=== PATIENT | female | born 2005 | race Caucasian/White ===

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

== ENCOUNTER 2025-04-21 23:54 | Emergency (ER) | payer BC, MEDICAID, SELFPAY ==
--- OUTSIDE RECORDS SUMMARY | 2025-04-22 00:01 | XMS_ITS | CCD ---
Author Organization [facility] Care Team Providers Care Other Sales Support Worker Name Role Phone DO Ronaldo Holland Primary Care Provider [phone] MD Tammy White Attending Provider Lilian Monreal Unavailable DO Ronaldo Holland Primary Care Provider MD Tammy White Attending Provider MISC, DR BANDA Admitting Unavailable MISC, DR BANDA Attending Unavailable RONALDO HOLLAND Primary Care Unavailable RONALDO HOLLAND Consulting Unavailable Shaista Dye Consulting Unavailable RONALDO HOLLAND Admitting Unavailable RONALDO HOLLAND Attending Unavailable RONALDO HOLLAND Primary Care Unavailable RONALDO HOLLAND Consulting Unavailable DO Ronaldo Holland Primary Care Provider [phone] MD Tammy White Attending Provider DO Ronaldo Holland Primary Care Provider [phone] MD Tammy White Attending Provider Unavailable Primary Care Provider Unavailabl e PROVIDER, UNKNOWN Admitting Unavailable PROVIDER, UNKNOWN Attending Unavailable DO Ronaldo Holland Primary Care Provider MD Tammy White Attending Provider DO Ronaldo Holland Primary Care Provider [phone] MD Tammy White Attending Provider Unavailable Primary Care Provider Unavailabl e DIANDRA MITCHELL Attending Unavailable DIANDRA MITCHELL Referring Unavailable SONIA BANGURA Attending Unavailable Ronaldo Holland MD Primary Care Provider Vanda Duran MD Primary Care Provider Vanda Duran MD Primary Care Provider [phone] Ronaldo Holland Primary Care Unavailable Tammy White Admitting Unavailable Tammy White Attending Unavailable Ronaldo Holland Primary Care Unavailable Tammy White Admitting Unavailable Tammy White Attending Unavailable Feng, RUDI Douglas L Attending Unavailable Feng, RUDI Stella L Attending Unavailable Feng, RUDI Stella L Attending Unavailable Allergies Allergy Classification Reported Allergen(s) Allergy Type Date of Onset Reaction(s) Facility (1 source) Prochlorperazine Drug Allergy Unknown [facility] Other (8 sources) Prochlorperazine Drug Allergy 1 [facility] (1 source) Prochlorperazine Drug Allergy 2 [facility] Repository Medications Current Medications Medication Drug [...] sulfate 6.25 mg extended release oral capsule (8 sources) Central Nervous System Stimulant End: 08-29-2024 take 1 capsule by mouth once daily in the morning, then take 1 capsule by mouth every twenty-four hours amphetamine-dextr oamphetamine XR (ADDERALL XR) 25 mg 24 hr capsule Take 25 mg by mouth every morning. Active atorvastatin 10 mg oral tablet (12 sources) HMG-CoA Reductase Inhibitor Start: 11-18-2023 End: 12-19-2024 take 1 tablet by mouth once daily in the morning atorvastatin (LIPITOR) 10 mg tablet TAKE 1 TABLET BY MOUTH EVERY MORNING 90 tablet 1 12/19/2024 Active Start: 05-17-2023 End: 11-18-2023 atorvastatin (LIPITOR) 10 mg tablet TAKE 1/2 TABLET BY MOUTH EACH MORNING 45 tablet 3 05/17/2023 11/18/2023 Discontinued (Reorder) Atorvastatin Tristan cium Active desmopressin acetate 0.1 mg oral tablet (8 sources) Vasopressin Analog, Factor VIII Activator Start: 11-10-2023 take 1 tablet by mouth once daily desmopressin (DDAVP) 0.1 mg tablet TAKE 1 TABLET BY MOUTH EVERY DAY 90 tablet 1 06/18/2023 Active ethinyl estradiol 0.035 mg / norgestimate 0.25 mg oral tablet (4 sources) Progestin, Estrogen take 1 tablet by [...] a day for 6 days Mar, Active [place] 3 (1 source) [place] 3 Active ondansetron 4 mg oral tablet (5 sources) Serotonin-3 Receptor Antagonist Start: 03-10-2022 take [...] Classification Problem Date Documented Da te Episodic/Chronic Cardiac dysrhythmias (2 sources) Postural orthostatic tachycardia syndrome ; Translations: [POTS (postural orthostatic tachycardia syndrome)] 09-13-2024 Chronic Disorders of lipid metabolism (4 sources) Hyperlipidemia, unspecified; Translations: [HYPERLIPIDEMIA UNSPECIFIED] Onset: 10-10-2022 Chronic Disorders usually diagnosed in infancy, childhood, or adolescence (2 sources) Autism spectrum disorder; Translations: [Autistic disorder] 09-13-2024 Chronic E Codes: Natural/environment (2 sources) Cat scratch injury; Translations: [Scratched by cat, initial encounter] 07-03-2024 Episodic Epilepsy; convulsions (5 sources) Neurological finding; Translations: [Unspecified convulsions] 06-11-2023 Episodic [...] RESULTS KIDNEY FUNCTION STDY] Onset: 10-12-2022 Episodic Residual codes; unclassified (2 sources) Lack of awareness; Translations: [Unspecified symptoms and signs involving cognitive functions and awareness] 09-13-2024 Episodic Sprains and strains (6 sources) Shoulder [...] Test Name Value Interpretation Reference Range Facility Ambulatory Visit Summaryon 0 01-24-2025 Ambulatory Visit Summary Ambulatory Visit Summary KENDY ANDUJAR :2005 Visit Date:01/24/2025 Ambulatory Visit Instructions Your Diagnosis Moderate major depression Anxiety disorder Autism spectrum disorder BMI 30.0-30.9,adult Non-smoker Class 1 obesity due to excess calories in adult Other obesity due to excess calories Your Care Team Attending Physician - Stella Christiansen Primary Care Physician - Stella Christiansen This Is Your Medications List amphetamine-dextroamp hetamine (Dextroamphetamine-Am phetamine ER (Eqv-Adderall XR) 25 mg oral capsule, extended release) atorvastatin (atorvastatin 10 mg Tab) escitalopram (escitalopram 5 mg oral tablet) Procedures Performed Tonsillectomy and adenoidectomy (02/03/2022), Appendectomy (09/17/2017). What to do next Scheduled Follow-Up Appointments 2024 2:40 PM EDT With: Stella Christiansen Where: [place] [address]- Medications What How Much When Instructions Unchanged amphetamine-dextroamp hetamine (Dextroamphetamine-Am phetamine ER (Eqv-Adderall XR) 25 mg oral capsule, [...] you for choosing us for your care. Normal [facility] Comprehensive Metabolic Pane rolando 01-24-2025 Albumin [Mass/Vol] 4.4 g/dL Normal 3.5-5.7 [facility] Comment on above: Performed By: #### C MP, LIPID #### [address] Albumin/Globulin [Mass ratio] 1.9 {ratio} Normal [facility] Comment on above: Performed By: #### C MP, LIPID #### [address] ALP [Catalytic activity/Vol] 62 U/L Normal 34-104 [facility] Comment on above: Performed By: #### C MP, LIPID #### [address] ALT [Catalytic activity/Vol] 10 U/L Normal 7-52 [facility] Comment on above: Performed By: #### C MP, LIPID #### [address] Anion gap [Moles/Vol] 10.7 mmol/L Normal 6.0-15.0 [facility] Comment on above: Performed By: #### C MP, LIPID #### [address] AST [Catalytic activity/Vol] 12 U/L Low 13-39 [facility] Comment on above: Performed By: #### C MP, LIPID #### [address] Bilirubin [Mass/Vol] 0.5 mg/dL Normal 0.3-1.0 [facility] Comment on above: Performed By: #### C MP, LIPID #### [address] Calcium [Mass/Vol] 9.5 mg/dL Normal 8.6-10.3 [facility] Comment on above: Performed By: #### C MP, LIPID #### [place] [address] [place] Chloride [Moles/Vol] 103 mmol/L Normal 98-107 [facility] Comment on above: Performed By: #### C MP, LIPID #### [place] [address] [place] CO2 [Moles/Vol] 29.4 mmol/L Normal 21.0-31.0 [facility] Comment on above: Performed By: #### C MP, LIPID #### [address] Creatinine [Mass/Vol] 1.30 mg/dL High 0.60-1.20 [facility] Comment on above: Performed By: #### C MP, LIPID #### [address] GFR/1.73 sq M.predicted MDRD (S/P/Bld) [Vol rate/Area] mL/min/{1.73_m2} Normal [facility] Comment on above: Performed By: #### C MP, LIPID #### [address] Globulin (S) [Mass/Vol] 2.3 g/dL Normal [facility] Comment on above: Performed By: #### C MP, LIPID #### [address] Glucose [Mass/Vol] 87 mg/dL Normal 70-100 [facility] Comment on above: Result Comment: [place] Glucose Reference Range is dependent on time and content of last meal. Glucose of more than 200 mg/dL in a nonstressed, ambulatory subject supports the diagnosis of Diabetes Mellitus. ADA recommended reference range Performed By: #### C MP, LIPID #### [address] Potassium [Moles/Vol] 4.1 mmol/L Normal 3.5-5.1 [facility] Comment on above: Performed By: #### C MP, LIPID #### [address] Protein [Mass/Vol] 6.7 g/dL Normal 6.4-8.9 [facility] Comment on above: Performed By: #### C MP, LIPID #### [address] Sodium [Moles/Vol] 139 mmol/L Normal 136-145 [facility] Comment on above: Performed By: #### C MP, LIPID #### [facility] [address] Urea nitrogen [Mass/Vol] 29 mg/dL High 03-02 [facility] Comment on above: Performed By: #### C MP, LIPID #### [facility] [address] [place] [id number] [facility] ECG Pediatricon 01-24-2025 ECG Pediatric [facility] Main [place] [address] [place] [address] Electrocardiograph Report Signed Patient: Kendy Andujar MR#: [id number] 60 : 2005 Acct:[id number] Age/Sex: 19 / F ADM Date: 01/24/25 Loc: Room: Type: [facility] Attending Dr: Tammy White MD Ordering [...] By Sammie Beck MD 0 01/24/25 1233 Normal [facility] Family Medicine Office/Clini c Noteon 01-24-2025 Family Medicine Office/Clinic Note Family Medicine Office/Clinic Note HPI Staff Kendy is a 19 year old female presenting with depression GORDON- PHQ- Was taking Lexepro stopped a week and a half ago.... moods were too high and too low peds took her off Lexepro [place] [facility] History of Present Illness pt presents today [...] E&M of New Patient Low 30-44 Min 92277 2. Anxiety disorder (F41.9: Anxiety disorder, unspecified) see above Ordered: buPROPion, 150 mg = 1 tab(s), Oral, q24hr, # 30 tab(s), Refills(s) 1, Pharmacy: [id number] E&M of New Patient Low 30-44 Min 16953 3. Autism spectrum disorder (F84.9: Pervasive developmental disorder, unspecified) stable. high functioning. Ordered: buPROPion, 150 mg = 1 tab(s), Oral, q24hr, # 30 tab(s), Refills(s) 1, Pharmacy: [id number] E&M of New Patient Low 30-44 Min 54293 4. BMI 30.0-30.9,adult (Z68.30: Body mass index [BMI] 30.0-30.9, adult) discussed making healthy food choices Ordered: buPROPion, 150 mg = 1 tab(s), Oral, q24hr, # 30 tab(s), Refills(s) 1, Pharmacy: [id number] E&M of New Patient Low 30-44 Min 25646 5. Class 1 obesity due to excess calories in adult (E66.811: Obesity, class 1) see above Ordered: buPROPion, 150 mg = 1 tab(s), Oral, q24hr, # 30 tab(s), Refills(s) 1, Pharmacy: [id number] E&M of New Patient Low 30-44 Min 70322 6. Non-smoker (Z78.9: Other specified health status) continue not smoking Ordered: buPROPion, 150 mg = 1 tab(s), Oral, q24hr, # 30 tab(s), Refills(s) 1, Pharmacy: [id number] E&M of New Patient Low 30-44 Min 33931 7. POTS (postural orthostatic tachycardia syndrome) (G90.A: Postural orthostatic tachycardia syndrome [POTS]) pt has been seeing a lease purchase driver. was just seen by them yesterday. they aurora some labs. they are suggesting she switch over to an adult crm technical lead. 8. Hypercholesteremia (E78.00: Pure hypercholesterolemia, unspecified) lipid panel drawn yesterday by cardiology. not taking atorvastatin Follow-up No qualifying data available Problem List/Past Medical History Ongoing Anxiety disorder Attention deficit hyperactivity disorder (ADHD) Autism spectrum disorder Hypercholesteremia Moderate major depression POTS (postural orthostatic tachycardia syndrome) Historical No qualifying data Procedure/Surgical History Tonsillectomy and adenoidectomy (02/03/2022), Appendectomy (09/17/2017). Medications atorvastatin 10 mg Tab, Not taking Dextroamphetamine-Amp hetamine ER (Eqv-Adderall XR) 25 mg oral capsule, extended release, Not taking escitalopram 5 mg oral tablet, 5 mg= 1 tab(s), Oral, Daily, Not taking Wellbutrin XL 150 mg/24 hours Tab-ER, 150 mg= 1 tab(s), Oral, q24hr, 1 refills Allergies No active allergies Social History Alcohol Never., 01/24/2025 Substance Abuse Never., 01/24/2025 Tobacco Never (less than 100 in lifetime) Tobacco Use:., 01/24/2025 [facility] Comment on above: Result Comment: Elec tronically Signed By: Stella Christiansen\.br\Date and Time Signed: 01/24/25 17:20 EDT Lipid Panelon 01-24-2025 Cholesterol [Mass/Vol] 209 mg/dL High 140-200 [facility] Comment on above: Result Comment: Chol less than 200 mg/dl low risk Chol 201-239 mg/dl borderline risk Chol 240 mg/dl and greater high risk Performed By: #### C MP, LIPID #### [address] Cholesterol in HDL [Mass/Vol] 37 mg/dL Normal 23-92 [facility] Comment on above: Result Comment: HDL CHOL ATP-III CLASSIFICATION Cardiovascular Risk HDL > or equal to 60 mg/dL LOW HDL < 40 mg/dL HIGH Performed By: #### C MP, LIPID #### [address] Cholesterol.total/Chol esterol in HDL [Mass ratio] 5.6 {ratio} Normal <5.0 [facility] Comment on above: Result Comment: PERF ORMED BY: [place] [address] PATHOLOGIST INFORMIX DEVELOPER GENESIS CARPENTER M.D. Performed By: #### C MP, LIPID #### [address] LDL Cholesterol,Calculated 149 mg/dL High 0-100 [facility] Comment on above: Result Comment: LDL ATP III CLASSIFICATION LDL less than 100 mg/dL Optimal LDL 100-129 mg/dL Near or above optimal LDL 130-159 mg/dL Borderline high LDL 160-189 mg/dL High LDL greater than 189 mg/dL Very high Performed By: #### C MP, LIPID #### [place] [address] [place] Triglyceride w/Reflex 113 mg/dL Normal 0-149 [facility] Comment on above: Result Comment: TRIG ATP III CLASSIFICATION TRIG less than 150 mg/dL Normal TRIG 150-199 mg/dL Borderline high TRIG 200-500 mg/dL High TRIG greater than 500 mg/dL Very high Standard traceable to the Center for Disease Conrtrol and Prevention (CDC) test method. Performed By: #### C MP, LIPID #### [facility] [address] VLDL CHOLESTEROL 22 mg/dL Normal [facility] Comment on above: Performed By: #### C MP, LIPID #### [facility] [address] [place] [id number] [facility] ECG Pediatricon 05-24-2024 ECG Pediatric [facility] Main [place] [address] [place] [address] Electrocardiograph Report Signed Patient: Kendy Andujar MR#: [id number] 60 : 2005 Acct:[id number] Age/Sex: 18 / F ADM Date: 05/24/24 Loc: Room: Type: [facility] Attending Dr: Tammy White MD Ordering [...] now present Confirmed by TAMMY WHITE MD ([id number]) on 05/24/2024 2:38:41 PM Referred By: Electronically Signed By: TAMMY WHITE MD Transcribed By: MUS Signed By Tammy White MD 05/24/24 1438 Normal [facility] Progress Noteson 06-11-2023 Manager Of Corporate Communications Authentication Interface Message Text EMERGENCY TRIAGE, TREAT AND TRANSPORT (ET3) DOCUMENTATION OF TELEHEALTH VISIT Date / Time: 05/08/20232229 Name: Kendy Andujar : 2005 SSN: [id number] EMS Agency: [facility] [x] Verbal consent obtained, from patient [...] Completed by: Pedro Bernal MD Normal [facility] KIDNEYSon 10-10-2022 US KIDNEYS EXAM: US [...] by: SHAISTA DYE Date: 2022-10-10 11:42 Normal [facility] Cholesterol [Mass/volume] in Serum or PlasmaOrdered By: Tammy White on 05-20-2022 Cholesterol [Mass/Vol] 194 mg/dL 140-200 [facility] Comment on above: Chol less than 200 m g/dl low riskChol 201-239 mg/dl borderline riskChol 240 mg/dl and greater high risk Cholesterol in LDL Calc [Mas s/Vol]Ordered By: Tammy White on 05-20-2022 Cholesterol in LDL [Mass/Vol] 138 mg/dL 0-100 [facility] Comment on above: LDL ATP III CLASSIFI CATIONLDL less than 100 mg/dL OptimalLDL 100-129 mg/dL Near or above optimalLDL 130-159 mg/dL Borderline highLDL 160-189 mg/dL HighLDL greater than 189 mg/dL Very high Cholesterol in VLDL Calc [Ma ss/Vol]Ordered By: Tammy White on 05-20-2022 Cholesterol in VLDL [Mass/Vol] 17 mg/dL [facility] Serum or plasma high density lipoprotein (HDL) cholesterol measurementOrdered By: Tammy White on 05-20-2022 Cholesterol in HDL [Mass/Vol] 38 mg/dL 35-85 [facility] Comment on above: HDL CHOL ATP-III CLA SSIFICATION Cardiovascular RiskHDL > or equal to 60 mg/dL LOWHDL < 40 mg/dL HIGH Serum or plasma total choles terol/high density lipoprotein (HDL) cholesterol mass ratOrdered By: Tammy White on 05-20-2022 Cholesterol.total/Chol esterol in HDL [Mass ratio] 5.1 {ratio} <5.0 [facility] Triglyceride [Mass/volume] i n Serum or PlasmaOrdered By: Tammy White on 05-20-2022 Triglyceride [Mass/Vol] 89 mg/dL 35-149 [facility] Comment on above: TRIG ATP III CLASSIF ICATIONTRIG less than 150 mg/dL NormalTRIG 150-199 mg/dL Borderline highTRIG 200-500 mg/dL High TRIG greater than 500 mg/dL Very highStandard traceable to the Center for Disease Conrtrol and Prevention (CDC) test method. Covid-19 PCR ([facility]on 04-09 SARS-CoV-2 (COVID-19) RNA DEBRA+probe Ql (Unsp spec) Not detected Normal NOT DETECTED [facility] Comment on above: Result Comment: This test is not yet approved or cleared by the [place] FDA. When there are no FDA-approved or cleared tests available, and other criteria are met, FDA can make tests available under an emergency access mechanism called an Emergency Use Authorization (EUA). The EUA for this test is supported by the Executive Chairman of Health and Human Service's (HHS's) declaration [...] consistent with SARS-CoV-2. Performed By: #### [facility] #### [facility] [address] [place] [address] Dr. Ivette Meyer COVID Quick Testingon 2021 COVID Quick Testing [facility] 3 Other COVID Quick Testing Negative [facility] [employer] Other Cholesterol [Mass/volume] in Serum or PlasmaOrdered By: Tammy White on 12-17-2021 Cholesterol [Mass/Vol] 226 mg/dL 140-200 [facility] Comment on above: Chol less than 200 m g/dl low risk Chol 201-239 mg/dl borderline risk Chol 240 mg/dl and greater high risk Cholesterol in LDL Calc [Mas s/Vol]Ordered By: Tammy White on 12-17-2021 Cholesterol in LDL [Mass/Vol] 168 mg/dL 0-100 [facility] Comment on above: LDL ATP III CLASSIFI CATION LDL less than 100 mg/dL Optimal LDL 100-129 mg/dL Near or above optimal LDL 130-159 mg/dL Borderline high LDL 160-189 mg/dL High LDL greater than 189 mg/dL Very high Cholesterol in VLDL Calc [Ma ss/Vol]Ordered By: Tammy White on 12-17-2021 Cholesterol in VLDL [Mass/Vol] 20 mg/dL [facility] Serum or plasma high density lipoprotein (HDL) cholesterol measurementOrdered By: Tammy White on 12-17-2021 Cholesterol in HDL [Mass/Vol] 37 mg/dL 35-85 [facility] Comment on above: HDL CHOL ATP-III CLA SSIFICATION Cardiovascular Risk HDL > or equal to 60 mg/dL LOW HDL < 40 mg/dL HIGH Serum or plasma total choles terol/high density lipoprotein (HDL) cholesterol mass ratOrdered By: Tammy White on 12-17-2021 Cholesterol.total/Chol esterol in HDL [Mass ratio] 6.1 {ratio} [facility] Triglyceride [Mass/volume] i n Serum or PlasmaOrdered By: Tammy White on 12-17-2021 Triglyceride [Mass/Vol] 103 mg/dL 35-149 [facility] Comment on above: TRIG ATP III CLASSIF ICATION TRIG less than 150 mg/dL Normal TRIG 150-199 mg/dL Borderline high TRIG 200-500 mg/dL High TRIG greater than 500 mg/dL Very high Standard traceable to the Center for Disease Conrtrol and Prevention (CDC) test method. Vital Signs Date Time Vital Sign Value Performing Clinician Facility 08-29-2024 17:31-0500 Body height 154.9 cm Diandra Mitchell DO Work Phone: [facility] 08-29-2024 17:31-0500 Body mass index (BMI) [Percentile] Per age and sex 83.57 % Diandra Paula DO Work Phone: [facility] 08-29-2024 17:31-0500 Body mass index (BMI) [Ratio] 25.7 kg/m2 Diandra Paula DO Work Phone: [facility] 08-29-2024 17:31-0500 Body weight 61.69 kg Diandra Paula DO Work Phone: [facility] 08-29-2024 17:31-0500 Diastolic blood pressure 74 mm[Hg] Diandra Paula DO Work Phone: [facility] 08-29-2024 17:31-0500 Heart rate 87 /min Diandra Paula DO Work Phone: [facility] 08-29-2024 17:31-0500 SaO2% (BldA) [Mass fraction] 98 % Diandra Paula DO Work Phone: [facility] 08-29-2024 17:31-0500 Systolic blood pressure 112 mm[Hg] Diandra Paula DO Work Phone: [facility] 05-08-2023 22:30-0400 Diastolic blood pressure 78 mm[Hg] Et[facility] 05-08-2023 22:30-0400 Heart rate 102 /min [facility] 22:30-0400 Respiratory rate 18 /min [facility] 05-08-2023 22:30-0400 SaO2% (BldA) [Mass fraction] 99 % [facility] 05-08-2023 22:30-0400 Systolic blood pressure 108 mm[Hg] [facility] 03-10-2022 19:30-0400 Body height 157.48 cm Lilian Jocelin Other [facility] Other 03-10-2022 19:30-0400 Body mass index (BMI) [Ratio] 30.36 kg/m2 Lilian Jocelin Other [facility] Other 03-10-2022 19:30-0400 Body temperature 96.9 [degF] Lilian Jocelin Other [facility] Other 03-10-2022 19:30-0400 Body weight 75.3 kg Lilian Jocelin Other [facility] Other 03-10-2022 19:30-0400 Respiratory rate 18 /min Lilian oMnreal Other [facility] Other 03-10-2022 19:30-0400 SaO2% (BldA) [Mass fraction] 98 % Lilian Monreal Other [facility] Other Encounters Encounter Date Encounter Type Care Provider Facility Start: 04-04-2025 End: 04-04-2025 ambulatory REALTY LO[employer] SPECIALIST Stella L Feng Facility:[facility] Start: 03-07-2025 End: 03-07-2025 ambulatory REALTY LOAN SPECIALIST Stella L Feng Facility:[facility] Start: 01-24-2025 End: 01-27-2025 ambulatory Tammy White MD Work Phone: [facility] Start: 12-15-2024 End: 12-19-2024 Refill [facility] White MD [facility] Comment on above: Med Refill Start: 09-11-2024 End: 09-11-2024 ambulatory DIANDRA PAULA Not Available Start: 09-07-2024 End: 09-07-2024 ambulatory DIANDRA PAULA Not Available Start: 08-29-2024 End: 08-29-2024 Office consultation new/estab patient 60 min Diandra Paula DO Work Phone: [facility] Comment on above: Seizure (CMS/HCC) (P rimary Dx); POTS (postural orthostatic tachycardia syndrome); Autism (CMS/HCC); Alteration of awareness Start: 08-29-2024 End: 08-29-2024 ambulatory DIANDRA PAULA Not Available Start: 07-03-2024 End: 07-04-2024 ambulatory SUMMER M WORKMAN Not Available Start: 07-03-2024 End: 07-04-2024 Office outpatient visit 25 minutes Summer M Workman PA Work Phone: [facility] Comment on above: Cat scratch of multi ple sites (Primary Dx); Open wound of right middle finger due to cat bite Start: 05-25-2024 End: 05-26-2024 Refill Tammy White MD Work Phone: [facility] Comment on above: Med Refill Start: 05-24-2024 End: 05-24-2024 Patient encounter procedure DO Ronaldo Holland Work Phone: [facility] Work Phone: Start: 05-24-2024 End: 05-24-2024 ambulatory DO Ronaldo Paul Skyler Work Phone: [facility] Ctr Work Phone: Start: 11-24-2023 End: 11-24-2023 ambulatory DO Ronaldo Paul Holland Work Phone: [facility] Work Phone: Start: 11-24-2023 End: 11-24-2023 Patient encounter procedure DO Ronaldo Holland Work Phone: [facility] Work Phone: Start: 11-12-2023 End: 11-18-2023 Telephone encounter [facility] Start: 06-11-2023 End: 07-06-2023 ambulatory UN[facility]ER [facility] Start: 05-08-2023 End: 05-08-2023 ambulatory [facility] Emergenc y Triage, Treat and Transport Start: 05-08-2023 End: 05-08-2023 Emergency department patient visit [facility] Emergency Triage, Treat and Transport Comment on above: Arrived Start: 03-24-2023 End: 03-24-2023 ambulatory DO Ronaldo A Skyler Work Phone: [facility] Work Phone: Start: 03-24-2023 End: 03-24-2023 Patient encounter procedure DO Ronaldo Holland Work Phone: [facility] Work Phone: Start: 11-25-2022 End: 11-25-2022 ambulatory DO Ronaldo Paul Skyler Work Phone: [facility] Work Phone: Start: 11-25-2022 End: 11-25-2022 Patient encounter procedure DO Ronaldo Holland Work Phone: [facility] Work Phone: Start: 10-10-2022 End: 10-11-[address] DOCTOR PARIKH Facility:[facility]1 Start: 05-20-2022 End: 05-20-2022 ambulatory DO Ronaldo Holland Work Phone: [facility] Work Phone: Start: 05-20-2022 End: 05-20-2022 Patient encounter procedure DO Ronaldo Holland Work Phone: [facility] Start: 04-23-2022 End: 04-24-2022 ambulatory RONALDO HOLLAND Facility:[facility]1 Start: 03-10-2022 End: 03-10-2022 ambulatory Lilian Monreal Other [employer] Other Start: 03-10-2022 Office outpatient vi sit 15 minutes Lilian Monreal [facility] Start: 12-17-2021 End: 12-17-2021 Patient encounter procedure DO Ronaldo Holland Work Phone: [facility] Plan of Treatment Date Care Activity Detail Author Start: 09-23-2026 DTaP,Tdap and Td Vaccines (7 - Td or Tdap) DTaP,Tdap and Td Vaccines (7 - Td or Tdap) [facility] Start: 09-23-2026 Tetanus,Diptheria,Pe rtu ssis Vaccine (7 - Td or Tdap) Tetanus,Diptheria,Pertu ssis Vaccine (7 - Td or Tdap) [facility] Start: 04-09-2025 Influenza vaccination Influenza Vacc ine [facility] Start: 10-17-2024 End: 10-17-2024 Patient encounter procedure 10/17/2024 10:00 AM EDT Office Visit LARISA FUNK [address] [id number] Chen Crowell, CORN GRINDER [address] [place] LARISA FUNK Start: 08-29-2024 End: 08-29-2025 Home EEG 36-84 Hours Home EEG 36-84 Hours Neurology Routine Seizure (CMS/HCC) Expected: 08/29/2024 (Approximate), Expires: 08/29/2025 [facility] Work Phone: Comment on above: Expected: 08/29/2024 (Approximate), Expires: 08/29/2025 Start: 04-09-2024 Influenza vaccination [facility] Start: 2023 Adult BMI Screening Adult BMI Screen ing [facility] Start: 04-09-2023 COVID-19 Vaccine (2022- season) [facility] ( [facility] Start: 04-09-2023 Influenza vaccination Influenza Vacc ine (#1) [facility] Start: 2021 MCV (1 - 2-dose series) MCV (1 - 2-d ose series) [facility] Start: 2021 MCV (2 - 2-dose series) MCV (2 - 2-d ose series) [facility] Start: 2021 Meningococcal B (Bexsero,OMV) Vaccine (Optional,16-23 years) Meningococcal B (Bexsero,OMV) Vaccine (Optional,16-23 years) [facility] Start: 2021 Meningococcal Conjug ate (MCV4,ACWY) Vaccine (2 - 2-dose series) Meningococcal Conjugate (MCV4,ACWY) Vaccine (2 - 2-dose series) [facility] Start: 2020 HIV screening HIV Test [facility] Start: 2020 HPV Vaccines (1 - 3-dose series) HPV Vaccines (1 - 3-dose series) [facility] Start: 2020 Screening for Chlamy salud trachomatis STI Screening (Age 15-17) [facility] Start: 2020 Vision Test (15-17 yrs,once) Vision Test (15-17 yrs,once) [facility] Start: 2018 Varicella Vaccines ( 1 of 2 - 13+ 2-dose series) Varicella Vaccines (1 of 2 - 13+ 2-dose series) [facility] Start: 2017 Depression Screening Depression Scre ening [facility] Start: 2017 Tobacco Screening Tobacco Screening [facility] Start: 2016 Adolescent Depressio n Screening Adolescent Depression Screening [facility] Start: 2015 Hearing Test (10-18 yrs,once) Hearing Test (10-18 yrs,once) [facility] Start: 2012 DTaP,Tdap and Td Vaccines (1 - Tdap) DTaP,Tdap and Td Vaccines (1 - Tdap) [facility] Start: 06-30-2012 MMR Vaccines (2 of 2 - Standard series) MMR Vaccines (2 of 2 - Standard series) [facility] Start: 2008 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, 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,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) [facility] Start: 2006 Hepatitis A Vaccines (1 of 2 - 2-dose series) Hepatitis A Vaccines (1 of 2 - 2-dose series) [facility] Start: 2006 MMR Vaccines (1 of 2 - Standard series) MMR Vaccines (1 of 2 - Standard series) [facility] Start: 06-10-2006 Hepatitis B Vaccines (3 of 3 - 3-dose series) Hepatitis B Vaccines (3 of 3 - 3-dose series) [facility] Start: 2005 Hepatitis B Vaccines (1 of 3 - 3-dose series) Hepatitis B Vaccines (1 of 3 - 3-dose series) [facility] Home EEG 36-84 Hours Home EEG 36 -84 Hours Neurology Routine Seizure (CMS/HCC) 09/11/2024 8:35 AM EST [facility] Immunizations Immunization Date Immunization Notes Care Provider Fa cility 07-03-2024 tetanus toxoid, redu blas diphtheria toxoid, and acellular pertussis vaccine, adsorbed [facility] Work Phone: [facility] 01-20-2023 meningococcal B vaccine, recombinant, OMV, adjuvanted [facility] Work Phone: [facility] 01-20-2023 meningococcal polysaccharide (groups A, C, Y and W-135) diphtheria toxoid conjugate vaccine (MCV4P) [facility] Work Phone: [facility] 05-18-2022 influenza, injectabl e, quadrivalent, preservative free [facility] Work Phone: [facility] 05-18-2022 influenza virus vaccine, unspecified formulation Tammy White MD Work Phone: [facility] 05-02-2021 influenza, injectabl e, quadrivalent, preservative free [facility] 05-02-2021 influenza virus vaccine, unspecified formulation [facility] 04-19-2020 influenza, injectabl e, quadrivalent, preservative free [facility] 05-03-2019 influenza, injectabl e, quadrivalent, preservative free [facility] 09-12-2018 influenza, injectabl e, quadrivalent, preservative free [facility] 06-22-2017 human papilloma viru s vaccine, quadrivalent [facility] 06-22-2017 influenza, injectabl e, quadrivalent, preservative free [facility] 09-23-2016 Meningococcal, MCV4, unspecified conjugate formulation(groups A, C, Y and W-135) [facility] 09-23-2016 tetanus toxoid, redu blas diphtheria toxoid, and acellular pertussis vaccine, adsorbed [facility] 06-03-2016 Human Papillomavirus 9-valent vaccine [facility] 05-22-2016 influenza virus vaccine, unspecified formulation [facility] 05-31-2015 influenza virus vaccine, unspecified formulation [facility] 06-26-2014 influenza virus vaccine, unspecified formulation [facility] 05-24-2013 influenza virus vaccine, unspecified formulation [facility] 06-02-2012 influenza virus vaccine, unspecified formulation [facility] 06-02-2012 measles, mumps and rubella virus vaccine [facility] 06-02-2012 varicella virus vaccine [facility] 06-13-2010 influenza virus vaccine, unspecified formulation [facility] 09-30-2009 diphtheria, tetanus toxoids and acellular pertussis vaccine [facility] 09-30-2009 measles, mumps and rubella virus vaccine [facility] 09-30-2009 poliovirus vaccine, inactivated [facility] 09-30-2009 varicella virus vaccine Et[facility] 09-12-2009 influenza virus vaccine, unspecified formulation [facility] 06-15-2008 influenza virus vaccine, unspecified formulation [facility] 03-01-2008 influenza virus vaccine, unspecified formulation [facility] 10-09-2007 measles, mumps and rubella virus vaccine Et[facility] 05-20-2007 hepatitis A vaccine, pediatric/adolescent dosage, 2 dose schedule [facility] 05-20-2007 pneumococcal Conjuga te, unspecified formulation [facility] 11-04-2006 diphtheria, tetanus toxoids and acellular pertussis vaccine Et[facility] 11-04-2006 haemophilus influenz ae type b vaccine, PRP-T conjugate [facility] 11-04-2006 hepatitis A vaccine, pediatric/adolescent dosage, 2 dose schedule Et[facility] 11-04-2006 measles, mumps, rubella, and varicella virus vaccine Et[facility] 11-04-2006 pneumococcal conjuga te vaccine, 7 valent Et[facility] 11-04-2006 measles, mumps and rubella virus vaccine Tammy White MD Work Phone: [facility] 07-08-2006 influenza, seasonal, injectable Et[facility] 04-15-2006 diphtheria, tetanus toxoids and acellular pertussis vaccine Et3 [facility] 04-15-2006 haemophilus influenz ae type b conjugate and Hepatitis B vaccine Et[facility] 04-15-2006 pneumococcal conjuga te vaccine, 7 valent [facility] 04-15-2006 poliovirus vaccine, inactivated [facility] 01-29-2006 diphtheria, tetanus toxoids and acellular pertussis vaccine Et3 [facility] 01-29-2006 haemophilus influenz ae type b conjugate and Hepatitis B vaccine Et3 [facility] 01-29-2006 pneumococcal conjuga te vaccine, 7 valent [facility] 01-29-2006 poliovirus vaccine, inactivated [facility] 2005 diphtheria, tetanus toxoids and acellular pertussis vaccine [facility] 2005 haemophilus influenz ae type b vaccine, PRP-T conjugate [facility] 2005 hepatitis B vaccine, pediatric or pediatric/adolescent dosage [facility] 2005 poliovirus vaccine, inactivated [facility] Payers Date Payer Category Payer Self-pay [id number] 2022 Medicaid [id number] 2022 Medicaid [id number] 2020 Blue Cross Blue Shield [id number] 2020 Blue Cross Blue Shie ld Managed Care - Other ANTHEM [id number] 2020 Unknown AN[employer]M BCBS OUT OF STATE PPO/TRUST [id number] 2020-Present [phone] [address] [place] [address] [id number] 2005 Unknown [id number] [id number]. 593 2005 Unknown [id number] [id number]. 1259 2005 Unknown [id number] 2.16.840.1.039695.3.579.2. 1259 2005 Unknown [id number] 2.16.840.1.060368.3.579.2. 1259 2005 Unknown [id number] 2.16.840.1.378270.3.579.2. 1259 2005 Unknown [id number] 2.16.840.1.050667.3.579.2. 727 2005 Unknown [id number] 2.16.840.1.399405.3.579.2. 727 2005 Unknown [id number] 2.16.840.1.662357.3.579.2. 727 1984 Unknown [id number] 2.16.840.1.966846.3.579.2. 593 1959 Unknown [id number] 1959 Unknown [id number] [id number] Unknown [id number] 2.16.840.1.734122.3.579.2. 732 [employer] ( and others) [id number] Medicaid [id number] Medicaid [place] Advantage [id number] Unknown [id number] [id number]. 531 Unknown [id number] [id number]. 531 Social History Date Type Detail Facility Tobacco smoking status NHIS Unknown if ever smoked [facility] Work Phone: Start: 2005 Sex Assigned At Female F [facility] Start: 09-18-2020 End: 08-29-[address] [facility] [employer] Other Tobacco smoking status NHIS Tobacco smoking consumption unknown [facility] Start: 2005 Sex Assigned At [facility] on file [facility] Start: 12-03-2020 End: 08-29-2024 Tobacco smoking status NHIS Never smoked tobacco [facility] Start: 12-03-2020 End: 08-29-2024 Tobacco use and exposure Smokeless tobacco non-user [facility] Start: 09-18-2020 End: 08-29-2024 History of Social function [facility] Start: 12-31-2020 Alcoholic beverage intake Current non-drinker of alcohol (finding) [facility] Childcare Unknown [facility] Start: 03-12-2015 Sex Female (finding) [facility] Clinical Notes 03-10-2022 to 08-29-2024 Diandra Mitchell DO - 08/29/2024 5:30 PM GAVINO Hutchinson - 07/03/2024 7:30 PM ESTTelephone Encounter - Lyndsey Walker RN - 11/12/2023 3:31 PM Pedro Suarez MD - 06/11/2023 11:51 AM EDT Note Date & Type Note Facility 08-29-2024 History of Presen t illness Narrative Images from the original note were not included. Chief Complaint Patient presents with POTS Seizures Subjective Kendy Andujar, 18 y.o., female being seen in Neurology consultation at the request of Dr. Ronaldo Holland. He is on peds on wheels. HPI SELF / PHONED IN : POTS , tremors, seen @ [facility] ER , PCP [facility] Wheels Patient is here today with her mom. She was diagnosed with POTS November of 2020 after having COVID. The COVID symptoms were basically just a bad cold. She was not hospitalized. Since that time she started to have the syncope. She has been passing out once a week. She does not get other lightheaded spells. She only gets them when she does not eat appropriately. She was diagnosed with seizures-like events the same time that she was diagnosed with POTS. The adjunct psychology faculty member that saw them thought they were not a true seizure. Mom states that she had an event 2 days ago. She was at a friends house and she fell down and was convulsing. It lasted 30 seconds to a minute. Mom states there have been a few that lasted 4-5 minutes. She does not recall the events. Mom states that she is confused and tired after an event. She denies any trauma to her tongue or mouth. She denies loss of bladder. She did have an EEG at the [facility]. She does not know results. Mother witnessed them. At first they were staring off spells. She has other ones that she has her head is to the side and her eyes are rolled back. They are not closed. Mother states her head will jerk side to side. She is fairly stiff. She will tell mother that she does not feel well and will sit down. Other times she just drops. She had a MCD[place]LL at a football game and she dropped down and had an event. The patient went to the [place] ER for her arms jerking. This was also making her arms hurt. She was given a muscle relaxer and this helped her symptoms. She sees a Clinical Auditor for POTS at [facility]- she was told to keep her sodium levels up. She does not think that she had a tilt table. She thinks she had a CT or MRI. She saw the lease purchase driver at [facility]. She also has a history of Hyperlipidemia. She has a hx of some hypoglycemia. She saw a previous pediatric Neurologist. Past Medical History: Diagnosis Date Anxiety Autism (CMS/HCC) Hyperlipidemia (CMS/HCC) Hypotension POTS (postural orthostatic tachycardia syndrome) Past Surgical History: Procedure Laterality Date APPENDECTOMY TONSILLECTOMY Family History Problem Relation Name Age of Onset Migraines Mother Kidney disease Mother Alcohol abuse Father Developmental delay Father Hypertension Father Hyperlipidemia Father Autism Father Social History Tobacco Use Smoking status: Never Smokeless tobacco: Never Substance Use Topics Alcohol use: Not on file Allergies: Prochlorperazine General: No fever or chills HEENT: No nasal congestion or runny nose Pulmonary: No shortness of breath or cough Cardiovascular: No chest pain or palpitations GI: No nausea or vomiting : No dysuria or hematuria Musculoskeletal: No new aches or pains or muscle weakness Infectious: no recurrent fevers or infections Dermatologic: No rashes or skin lesions Neurologic: No new headaches or dizziness Vitals: 08/29/24 1731 BP: 112/74 Pulse: 87 SpO2: 98% Body mass index is 25.7 kg/m . weight: 136 lb Neurologic exam: General: Normal body habitus, cooperative, pleasant Mental status: Awake, alert to person, place and time. Recent and remote memory below average with mild autism Attention and concentration are normal. Fund of knowledge is below average with autism HEENT: NC/AT Cranial nerves: CN II: Visual giron full to confrontation. No loss of vision CN III, IV, : pupils equal round and reactive to light. Extraocular movements intact. No ptosis present. CN V: Facial sensation is normal. CN VII: Full and symmetric facial movement. CN VIII: Hearing is normal CN IX and X: Palate elevates symmetrically. CN XI: Shoulder shrug is normal bilaterally. CN XII: Tongue is midline without atrophy or fasciculation. Speech: Clear and fluent no aphasia or dysarthria Pronator drift: Negative bilateral upper extremity Coordination: Intact, no signs of dysmetria Good finger to nose and rapid alternating movements Sensory: Sensation is intact to light, temperature and vibratory touch throughout four extremities. Pinprick intact in all four extremities. Motor: LUE 5/5 RUE 5/5 LLE 5/5 RLE 5/5 Tone: Physiologic, no tremor, bradykinesia or rigidity DTR: Bilateral Biceps 2/4 Bilateral BR 2/4 Bilateral Patellar 2/4 No spasticity Gait: Normal to casual gait Romberg's Negative Review and summary of old records: Assessment/Plan Diagnoses and all orders for this visit: Seizure ([facility]) - Home EEG 36-84 Hours; Future POTS (postural orthostatic tachycardia syndrome) Autism ([facility]) Alteration of awareness 18-year-old Autistic female with seizure-like episodes. Patient was diagnosed with POTS and has seen Cardiology for that. She is trying to keep her sodium and fluids up. She however has had some syncopal events with suspected post syncopal convulsions. She may be having some nonepileptic seizure type of events but we would like to rule out seizure. She did have a normal EEG routine. She did have a workup for seizure back in 2020. She had a normal routine EEG and they were going to do a longer EEG we do not have those records. We will try to track down. At this time I am not entirely convinced this is seizure this may be more related to the POTS with post syncopal convulsions versus nonepileptic events. I feel she needs an ambulatory EEG to assess this further. I am hopeful that we will capture 1 of the events so we can determine their etiology. Plan We will try to track down any brain imaging that is been done Routine EEG was normal Ambulatory EEG and try to capture 1 of the events Drink half of her body weight and oz of water per day 3-5 g of salt per day Monitor the blood pressure Monitor for any triggers such as stress We will decide the next step in treatment or for possible addition of antiseizure medicine once we have her ambulatory EEG The diagnosis was all discussed with the patient. All questions were answered and they agreed with the treatment plan. Patient will call if there are any new issues or questions. Pt has been fully educated on their diagnosis, treatment options, follow up plan, and return instructions Return to clinic: 6-8 weeks documented in this encounter [facility] 07-03-2024 History of Presen t illness Narrative [address] [facility], [address] P: [phone] F: [phone] HPI Historian of HPI: patient Kendy Andujar is a 18 y.o. female who [...] tablet; Refill: 0 documented in this encounter [facility] 11-12-2023 Miscellaneous Notes Called patient's mother with message below. Mother states that patient has been compliant with her atorvastatin. ----- Message from Tammy White MD sent at 11/12/2023 10:18 AM EDT ----- Please let parents know that her LDL has increased after her not being compliant with her medication. She needs to go back on her statin drug. Her LDL is 148 and we would like it to be a proximally 100-110. Her triglycerides are elevated and this is a direct relation to her eating fatty foods. Please find out if she was taking her medication around the time that she did her lab work. If she was then we will have to increase the dose. Patient was taking medication at the time of her labwork, will call patient's mother back with the increased dosage as soon as you let me know. I have sent a prescription for 10 mg once per day. She was taking half a tablet now she is to take 1 entire tablet. She needs to repeat her labs in 3 months documented in this encounter [facility] 11-12-2023 Telephone encounter Note Called patient's mother with message below. Mother states that patient has been compliant with her atorvastatin. ----- Message from Tammy White MD sent at 11/12/2023 10:18 AM EDT ----- Please let parents know that her LDL has increased after her not being compliant with her medication. She needs to go back on her statin drug. Her LDL is 148 and we would like it to be a proximally 100-110. Her triglycerides are elevated and this is a direct relation to her eating fatty foods. [facility] 11-12-2023 Telephone encounter Note Please find out if she was taking her medication around the time that she did her lab work. If she was then we will have to increase the dose. [facility] 11-12-2023 Telephone encounter Note Patient was taking medication at the time of her labwork, will call patient's mother back with the increased dosage as soon as you let me know. [facility] 11-12-2023 Telephone encounter Note I have sent a prescription for 10 mg once per day. She was taking half a tablet now she is to take 1 entire tablet. She needs to repeat her labs in 3 months T [facility] 06-11-2023 History of Presen t illness Narrative Images from the original note were not included. EMERGENCY TRIAGE, TREAT AND TRANSPORT (ET3) DOCUMENTATION OF TELEHEALTH VISIT Date / Time: 05/08/2023 / 2229 Name: Kendy Andujar : 2005 SSN: [id number] EMS Agency: [facility] [x] Verbal consent obtained, from patient [...] Pedro Bernal MD documented in this encounter [facility] 03-10-2022 Evaluation note Encounter Date Diagnosis Assessment [...] care provider if no improvement of symptoms. Finding Something 3 Other Evaluation noteNo assessment information available [facility] Work Phone: Evaluation note* Diagnosis Seizure-like activity (HCC)- Primary Other convulsions [facility] Cat scratch of multiple sites- Primary Open wound of right middle finger due to cat bite [facility] Diagnosis Seizure (CMS/HCC)- Primary Other convulsions POTS (postural orthostatic tachycardia syndrome) Unspecified tachycardia Autism (CMS/HCC) Autistic disorder, current or active state Alteration of awareness documented in this encounter [facility]History general Narrative - Reported* Type Description Date Medical History hypercholesterolemia Surgical History tonsillectomy and adenoidectomy Surgical History appendectomy Hospitalization History staff infection Finding Something 3 Other InstructionsNot on filedocumented in this encounter [employer] SystemInstructionsNot on filedocumented in this encounter [employer] SystemInstructionsNot on filedocumented in this encounter [employer] [facility] Chief Complaint and Reason for Visit [...] May 24, 2024 End: May 24, 2024 Other Sales Support Worker Relationship Specialty Start Date End Date Ronaldo Holland MD [address] [place] [address] PCP - General Pediatrics 08/04/24 Other Sales Support Worker Relationship Specialty Start Date End Date Vanda Duran MD [address] [address] PCP - General Pediatrics 12/21/16 Other Sales Support Worker Relationship Specialty Start Date End Date Vanda Duran MD [address] [address] PCP - General Pediatrics 12/21/16 Other Sales Support Worker Relationship Specialty Start Date End Date Vanda Duran MD [address] [address] PCP - General Pediatrics 12/21/16 Other Sales Support Worker Relationship Specialty Start Date End Date Vanda Duran MD [address] [address] PCP - General Pediatrics 12/21/16 Goals (unrecognized section and content) Goals may be documented in a n alternate sectionNo InformationGoals may be documented in an alternate sectionGoals may be documented in an alternate sectionGoals may be documented in an alternate sectionGoals may be documented in an alternate sectionGoals may be documented in an alternate sectionNot on filedocumented as of this encounterNot on filedocumented as of this encounterNot on filedocumented as of this encounterNot on filedocumented as of this encounter REASON FOR VISIT (unrecogniz ed section and content) Reason Comments Seizures Reason Comments POTS Seizures Reason Comments Med Refill INFORMATION SOURCE (unrecogn ized section and content) DATE CREATED AUTHOR 10/13/2022 [facility] DATE CREATED AUTHOR AUTHOR'S ORGANIZ ATION 07/08/2023 [facility] DATE CREATED AUTHOR AUTHOR'S ORGANIZ ATION 09/12/2024 [facility] DATE CREATED AUTHOR AUTHOR'S ORGANIZ ATION 02/16/2025 [facility] DATE CREATED AUTHOR AUTHOR'S ORGANIZ ATION 04/05/2025 [facility] FOR RECORDS PERTAINING TO PATIENTS WHO ARE [...] BE BASED ON THE PRIMARY CLINICAL RECORDS. [facility] [employer] [facility]. provides no warranty or guarantee of the accuracy or completeness of information in this document.
[2025-04-22 00:31] VITALS: BP 124/81; PULSE 88; TEMP 36.8; O2SAT 96; BMI 31.2
--- NOTE | 2025-04-22 00:36 | XR_ITS ---
[place] [id number] Patient Name: KENDY MENDENHALL MRN: [id number] date: 2005 Sex: F Assigned Patient Location: ER Current Patient Location: Accession/Order Number: [id number] Exam Date: 04/22/2025 00:48 Report Date: 04/22/2025 08:37 At the request of: ASHISH REN MD Procedure: XR chest 2V Plain film chest Single view HISTORY: Shortness of breath COMPARISON: None FINDINGS: SUPPORT DEVICES: None POSTSURGICAL CHANGES: None HEART: Within normal limits PULMONARY REGGIE: Within normal limits MEDIASTINUM: Unremarkable LUNGS AND PLEURA: No acute lung process, pleural effusion or pneumothorax identified. BONY STRUCTURES: Intact ADDITIONAL FINDINGS None XR/XR chest 2V IMPRESSION: No acute process. Impression dictated by: Amador Payne M.D. 04/22/2025 8:37 AM Dictation Location: [place] [address] Electronically authenticated by: [id number] Y Date: 04/22/2025 08:37
[2025-04-22 01:40] LABS: SARS-CoV-2 Ag POSITIVE (NEGATIVE)
[2025-04-22 02:40] VITALS: BP 125/74; PULSE 58; O2SAT 100
--- NOTE | 2025-04-22 02:52 | ED_ITS ---
HPI - URI/Sore Throat General Chief Complaint: Upper Respiratory Infection Stated Complaint: SOB Time Seen by Provider: 04/22/25 00:36 Source: patient History of Present Illness HPI Narrative: ill 3 days. history of asthma. cough past 3 days. productive of yellow clear phlegm. Feels short of breath. no fever. Has nasal congestion, bodyaches and sore throat Related Data Home Medications ?Medication ?Instructions ?Recorded ?Confirmed atorvastatin 10 mg tablet 10 mg PO DAILY 03/07/2305/09 dextroamphetamine-amphetamine ER 25 mg PO DAILY 05/18/24 25 mg 24hr capsule,extend release norgestimate 0.25 mg-ethinyl 1 tab PO DAILY 03/07/23 estradiol 0.035 mg tablet (Dariana) Previous Rx's ?Medication ?Instructions ?Recorded hydroxyzine HCl 25 mg tablet 25 mg PO Q6H PRN itching #20 tabs 09/27/23 prednisone 20 mg tablet 60 mg (3 x 20 mg) PO DAILY 3 days 09/27/23 #9 tabs Allergies Allergy/AdvReac Type Severity Reaction Status Date / Time raspberry Allergy Intermediate Rash Verified 04/22/25 00:31 Review of Systems ROS Status of ROS 10 or more systems reviewed and unremark able except as noted in history and below [facility] Social History Smoking status: Never smoker Little interest or pleasure in doing things: not at all Feeling down, depressed, or hopeless: not at all Exam Constitutional Vital Signs, click to edit/add: Last Vital Signs Temp 98.2 F 04/22/25 00:31 Pulse 58 L 04/22/25 02:40 Resp 20 04/22/25 02:40 BP 125/74 04/22/25 02:40 Pulse Ox 100 04/22/25 02:40 O2 Del Method Room Air 04/22/25 02:40 Common normals: no apparent distress, average body habitus, oriented x3, no limitations, healthy appearing, alert and well nourished [facility] Common normals: normocephalic and head/scalp atraumatic Other: mild posterior pharynx erythema Respiratory Common normals: normal respiratory effort, no retractions, no use of accessory muscles and clear to auscultation bilaterally Cardio Common normals: regular rate, regular rhythm and S1 normal heart sound GI Common normals: Normal to inspection, nondistended, normoactive bowel sounds present, soft to palpation and non-tender Extremity Common normals: normal to inspection and full ROM Neuro Common normals: oriented x3, CN's II-XII intact bilaterally, moves all extremities and no focal motor deficits Psych Appearance: grossly normal Course Vital Signs Vital signs: Vital Signs Temperature 98.2 F 04/22/25 00:31 Pulse Rate 88 04/22/25 00:31 Respiratory Rate 20 04/22/25 00:31 Blood Pressure 124/81 04/22/25 00:31 Pulse Oximetry 96 04/22/25 00:31 Oxygen Delivery Method Room Air 04/22/25 00:31 Temperature 98.2 F 04/22/25 00:31 Pulse Rate 58 L 04/22/25 02:40 Respiratory Rate 20 04/22/25 02:40 Blood Pressure 125/74 04/22/25 02:40 Pulse Oximetry 100 04/22/25 02:40 Oxygen Delivery Method Room Air 04/22/25 02:40 MDM - URI/Sore Throat MDM Narrative Medical decision making narrative: presents ll past 3 days with cough . body aches, sore throat and nasal congestion. Feels short of breath. History of asthma. chest clear. cxray per my review is neg. covid 19+. Patient advised of the diagnosis and discharged home with prednisone. she has an inhaler waiting for her at the pharmacy Lab Data Labs: Lab Results 04/22/25 Range/Units 00:37 Influenza Type A Ag Negative Influenza Type B Ag Negative SARS-CoV-2 Ag (CV2AG) Positive A (NEGATIVE) Discharge Plan Discharge Chief Complaint: Upper Respiratory Infection Clinical Impression: COVID-19 Patient Disposition: Home, Self-Care Prescriptions / Home Meds: No Action norgestimate-ethinyl estradiol [Dariana] 0.25-35 mg-mcg tablet 1 tab PO DAILY atorvastatin 10 mg tablet 10 mg PO DAILY dextroamphetamine-amphetamine 25 mg capsule,extended release 24hr 25 mg PO DAILY prednisone 20 mg tablet 60 mg PO DAILY 3 Days Qty: 9 0RF hydroxyzine HCl 25 mg tablet 25 mg PO Q6H PRN (Reason: itching) Qty: 20 0RF Print Language: Macedonian Instructions: COVID-19 (Coronavirus Disease 2019) (ED) Referrals: Paige Holland NP [Primary Care Provider] - 1 week
[2025-04-22] MEDS: PREDNISONE 20 MG TABLET 40 MG PO (02:58)
== END 2025-04-22 03:08 | disposition home or self-care (01) ==
PROVIDERS: Emergency Provider Internal Medicine; PCP Nurse Practitioner Family
DX: U07.1 COVID-19 (principal); J45.909 Unspecified asthma, uncomplicated
CPT/HCPCS: 71046; 87804; 87811; 99284; J7512

== ENCOUNTER 2025-05-06 17:29 | Emergency (ER) | payer BC, MEDICAID, SELFPAY ==
--- OUTSIDE RECORDS SUMMARY | 2025-04-04 15:20 | XMS_ITS ---
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 Operator Name Role Phone Feng, RUDI Duff Attending Unavailable Feng, RUDI Duff Attending Unavailable Feng, RUDI Duff Attending Unavailable DIANDRA MITCHELL Attending Unavailable DIANDRA MITCHELL Referring Unavailable SONIA BANGURA Attending Unavailable Tammy White Admitting Unavailable Tammy White Attending Unavailable Levon Holland Primary Care Unavailable Tammy White Admitting Unavailable Tammy White Attending Unavailable Levon Holland Primary Care Unavailable PROBLEMS DATE TYPE CONDITION / CODE ATTENDING STATUS EMIR E 01/24/2025 Unknown 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 moods were too high and too low peds took her off Lexepro Sees at [facility] History of Present Illness pt presents today for worsening depression and anxiety. Physical Exam General: alert, no acute distress ENMT: oral mucosa moist, no pharyngeal erythema or exudate Cardiovascular: regular rate and rhythm, normal peripheral perfusion Respiratory: Lungs CTA, respirations non labored Extremities: no deformity, no trauma Neurological: oriented x 4, LOC appropriate for age, CN II-XII intact, motor strength equal & normal bilaterally, speech normal Assessment/Plan 1. Moderate major depression (F32.1: Major depressive disorder, single episode, moderate) pt was previously seen by peds on wheels and was taking lexapro. but it made her emotions too high and too low. so they d/c's that almost 2 weeks ago. pt is very down on herself especially since gaining weight. pt is schedueld to see psych January 30. she will keep that appointment for further evaluation. will send in wellbutrin. RTC 4 weeks Ordered: buPROPion, 150 mg = 1 tab(s), Oral, q24hr, # 30 tab(s), Refills(s) 1, Pharmacy: [id number] E&M of New Patient Low 30-44 Min 98305 2. Anxiety disorder (F41.9: Anxiety disorder, unspecified) see above Ordered: buPROPion, 150 mg = 1 tab(s), Oral, q24hr, # 30 tab(s), Refills(s) 1, Pharmacy: [id number] E&M of New Patient Low 30-44 Min 67013 3. Autism spectrum disorder (F84.9: Pervasive developmental disorder, unspecified) stable. high functioning. Ordered: buPROPion, 150 mg = 1 tab(s), Oral, q24hr, # 30 tab(s), Refills(s) 1, Pharmacy: [id number] E&M of New Patient Low 30-44 Min 20915 4. BMI 30.0-30.9,adult (Z68.30: Body mass index [BMI] 30.0-30.9, adult) discussed making healthy food choices Ordered: buPROPion, 150 mg = 1 tab(s), Oral, q24hr, # 30 tab(s), Refills(s) 1, Pharmacy: [id number] E&M of New Patient Low 30-44 Min 06944 5. Class 1 obesity due to excess calories in adult (E66.811: Obesity, class 1) see above Ordered: buPROPion, 150 mg = 1 tab(s), Oral, q24hr, # 30 tab(s), Refills(s) 1, Pharmacy: [id number] E&M of New Patient Low 30-44 Min 25031 6. Non-smoker (Z78.9: Other specified health status) continue not smoking Ordered: buPROPion, 150 mg = 1 tab(s), Oral, q24hr, # 30 tab(s), Refills(s) 1, Pharmacy: [id number] E&M of New Patient Low 30-44 Min 80704 7. POTS (postural orthostatic tachycardia syndrome) (G90.A: Postural orthostatic tachycardia syndrome [POTS]) pt has been seeing a pediatric care coordinator. was just seen by them yesterday. they aurora some labs. 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 8. Hypercholesteremia (E78.00: Pure hypercholesterolemia, unspecified) lipid panel drawn yesterday by cardiology. not taking atorvastatin Follow-up No qualifying data available Problem List/Past Medical History Ongoing Anxiety disorder Attention deficit hyperactivity disorder (ADHD) Autism spectrum disorder Hypercholesteremia Moderate major depression POTS (postural orthostatic tachycardia syndrome) Historical No qualifying data Procedure/Surgical History Tonsillectomy and adenoidectomy (02/03/2022), Appendectomy (09/17/2017). Medications atorvastatin 10 mg Tab, Not taking Dextroamphetamine-Amphetamine ER (Eqv-Adderall XR) 25 mg oral capsule, extended release, Not taking escitalopram 5 mg oral tablet, 5 mg= 1 tab(s), Oral, Daily, Not taking Wellbutrin XL 150 mg/24 hours Tab-ER, 150 mg= 1 tab(s), Oral, q24hr, 1 refills Allergies No active allergies Social History Alcohol Never., 01/24/2025 Substance Abuse Never., 01/24/2025 Tobacco Never (less than 100 in lifetime) Tobacco Use:., 01/24/2025 Result Comment: Electronical ly Signed By: Stella Christiansen\.br\Date and Time Signed: 01/24/25 17:20 EDT AMBULATORY VISIT SUMMARY Observed: 01/24 4:20 PM Status: F Source: [facility] Ambulatory Visit Summary KENDY ANDUJAR :2005 Visit Date:01/24/2025 Ambulatory Visit Instructions Your Diagnosis Moderate major depression Anxiety disorder Autism spectrum disorder BMI 30.0-30.9,adult Non-smoker Class 1 obesity due to excess calories in adult Other obesity due to excess calories Your Care Team Attending Physician - Stella Christiansen Primary Care Physician - Stella Christiansen This Is Your Medications List amphetamine-dextroamphetamine (Dextroamphetamine-Amphetamine ER (Eqv-Adderall XR) 25 mg oral capsule, extended release) atorvastatin (atorvastatin 10 mg Tab) escitalopram (escitalopram 5 mg oral tablet) Procedures Performed Tonsillectomy and adenoidectomy (02/03/2022), Appendectomy (09/17/2017). What to do next Scheduled Follow-Up Appointments 2024 2:40 PM EDT With: Stella Christiansen Where: [facility] [address] [address]- Medications What How Much When Instructions Unchanged amphetamine-dextroamphetamine (Dextroamphetamine-Amphetamine ER (Eqv-Adderall XR) 25 mg oral capsule, extended release) Unchanged atorvastatin (atorvastatin 10 mg Tab) TAKE 1 TABLET BY MOUTH EVERY MORNING Unchanged escitalopram (escitalopram 5 mg oral tablet) 1 Tablets By Mouth Every day Allergies No active allergies Problems Ongoing - Any problem that you are currently receiving treatment for. Anxiety disorder Attention deficit hyperactivity disorder (ADHD) Autism spectrum disorder Moderate major depression Patient Survey You may receive a survey via text or e-mail asking about your office visit. Please share your experience with us by completing your survey. We appreciate your feedback and thank you for choosing us for your care. COMPREHENSIVE METABOLIC PANEL Collected: 01/24/2025 1 0:21 AM Status: F Source: [facility] TYPE CODE TESTS RESULT OUT OF RANGE REFERENCE UNITS LAB GLU Glucose 87 Normal 70-100 mg/dL Result Comment: Random Gluco se Reference Range is dependent on time and content of last meal. Glucose of more than 200 mg/dL in a nonstressed, ambulatory subject supports the diagnosis of Diabetes Mellitus. ADA recommended reference range LAB BUN Blood Urea Nitrogen 29 High 7-25 mg/d L LAB CREATT Creatinine 1.30 High 0.60-1.20 mg/dL LAB GFReNR Estimated GFR >60.0 LAB NA Sodium 139 Normal 136-145 mmol/L LAB K Potassium 4.1 Normal 3.5-5.1 mmol/L LAB CL Chloride 103 Normal 98-107 mmol/L LAB CO2 Carbon Dioxide 29.4 Normal 21.0-31.0 mmol/L LAB GAP Anion Gap 10.7 Normal 6.0-15.0 LAB CA Calcium 9.5 Normal 8.6-10.3 mg/dL LAB TP Total Protein 6.7 Normal 6.4-8.9 g/dL LAB ALB Albumin Level 4.4 Normal 3.5-5.7 g/dL LAB GLOB Globulin 2.3 g/dL LAB AGRATIO Albumin/Globulin Ratio 1.9 LAB BILIT Bilirubin,Total 0.5 Normal 0.3-1.0 mg/dL LAB AST Aspartate Amino Transferase 12 Low 13-39 U/L LAB ALT Alanine Aminotransferase 10 Normal 7-52 U/L LAB ALP Alkaline Phosphatase 62 Normal 34-104 U/L Performed By: #### LIPID, P #### [facility] [address] [place] [address] LIPID PANEL Collected: 01/24/2025 10:21 AM Status: F Source: [facility] TYPE CODE TESTS RESULT OUT OF RANGE REFERENCE UNITS LAB CHOL Cholesterol 209 High 140-200 mg/dL Result Comment: Chol less th an 200 mg/dl low risk Chol 201-239 mg/dl borderline risk Chol 240 mg/dl and greater high risk LAB HDL HDL Cholesterol 37 Normal 23-92 mg/dL Result Comment: HDL CHOL ATP -III CLASSIFICATION Cardiovascular Risk HDL > or equal to 60 mg/dL LOW HDL < 40 mg/dL HIGH LAB TRIG W REF Triglyceride w/Reflex 113 Normal 0-149 mg/dL Result Comment: TRIG ATP III CLASSIFICATION TRIG less than 150 mg/dL Normal TRIG 150-199 mg/dL Borderline high TRIG 200-500 mg/dL High TRIG greater than 500 mg/dL Very high Standard traceable to the Center for Disease Conrtrol and Prevention (CDC) test method. LAB LDLC LDL Cholesterol,Calc ulated 149 High 0-100 mg/dL Result Comment: LDL ATP III CLASSIFICATION LDL less than 100 mg/dL Optimal LDL 100-129 mg/dL Near or above optimal LDL 130-159 mg/dL Borderline high LDL 160-189 mg/dL High LDL greater than 189 mg/dL Very high LAB VLDL VLDL CHOLESTEROL 22 mg/dL LAB CHLHDL Chol/HDL Ratio 5.6 <5.0 Result Comment: PERFORMED BY : [place] [address] PATHOLOGIST AERONAUTICAL ENGINEERING OFFICER GENESIS CARPENTER M.D. Performed By: #### LIPID, CM P #### [address] ECG PEDIATRIC Observed: 01/24/2025 10:10 AM Status: COMPLETED Source: [facility] [facility] [place] [place] [address] Electrocardiograph Report Signed Patient: Kendy Andujar MR#: [id number] 60 : 2005 Acct:[id number] Age/Sex: 19 / F ADM Date: 01/24/25 Loc: Room: Type: [facility] Attending Dr: Tammy White MD Ordering Provider: Tammy White MD Date of Service: 01/24/25/ Accession #: Copies to: Test Reason : Blood Pressure : */* mmHG Vent. Rate : 58 BPM Atrial Rate : 58 BPM P-R Int : 134 ms QRS Dur : 84 ms QT Int : 362 ms P-R-T Axes : 6 67 34 degrees QTcB Int : 355 ms Sinus bradycardia with sinus arrhythmia Otherwise normal ECG When compared with ECG of 24-May-2024 09:15, QRS axis shifted right Criteria for Inferior infarct are no longer present Confirmed by SAMMIE BECK MD ([id number]) on 01/24/2025 12:33:07 PM Referred By: Electronically Signed By: SAMMIE BECK MD Transcribed By: MUS Signed By Sammie Beck MD 0 01/24/25 1233 ECG PEDIATRIC Observed: 05/24/2024 9:15 AM Status: COMPLETED Source: [facility] [facility] [place] [address] Electrocardiograph Report Signed Patient: Kendy Andujar MR#: [id number] 60 : 2005 Acct:[id number] Age/Sex: 18 / F ADM Date: 05/24/24 Loc: Room: Type: [facility] Attending Dr: Tammy White MD Ordering Provider: [...] now present Confirmed by TAMMY WHITE MD ([id number]) on 05/24/2024 2:38:41 PM Referred By: Electronically Signed By: TAMMY WHITE MD Transcribed By: MUS Signed By Tammy White MD 05/24/24 1438 ALLERGIES DATE TYPE / CODE NAME / CODE REACTION SEVERITY SOURCE 03/10/2022 Drug Allergy/490893377 (SNOMED CT) prochlorperazine/F 794745608(RXNORM) Unknown [facility] 02/02/2020 Drug Allergy/474898765 (SNOMED CT) No Known Allergies/[id number] 88(RXNORM) Unknown [facility] ENCOUNTERS ADMIT/DISCHARGE ACCOUNT NUMBER ADMITTING ENCOUNTER CLASS LOCATION SOURCE 04/04/2025/04/04/20 [id number] [place] [facility] [place] 03/07/2025/03/07/20 [id number] [place] [facility] [place] [facility] 01/24/2025/01/25/20 [id number] [place] [facility] [place] [facility] 01/24/2025/01/25/20 [id number] [facility]my [facility] 09/11/2024/09/11/19 [id number] Ambulatory Building:BSR NEURO [facility] 09/07/2024/09/07/19 [id number] Ambulatory Building:[facility]R NE[facility]O [facility] 08/29/2024/08/29/19 [id number] Ambulatory Building:WNZ NEURO [facility] 07/03/2024/07/04/20 24 [id number] Ambulatory Building:NOM S SWS [facility] 05/24/2024/05/24/20 24 [id number] [facility] PAYERS ENCOUNTER GUARANTOR PAYER SUBSCRIBER SOURCE 04/04/2025 KENDY HIGGINSONDOB: NE DRTel: ~~(4 1 (HP) Primary Insurance:AnthemPolicy Number: [id number] ve Date:9240-76-85HA [address] [place] [phone]: [facility] 04/04/2025 Secondary Insurance:MedicaidPoli cy Number: [id number] Date:1799-08-08.[address] [place] [phone]: KENDY [facility] 03/07/2025 KENDY HIGGINSONDOB: [birth year] [facility] DRIVETel: ~~(4 1 (HP) Primary Insurance:AnthemPolicy Number: [id number] Date:8478-24-97LZ [address] [place] [phone]: [facility] 03/07/2025 Secondary Insurance:MedicaidPoli cy Number: [id number] Date:[address], [place] [address]FP: [facility]/2025 KENDY EATONDOB: NE DRIVETel: ~~(4 1 (HP) Primary Insurance:AnthemPolicy Number: [id number] ve Date:4817-26-79[address], [place] [address]MP: [facility] 01/24/2025 Secondary Insurance:MedicaidPoli cy Number: [id number] Date:[address], [place] [address]UG: [facility] 01/24/2025 Kendy Lyons [id number] [id number]: (HP) Primary Insurance:[employer] /BSPolicy Number: [id number] ve Date:2024-05-24 Colleen LópezDanetteDOB: [birth year] [place] [address]Bjy: (HP) [facility] 01/24/2025 Secondary Insurance:[facility] MedicaidPolicy Number: [id number] Date:1213-50-19[address] [address]GYBGRTTOP[place], [place] [address]LO: Kendy Lyons AliciaonDOB: [birth year] [place] [address]Rig: (HP) [facility] 01/24/2025 Tertiary Insurance:Self PayPolicy Number: Effective Date:2024-11-22 [facility] 09/11/2024 KENDY Lyons EATONDOB: [place] [address], [place] [address]Wti: (HP) (WP) Primary Insurance:BCBSPolicy Number: [id number] ve Date:2020-08-09 COLLEEN THAONDOB: [id number] [place] [address] [facility] 09/07/2024 KENDY Lyons EATONDOB: [place] [address], [place] [address]Ktx: (HP) (WP) Primary Insurance:BCBSPolicy Number: [id number] ve Date:2020-08-09 COLLEEN THAONDOB: [id number] [place] [address] [facility] 08/29/2024 KENDY Lyons EATONDOB: [place] [address], [place] [address]Cpb: (HP) (WP) Primary Insurance:BCBSPolicy Number: [id number] ve Date:2020-08-09 COLLEEN THAONDOB: [id number] [place] [address] [facility] 07/03/2024 KENDY Lyons EATONDOB: [place] [address], [place] [address]Pjv: (HP) Primary Insurance:BCBSPolicy Number: [id number] ve Date:2020-08-09 COLLEEN M ZABRINA FUENTESDOB: [id number] [place] [address] [facility] 05/24/2024 Kendy Lyons [address]ylk[address] [place] [address]Jcy: (HP) Primary Insurance:[place]/Rajesh Number: [id number] ve Date:2023-11-24 Colleen LópezMafnasDOB: [id number] [place] [address]Xmp: () [facility] 05/24/2024 Secondary Insurance:Anthem [place] MedicaidPolicy Number: [id number] Date:7883-17-55HW [address] [address]XMJLEOQBP[place], [place] [address]BR: Kendy Lyons EatonDOB: [id number] [place] [address]Fed: () [facility] 05/24/2024 Tertiary Insurance:Self PayPolicy Number: Effective Date:2024-05-17 NOT GIVEN[facility]
[2025-05-06 17:33] VITALS: BP 127/84; PULSE 62; TEMP 36.5; O2SAT 95; BMI 31.2
--- NOTE | 2025-05-06 18:01 | XR_ITS ---
[facility] [place] [id number] Patient Name: KENDY MENDENHALL MRN: [id number] date: 2005 Sex: F Assigned Patient Location: ER Current Patient Location: ER Accession/Order Number: [id number] Exam Date: 05/06/2025 18:20 Report Date: 05/06/2025 18:28 At the request of: CEE ZARCO MD Procedure: XR chest 1V XR chest 1V 05/06/2025 6:22 PM SIGNS AND SYMPTOMS: ^CP ^Y PROTOCOL: Frontal radiograph of the chest COMPARISON: 04/22/2025 FINDINGS: The trachea is midline. The heart and mediastinal structures are within normal limits. The lung parenchyma is clear. The bony thorax is intact. XR/XR chest 1V IMPRESSION: No acute cardiopulmonary pathology. Impression dictated by: Daljit Boothe M.D. 05/06/2025 6:28 PM Dictation Location: [place] [address] Electronically authenticated by: [id number] Y Date: 05/06/2025 18:28
--- NOTE | 2025-05-06 18:01 | ECG_ITS ---
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
--- NOTE | 2025-05-06 18:04 | ED.GENADUL1 ---
HPI HPI - General Adult General Chief complaint: Chest Pain Stated complaint: Shortness of Breath Time Seen by Provider: 05/06/25 17:55 Source: patient Mode of arrival: walk-in Limitations: no limitations History of Present Illness HPI narrative: 19-year-old female presenting for burning in her abdomen and her chest. It started 45 minutes ago when she was just laying in bed. She had not eaten recently. She did not take any medicine for it. No vomiting or diarrhea or constipation. Does not use control and does not know when her last period was, she thinks but middle of last month. No trauma Related Data Home Medications ?Medication ?Instructions ?Recorded ?Confirmed atorvastatin 10 mg tablet 10 mg PO DAILY 03/07/23 05/18/24 dextroamphetamine-amphetamine ER 25 mg PO DAILY 03/07/23 05/18/24 25 mg 24hr capsule,extend release norgestimate 0.25 mg-ethinyl 1 tab PO DAILY 03/07/23 05/18/24 estradiol 0.035 mg tablet (Dariana) Previous Rx's ?Medication ?Instructions ?Recorded hydroxyzine HCl 25 mg tablet 25 mg PO Q6H PRN itching #20 tabs 09/27/23 prednisone 20 mg tablet 60 mg (3 x 20 mg) PO DAILY 3 days 09/27/23 #9 tabs Allergies Allergy/AdvReac Type Severity Reaction Status Date / Time raspberry Allergy Intermediate Rash Verified 05/06/25 17:33 Opioid HPI Opioid Management Most Recent Opioid Data: Last Pain Scale 5 Today, 17:33 Review of Systems ROS Narrative A ten point review of systems is negative except as noted above. PFSH PFSH Social History Smoking status: Never smoker Little interest or pleasure in doing things: not at all Feeling down, depressed, or hopeless: not at all Exam Narrative Exam Narrative: Nurses note and vital signs reviewed and patient is not hypoxic. General:The patient appears well and in no apparent distress.Patient is resting comfortably on cart. Skin:Warm, dry, no pallor noted.There is no rash noted. Head:Normocephalic, atraumatic Eye: Normal conjunctiva, no drainage Ears, Nose, Mouth, and Throat: oral mucosa is moist. Nares patent. Cardiovascular:Regular Rate and Rhythm Respiratory:Patient is in no distress, no accessory muscle use, lungs are clear to auscultation, no wheezing, rales or rhonchi Back:non-tender GI: Soft and nontender. Nondistended Musculoskeletal: The patient has no evidence of calf tenderness, no pitting edema, symmetrical pulses noted bilaterally Neurological:A&O, normal speech Psychiatric:Cooperative she is soft-spoken Constitutional Vital Signs, click to edit/add: Last Vital Signs Temp 97.7 F 05/06/25 17:33 Pulse 62 05/06/25 18:45 Resp 16 05/06/25 18:45 BP 121/81 05/06/25 18:45 Pulse Ox 100 05/06/25 18:45 O2 Del Method Room Air 05/06/25 17:33 Course Vital Signs Vital signs: Vital Signs Temperature 97.7 F 05/06/25 17:33 Pulse Rate 62 05/06/25 17:33 Respiratory Rate 16 05/06/25 17:33 Blood Pressure 127/84 05/06/25 17:33 Pulse Oximetry 95 05/06/25 17:33 Oxygen Delivery Method Room Air 05/06/25 17:33 Temperature 97.7 F 05/06/25 17:33 Pulse Rate 62 05/06/25 18:45 Respiratory Rate 16 05/06/25 18:45 Blood Pressure 121/81 05/06/25 18:45 Pulse Oximetry 100 05/06/25 18:45 Oxygen Delivery Method Room Air 05/06/25 17:33 Medical Decision Making MDM Narrative Medical decision making narrative: Is negative with urine culture pending. She was given a GI cocktail with resolution of her symptoms and she is able to be discharged home. Findings were discussed with the patient. Differential Diagnosis Differential Diagnosis: Reflux, UTI Lab Data Lab results reviewed: Yes I reviewed the patient's lab results Labs: Lab Results 05/06/25 05/06/25 Range/Units 18:04 18:15 WBC 7.5 (4.0-11.0) 10^3/uL RBC 5.16 (4.20-5.40) 10^6/uL Hgb 15.6 (12.0-16.0) g/dL Hct 45.9 (36.0-48.0) % MCV 89.0 (81.0-99.0) fL MCH 30.2 (26.7-34.0) pg MCHC 34.0 (29.9-35.2) g/dL RDW 12.6 (11.0-15.0) % Plt Count 266 (150-450) 10^3/uL MPV 10.4 (9.5-13.5) fL Neut % (Auto) 58.8 (43.0-75.0) % Lymph % (Auto) 27.2 (20.5-60.0) % [place] % (Auto) 12.3 H (1.7-12.0) % Eos % (Auto) 0.9 (0.9-7.0) % Baso % (Auto) 0.4 (0.2-2.0) % Neut # (Auto) 4.4 (1.4-6.5) 10^3/uL Lymph # (Auto) 2.0 (1.2-3.8) 10^3/uL [place] # (Auto) 0.9 H (0.3-0.8) 10^3/uL Eos # (Auto) 0.1 (0.0-0.7) 10^3/uL Baso # (Auto) 0.0 (0.0-0.1) 10^3/uL Abs Immat Gran (auto) 0.03 (0.00-0.03) 10^3/uL Imm/Tot Granulo (auto) 0.4 (0.0-0.5) % Sodium 140 (136-145) mmol/L Potassium 3.9 (3.5-5.1) mmol/L Chloride 104 (98-107) mmol/L Carbon Dioxide 30.2 (21.0-32.0) mmol/L Anion Gap 9.7 BUN 18.0 (6.4-19.3) mg/dL Creatinine 1.35 H (0.55-1.02) mg/dL Est GFR ( Amer) >60 (>=60 mL/min/1.73m^2) Est GFR (Non-Af Amer) 51 L (>=60 mL/min/1.73m^2) BUN/Creatinine Ratio 13.3 Glucose 81 (74-106) mg/dL Calcium 8.9 (8.5-10.1) mg/dL Serum HCG, Qual Negative (NEGATIVE) Urine Color Lt. yellow (YELLOW) Urine Clarity Clear (CLEAR) Urine pH 6.5 (5.0-9.0) Ur Specific [place] 1.020 (1.005-1.025) Urine Protein Negative (NEG/TRACE) mg/dL Urine Glucose (UA) Negative (NEGATIVE) mg/dL Urine Ketones Negative (NEGATIVE) mg/dL Urine Occult Blood Negative (NEGATIVE) Urine Nitrite Negative (NEGATIVE) Urine Bilirubin Negative (NEGATIVE) Urine Urobilinogen 0.2 (0.2-1.0) EU/dL Ur Leukocyte Esterase Moderate A (NEGATIVE) Urine RBC 0-2 (0-2) #/HPF Urine WBC 5-10 A (NONE SEEN) #/HPF Ur Squamous Epith Cells Few A (NONE/RARE) #/LPF Urine Crystals None seen (None Seen) #/HPF Urine Bacteria Large A (NONE SEEN) #/HPF Urine Casts None seen (NONE SEEN) #/LPF Urine Mucus Trace A (NONE SEEN) Ur Culture Indicated? Yes[facility] Imaging Data Chest x-ray: Radiologist's impression: ITS Impressions Chest X-Ray 05/06/25 18:01 IMPRESSION: No acute cardiopulmonary pathology. Impression dictated by: Daljit Boothe M.D. 05/06/2025 6:28 PM Dictation Location: [place] [address] Electronically authenticated by: [id number] Y Date: 05/06/2025 18:28 ECG Data Attestation: I personally reviewed and interpreted this ECG as follows: (GMI interpretation shows sinus rhythm with a rate of 57 and no acute change.) Discharge Plan Discharge Chief Complaint: Chest Pain Clinical Impression: Abdominal pain Patient Disposition: Home, Self-Care Time of Disposition Decision: 18:54 Condition: Good Mode of Transportation: Private Vehicle Prescriptions / Home Meds: No Action norgestimate-ethinyl estradiol [Dariana] 0.25-35 mg-mcg tablet 1 tab PO DAILY atorvastatin 10 mg tablet 10 mg PO DAILY dextroamphetamine-amphetamine 25 mg capsule,extended release 24hr 25 mg PO DAILY prednisone 20 mg tablet 60 mg PO DAILY 3 Days Qty: 9 0RF hydroxyzine HCl 25 mg tablet 25 mg PO Q6H PRN (Reason: itching) Qty: 20 0RF Print Language: Divehi Instructions: Abdominal Pain (ED) Referrals: Paige Holland NP [Primary Care Provider] - 1 week
--- NOTE | 2025-05-06 18:20 | PC.NURSE ---
pr reports a burning feeling in chest that radiates to throat
[2025-05-06] MEDS: lidocaine HCL 15 ML, MAG HYDROX/ALUMINUM HYD/SIMETH 30 ML, HYOSCYAMINE SULFATE 0.25 MG PO (18:26)
[2025-05-06 18:37] LABS: Hematocrit 45.9 % (36.0-48.0); Hemoglobin 15.6 g/dL (12.0-16.0); Immature Granulocytes Abs Auto 0.03 10^3/uL (0.00-0.03); Immature Granulocytes Pct Auto 0.4 % (0.0-0.5); Lymphocytes Absolute Auto 2.0 10^3/uL (1.2-3.8); Mean Corpuscular HGB Conc 34.0 g/dL (29.9-35.2); Mean Corpuscular Hemoglobin 30.2 pg (26.7-34.0); Mean Corpuscular Volume 89.0 fL (81.0-99.0); Platelet Count 266 10^3/uL (150-450); Red Blood Count 5.16 10^6/uL (4.20-5.40); White Blood Count 7.5 10^3/uL (4.0-11.0)
[2025-05-06 18:40] LABS: Glucose Urine UA NEGATIVE (NEGATIVE)
[2025-05-06 18:45] VITALS: BP 121/81; PULSE 62; O2SAT 100
[2025-05-06 18:48] LABS: Anion Gap 9.7; Blood Urea Nitrogen 18.0 mg/dL (6.4-19.3); Calcium 8.9 mg/dL (8.5-10.1); Carbon Dioxide 30.2 mmol/L (21.0-32.0); Chloride 104 mmol/L (98-107); Estimated GFR (African America >60 (>=60 mL/min/1.73m^2); Estimated GFR (Non-African Ame 51 (>=60 mL/min/1.73m^2); Glucose 81 mg/dL (74-106); Potassium 3.9 mmol/L (3.5-5.1); Sodium 140 mmol/L (136-145)
[2025-05-06 18:48] LABS: Cast Seen? NONE SEEN #/LPF (NONE SEEN); Crystals Seen? None Seen #/HPF (None Seen); Urine Culture Indicated YES-FRMC
== END 2025-05-06 19:02 | disposition home or self-care (01) ==
PROVIDERS: Emergency Provider Emergency Medicine; PCP Nurse Practitioner Family
DX: R10.9 Unspecified abdominal pain (principal)
CPT/HCPCS: 36415; 71045; 80048; 81001; 84703; 85025; 87086; 93005; 99284; 99285

== ENCOUNTER 2025-05-15 04:15 | Emergency (ER) | payer BC, MEDICAID, SELFPAY ==
[2025-05-15] VITALS (9 sets, daily range): BP systolic 108; BP diastolic 69; PULSE 47–59; TEMP 36.6; O2SAT 98–100; BMI 31.2
--- NOTE | 2025-05-15 04:20 | ECG_ITS ---
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 Measurements Intervals [place] Rate: 48 P: 26 [place]: 140 QRS: 101 QRSD: 86 T: 35 QT: 394 QTc: 360 Interpretive Statements 1102 Sinus arrhythmia 1130 Sinus bradycardia 2420 RSR (QR) in lead V1/V2, consistent with right ventricular conduction delay 7100 Abnormal right axis deviation 9140 abnormal rhythm ECG Compared to ECG 05/06/2025 18:12:02 No significant changes Electronically Signed On 05-15-2025 9:38:05 EDT by FIDENCIO CONNOLLY M.D.
--- NOTE | 2025-05-15 04:21 | ED.SYNCOPE1 ---
HPI - Syncope General Chief Complaint: Syncope Stated Complaint: SYNCOPE Time Seen by Provider: 05/15/25 04:19 History of Present Illness HPI narrative: patient has past history of POTS. states she normally can pass out at least once per week. Tonight at a friend's home and they spooked her and she passed out. Squad was called . She arrives awake and alert. States she is not sure what happened. No nausea but has a headache. No chest pain or fever Related Data Home Medications ?Medication ?Instructions ?Recorded ?Confirmed atorvastatin 10 mg tablet 10 mg PO DAILY 03/07/23 05/18/24 dextroamphetamine-amphetamine ER 25 mg PO DAILY 03/07/23 05/18/24 25 mg 24hr capsule,extend release norgestimate 0.25 mg-ethinyl 1 tab PO DAILY 03/07/23 05/18/24 estradiol 0.035 mg tablet (Dariana) Previous Rx's ?Medication ?Instructions ?Recorded hydroxyzine HCl 25 mg tablet 25 mg PO Q6H PRN itching #20 tabs 09/27/23 prednisone 20 mg tablet 60 mg (3 x 20 mg) PO DAILY 3 days 09/27/23 #9 tabs Allergies Allergy/AdvReac Type Severity Reaction Status Date / Time raspberry Allergy Intermediate Rash Verified 05/06/25 17:33 Review of Systems ROS Status of ROS 10 or more systems reviewed and unremarkable except as noted in history and below [facility] Social History Smoking status: Never smoker Little interest or pleasure in doing things: not at all Feeling down, depressed, or hopeless: not at all Exam Constitutional Vital Signs, click to edit/add: Last Vital Signs Temp 97.8 F 05/15/25 04:18 Pulse 59 L 05/15/25 05:10 Resp 18 05/15/25 05:10 BP 108/69 05/15/25 04:24 Pulse Ox 100 05/15/25 05:10 O2 Del Method Room Air 05/15/25 05:07 Common normals: no apparent distress, average body habitus, oriented x3, no limitations, healthy appearing, alert and well nourished [facility] Common normals: normocephalic and head/scalp atraumatic Eye Common normals: PERRL and EOMs intact bilaterally Respiratory Common normals: normal respiratory effort, no retractions, no use of accessory muscles and clear to auscultation bilaterally Cardio Common normals: regular rate, regular rhythm, S1 normal heart sound and S2 normal heart sound GI Common normals: Normal to inspection, nondistended, normoactive bowel sounds present, soft to palpation and non-tender Extremity Common normals: normal to inspection and full ROM Neuro Common normals: oriented x3, CN's II-XII intact bilaterally, moves all extremities and no focal motor deficits Psych Appearance: grossly normal Course Vital Signs Vital signs: Vital Signs Temperature 97.8 F 05/15/25 04:18 Pulse Rate 57 L 05/15/25 04:18 Respiratory Rate 16 05/15/25 04:18 Blood Pressure 108/69 05/15/25 04:18 Pulse Oximetry 99 05/15/25 04:18 Oxygen Delivery Method Room Air 05/15/25 04:18 Temperature 97.8 F 05/15/25 04:18 Pulse Rate 59 L 05/15/25 05:10 Respiratory Rate 18 05/15/25 05:10 Blood Pressure 108/69 05/15/25 04:24 Pulse Oximetry 100 05/15/25 05:10 Oxygen Delivery Method Room Air 05/15/25 05:07 MDM - Syncope MDM Narrative Medical decision making narrative: past history of POTS. states she does pass out at least once per week. Friends spooked her last PM when she was staying at a Friend's home and she fainted. Arrives awake in no distress via Sqad. EKG with sinus aaron. basic labs WNL with creat at 1.13. Patient hydrated and is now feeling better. Ambulatory to the bathroom while here in the department. Discharged in improved condition Lab Data Labs: Lab Results 05/15/25 05/15/25 Range/Units 04:35 04:57 WBC 7.6 (4.0-11.0) 10^3/uL RBC 4.69 (4.20-5.40) 10^6/uL Hgb 14.0 (12.0-16.0) g/dL Hct 42.0 (36.0-48.0) % MCV 89.6 (81.0-99.0) fL MCH 29.9 (26.7-34.0) pg MCHC 33.3 (29.9-35.2) g/dL RDW 12.6 (11.0-15.0) % Plt Count 239 (150-450) 10^3/uL MPV 10.5 (9.5-13.5) fL Neut % (Auto) 55.2 (43.0-75.0) % Lymph % (Auto) 31.1 (20.5-60.0) % Bullock % (Auto) 11.6 (1.7-12.0) % Eos % (Auto) 1.6 (0.9-7.0) % Baso % (Auto) 0.4 (0.2-2.0) % Neut # (Auto) 4.2 (1.4-6.5) 10^3/uL Lymph # (Auto) 2.4 (1.2-3.8) 10^3/uL Bullock # (Auto) 0.9 H (0.3-0.8) 10^3/uL Eos # (Auto) 0.1 (0.0-0.7) 10^3/uL Baso # (Auto) 0.0 (0.0-0.1) 10^3/uL Abs Immat Gran (auto) 0.01 (0.00-0.03) 10^3/uL Imm/Tot Granulo (auto) 0.1 (0.0-0.5) % Sodium 145 (136-145) mmol/L Potassium 3.7 (3.5-5.1) mmol/L Chloride 107 (98-107) mmol/L Carbon Dioxide 28.9 (21.0-32.0) mmol/L Anion Gap 12.8 BUN 17.0 (6.4-19.3) mg/dL Creatinine 1.13 H (0.55-1.02) mg/dL Est GFR ( Amer) >60 (>=60 mL/min/1.73m^2) Est GFR (Non-Af Amer) >60 (>=60 mL/min/1.73m^2) BUN/Creatinine Ratio 15.0 Glucose 88 (74-106) mg/dL Calcium 8.6 (8.5-10.1) mg/dL Urine Color Lt. yellow (YELLOW) Urine Clarity Clear (CLEAR) Urine pH 6.5 (5.0-9.0) Ur Specific [place] 1.010 (1.005-1.025) Urine Protein Negative (NEG/TRACE) mg/dL Urine Glucose (UA) Negative (NEGATIVE) mg/dL Urine Ketones Negative (NEGATIVE) mg/dL Urine Occult Blood Large A (NEGATIVE) Urine Nitrite Negative (NEGATIVE) Urine Bilirubin Negative (NEGATIVE) Urine Urobilinogen 0.2 (0.2-1.0) EU/dL Ur Leukocyte Esterase Negative (NEGATIVE) Urine RBC 0-2 (0-2) #/HPF Urine WBC None seen (NONE SEEN) #/HPF Ur Squamous Epith Cells None seen (NONE/RARE) #/LPF Urine Crystals None seen (None Seen) #/HPF Urine Bacteria None seen (NONE SEEN) #/HPF Urine Casts None seen (NONE SEEN) #/LPF Urine Mucus None seen (NONE SEEN) Ur Culture Indicated? No Discharge Plan Discharge Chief Complaint: Syncope Clinical Impression: Fainting spell Patient Disposition: Home, Self-Care Prescriptions / Home Meds: No Action norgestimate-ethinyl estradiol [Dariana] 0.25-35 mg-mcg tablet 1 tab PO DAILY atorvastatin 10 mg tablet 10 mg PO DAILY dextroamphetamine-amphetamine 25 mg capsule,extended release 24hr 25 mg PO DAILY prednisone 20 mg tablet 60 mg PO DAILY 3 Days Qty: 9 0RF hydroxyzine HCl 25 mg tablet 25 mg PO Q6H PRN (Reason: itching) Qty: 20 0RF Print Language: Azerbaijani Instructions: Syncope (ED) Additional Instructions: drink plenty of fluids and follow up with your doctor this week for recheck Referrals: Paige Holland NP [Primary Care Provider] - 1 week
--- OUTSIDE RECORDS SUMMARY | 2025-05-15 04:21 | XMS_ITS | CCD ---
Author Organization [facility] Care Team Providers Care Qm Nurse Name Role Phone DO Ronaldo Holland Primary Care Provider [phone] MD Tammy White Attending Provider Lilian Monreal Unavailable DO Ronaldo Holland Primary Care Provider MD Tammy White Attending Provider MISC, DR BANDA Admitting Unavailable MISC, DR BANDA Attending Unavailable RONALDO HOLLAND Primary Care Unavailable RONALDO HOLLAND Consulting Unavailable Shaisat Dye Consulting Unavailable RONALDO HOLLAND Admitting Unavailable RONALDO HOLLAND Attending Unavailable RONALDO HOLLAND Primary Care Unavailable RONALDO HOLLAND Consulting Unavailable DO Ronaldo Holland Primary Care Provider MD Tammy White Attending Provider DO Ronaldo Holland Primary Care Provider MD Tammy White Attending Provider Unavailable Primary Care Provider Unavailabl e PROVIDER, UNKNOWN Admitting Unavailable PROVIDER, UNKNOWN Attending Unavailable DO Ronaldo Holland Primary Care Provider MD Tammy White Attending Provider DO Ronaldo Holland Primary Care Provider MD Tammy White Attending Provider Unavailable Primary Care Provider Unavailabl e DIANDRA MITCHELL Attending Unavailable DIANDRA MITCHELL Referring Unavailable SONIA BANGURA Attending Unavailable Ronaldo Holland MD Primary Care Provider Vanda Duran MD Primary Care Provider [phone] Vanda Duran MD Primary Care Provider [phone] RUDI Toney Attending Unavailable RUDI Toney Attending Unavailable RUDI Toney Attending Unavailable Amador Hemphill DO Attending Provider Amador Hemphill Attending Unavailable Amador Hemphill Admitting Unavailable Tammy White Admitting Unavailable Ronaldo Holland Primary Care Unavailable Tammy White Attending Unavailable Ronaldo Holland Primary Care Unavailable Tammy White Attending Unavailable Tammy White Admitting Unavailable Allergies Allergy Classification Reported Allergen(s) Allergy Type Date of Onset Reaction(s) Facility (1 source) Prochlorperazine Drug Allergy Unknown [employer] Other (9 sources) Prochlorperazine Drug Allergy 1 [facility] (1 source) Prochlorperazine Drug Allergy 2 [facility] Repository Medications Current Medications Medication Drug [...] directed Active ibuprofen 400 mg oral tablet (7 sources) Nonsteroidal Anti-inflammatory Drug Start: 02-02-2020 take 1 tablet by mouth every six hours as needed for pain methylPREDNISolone 4 mg oral tablet (1 source) Corticosteroid Start: 03-10-2022 methylPREDNISolone 4 MG as directed Orally Once a day for 6 days Mar, Active [place] 3 (1 source) [place] 3 Active ondansetron 4 mg oral tablet [...] dysautonomia [Bhavesh-Day]; 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]] Onset: 01-24-2025 Chronic Open wounds of extremities (2 sources) [...] and awareness] 09-13-2024 Episodic Sprains and strains (7 sources) Shoulder strain; Translations: [Strain of unspecified [...] Test Name Value Interpretation Reference Range Facility Urine Cultureon 05-06-2025 Bacteria identified Cx Nom (U) 20,000 colonies/ml mixed bacterial skin contaminants 2 Days PERFORMED BY: [place] [id number] PATHOLOGIST ACCORDION MAKER GENESIS Clark [facility] Comment on above: Performed By: #### C UU #### [address] Ambulatory Visit Summaryon 0 01-24-2025 Ambulatory Visit [...] 2:40 PM EDT With: Stella Christiansen Where: [place] [address]- Medications What How Much When Instructions Unchanged [...] for choosing us for your care. Normal [facility] Comprehensive Metabolic Pane rolando 01-24-2025 Albumin [Mass/Vol] 4.4 g/dL Normal 3.5-5.7 [facility] Comment on above: Performed By: #### C MP, LIPID #### [address] Albumin/Globulin [Mass ratio] 1.9 {ratio} Normal [facility] Comment on above: Performed By: #### C MP, LIPID #### [address] ALP [Catalytic activity/Vol] 62 U/L Normal 34-104 [facility] Comment on above: Performed By: #### C MP, LIPID #### [address] ALT [Catalytic activity/Vol] 10 U/L Normal 7-52 [facility] Comment on above: Performed By: #### C MP, LIPID #### [address] Anion gap [Moles/Vol] 10.7 mmol/L Normal 6.0-15.0 [facility] Comment on above: Performed By: #### C MP, LIPID #### [address] AST [Catalytic activity/Vol] 12 U/L Low 13-39 [facility] Comment on above: Performed By: #### C MP, LIPID #### [place] [address] [place] Bilirubin [Mass/Vol] 0.5 mg/dL Normal 0.3-1.0 [facility] Comment on above: Performed By: #### C MP, LIPID #### [address] Calcium [Mass/Vol] 9.5 mg/dL Normal 8.6-10.3 [facility] Comment on above: Performed By: #### C MP, LIPID #### [facility] [address] [place] [address] [place] Chloride [Moles/Vol] 103 mmol/L Normal 98-107 [facility] Comment on above: Performed By: #### C MP, LIPID #### [address] CO2 [Moles/Vol] 29.4 mmol/L Normal 21.0-31.0 [facility] Comment on above: Performed By: #### C MP, LIPID #### [address] Creatinine [Mass/Vol] 1.30 mg/dL High 0.60-1.20 [facility] Comment on above: Performed By: #### C MP, LIPID #### [place] [address] [place] GFR/1.73 sq M.predicted MDRD (S/P/Bld) [Vol rate/Area] mL/min/{1.73_m2} Normal [facility] Comment on above: Performed By: #### C MP, LIPID #### [place] [address] [place] Globulin (S) [Mass/Vol] 2.3 g/dL Normal [facility] Comment on above: Performed By: #### C MP, LIPID #### [address] Glucose [Mass/Vol] 87 mg/dL Normal 70-100 [facility] Comment on above: Result Comment: [facility] Glucose Reference Range is dependent on time and content of last meal. Glucose of more than 200 mg/dL in a nonstressed, ambulatory subject supports the diagnosis of Diabetes Mellitus. ADA recommended reference range Performed By: #### C MP, LIPID #### [address] Potassium [Moles/Vol] 4.1 mmol/L Normal 3.5-5.1 [facility] Comment on above: Performed By: #### C MP, LIPID #### [address] Protein [Mass/Vol] 6.7 g/dL Normal 6.4-8.9 [facility] Comment on above: Performed By: #### C MP, LIPID #### [address] Sodium [Moles/Vol] 139 mmol/L Normal 136-145 [facility] Comment on above: Performed By: #### C MP, LIPID #### [address] Urea nitrogen [Mass/Vol] 29 mg/dL High 7-25 [facility] Comment on above: Performed By: #### C MP, LIPID #### [address] ECG Pediatricon 01-24-2025 ECG Pediatric [facility] [place] [address] [place] [address] Electrocardiograph Report Signed Patient: Kendy Andujar MR#: [id number] 60 : 2005 Acct:[id number] Age/Sex: 19 / F ADM Date: 01/24/25 Loc: Room: Type: [facility] Attending Dr: Tammy White MD Ordering Provider: [...] infarct are no longer present Confirmed by LANRE TAM, SAMMIE ([id number]) on 01/24/2025 12:33:07 PM Referred By: Electronically Signed By: SAMMIE BECK MD Transcribed By: MUS Signed By Sammie Beck MD 0 01/24/25 1233 Normal [facility] Family Medicine Office/Clini c Noteon 06-18-2025 Family Medicine Office/Clinic Note Family Medicine Office/Clinic Note HPI Staff Kendy is a 19 year old female presenting with depression GORDON- PHQ- Was taking Lexepro stopped a week and a half ago.... moods were too high and too low peds took her off Lexepro Sees at [facility] History of Present Illness pt presents today [...] E&M of New Patient Low 30-44 Min 32776 2. Anxiety disorder (F41.9: Anxiety disorder, unspecified) see above Ordered: buPROPion, 150 mg = 1 tab(s), Oral, q24hr, # 30 tab(s), Refills(s) 1, Pharmacy: [id number] E&M of New Patient Low 30-44 Min 54108 3. Autism spectrum disorder (F84.9: Pervasive developmental disorder, unspecified) stable. high functioning. Ordered: buPROPion, 150 mg = 1 tab(s), Oral, q24hr, # 30 tab(s), Refills(s) 1, Pharmacy: [id number] E&M of New Patient Low 30-44 Min 63988 4. BMI 30.0-30.9,adult (Z68.30: Body mass index [BMI] 30.0-30.9, adult) discussed making healthy food choices Ordered: buPROPion, 150 mg = 1 tab(s), Oral, q24hr, # 30 tab(s), Refills(s) 1, Pharmacy: [id number] E&M of New Patient Low 30-44 Min 65542 5. Class 1 obesity due to excess calories in adult (E66.811: Obesity, class 1) see above Ordered: buPROPion, 150 mg = 1 tab(s), Oral, q24hr, # 30 tab(s), Refills(s) 1, Pharmacy: [id number] E&M of New Patient Low 30-44 Min 93107 6. Non-smoker (Z78.9: Other specified health status) continue not smoking Ordered: buPROPion, 150 mg = 1 tab(s), Oral, q24hr, # 30 tab(s), Refills(s) 1, Pharmacy: [id number] E&M of New Patient Low 30-44 Min 78014 7. POTS (postural orthostatic tachycardia syndrome) (G90.A: Postural orthostatic tachycardia syndrome [POTS]) pt has been seeing a behavioral pediatrician. was just seen by them yesterday. they aurora some labs. 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 8. Hypercholesteremia (E78.00: Pure hypercholesterolemia, unspecified) lipid [...] than 100 in lifetime) Tobacco Use:., 01/24/2025 Normal [facility] Comment on above: Result Comment: Elec tronically Signed By: Stella Christiansen\.gabriel\Date and Time Signed: 01/24/25 17:20 EDT Lipid Panelon 01-24-2025 Cholesterol [Mass/Vol] 209 mg/dL High 140-200 [facility] Comment on above: Result Comment: Chol less than 200 mg/dl low risk Chol 201-239 mg/dl borderline risk Chol 240 mg/dl and greater high risk Performed By: #### C MP, LIPID #### [facility] [address] Cholesterol in HDL [Mass/Vol] 37 mg/dL Normal 23-92 [facility] Comment on above: Result Comment: HDL CHOL ATP-III CLASSIFICATION Cardiovascular Risk HDL > or equal to 60 mg/dL LOW HDL < 40 mg/dL HIGH Performed By: #### C MP, LIPID #### [facility] [address] Cholesterol.total/Chol esterol in HDL [Mass ratio] 5.6 {ratio} Normal <5.0 [facility] Comment on above: Result Comment: PERF ORMED BY: [place] [address] PATHOLOGIST ACCORDION MAKER GENESIS CARPENTER M.D. Performed By: #### C MP, LIPID #### [address] LDL Cholesterol,Calculated 149 mg/dL High 0-100 [facility] Comment on above: Result Comment: LDL ATP III CLASSIFICATION LDL less than 100 mg/dL Optimal LDL 100-129 mg/dL Near or above optimal LDL 130-159 mg/dL Borderline high LDL 160-189 mg/dL High LDL greater than 189 mg/dL Very high Performed By: #### C MP, LIPID #### [facility] [address] [place] [id number] [place] Triglyceride w/Reflex 113 mg/dL Normal 0-149 [facility] Comment on above: Result Comment: TRIG ATP III CLASSIFICATION TRIG less than 150 mg/dL Normal TRIG 150-199 mg/dL Borderline high TRIG 200-500 mg/dL High TRIG greater than 500 mg/dL Very high Standard traceable to the Center for Disease Conrtrol and Prevention (CDC) test method. Performed By: #### C MP, LIPID #### [facility] [address] VLDL CHOLESTEROL 22 mg/dL Normal [facility] Comment on above: Performed By: #### C MP, LIPID #### [facility] [address] [place] [address] [facility] ECG Pediatricon 05-24-2024 ECG Pediatric [facility] [address] [place] [address] [place] [address] Electrocardiograph Report Signed Patient: Kendy Andujar MR#: [id number] 60 : 2005 Acct:[id number] Age/Sex: 18 / F ADM Date: 05/24/24 Loc: Room: Type: [facility] Attending Dr: Tammy White MD Ordering Provider: [...] now present Confirmed by TAMMY WHITE MD ([id number]) on 05/24/2024 2:38:41 PM Referred By: Electronically Signed By: TAMMY WHITE MD Transcribed By: MUS Signed By Tammy White MD 05/24/24 1438 Normal [facility] Progress Noteson 06-11-2023 [employer] Developer Authentication Interface Message Text EMERGENCY TRIAGE, TREAT AND TRANSPORT (ET3) DOCUMENTATION OF TELEHEALTH VISIT Date / Time: 05/08/2023 / 2229 Name: Kendy Andujar : 2005 SSN: [id number] EMS Agency: [facility] [x] Verbal consent obtained, from [...] Completed by: Pedro Bernal MD Normal [facility] [email or web address] [facility] KIDNEYSon 10-10-2022 KIDNEYS EXAM: US KIDNEYS HISTORY: Hyperlipidemia COMPARISON: [...] by: SHAISTA DYE Date: 2022-10-10 11:42 Normal [facility] Cholesterol [Mass/volume] in Serum or PlasmaOrdered By: Tammy White on 05-20-2022 Cholesterol [Mass/Vol] 194 mg/dL 140-200 [facility] Comment on above: Chol less than 200 m g/dl low riskChol 201-239 mg/dl borderline riskChol 240 mg/dl and greater high risk Cholesterol in LDL Calc [Mas s/Vol]Ordered By: Tammy White on 05-20-2022 Cholesterol in LDL [Mass/Vol] 138 mg/dL 0-100 [facility] Comment on above: LDL ATP III CLASSIFI CATIONLDL less than 100 mg/dL OptimalLDL 100-129 mg/dL Near or above optimalLDL 130-159 mg/dL Borderline highLDL 160-189 mg/dL HighLDL greater than 189 mg/dL Very high Cholesterol in VLDL Calc [Ma ss/Vol]Ordered By: Tammy White on 05-20-2022 Cholesterol in VLDL [Mass/Vol] 17 mg/dL [facility] Serum or plasma high density lipoprotein (HDL) cholesterol measurementOrdered By: Tammy White on 05-20-2022 Cholesterol in HDL [Mass/Vol] 38 mg/dL 35-85 [facility] Comment on above: HDL CHOL ATP-III CLA SSIFICATION Cardiovascular RiskHDL > or equal to 60 mg/dL LOWHDL < 40 mg/dL HIGH Serum or plasma total choles terol/high density lipoprotein (HDL) cholesterol mass ratOrdered By: Tammy White on 05-20-2022 Cholesterol.total/Chol esterol in HDL [Mass ratio] 5.1 {ratio} <5.0 [facility] Triglyceride [Mass/volume] i n Serum or PlasmaOrdered By: Tammy White on 05-20-2022 Triglyceride [Mass/Vol] 89 mg/dL 35-149 [facility] Comment on above: TRIG ATP III CLASSIF ICATIONTRIG less than 150 mg/dL NormalTRIG 150-199 mg/dL Borderline highTRIG 200-500 mg/dL High TRIG greater than 500 mg/dL Very highStandard traceable to the Center for Disease Conrtrol and Prevention (CDC) test method. Covid-19 PCR [facility]on 04-09 SARS-CoV-2 (COVID-19) RNA DEBRA+probe Ql (Unsp spec) Not detected Normal NOT DETECTED [facility] Comment on above: Result Comment: This test is not yet approved or cleared by the [place] FDA. When there are no FDA-approved or cleared tests available, and other criteria are met, FDA can make tests available under an emergency access mechanism called an Emergency Use Authorization (EUA). The EUA for this test is supported by the [place] of Health and Human Service's (HHS's) declaration [...] consistent with SARS-CoV-2. Performed By: #### C [facility] #### [facility] [address] [place] [address] Dr. Ivette Meyer COVID Quick Testingon 2021 COVID Quick Testing [facility] [employer] Other COVID Quick Testing Negative [facility] [employer] Other Cholesterol [Mass/volume] in Serum or PlasmaOrdered By: Tammy White on 05-11-2022 Cholesterol [Mass/Vol] 226 mg/dL 140-200 [facility] Comment on above: Chol less than 200 m g/dl low risk Chol 201-239 mg/dl borderline risk Chol 240 mg/dl and greater high risk Cholesterol in LDL Calc [Mas s/Vol]Ordered By: Tammy White on 12-17-2021 Cholesterol in LDL [Mass/Vol] 168 mg/dL 0-100 [facility] Comment on above: LDL ATP III CLASSIFI CATION LDL less than 100 mg/dL Optimal LDL 100-129 mg/dL Near or above optimal LDL 130-159 mg/dL Borderline high LDL 160-189 mg/dL High LDL greater than 189 mg/dL Very high Cholesterol in VLDL Calc [Ma ss/Vol]Ordered By: Tammy White on 12-17-2021 Cholesterol in VLDL [Mass/Vol] 20 mg/dL [facility] Serum or plasma high density lipoprotein (HDL) cholesterol measurementOrdered By: Tammy White on 12-17-2021 Cholesterol in HDL [Mass/Vol] 37 mg/dL 35-85 [facility] Comment on above: HDL CHOL ATP-III CLA SSIFICATION Cardiovascular Risk HDL > or equal to 60 mg/dL LOW HDL < 40 mg/dL HIGH Serum or plasma total choles terol/high density lipoprotein (HDL) cholesterol mass ratOrdered By: Tammy White on 12-17-2021 Cholesterol.total/Chol esterol in HDL [Mass ratio] 6.1 {ratio} [facility] Triglyceride [Mass/volume] i n Serum or PlasmaOrdered By: Tammy White on 12-17-2021 Triglyceride [Mass/Vol] 103 mg/dL 35-149 [facility] Comment on above: TRIG ATP III CLASSIF ICATION TRIG less than 150 mg/dL Normal TRIG 150-199 mg/dL Borderline high TRIG 200-500 mg/dL High TRIG greater than 500 mg/dL Very high Standard traceable to the Center for Disease Conrtrol and Prevention (CDC) test method. Vital Signs Date Time Vital Sign Value Performing Clinician Facility 08-29-2024 17:31-0500 Body height 154.9 cm Diandra Paula DO Work Phone: [facility] 08-29-2024 17:31-0500 Body mass index (BMI) [Percentile] Per age and sex 83.57 % Diandra Paula DO Work Phone: [facility] 08-29-2024 17:31-0500 Body mass index (BMI) [Ratio] 25.7 kg/m2 Diandra Paula DO Work Phone: [facility] 08-29-2024 17:31-0500 Body weight 61.69 kg Diandra Paula DO Work Phone: [facility] 08-29-2024 17:31-0500 Diastolic blood pressure 74 mm[Hg] Diandra Paula DO Work Phone: [facility] 08-29-2024 17:31-0500 Heart rate 87 /min Diandra Paula DO Work Phone: [facility] 08-29-2024 17:31-0500 SaO2% (BldA) [Mass fraction] 98 % Diandra Paula DO Work Phone: [facility] 08-29-2024 17:31-0500 Systolic blood pressure 112 mm[Hg] Diandra Paula DO Work Phone: [facility] 05-08-2023 22:30-0400 Diastolic blood pressure 78 mm[Hg] [email or web address] 05-08-2023 22:30-0400 Heart rate 102 /min [email or web address] 05-08-2023 22:30-0400 Respiratory rate 18 /min [facility]23 22:30-0400 SaO2% (BldA) [Mass fraction] 99 % [email or web address] 05-08-2023 22:30-0400 Systolic blood pressure 108 mm[Hg] [facility] 03-10-2022 19:30-0400 Body height 157.48 cm Lilian Monreal Other [employer] Other 03-10-2022 19:30-0400 Body mass index (BMI) [Ratio] 30.36 kg/m2 Lilian Monreal Other [employer] Other 03-10-2022 19:30-0400 Body temperature 96.9 [degF] Lilian Monreal Other [employer] Other 03-10-2022 19:30-0400 Body weight 75.3 kg Lilian Monreal Other [employer] Other 03-10-2022 19:30-0400 Respiratory rate 18 /min Lilian Monreal Other [employer] Other 03-10-2022 19:30-0400 SaO2% (BldA) [Mass fraction] 98 % Lilian Monreal Other [employer] Other Encounters Encounter Date Encounter Type Care Provider Facility Start: 05-06-2025 End: 05-06-[address] [facility] Work Phone: Start: 05-06-2025 End: 05-06-2025 Departed Referred Amador Russo DO -LAB [facility] Start: 04-04-2025 End: 04-04-2025 ambulatory GUZZLER BUILDER Stella L Feng Facility:[facility] Start: 03-07-2025 End: 03-07-2025 ambulatory GUZZLER BUILDER Stella L Feng Facility:[facility] Start: 01-24-2025 End: 01-27-2025 ambulatory Tammy White MD Work Phone: [facility] Start: 12-15-2024 End: 12-19-2024 Refill Tammy White MD Work Phone: [facility] Comment on above: Med Refill Start: 09-11-2024 End: 09-11-2024 ambulatory DIANDRA PAULA Not Available Start: 09-07-2024 End: 09-07-2024 ambulatory DIANDRA PAULA Not Available Start: 08-29-2024 End: 08-29-2024 Office consultation new/estab patient 60 min Diandra Mitchell DO Work Phone: [facility] Comment on above: Seizure (CMS/HCC) (P rimary Dx); POTS (postural orthostatic tachycardia syndrome); Autism (CMS/HCC); Alteration of awareness Start: 08-29-2024 End: 08-29-2024 ambulatory DIANDRA MITCHELL Not Available Start: 07-03-2024 End: 07-04-2024 ambulatory SUMMER M WORKMAN Not Available Start: 07-03-2024 End: 07-04-2024 Office outpatient visit 25 minutes summer Workman PA Work Phone: [facility] Comment on above: Cat scratch of multi ple sites (Primary Dx); Open wound of right middle finger due to cat bite Start: 05-25-2024 End: 05-26-2024 Refill Tammy White MD Work Phone: [facility] Comment on above: Med Refill Start: 05-24-2024 End: 05-24-2024 Patient encounter procedure DO Ronaldo Holland Work Phone: [facility] Work Phone: Start: 05-24-2024 End: 05-24-2024 ambulatory DO Ronaldo Holland Work Phone: [facility] Work Phone: Start: 11-24-2023 End: 11-24-2023 ambulatory DO Ronaldo Paul Holland Work Phone: [facility] Work Phone: Start: 11-24-2023 End: 11-24-2023 Patient encounter procedure DO Ronaldo Holland Work Phone: [facility] Work Phone: Start: 11-12-2023 End: 11-18-2023 Telephone encounter Lyndsey Walker RN [facility] Start: 06-11-2023 End: 07-06-2023 ambulatory UNKNOWN PROVIDER Facility:[facility] Start: 05-08-2023 End: 05-08-2023 ambulatory [facility] Triage, Treat and Transport Start: 05-08-2023 End: 05-08-2023 Emergency department patient visit [facility] Emergency Triage, Treat and Transport Comment on above: Arrived Start: 03-24-2023 End: 03-24-2023 ambulatory DO Ronaldo Holland Work Phone: [facility] Work Phone: Start: 03-24-2023 End: 03-24-2023 Patient encounter procedure DO Ronaldo Holland Work Phone: [facility] Work Phone: Start: 11-25-2022 End: 11-25-2022 ambulatory DO Ronaldo Holland Work Phone: [facility] Work Phone: Start: 11-25-2022 End: 11-25-2022 Patient encounter procedure DO Ronaldo Holland Work Phone: [facility] Work Phone: Start: 10-10-2022 End: 10-11-[address] DOCTOR PARIKH Facility:[facility] Start: 05-20-2022 End: 05-20-2022 ambulatory DO Ronaldo Holland Work Phone: [facility] Work Phone: Start: 05-20-2022 End: 05-20-2022 Patient encounter procedure DO Ronaldo Holland Work Phone: [facility] Start: 04-23-2022 End: 04-24-2022 ambulatory RONALDO HOLLAND Facility:[facility] Start: 03-10-2022 End: 03-10-2022 ambulatory Lilian Monreal Other [employer] Other Start: 03-10-2022 Office outpatient vi sit 15 minutes Lilian Monreal [facility] Start: 12-17-2021 End: 12-17-2021 Patient encounter procedure DO Ronaldo Holland Work Phone: [facility] Plan of Treatment Date Care Activity Detail Author Start: 09-23-2026 DTaP,Tdap and Td Vaccines (7 - Td or Tdap) DTaP,Tdap and Td Vaccines (7 - Td or Tdap) [facility] Start: 09-23-2026 Tetanus,Diptheria,Pe rtu ssis Vaccine (7 - Td or Tdap) Tetanus,Diptheria,Pertu ssis Vaccine (7 - Td or Tdap) [facility] Start: 05-06-2025 Urine culture [facility] Start: 05-06-2025 Bacteria identified in Urine by Culture Urine Culture [facility] Start: 04-09-2025 Influenza vaccination Influenza Vacc ine [facility] Start: 10-17-2024 End: 10-17-2024 Patient encounter procedure 10/17/2024 10:00 AM EDT Office Visit LARISA DUNBAR [address] [place] [phone] Chen Crowell NP [address] [place] [address] LARISA DUNBAR Start: 08-29-2024 End: 08-29-2025 Home EEG 36-84 Hours Home EEG 36-84 Hours Neurology Routine Seizure (CMS/HCC) Expected: 08/29/2024 (Approximate), Expires: 08/29/2025 [facility] Work Phone: Comment on above: Expected: 08/29/2024 (Approximate), Expires: 08/29/2025 Start: 04-09-2024 [facility] Start: 2023 Adult BMI Screening Adult BMI Screen ing [facility] Start: 04-09-2023 COVID-19 Vaccine ( season) COVID-19 Vaccine ( season) [facility] Start: 04-09-2023 Influenza vaccination Influenza Vacc ine (#1) [facility] Start: 2021 MCV (1 - 2-dose series) MCV (1 - 2-d ose series) [facility] Start: 02-17-2022 MCV (2 - 2-dose series) MCV (2 - 2-d ose series) [facility] Start: 2021 Meningococcal B (Bexsero,OMV) Vaccine (Optional,16-23 years) Meningococcal B (Bexsero,OMV) Vaccine (Optional,16-23 years) [facility] Start: 2021 Meningococcal Conjug ate (MCV4,ACWY) Vaccine (2 - 2-dose series) Meningococcal Conjugate (MCV4,ACWY) Vaccine (2 - 2-dose series) [facility] Start: 2020 HIV screening HIV Test [facility] Start: 2020 HPV Vaccines (1 - 3-dose series) HPV Vaccines (1 - 3-dose series) [facility] Start: 2020 Screening for Chlamy salud trachomatis STI Screening (Age 15-17) [facility] Start: 2020 Vision Test (15-17 yrs,once) Vision Test (15-17 yrs,once) [facility] Start: 2018 Varicella Vaccines ( 1 of 2 - 13+ 2-dose series) Varicella Vaccines (1 of 2 - 13+ 2-dose series) [facility] Start: 2017 Depression Screening Depression Scre ening [facility] Start: 2017 Tobacco Screening Tobacco Screening [facility] Start: 2016 Adolescent Depressio n Screening Adolescent Depression Screening [facility] Start: 2015 Hearing Test (10-18 yrs,once) Hearing Test (10-18 yrs,once) [facility] Start: 2012 DTaP,Tdap and Td Vaccines (1 - Tdap) DTaP,Tdap and Td Vaccines (1 - Tdap) [facility] Start: 06-30-2012 MMR Vaccines (2 of 2 - Standard series) MMR Vaccines (2 of 2 - Standard series) [facility] Start: 2008 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, 14 years WELL GEOLOGICAL E LOGGER (3-17 YRS,YEARLY) [facility] Start: 2006 Hepatitis A Vaccines (1 of 2 - 2-dose series) Hepatitis A Vaccines (1 of 2 - 2-dose series) [facility] Start: 2006 MMR Vaccines (1 of 2 - Standard series) MMR Vaccines (1 of 2 - Standard series) [facility] Start: 06-10-2006 Hepatitis B Vaccines (3 of 3 - 3-dose series) Hepatitis B Vaccines (3 of 3 - 3-dose series) [facility] Start: 2005 Hepatitis B Vaccines (1 of 3 - 3-dose series) Hepatitis B Vaccines (1 of 3 - 3-dose series) [facility] Home EEG 36-84 Hours Home EEG 36 -84 Hours Neurology Routine Seizure (CMS/HCC) 09/11/2024 8:[address] [facility] Immunizations Immunization Date Immunization Notes Care Provider Fa cili 07-03-2024 tetanus toxoid, redu blas diphtheria toxoid, and acellular pertussis vaccine, adsorbed [facility] Work Phone: [facility] 01-20-2023 meningococcal B vaccine, recombinant, OMV, adjuvanted [facility] Work Phone: [facility] 01-20-2023 meningococcal polysaccharide (groups A, C, Y and W-135) diphtheria toxoid conjugate vaccine (MCV4P) [facility] Work Phone: [facility] 05-18-2022 influenza, injectabl e, quadrivalent, preservative free [facility] Work Phone: [facility] 05-18-2022 influenza virus vaccine, unspecified formulation Tammy White MD Work Phone: [facility] 05-02-2021 influenza, injectabl e, quadrivalent, preservative free [facility] 05-02-2021 influenza virus vaccine, unspecified formulation [facility] 04-19-2020 influenza, injectabl e, quadrivalent, preservative free [facility] 05-03-2019 influenza, injectabl e, quadrivalent, preservative free [facility] 09-12-2018 influenza, injectabl e, quadrivalent, preservative free [facility] 06-22-2017 human papilloma viru s vaccine, quadrivalent [facility] 06-22-2017 influenza, injectabl e, quadrivalent, preservative free [facility] 09-23-2016 Meningococcal, MCV4, unspecified conjugate formulation(groups A, C, Y and W-135) Et3 [facility] 09-23-2016 tetanus toxoid, redu blas diphtheria toxoid, and acellular pertussis vaccine, adsorbed Et3 [facility] 06-03-2016 Human Papillomavirus 9-valent vaccine Et3 [facility] 05-22-2016 influenza virus vaccine, unspecified formulation Et3 [facility] 05-31-2015 influenza virus vaccine, unspecified formulation Et3 [facility] 06-26-2014 influenza virus vaccine, unspecified formulation Et3 [facility] 05-24-2013 influenza virus vaccine, unspecified formulation Et3 [facility] 06-02-2012 influenza virus vaccine, unspecified formulation Et3 [facility] 06-02-2012 measles, mumps and rubella virus vaccine Et3 [facility] 06-02-2012 varicella virus vaccine Et3 [facility] 06-13-2010 influenza virus vaccine, unspecified formulation Et3 [facility] 09-30-2009 diphtheria, tetanus toxoids and acellular pertussis vaccine Et3 [facility] 09-30-2009 measles, mumps and rubella virus vaccine Et3 [facility] 09-30-2009 poliovirus vaccine, inactivated Et3 [facility] 09-30-2009 varicella virus vaccine Et3 [facility] 09-12-2009 influenza virus vaccine, unspecified formulation Et3 [facility] 06-15-2008 influenza virus vaccine, unspecified formulation Et3 [facility] 03-01-2008 influenza virus vaccine, unspecified formulation Et3 [facility] 10-09-2007 measles, mumps and rubella virus vaccine Et3 [facility] 05-20-2007 hepatitis A vaccine, pediatric/adolescent dosage, 2 dose schedule Et3 [facility] 05-20-2007 pneumococcal Conjuga te, unspecified formulation Et3 [facility] 11-04-2006 diphtheria, tetanus toxoids and acellular pertussis vaccine Et3 [facility] 11-04-2006 haemophilus influenz ae type b vaccine, PRP-T conjugate Et3 [facility] 11-04-2006 hepatitis A vaccine, pediatric/adolescent dosage, 2 dose schedule Et3 [facility] 11-04-2006 measles, mumps, rubella, and varicella virus vaccine [facility]-04-2006 pneumococcal conjuga te vaccine, 7 valent Et3 [facility] 11-04-2006 measles, mumps and rubella virus vaccine Tammy White MD Work Phone: [facility] 07-08-2006 influenza, seasonal, injectable [facility] 04-15-2006 diphtheria, tetanus toxoids and acellular pertussis vaccine Et3 [facility] 04-15-2006 haemophilus influenz ae type b conjugate and Hepatitis B vaccine Et3 [facility] 04-15-2006 pneumococcal conjuga te vaccine, 7 valent Et3 [facility] 04-15-2006 poliovirus vaccine, inactivated Et3 [facility] 01-29-2006 diphtheria, tetanus toxoids and acellular pertussis vaccine Et3 [facility] 01-29-2006 haemophilus influenz ae type b conjugate and Hepatitis B vaccine Et3 [facility] 01-29-2006 pneumococcal conjuga te vaccine, 7 valent Et3 [facility] 01-29-2006 poliovirus vaccine, inactivated Et3 [facility] 2005 diphtheria, tetanus toxoids and acellular pertussis vaccine Et3 [facility] 2005 haemophilus influenz ae type b vaccine, PRP-T conjugate Et3 [facility] 2005 hepatitis B vaccine, pediatric or pediatric/adolescent dosage Et3 [facility] 2005 poliovirus vaccine, inactivated Et3 [facility] Payers Date Payer Category Payer Self-pay [id number] 2022 Medicaid [id number] 2022 Medicaid [id number] 2020 Blue Cross Blue Shield 1.2.8 [id number] 2020 Blue Cross [place] Managed Care - Other ANTH [id number] 2020 Unknown [employer] BCBS OUT OF STATE PPO/TRUST [id number] 2020-Present [phone] [address] [place] [address] [id number] 2005 Unknown [id number] [id number]. 593 2005 Unknown [id number] [id number]. 1259 2005 Unknown [id number] [id number]. 1259 2005 Unknown [id number] [id number]. 1259 2005 Unknown [id number] [id number]. 1259 2005 Unknown [id number] [id number]. 727 2005 Unknown [id number] 2.16.840.1.003075.3.579.2. 727 2005 Unknown [id number] 2.16.840.1.499753.3.579.2. 727 1984 Unknown [id number] 2.16840.1.587648.3.579.2. 593 1959 Unknown [id number] 1959 Unknown [id number] [id number] Unknown [id number] [id number]. 732 Department of [facility] e ( and others) [id number] Medicaid [id number] Medicaid [place] [employer] [id number] Unknown [id number] [id number]. 531 Unknown [id number] [id number]. 531 Unknown [id number] [id number]. 531 Social History Date Type Detail Facility Tobacco smoking status [facility] Unknown if ever smoked [facility] Work Phone: Start: 2005 Sex Assigned At Female F [facility] Start: 09-18-2020 End: 08-29-2024 Sex Assigned At [facility] [employer] Other Tobacco smoking status [facility] Tobacco smoking consumption unknown [facility] Start: 2005 Sex Assigned At [facility] file [facility] Start: 12-03-2020 End: 08-29-2024 Tobacco smoking status [facility] Never smoked tobacco [facility] Start: 12-03-2020 End: 08-29-2024 Tobacco use and exposure Smokeless tobacco non-user [facility] Start: 09-18-2020 End: 08-29-2024 History of Social function [facility] Start: 12-31-2020 Alcoholic beverage intake Current non-drinker of alcohol (finding) [facility] Start: 03-12-2015 Sex Female (finding) [facility] Clinical Notes 03-10-2022 to 08-29-2024 Diandra [...] IN : POTS , tremors, seen @ [facility] ER , PCP [facility] Patient [...] that she was diagnosed with POTS. The office rn that saw them thought they were not [...] She did have an EEG at the [facility]. She does not know results. Mother witnessed [...] an event. The patient went to the [place] ER for her arms jerking. This was also making her arms hurt. She was given a muscle relaxer and this helped her symptoms. She sees a Fire Extinguisher Installer for POTS at [facility]- she was told to keep her sodium levels up. She does not think that she had a tilt table. She thinks she had a CT or MRI. She saw the behavioral pediatrician at [facility]. She also has a history of [...] and all orders for this visit: Seizure (CMS/[facility]) - Home EEG 36-84 Hours; Future POTS (postural orthostatic tachycardia syndrome) Autism (CMS/[facility]) Alteration of awareness 18-year-old Autistic female with [...] clinic: 6-8 weeks documented in this encounter [facility] 07-03-2024 History of Presen t illness Narrative [address] [facility], [address] P: [phone] F: [phone] HPI Historian of HPI: patient Kendy Andujar [...] tablet; Refill: 0 documented in this encounter [facility] 11-12-2023 Miscellaneous Notes Called patient's mother with [...] in 3 months documented in this encounter [facility] 11-12-2023 Telephone encounter Note Called patient's [...] direct relation to her eating fatty foods. [facility] 11-12-2023 Telephone encounter Note Please find out if she was taking her medication around the time that she did her lab work. If she was then we will have to increase the dose. [facility] 11-12-2023 Telephone encounter Note Patient was taking medication at the time of her labwork, will call patient's mother back with the increased dosage as soon as you let me know. [facility] 11-12-2023 Telephone encounter Note I have sent a prescription for 10 mg once per day. She was taking half a tablet now she is to take 1 entire tablet. She needs to repeat her labs in 3 months [employer] 06-11-2023 History of Presen t illness Narrative Images from the original note were not included. EMERGENCY TRIAGE, TREAT AND TRANSPORT (ET3) DOCUMENTATION OF TELEHEALTH VISIT Date / Time: 05/08/2023 / 0 Name: Kendy Andujar : 2005 SSN: [id number] EMS Agency: [facility] [x] Verbal consent obtained, from [...] Pedro Bernal MD documented in this encounter [facility] 03-10-2022 Evaluation note Encounter Date Diagnosis Assessment [...] care provider if no improvement of symptoms. [employer] Other Evaluation noteNo assessment information available [facility] Work Phone: Evaluation note* Diagnosis Seizure-like activity [...] Surgical History appendectomy Hospitalization History staff infection [employer] Other InstructionsNot on filedocumented in this encounter [facility] SystemInstructionsNot on filedocumented in this encounter [facility] SystemInstructionsNot on filedocumented in this encounter [facility] (narrative)No reason for referral information availableSt[facility] Work Phone: Chief Complaint and Reason for Visit Chief Complaint Hyperlipidemia Chief Complaint Hyperlipidemia Chief Complaint Admit Date Unknown May 06, 2025 6:04pm Advance Directives No Advanced Directives Records Found [...] May 24, 2024 End: May 24, 2024 Qm Nurse Relationship Specialty Start Date End Date Ronaldo Holland MD [address] [place] [address] PCP - General Pediatrics 08/04/24 Qm Nurse Relationship Specialty Start Date End Date Vanda Duran MD [address] [address] PCP - General Pediatrics 12/21/16 Qm Nurse Relationship Specialty Start Date End Date Vanda Duran MD [address] [address] PCP - General Pediatrics 12/21/16 Qm Nurse Relationship Specialty Start Date End Date Vanda Duran MD [address] [address] PCP - General Pediatrics 12/21/16 Qm Nurse Relationship Specialty Start Date End Date Vanda Duran MD [address] [address] PCP - General Pediatrics 12/21/16 Team Status: Inactive Member Role Status Dates Amador Hemphill DO Attending Provider Active S tart: May 06, 2025 End: May 06, 2025 Goals (unrecognized section and content) Goals may [...] this encounterNot on filedocumented as of this encounterGoals may be documented in an alternate section REASON FOR VISIT (unrecogniz ed section and content) Reason Comments Seizures Reason Comments POTS Seizures Reason Comments Med Refill INFORMATION SOURCE (unrecogn ized section and content) DATE CREATED AUTHOR [facility]/13/2022 [facility] DATE CREATED AUTHOR AUTHOR'S ORGANIZ ATION 07/08/2023 [facility] DATE CREATED AUTHOR AUTHOR'S ORGANIZ ATION 09/12/2024 [facility] DATE CREATED AUTHOR AUTHOR'S ORGANIZ ATION 04/05/2025 [facility] DATE CREATED AUTHOR AUTHOR'S ORGANIZ ATION 05/12/2025 [facility] y[facility] FOR RECORDS PERTAINING TO [...] BE BASED ON THE PRIMARY CLINICAL RECORDS. [facility]. provides no warranty or guarantee of the accuracy or completeness of information in this document.
[2025-05-15 04:44] LABS: Hematocrit 42.0 % (36.0-48.0); Hemoglobin 14.0 g/dL (12.0-16.0); Immature Granulocytes Abs Auto 0.01 10^3/uL (0.00-0.03); Immature Granulocytes Pct Auto 0.1 % (0.0-0.5); Lymphocytes Absolute Auto 2.4 10^3/uL (1.2-3.8); Mean Corpuscular HGB Conc 33.3 g/dL (29.9-35.2); Mean Corpuscular Hemoglobin 29.9 pg (26.7-34.0); Mean Corpuscular Volume 89.6 fL (81.0-99.0); Platelet Count 239 10^3/uL (150-450); Red Blood Count 4.69 10^6/uL (4.20-5.40); White Blood Count 7.6 10^3/uL (4.0-11.0)
[2025-05-15 04:57] LABS: Anion Gap 12.8; Blood Urea Nitrogen 17.0 mg/dL (6.4-19.3); Calcium 8.6 mg/dL (8.5-10.1); Carbon Dioxide 28.9 mmol/L (21.0-32.0); Chloride 107 mmol/L (98-107); Estimated GFR (African America >60 (>=60 mL/min/1.73m^2); Estimated GFR (Non-African Ame >60 (>=60 mL/min/1.73m^2); Glucose 88 mg/dL (74-106); Potassium 3.7 mmol/L (3.5-5.1); Sodium 145 mmol/L (136-145)
[2025-05-15 05:06] LABS: Glucose Urine UA NEGATIVE (NEGATIVE)
[2025-05-15 05:14] LABS: Cast Seen? NONE SEEN #/LPF (NONE SEEN); Crystals Seen? None Seen #/HPF (None Seen); Urine Culture Indicated NO
[2025-05-15] MEDS: 0.9 % SODIUM CHLORIDE 1,000 ML 999 ML IV (05:17)
== END 2025-05-15 07:19 | disposition home or self-care (01) ==
PROVIDERS: Emergency Provider Internal Medicine; PCP Nurse Practitioner Family
DX: R55 Syncope and collapse (principal); G90.A Postural orthostatic tachycardia syndrome [POTS]
CPT/HCPCS: 36415; 80048; 81001; 85025; 93005; 99284

== ENCOUNTER 2025-05-31 06:59 | Emergency (ER) | payer BC, MEDICAID, SELFPAY ==
--- OUTSIDE RECORDS SUMMARY | 2025-05-29 20:34 | XMS_ITS | Continuity of Care Document ---
Author Organization [facility] Address [address] [place] [address] Phone Care Team Providers Care Continuous Dryout Operator Helper Name Role Phone Amador Hemphill DO Attending Provider Amelie Cristobal APRN Attending Provider NON STAFF Primary Care Provider Unavailabl e Care Teams Visit Care Team Team Status: Inactive Member Role/Relationship Status Dates Amador Hemphill DO Attending Provider Active S tart: May 06, 2025 End: May 06, 2025 Visit Care Team Team Status: Inactive Member Role/Relationship Status Dates DEMI Whiting RN SHOE STICKS REPAIRER-C Attending Provider Active Start: May 29, 2025 End: May 29, 2025NON STAFFPrimary Care ProviderActiveStart: May 29, 2025 End: May 29, 2025 Patient Care Team Team Status: Inactive Member Role/Relationship Status Dates DEMI Whiting RN, NP-C Attending Provider Active Start: May 29, 2025 End: May 29, 2025 Chief Complaint and Reason for Visit Chief Complaint Admit Date Unknown May 06, 2025 6:04pm frequency to urinate May 29, 2025 4:39pm Reason for Visit Admit Date UTI (urinary tract infection) May 292024 4:39pm Allergies, Adverse Reactions, Alerts Allergen Type Severity Reaction Last Updated Verified Status prochlorperazine Allergy Unknown Unknown Reaction Oc tober 2024 4:42pm Yes Active Social History Smoking Status Unknown if ever smoked Observation Status Observation Response Date of Response Legal Sex Female (finding) Sex Assigned At BirthFemaleFebruary 2005 Problems Active Problems Problem Diagnosis/Recorded Date Onset Date Stat us UTI (urinary tract infection) May 29, 2025 5:22p m Unknown Active Left shoulder strain February 02, 2020 8:40am Unknown Active Medications Medication Status Dose Units Route Directions Qty Days Refills S tart Date Stop Date End Date Reason(s) Instructions Adherence Ibuprofen 400 mg Tablet Discontinued 400 MG PO Sona ry 6 hours as needed for Pain 20 0June 2019 12:00amOctober 2024 4:42pmAtorvastatin 10 mg tabletActive MGPOOct2024 12:00amUnknownDextroamphetamine-Amphetamine 25 mg capsule,extended release 21vcWkadouCT3Sgijmzc 21st, 2025 12:00amUnknown Nitrofurantoin Monohyd/M-Cryst (Macrobid) 100 mg xtxfbwgOivnwv583ZQRECytnx 12 ehxoy5758UaecmkfMay 29, 2025 12:00ammust administer with a meal/foodUnknown Procedures Procedure Date Performed Status Urine Culture May 06, 2025 completed Urine Culture May 29, 2025 active Relevant Diagnostic Tests and/or Laboratory Data Laboratory Results Test Collection Date/Time Result Date/Time Result Interpretation Reference Range Result Comment Performing Site Urine Color May 29, 2025 5:05pm May 29, 2025 5 :13pm darkyellow Urine AppearanceMay 29, 2025 5:05pmOctober 2024 5:13pmcloudyUrine Glucose (UA)May 29, 2025 5:05pmOctober 2024 5:13pmnegativeUrine BilirubinMay 29, 2025 5:05pmOctober 2024 5:13pmnegativeUrine Ketones May 29, 2025 5:05pmOctober 2024 5:13pmnegativeUrine Specific [place] May 29, 2025 5:05pmOctober 2024 5:13pm1.025Urine Occult BloodOct2024 5:05pmOctober 2024 5:13pmtrace-intactUrine pHOct2024 5:05pmOctober 2024 5:13pm7.5Urine ProteinMay 29, 2025 5:05pmOctober 2024 5:37st054Igxxm UrobilinogenOctober 21st, 2025 5:05pmOct2024 5:13pm0.2Urine NitriteOct2024 5:05pmOct2024 5:13pm NegativeUrine Leukocyte EsteraseOct2024 5:05pmOct2024 5:13pmlarge Microbiology Results Procedure Source Result Collection Date/Time Result Date/Time Result Comment Performing Site Urine Culture Urine 2 Days May 06, 2025 6 :04pm May 08, 2025 8:04am [facility] [id number] [address] [place] [id number] Vital Signs Vital Reading Result Reference Range Collection Date/Time Height 61 [in_i] May 29, 2025 4:68gmKwemqo93.50 kgMay 29, 2025 4:51pmBody Temperature 98.9 [degF]97.6-99.0May 29, 2025 4:51pmHeart Rate81 /cbk45-596UmnzwycMay 29, 2025 4:51pmRespiratory rate18 /ots02-44WtcsyeqMay 29, 2025 4:51pmOxygen saturation by Pulse mqmejdab04 %95-100May 29, 2025 4:51pmBP Pppaipjy292 mm[Hg]100-140May 29, 2025 4:51pmBP Nfobetigs23 mm[Hg]60-100May 29, 2025 4:51pmBMI (Body Mass Index)31.0 kg/f6CisfaruMay 29, 2025 4:51pmBody mass index (BMI) [Percentile] Per age and sex94.5 %Overweight; 85th to 95th percentileMay 29, 2025 4:51pm Advance Directives Advance Directive Response Recorded Date/ Time Advance Directives No February 01 7:54am Insurance Providers Guarantor Serena Nino Address [address] [place] [address]Uzpufom Info.Home Phone: Coverage Status Update:2024 Payer Group Member ID Coverage Type Subscriber Relationship to Subscriber Effective Date Expiration Date Moreno MORA Id: [id number] Yun-mafnas , M Id: [id number] [address] [place] [address] Home Phone: Email: [email or web address] [place] Medicaid [id number] E[place] Serena Id: [id number] [address] [place] [address] Home Phone: Email: Dieter(MORENO) Student Id: [id number] Encounters Encounter Location(s) Arrival/Admit Date Discharge/Departure Date Discharge/Departure Disposition Provider(s) Departed Referred -[facility] May 06, 2025 6:04pm May 06, 2025 6:05pm Discharged to home care or self care (routine discharge) Karan Swain DO Departed Physician/ Provider Office Visit -[facility] [place] May 29, 2025 4:39pm May 29, 2025 5:18pm Discharged to home care or self care (routine discharge) Amelie Cristobal APRN Departed Referred -Lab [facility] May 29, 2025 4:46pm May 29, 2025 4:47pm Discharged to home care or self care (routine discharge) Amelie Cristobal APRN Recent Diagnosis Onset Date Admit Date UTI (urinary tract infection) Unknown Oc tober 2024 4:39pm Assessments Diagnosis Onset Date Resolution Status Admit Date UTI (urinary tract infection) acuteOctober 2024 4:39pm Plan of Treatment Author Amelie Cristobal [facility] CenterAuthoredOctober 2024 5:22pmInitiate antibotics. Will send for culture. Encouraged to increase oral intake of fluids. Discussed good personal hygiene, wipe front to back, void after intercourse. Future Tests Future scheduled test information is unavailable Pending Tests Test Name Ordered Date Scheduled Date Urine Culture May 29, 2025 4:46pm Future Visits Future appointment information is unavailable Future Procedures Procedure Name Ordered Date Scheduled Date Urine Culture May 29, 2025 5:11pm Octobe r 2024 4:46pm Future Medications Future medication information is unavailable Patient Instructions Patient instructions are unavailable
--- OUTSIDE RECORDS SUMMARY | 2025-05-31 07:06 | XMS_ITS | Clinical Summary ---
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 Name Role Phone Levon Holland MD Primary Care Provider [phone] Cindy Green DO Unavailable [phone] Allergies Active AllergyReactionsCriticalityNoted RsmvDmehkjisJnbxpzwsewegrzyw86/25/2021 Medications MedicationSigDispense QuantityRefillsLast FilledStart DateEnd DateStatus atorvastatin (Lipitor) 10 MG tablet Take 1 tablet by mouth in the morning.05/26/2024ctive Dariana 0.25-35 MG-MCG tablet Take 1 tablet by mouth Daily as directedActive desmopressin (DDAVP) 0.1 MG tablet Take by mouth at bedtimeActive Active Problems No known active problems Immunizations ImmunizationAdministration DatesNext NcmNZvF3109/30/2009,11/04/2006,04/15/2006, 01/29/2006,2005HPV 9-Vygnoh2306/03/2016HPV, Ctjuoovfvhem65/14/2017Hep A, ped/adol, 2 dose05/20/2007,11/04/2006Hep B, Adolescent or Spjxclomv72/20/2006Hib (PRP-T)11/04/2006,2005Hib / Hep B004/15/2006,01/29/2006IPV09/30/2009, 04/15/2006,01/29/2006,2005Influenza, Sybgeedwqvc15/14/2016,05/31/2015, 06/26/2014,05/24/2013,06/02/2012,06/13/2010,09/12/2009,06/15/2008,03/01/2008 Influenza, injectable, quadrivalent, preservative free05/18/2022,05/02/2021, 04/19/2020,05/03/2019,09/12/2018,06/22/2017Influenza, seasonal, injectable 07/08/2006MMR1,09/30/2009,10/09/2007MMRV11/04/2006Meningococcal B, Omv 01/20/2023Meningococcal MCV4, Vimveekwdwx63/15/2017Meningococcal IJM0L9801/20/2023 Pneumococcal Conjugate PCV 7011/04/2006,04/15/2006,01/29/2006Pneumococcal Conjugate, Rflxjozrmqf25/12/7450Zrxr17/25/2024,09/23/20162259Mctcirtnl35/25/2012, 09/30/2009 Family History Medical HistoryRelationNameCommentsAlcohol abuseFatherAutismFatherDevelopmental delayFatherHyperlipidemiaFatherHypertensionFatherKidney diseaseMotherMigraines MotherRelationNameStatusCommentsFatherMother Social History Tobacco UseTypesPacks/DayYears UsedDateSmoking Tobacco: NeverSmokeless Tobacco: NeverCommentsUnknownSex and Gender InformationValueDate RecordedSex Assigned at BirthNot on fileLegal EydGaagls02/15/2023 6:53 PM EDTGender Identity Not on fileSexual OrientationNot on file Last Filed Vital Signs Vital SignReadingTime TakenCommentsBlood Nhfpbrhz101/7408/29/2024 5:31 PM EST Vjopn368108/29/2024 5:31 PM ESTTemperature--Respiratory Rate--Oxygen Cvgzesehag10% 08/29/2024 5:31 PM ESTInhaled Oxygen Concentration--Ujjemo89.7 kg (136 lb) 08/29/2024 5:31 PM OVSUfutwg850.9 cm (5' 1 )08/29/2024 5:31 PM ESTBody Mass Index25.7008/29/2024 5:31 PM ESTBody Mass Index Rcuegrcroy94.57%08/29/2024 5:31 PM ESTGrowth Chart: CDC (Girls, 2-20 Years) Plan of Treatment Health MaintenanceDue DateLast DoneCommentsInfluenza Vaccine (#1)04/09/2025 05/18/2022, 05/02/2021, 04/19/2020, Additional history exists Insurance Care Teams Team MemberRelationshipSpecialtyStart DateEnd Levon Holland MD [address] [place], [place] [address], [place] [address] PCP - UgdbingTwvtgcucqo40/27/24 Cindy Green DO [address] [place] [address] Referring PhysicianNeurology1/
--- OUTSIDE RECORDS SUMMARY | 2025-05-31 07:06 | XMS_ITS | CCD ---
Author Organization [facility] Care Team Providers Care [employer] Control Officer Name Role Phone DO Ronaldo Holland Primary [...] Provider DO Ronaldo Holland Primary Care Provider [phone] MD Tammy White Attending Provider Unavailable Primary [...] Unavailable Ronaldo Holland MD Primary Care Provider [phone] Vanda Duran MD Primary Care Provider Vanda Duran MD Primary Care Provider RUDI Toney Attending Unavailable RUDI Toney Attending Unavailable RUDI Toney Attending Unavailable Amador Hemphill DO Attending Provider Amador Hemphill Attending Unavailable Amador Hemphill Admitting Unavailable Tammy White Admitting Unavailable Ronaldo Holland Primary Care Unavailable Tammy White Attending Unavailable Ronaldo Holland Primary Care Unavailable Tammy White Attending Unavailable Tammy White Admitting Unavailable Amelie Cristobal APRN Attending Provider NON STAFF Primary Care Provider Unavailabl e Allergies Allergy ClassificationReported Allergen(s)Allergy TypeDate of OnsetReaction(s) Facility (1 source)ProchlorperazineDrug AllergyGan & Lee Pharmaceutical Other (9 sources)ProchlorperazineDrug Rngnorf98-63-2720[facility] (1 source)ProchlorperazineDrug Ucoyklx03-89-7281ErevmjvbqMercy Health St[facility] Repository Medications Current Medications MedicationDrug Class(es)DatesSig (Normalized)Sig (Original)amoxicillin 875 mg oral tablet (1 source)Penicillin-class AntibacterialStart: 83-90-9302fatu 1 tablet by mouth every twelve hoursAmoxicillin 875 MG 1 tablet Orally every 12 hrs for 7 days Mar, Bzuskf80 hr amphetamine aspartate 6.25 mg / amphetamine sulfate 6.25 mg / dextroamphetamine saccharate 6.25 mg / dextroamphetamine sulfate 6.25 mg extended release oral capsule (10 sources)Central Nervous System StimulantStart: 05-29-2025 End: 62-41-1069dhzk 1 capsule by mouth once daily in the morning, then take 1 capsule by mouth every twenty-four hoursamphetamine-dextroamphetamine XR (ADDERALL XR) 25 mg 24 hr capsule Take 25 mg by mouth every morning. Active atorvastatin 10 mg oral tablet (14 sources)HMG-CoA Reductase InhibitorStart: 71-01-1586Bayfl: 11-18-2023 End: 67-96-5631xrnz 1 tablet by mouth once daily in the morningatorvastatin (LIPITOR) 10 mg tablet TAKE 1 TABLET BY MOUTH EVERY MORNING 90 tablet 1 12/19/2024 ActiveStart: 05-17-2023 End: 66-48-6904rlzkqlvxnxbh (LIPITOR) 10 mg tablet TAKE 1/2 TABLET BY MOUTH EACH MORNING 45 tablet 3 05/17/2023 11/18/2023 Discontinued (Reorder)Atorvastatin Calcium Activedesmopressin acetate 0.1 mg oral tablet (8 sources)Vasopressin Analog, Factor VIII ActivatorStart: 04-53-3625smnr 1 tablet by mouth once dailydesmopressin (DDAVP) 0.1 mg tablet TAKE 1 TABLET BY MOUTH EVERY DAY 90 tablet 1 06/18/2023 Activeethinyl estradiol 0.035 mg / norgestimate 0.25 mg oral tablet (4 sources)Progestin, Estrogentake 1 tablet by mouth once dailyMili 0.25-35 MG- MCG tablet Take 1 tablet by mouth Daily as directed ActivemethylPREDNISolone 4 mg oral tablet (1 source)CorticosteroidStart: 89-63-1806bzvrxkYCEEBTNttwoi 4 MG as directed Orally Once a day for 6 days Mar, Activenitrofurantoin, macrocrystals 25 mg / nitrofurantoin, monohydrate 75 mg oral capsule (1 source)Nitrofuran AntibacterialStart: 33-04-0393vefc 1 capsule by mouth every twelve hours at mealtimeOmega 3 (1 source)Shorter 3 Activeondansetron 4 mg oral tablet (5 sources)Serotonin-3 Receptor AntagonistStart: 42-76-8635novh 1 tablet by mouth every eight hours as neededZofran ODT 4 MG 1 tablet on the tongue and allow to dissolve Orally every 8 hrs as needed for 4 days Mar, Active Start: 95-20-3280xhgcimuieyj ODT (ZOFRAN-ODT) 4 mg disintegrating tablet Dissolve 4 mg on tongue as needed. 10/07/2020 Active Completed/Discontinued Medications MedicationDrug Class(es)DatesSig (Normalized)Sig (Original)amoxicillin 875 mg / clavulanate 125 mg oral tablet (2 sources)Penicillin-class AntibacterialStart: 07-03-2024 End: 14-76-8253txro 1 tablet by mouth in the morningamoxicillin-clavulanate (Augmentin) 875-125 MG tablet Indications: Cat scratch of multiple sites , Open wound of right middle finger due to cat bite Take 1 tablet (875 mg) by mouth in the morning and1 tablet (875 mg) before bedtime. Do all this for 7 days. 14 tablet 07/03/2024 07/10/2024 Expiredibuprofen 400 mg oral tablet (9 sources)Nonsteroidal Anti-inflammatory DrugStart: 02-02-2020 End: 29-16-5418qlom 1 tablet by mouth every six hours as needed for pain Ibuprofen 400 mg Tablet Discontinued 400 MG PO Every 6 hours as needed for Pain 20 0 February 02, 2020 12:00am May 29, 2025 4:42pm Problems Active Problems Problem ClassificationProblemDateDocumented DateEpisodic/ChronicCardiac dysrhythmias (2 sources)Postural orthostatic tachycardia syndrome ; Translations: [POTS (postural orthostatic tachycardia syndrome)]26-72-7029UczhwtlJttpshdgv of lipid metabolism (4 sources)Hyperlipidemia, unspecified; Translations: [HYPERLIPIDEMIA UNSPECIFIED]Onset: 96-05-4271NzdjyzyBsjvcygfb usually diagnosed in infancy, childhood, or adolescence (2 sources)Autism spectrum disorder; Translations: [Autistic disorder]09-13-2024 ChronicE Codes: Natural/environment (2 sources)Cat scratch injury; Translations: [Scratched by cat, initial encounter]05-98-4226VmnrtptcNojudvxn; convulsions (5 sources)Neurological finding; Translations: [Unspecified convulsions] 23-52-2016VqbhhbgtNhyisgj system congenital anomalies (1 source)Familial dysautonomia [Bhavesh-Day]; 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]]Onset: 94-93-4953MsexgbqMrkk wounds of extremities (2 sources)Open wound of right middle finger due to cat bite; Translations: [Open bite of right middle finger without damage to nail, initial encounter] 67-73-9274RluxaktzZfwfg lower respiratory disease (1 source)Cough; Translations: [Cough, unspecified type]EpisodicOther screening for suspected conditions (not mental disorders or infectious disease) (1 source)Abnormal results of kidney function studies; Translations: [ABNORM RESULTS KIDNEY FUNCTION STDY]Onset: 60-99-8978MnomhknkTbatwdow codes; unclassified (2 sources)Lack of awareness; Translations: [Unspecified symptoms and signs involving cognitive functions and awareness]91-76-4124WmoljyvyHjrayut and strains (9 sources)Shoulder strain; Translations: [Strain of unspecified muscle, fascia and tendon at shoulder and upper arm level, left arm, initial encounter] 55-20-4291XgsteinqBqnlnlnjhkwa (3 sources)CONTACT W/AND (SUSP) EXPOS COVID-19; Translations: [CONTACT W/AND (SUSP) EXPOS COVID-19]Onset: 76-59-7582Udodsrz tract infections (2 sources)Urinary tract infectious disease; Translations: [Urinary tract infection, site not specified]81-64-2183Hsfrqcua Past or Other Problems Problem ClassificationProblemDateDocumented DateEpisodic/ChronicOtitis media and related conditions (1 source)Otitis media, unspecified, bilateralOnset: 03-10-2022 Resolved: 84-44-3216VlbrbecqPeyeptspddxn (1 source)Cough, unspecified type R05.9Onset: 03-10-2022 Resolved: 20-25-1794Utgzsupimqfa (1 source)CONTACT W/AND (SUSP) EXPOS COVID-19; Translations: [CONTACT W/AND (SUSP) EXPOS COVID-19]Onset: 04-23-2022 Results Test NameValueInterpretationReference RangeFacilityLaboratory - Chemistry and Chemistry - challengeOrdered By: Amelie Cristobal on 51-61-2114Uchziplsq Ql (U)[facility] HospitalGlucose (U) [Mass/Vol]Negative [facility] HospitalKetones Ql (U)[facility] County HospitalpH (U)7.5 [pH]Cherrington Hospitalpecific gravity (U) [Rel density]1.025Mer[facility] Health St. Charles HospitalUrobilinogen (U) [Mass/Vol]0.2 mg/dLMercy Health St. Charles HospitalLaboratory - Specimen informationOrdered By: Amelie Cristobal on 26-21-6232Dvmodypdid (U)cloudy [facility] HospitalColor (U)darkyellowMercy Health St. Charles HospitalLaboratory - UrinalysisOrdered By: Amelie Cristobal on 05-29-2025 Leukocyte esterase Test strip Ql (U)largeMercy Health St. Charles Hospital Nitrite Ql (U)NegativeMercy Health St. Charles HospitalProtein Ql (U)[address] [facility] HospitalNo Panel InformationOrdered By: Amelie Cristobal on 80-62-7365Bgpkj Occult Bloodtrace-intactMercy Health St. Charles HospitalUrine Cultureon 26-44-1873Znlcwftd identified Cx Nom (U)20,000 colonies/ml mixed bacterial skin contaminants 2 Days PERFORMED BY: [facility] [address] [place] [address] PATHOLOGIST AUTOMATIC BANDSAW TENDER GENESIS CARPENTER M.D.NormalThe Psychiatric Hospital Physician GroupComment on above: Performed By: #### CUU #### [facility] [address] [place] [address] USAUrine cultureOrdered By: Amador Hemphill on 05-06-2025 Bacteria identified Cx Nom (U)[address] Charles HospitalAmbulatory Visit Summaryon 94-98-1122Tsowtgsmyz Visit SummaryAmbulatory Visit Summary KENDY ANDUJAR :2005 Visit Date:01/24/2025 [...] 2:40 PM EDT With: Stella Christiansen Where: [facility] [place] [address]- Medications What How Much When Instructions Unchanged amphetamine-dextroamphetamine (Dextroamphetamine-Amphetamine ER (Eqv- Adderall XR) 25 mg oral capsule, extended release) [...] you for choosing us for your care. [facility] HospitalComprehensive Metabolic Panelon 39-80-5469Hrokgfw [Mass/Vol]4.4 g/dLNormal3.5-5.7The [facility] Comment on above:Performed By: #### CMP, LIPID #### [place] [address] USAAlbumin/Globulin [Mass ratio]1.9 {ratio}NormalThe Psychiatric Hospital Physician GroupComment on above:Performed By: #### CMP, LIPID #### [place] [address] USAALP [Catalytic activity/Vol]62 U/MXonequ44-477Ock [facility] Physician GroupComment on above:Performed By: #### CMP, LIPID #### [place] [address] USAALT [Catalytic activity/Vol]10 U/LNormal7-52The Psychiatric Hospital Physician GroupComment on above:Performed By: #### CMP, LIPID #### [place] [address] USAAnion gap [Moles/Vol]10.7 mmol/LNormal6.0-15.0The Psychiatric Hospital Physician GroupComment on above:Performed By: #### CMP, LIPID #### [place] [address] USAAST [Catalytic activity/Vol]12 U/LZhe75-27Qjw [facility] Hospital Physician GroupComment on above:Performed By: #### CMP, LIPID #### [place] [address] USABilirubin [Mass/Vol]0.5 mg/dLNormal0.3-1.0The Psychiatric Hospital Physician GroupComment on above:Performed By: #### CMP, LIPID #### [facility] [address] [place] [address] USACalcium [Mass/Vol]9.5 mg/dLNormal8.6-10.3The Psychiatric Hospital Physician GroupComment on above:Performed By: #### CMP, LIPID #### [facility] [address] [place] [address] USAChloride [Moles/Vol]103 mmol/BReedwn00-124Xul [facility] Physician GroupComment on above:Performed By: #### CMP, LIPID #### [facility] [address] [place] [address] USACO2 [Moles/Vol]29.4 mmol/RAdynhr25.0-31.0The Psychiatric Hospital Physician GroupComment on above:Performed By: #### CMP, LIPID #### [facility] [address] [place] [address] USACreatinine [Mass/Vol]1.30 mg/dLHigh0.60-1.20The Psychiatric Hospital Physician GroupComment on above:Performed By: #### CMP, LIPID #### [facility] [address] [place] [address] USAGFR/1.73 sq M.predicted MDRD (S/P/Bld) [Vol rate/Area] mL/min/{1.73_m2}NormalThe Psychiatric Hospital Physician GroupComment on above:Performed By: #### CMP, LIPID #### [facility] [address] [place] [id number] USAGlobulin (S) [Mass/Vol]2.3 g/dLNormalThe Psychiatric Hospital Physician GroupComment on above:Performed By: #### CMP, LIPID #### [facility] [address] [place] [address] USAGlucose [Mass/Vol]87 mg/kDMqhsfm01-416Hvq Psychiatric Hospital Physician GroupComment on above:Result Comment: Random Glucose Reference Range is dependent on time and content of last meal. Glucose of more than 200 mg/dL in a nonstressed, ambulatory subject supports the diagnosis of Diabetes Mellitus. ADA recommended reference rangePerformed By: #### CMP, LIPID #### [facility] [address] [place] [address] USAPotassium [Moles/Vol]4.1 mmol/LNormal3.5-5.1The Psychiatric Hospital Physician GroupComment on above:Performed By: #### CMP, LIPID #### [facility] [address] [place] [address] USAProtein [Mass/Vol]6.7 g/dLNormal6.4-8.9The Psychiatric Hospital Physician GroupComment on above:Performed By: #### CMP, LIPID #### [facility] [address] [place] [address] USASodium [Moles/Vol]139 mmol/MDqmeka493-502Chu [facility] Hospital Physician GroupComment on above:Performed By: #### CMP, LIPID #### [facility] [address] [place] [address] USAUrea nitrogen [Mass/Vol]29 mg/dLHigh7-25The Psychiatric Hospital Physician GroupComment on above:Performed By: #### CMP, LIPID #### [facility] [address] [place] [id number] USAECG Pediatricon 73-53-7656OOBGood [facility]aritan [facility] [place] [address] [place] [address] Electrocardiograph Report Signed Patient: Kendy Andujar MR#: [id number] 60 : 2005 Acct:[id number] Age/Sex: 19 / F ADM Date: 01/24/25 Loc: Room: Type: [facility] Attending Dr: Tammy White MD Ordering [...] Signed By Sammie Beck MD 0 01/24/[address] [place] [address] Physician GroupLahey [facility] & [facility] Medicine Office/Clinic Noteon 45-17-8474Zydcez Medicine Office/Clinic NoteFaeverett hospital Medicine Office/Clinic Note HPI Staff Kendy is a 19 year old female presenting with depression GORDON- PHQ- Was taking Lexepro stopped a week and a half ago.... moods were too high and too low peds took her off Lexepro Sees at [facility] History of Present Illness pt presents today [...] appointment for further evaluation. [facility] Ordered: buPROPion, 150 mg = 1 tab(s), Oral, q24hr, # 30 tab(s), Refills(s) 1, Pharmacy: [id number] E&M of New Patient Low 30-44 Min 44902 2. Anxiety disorder (F41.9: Anxiety disorder, unspecified) see above Ordered: buPROPion, 150 mg = 1 tab(s), Oral, q24hr, # 30 tab(s), Refills(s) 1, Pharmacy: [id number] E&M of New Patient Low 30-44 Min 77668 3. Autism spectrum disorder (F84.9: Pervasive developmental disorder, unspecified) stable. high functioning. Ordered: buPROPion, 150 mg = 1 tab(s), Oral, q24hr, # 30 tab(s), Refills(s) 1, Pharmacy: [id number] E&M of New Patient Low 30-44 Min 00865 4. BMI 30.0-30.9,adult (Z68.30: Body mass index [BMI] 30.0-30.9, adult) discussed making healthy food choices Ordered: buPROPion, 150 mg = 1 tab(s), Oral, q24hr, # 30 tab(s), Refills(s) 1, Pharmacy: [id number] E&M of New Patient Low 30-44 Min 89124 5. Class 1 obesity due to excess calories in adult (E66.811: Obesity, class 1) see above Ordered: buPROPion, 150 mg = 1 tab(s), Oral, q24hr, # 30 tab(s), Refills(s) 1, Pharmacy: [id number] E&M of New Patient Low 30-44 Min 06253 6. Non-smoker (Z78.9: Other specified health status) continue not smoking Ordered: buPROPion, 150 mg = 1 tab(s), Oral, q24hr, # 30 tab(s), Refills(s) 1, Pharmacy: [id number] E&M of New Patient Low 30-44 Min 74499 7. POTS (postural orthostatic tachycardia syndrome) (G90.A: Postural orthostatic tachycardia syndrome [POTS]) pt has been seeing a lgsw. was just seen by them yesterday. they aurora some labs. 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 8. Hypercholesteremia (E78.00: Pure hypercholesterolemia, unspecified) lipid [...] (less than 100 in lifetime) Tobacco Use:., 01/24/2025[facility] Community HospitalComment on above:Result Comment: Electronically Signed By: Feng GRIJALVA, Stella Duff\.br\Date and Time Signed: 01/24/25 17:20 EDTLipid Panelon 01-24-2025 Cholesterol [Mass/Vol]209 mg/zADzey995-882Tuj [facility] Physician GroupComment on above:Result Comment: Chol less than 200 mg/dl low risk Chol 201-239 mg/dl borderline risk Chol 240 mg/dl and greater high riskPerformed By: #### CMP, LIPID #### [facility] [address] [place] [address] USACholesterol in HDL [Mass/Vol]37 mg/xTXgnuuc37-33Wsr [facility] Physician [facility] Promise Of VicksburgComment on above:Result Comment: HDL CHOL ATP-III CLASSIFICATION Cardiovascular Risk HDL > or equal to 60 mg/dL LOW HDL < 40 mg/dL HIGHPerformed By: #### CMP, LIPID #### [facility] [address] [place] [address] USACholesterol.total/Cholesterol in HDL [Mass ratio]5.6 {ratio}Normal<5.0The [facility]emaugh Miners Medical CenterComment on above:Result Comment: PERFORMED BY: [place] [address] PATHOLOGIST AUTOMATIC BANDSAW TENDER GENESIS CARPENTER M.D.Performed By: #### CMP, LIPID #### [facility] [address] [place] [address] USALDL Cholesterol,Dzgpjyexol219 mg/dLHigh0-100The Psychiatric Hospital Physician GroupComment on above:Result Comment: LDL ATP III CLASSIFICATION LDL less than 100 mg/dL Optimal LDL 100-129 mg/dL Near or above optimal LDL 130-159 mg/dL Borderline high LDL 160-189 mg/dL High LDL greater than 189 mg/dL Very highPerformed By: #### CMP, LIPID #### [facility] [address] [place] [id number] USATriglyceride w/Emwqvg122 mg/dLNormal0-149[facility] Physician GroupComment on above:Result Comment: TRIG ATP III CLASSIFICATION TRIG less than 150 mg/dL Normal TRIG 150-199 mg/dL Borderline high TRIG 200-500 mg/dL High TRIG greater than 500 mg/dL Very high Standard traceable to the Center for Disease Conrtrol and Prevention (CDC) test method.Performed By: #### CMP, LIPID #### [facility] [address] [place] [id number] USAVLDL SNODTCWSLDR86 mg/dLNormOrlando Health South Seminole Hospital Physician GroupComment on above:Performed By: #### CMP, LIPID #### [facility] [address] [place] [id number] USAECG Pediatricon 91-01-1368LEA [facility] [place] [address] [place] [address] Electrocardiograph Report Signed Patient: Kendy Andujar MR#: [id number] 60 : 2005 Acct:[id number] Age/Sex: 18 / F ADM Date: 05/24/24 Loc: Room: Type: [facility] Attending Dr: Tammy White MD Ordering [...] now present Confirmed by TAMMY WHITE MD ([id number]) on 05/24/2024 2:38:41 PM Referred By: Electronically Signed By: TAMMY WHITE MD Transcribed By: MUS Signed By Tammy White MD 05/24/[address] [place] [address] Physician GroupProgress Dominic 06-11-2023 Cager Operator Authentication Interface Message TextEMERGENCY TRIAGE, TREAT AND TRANSPORT (ET3) DOCUMENTATION OF TELEHEALTH VISIT Date / Time: 05/08/20232229 Name: Kendy Andujar : 2005 SSN: [id number] EMS Agency: [facility] [x] Verbal consent obtained, from [...] Same ET3 Encounter Completed by: Pedro Bernal [facility] SystemUS KIDNEYSon 19-31-6176EU KIDNEYSEXAM: [place] KIDNEYS HISTORY: Hyperlipidemia COMPARISON: None. TECHNIQUE: [...] Electronically authenticated by: SHAISTA DYE Date: 2022-10-10 11:42[facility] TroyCholesterol [Mass/volume] in Serum or PlasmaOrdered By: Tammy White on 70-23-1849Hlyxqiknxji [Mass/Vol]194 mg/fV674-623FgtveaiysMercy Health St. Charles HospitalComment on above:Chol less than 200 mg/dl low riskChol 201-239 mg/dl borderline riskChol 240 mg/dl and greater high riskCholesterol in LDL Calc [Mass/Vol]Ordered By: Tammy White on 02-56-5658Ltrxqxcvbvo in LDL [Mass/Vol]138 mg/dL0-100[facility] Charles HospitalComment on above: LDL ATP III CLASSIFICATIONLDL less than 100 mg/dL OptimalLDL 100-129 mg/dL Near or above nfhygwsVUN685-628 mg/dL Borderline highLDL 160-189 mg/dL HighLDL greater than 189 mg/dL Very highCholesterol in VLDL Calc [Mass/Vol]Ordered By: Tammy White on 39-14-0457Vzpioaijgmm in VLDL [Mass/Vol]17 mg/dLCherrington Hospitalerum or plasma high density lipoprotein (HDL) cholesterol measurementOrdered By: Tammy White on 64-64-8280Hrvnptiacog in HDL [Mass/Vol]38 mg/qE49-36FmqravlysMercy Health St. Charles HospitalComment on above: HDL CHOL ATP-III CLASSIFICATION Cardiovascular RiskHDL > or equal to 60 mg/dL LOWHDL < 40 mg/dL HIGHSerum or plasma total cholesterol/high density lipoprotein (HDL) cholesterol mass ratOrdered By: Tammy White on 05-20-2022 Cholesterol.total/Cholesterol in HDL [Mass ratio]5.1 {ratio}<5.0[facility] St. Charles HospitalTriglyceride [Mass/volume] in Serum or PlasmaOrdered By: Tammy White on 00-14-5514Tyihctkkwrfm [Mass/Vol]89 mg/hB36-103IhwrrgrrnMercy Health St. Charles HospitalComment on above:TRIG ATP III CLASSIFICATIONTRIG less than 150 mg/dL NormalTRIG 150-199 mg/dL Borderline highTRIG 200-500 mg/dL High TRIG greater than 500 mg/dL Very highStandard traceable to the Center for Disease Conrtrol and Prevention (CDC) test method.Covid-19 PCR ([facility])on 87-56-3139UBNC-CoV-2 (COVID-19) RNA DEBRA+probe Ql (Unsp spec)Not detectedNormal NOT DETECTEDThe [facility]oria Community HospitalComment on above:Result Comment: This test is not yet approved or cleared by the [place] FDA. When there are no FDA- approved or cleared tests available, and other criteria are met, FDA can make tests available under an emergency access mechanism called an Emergency Use Authorization (EUA). The EUA for this test is supported by the Superintendent Institution of Health and Human Service's (HHS's) declaration [...] of clinical signs and symptoms consistent with SARS-CoV-2.Performed By: #### CVDTBH #### [facility] [address] [place] [address] [address] Ivette Prather Quick Testingon 28-35-3752BOLLP Quick [email or web address].com [employer] Other COVID Quick TestingNegativeNoVideodeclasse.com [employer] Other Cholesterol [Mass/volume] in Serum or PlasmaOrdered By: Tammy White on 07-05-5185Honbrwgsiur [Mass/Vol]226 mg/kM402-[address] [facility] HospitalComment on above:Chol less than 200 mg/dl low risk Chol 201-239 mg/dl borderline risk Chol 240 mg/dl and greater high riskCholesterol in LDL Calc [Mass/Vol]Ordered By: Tammy White on 68-44-5030Bgdpfemvjpo in LDL [Mass/Vol]168 mg/dL0-[address] Charles HospitalComment on above:LDL ATP III CLASSIFICATION LDL less than 100 mg/dL Optimal LDL 100-129 mg/dL Near or above optimal LDL 130-159 mg/dL Borderline high LDL 160-189 mg/dL High LDL greater than 189 mg/dL Very highCholesterol in VLDL Calc [Mass/Vol]Ordered By: Tammy White on 08-83-7723Xyjegfaafal in VLDL [Mass/Vol]20 mg/dL Cherrington Hospitalerum or plasma high density lipoprotein (HDL) cholesterol measurementOrdered By: Tammy White on 97-01-9825Anzcffplpmn in HDL [Mass/Vol]37 mg/iH86-88VzdfcdjueMercy Health St. Charles HospitalComment on above: HDL CHOL ATP-III CLASSIFICATION Cardiovascular Risk HDL > or equal to 60 mg/dL LOW HDL < 40 mg/dL HIGHSerum or plasma total cholesterol/high density lipoprotein (HDL) cholesterol mass ratOrdered By: Tammy White on 12-17-2021 Cholesterol.total/Cholesterol in HDL [Mass ratio]6.1 {ratio}[facility] Charles HospitalTriglyceride [Mass/volume] in Serum or PlasmaOrdered By: Tammy White on 63-01-2974Gkrlymvrnxui [Mass/Vol]103 mg/mG38-315XnypcblmjMercy Health St. Charles HospitalComment on above:TRIG ATP III CLASSIFICATION TRIG less than 150 mg/dL Normal TRIG 150-199 mg/dL Borderline high TRIG 200-500 mg/dL High TRIG greater than 500 mg/dL Very high Standard traceable to the Center for Disease Conrtrol and Prevention (CDC) test method. Vital Signs Date TimeVital SignValuePerforming BetvgjkovFujmokbr28-08-3971 16:51-0400Body fkipgi021.94 cmAmador Hemphill DO Work Phone: [phone]10-21-2025 16:51-0400 Body mass index (BMI) [Percentile] Per age and sex94.5 %Amador Hawkinsko DO Work Phone: [phone] [place], [place] [address]10-21-2025 16:51-0400 Body mass index (BMI) [Ratio]31 kg/q1MtmayuaAmador Hawkinsko DO Work Phone: [phone] [place], [place] [address]10-21-2025 16:51-0400 Body nnyupumrnmn03.9 [degF]Amador Hemphill DO Work Phone: [phone] [place], [place] [address]10-21-2025 16:51-0400 Body kfhzyc21.5 kgAmador Hemphill DO Work Phone: [phone] [place], [place] [address]10-21-2025 16:51-0400 Diastolic blood lshifzml71 mm[Hg]Amador Hemphill DO Work Phone: [phone] [place], [place] [address]10-21-2025 16:51-0400 Heart rate81 /minAmador Hawkinsko DO Work Phone: [phone] [place], [place] [address]10-21-2025 16:51-0400 Respiratory rate18 /minAmador Hawkinsko DO Work Phone: [phone] [place], [place] 0236410-21-2025 16:51-0400 SaO2% (BldA) [Mass fraction]98 %Amador Hawkinsko DO Work Phone: [phone] [place], [place] 5656810-21-2025 16:51-0400 Systolic blood zjccghko681 mm[Hg]Amador Hemphill DO Work Phone: [facility]01-21-2025 17:31-0500 Body bryjbz119.9 cmNicmarycarmen Peter DO Work Phone: [facility] CenterGzgpcxgcso53-02-4182 17:31-0500Body mass index (BMI) [Percentile] Per age and sex83.57 %Diandra Peter DO Work Phone: [facility] CenterYoizxrqrnj78-04-6452 17:31-0500Body mass index (BMI) [Ratio]25.7 kg/x3Rpoegu Peter DO Work Phone: [facility] CenterOqcnkdvhqx48-96-2261 17:31-0500Body oxdecx55.69 kgNicole Peter DO Work Phone: [facility] CenterMcidkiynms82-99-8678 17:31-0500Diastolic blood eiflxyei80 mm[Hg]Diandra Peter DO Work Phone: [facility] CenterIxccttjjkz48-67-0216 17:31-0500Heart rate87 /min Diandra Peter DO Work Phone: [facility] CenterTivqmmfcdy81-78-9119 17:31-6561PbK3% (BldA) [Mass fraction]98 %Diandra Peter DO Work Phone: [facility] CenterAmsayovuby93-81-9482 17:31-0500Systolic blood zpwmuphh473 mm[Hg]Diandra Peter DO Work Phone: [facility] CenterMvfafjzeud39-34-2811 22:30-0400Diastolic blood wbseqqie78 mm[Hg]Et3 NcysvoexPesinWfendo47-36-4515 22:30-0400Heart numn052 /min Et3 OapnqlsoLgdbrQtztkj79-32-7389 22:30-0400Respiratory rate18 /minEt3 Resource IojqzPwybje39-98-8612 22:30-7825ZzC6% (BldA) [Mass fraction]99 %Et3 Resource XohtyVyymyc76-70-0889 22:30-0400Systolic blood mm[Hg]Et3 Resource RrfsqMhlyvp27-30-8859 19:30-0400Body vwisne290.48 cmSlittle Monreal Other [employer] Other 08-02-2022 19:30-0400Body mass index (BMI) [Ratio] 30.36 kg/x9XacnawizyLilian Monreal Other [employer] Other 08-02-2022 19:30-0400Body mxczzvjecrr44.9 [degF] Lilian Monreal Other [employer] Other 08-02-2022 19:30-0400Body kqysct02.3 kgStotto Monreal Other [employer] Other 08-02-2022 19:30-0400Respiratory rate18 /minSlittle Monreal Other [employer] Other 08-02-2022 19:30-2622FdA4% (BldA) [Mass fraction]98 % Lilian Monreal Other [employer] Other Encounters Encounter DateEncounter TypeCare ProviderFacilityStart: 05-29-2025 End: 66-45-0048Ntrvyxco ReferredPatricia Karen De La Ros[facility] INTERNAL CONTROLS MANAGER-Lab [facility] Work Phone: Start: 05-29-2025 End: 52-61-3839ihjbtyihgaWTT STAFF-[facility] ClydeStart: 05-29-2025 End: 56-06-1902Ssyudyd encounter procedurePatricnat [facility] INTERNAL CONTROLS MANAGER-[facility] Lisandro Work Phone: Start: 05-06-2025 End: 35-15-4907wnegpxqipgOzfsapl D [facility] Work Phone: Start: 05-06-2025 End: 34-18-2298Ygxoumoo Drake Russo DO-LAB [facility] Start: 04-04-2025 End: 86-81-1679hombhmqjkpROP Stella Duff SchwabFacility:FT FM BellevueStart: 03-07-2025 End: 77-48-4643kbtfoqgpquSZG Stella Duff SchwabFacility:FT FM BellevueStart: 01-24-2025 End: 97-94-4159uetvraiieiNeozhhgjChad White MD Work Phone: [facility] CardiologyStart: 12-15-2024 End: 15-87-5915SjlzliObiaaqdzJuan M White MD Work Phone: [facility] CardiologyComment on above:Med RefillStart: 09-11-2024 End: 30-04-1673xajdlashjhPKZLDT DANNERNot AvailableStart: 09-07-2024 End: 72-73-1864dedfxmrydqJFTYPI DANNERNot AvailableStart: 08-29-2024 End: 08-19-5793Uogecl consultation new/estab patient 60 minNicole Peter DO Work Phone: ana WILLARDComment on above:Seizure (CMS/HCC) (Primary Dx); POTS (postural orthostatic tachycardia syndrome); Autism (CMS/HCC); Alteration of awarenessStart: 08-29-2024 End: 25-67-1724qoguzvltyaWEFTSG DANNERNot AvailableStart: 07-03-2024 End: 19-08-1519sozehaggxcONYVHY M WORKMANNot AvailableStart: 07-03-2024 End: 43-06-1700Jramvj outpatient visit 25 minutesSurichar MANCIA Work Phone: NOFP SWS UCComment on above:Cat scratch of multiple sites (Primary Dx); Open wound of right middle finger due to cat biteStart: 05-25-2024 End: 97-11-4284YtgwngYdpztphhJuan M White MD Work Phone: [facility] Centerca Physicians Pediatric CardiologyComment on above:Med RefillStart: 05-24-2024 End: 67-79-3736Lioroav encounter procedureDO Ronaldo Holland Work Phone: [facility]-Pediatric Cardiac Work Phone: start: 05-24-2024 End: 80-91-7782kqupwampgqBC Ronaldo Holland Work Phone: [facility] Work Phone: Start: 11-24-2023 End: 18-19-3128lbwieywihiUT Ronaldo Holland Work Phone: [facility] Work Phone: Start: 11-24-2023 End: 06-35-9486Xkniuyw encounter procedureDO Ronaldo Holland Work Phone: [facility]-Pediatric Cardiac Work Phone: start: 11-12-2023 End: 34-38-2633Lwvlgrerv encounterAdmireya Valdez [facility] Pediatric CardiologyStart: 06-11-2023 End: 38-03-5025rhkaynrrnaQMRNZGP PROVIDERFacility:METROHealthStart: 05-08-2023 End: 51-08-6998ajjpxueusgBw1 ResourceMetroParma Community [facility] Emergency Triage, Treat and TransportStart: 05-08-2023 End: 49-50-5005Gezlqctmd department patient visitEt3 ResourceMetroHealth Emergency Triage, Treat and TransportComment on above:ArrivedStart: 03-24-2023 End: 89-47-3328wspxzzmleiEE Ronaldo Holland Work Phone: [facility] Work Phone: Start: 03-24-2023 End: 13-07-4287Jgxpqja encounter procedureDO Ronaldo Holland Work Phone: [facility]-Pediatric Cardiac Work Phone: start: 11-25-2022 End: 50-69-4168wpeaiaztlyTS Ronaldo Holland Work Phone: [place] [address] Ctr Work Phone: Start: 11-25-2022 End: 04-93-9153Sltylof encounter procedureDO Ronaldo Holland Work Phone: [facility]ediatric Card[facility] Work Phone: start: 10-10-2022 End: 59-70-8897auzdlcwcmeXK DOCTOR MISCFacility:H6Rhuth: 05-20-2022 End: 49-43-7861iezojdzpsyZI Ronaldo Holland Work Phone: [facility] Work Phone: Start: 05-20-2022 End: 91-87-9772Cdoccve encounter procedureDO Ronaldo Holland Work Phone: [facility]-Pediatric CardiacStart: 04-23-2022 End: 92-70-6079cexxrcyyqfKRAQRR A JOHNSONFacility:A0Yxpnw: 03-10-2022 End: 70-46-6266rlpoqcceghNvyqfngza Breault Other [facility] [employer] Other Start: 25-41-5065Xisqsx outpatient visit 15 minutes Lilian Yoo [facility] ClydeStart: 12-17-2021 End: 61-22-6848Bwfchtx encounter procedureDO Ronaldo Holland Work Phone: [facility]-Pediatric Cardiac Procedures DateProcedureProcedure DetailPerforming ClinicianStart: 36-23-7258Aheyh miki Hemphill DO Work Phone: Plan of Treatment DateCare ActivityDetailAuthorStart: 20-83-4992PNbV,Tdap and Td Vaccines (7 - Td or Tdap)DTaP,Tdap and Td Vaccines (7 - Td or Tdap)[facility] SystemStart: 57-80-3008Cfqmeox,Diptheria,Pertussis Vaccine (7 - Td or Tdap) Tetanus,Diptheria,Pertussis Vaccine (7 - Td or Tdap)MetroHealthStart: 10-21-2025 Urine [facility] Centertart: 66-35-6342Xtewpwtp identified in Urine by CultureUrine CultureMercy Health St. [facility] Start: 37-26-2107Qwlkp cultureCherrington Hospitaltart: 05-06-2025 Bacteria identified in Urine by CultureUrine CultureCherrington Hospitaltart: 34-96-6323Htgwchsjb vaccinationInfluenza VaccineProWayne Hospital SystemStart: 10-17-2024 End: 75-89-7512Yhbeeqv encounter ocxtqpxxf48/11/2025 10:00 AM EDT Office Visit LARISA BETTINA [address] [place] [address] Chen Crowell NP [address] [place], [place] LARISA HDZtart: 08-29-2024 End: 47-61-4975Tzdc EEG 36-84 HoursHome EEG 36-84 Hours Neurology Routine Seizure (CMS/HCC) Expected: 08/29/2024 (Approximate), Expires: 08/29/2025[facility] Work Phone: comment on above:Expected: 08/29/2024 (Approximate), Expires: 08/29/2025Start: 55-72-3587Vzhydwlha vaccinationBothwell Regional Health CenterStart: 98-36-5012Uazkp BMI ScreeningAdult BMI ScreeningMarietta Memorial Hospital SystemStart: 43-58-9654DEYFZ-19 Vaccine ( season)COVID-19 Vaccine ( season)MetroHealthStart: 41-04-4033Iblfyuxfc vaccinationInfluenza Vaccine (#1) MetroHealthStart: 13-84-6618OYG (1 - 2-dose series)MCV (1 - 2-dose series) [facility] SystemStart: 61-74-1517ICS (2 - 2-dose series)MCV (2 - 2-dose series)[facility] SystemStart: 50-55-0365Vvlfmghtrulta B (Bexsero,OMV) Vaccine (Optional,16-23 years)Meningococcal B (Bexsero,OMV) Vaccine (Optional,16-23 years)MetroHealthStart: 01-20-4924Xnjgxohlcbugm Conjugate (MCV4,ACWY) Vaccine (2 - 2-dose series)Meningococcal Conjugate (MCV4,ACWY) Vaccine (2 - 2-dose series)MetroHealthStart: 22-52-0993REB screeningHIV Test MetroHealthStart: 52-96-6217ZRP Vaccines (1 - 3-dose series)HPV Vaccines (1 - 3- dose series)ProMRidgeview Le Sueur [facility] SystemStart: 67-92-3475Hqayegkwo for Chlamydia trachomatisSTI Screening (Age 15-17)MetroHealthStart: 62-42-5965Awlyal Test (15- 17 yrs,once)Vision Test (15-17 yrs,once)MetroHealthStart: 17-14-1957Rviqqvnva Vaccines (1 of 2 - 13+ 2-dose series)Varicella Vaccines (1 of 2 - 13+ 2-dose series)ProMRidgeview Le Sue[facility] SystemStart: 64-33-0842Mklnlnibpe ScreeningDepression ScreeningProWayne Hospital SystemStart: 33-96-5487Vshdgcb ScreeningTobacco ScreeningProWayne Hospital SystemStart: 44-39-3643Uuokahulaj Depression Screening Adolescent Depression ScreeningMetroHealthStart: 39-30-7023Rpayygs Test (10-18 yrs,once)Hearing Test (10-18 yrs,once)MetroHealthStart: 73-30-2217QKnY,Tdap and Td Vaccines (1 - Tdap)DTaP,Tdap and Td Vaccines (1 - Tdap)ProMRidgeview Le Sueur [facility] SystemStart: 40-82-0668HHB Vaccines (2 of 2 - Standard series)MMR Vaccines (2 of 2 - Standard series)ProMRidgeview Le Sueur [facility] SystemStart: 28-31-3078Nznu child visit, 14 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 (3-17 YRS,YEARLY)MetroHealthStart: 96-87-6176Rvrbavmzi A Vaccines (1 of 2 - 2-dose series)Hepatitis A Vaccines (1 of 2 - 2-dose series) ProMRidgeview Le [facility] SystemStart: 69-90-5165EOV Vaccines (1 of 2 - Standard series) MMR Vaccines (1 of 2 - Standard series)[facility] SystemStart: 06-10-2006 Hepatitis B Vaccines (3 of 3 - 3-dose series)Hepatitis B Vaccines (3 of 3 - 3- dose series)[facility] SystemStart: 16-82-1922Oddsnpwah B Vaccines (1 of 3 - 3-dose series)Hepatitis B Vaccines (1 of 3 - 3-dose series)[facility] SystemHome EEG 36-84 HoursHome EEG 36-84 Hours Neurology Routine Seizure (CMS/HCC) 09/11/2024 8:[address] [facility] Immunizations Immunization DateImmunizationNotesCare ToyrtwduFnagbtwm62-84-1521sokkgnr toxoid, reduced diphtheria toxoid, and acellular pertussis vaccine, adsorbedSummer Emily MANCIA Work Phone: [facility] CenterRifnefwtxr46-02-3102zccestmqbxbwq B vaccine, recombinant, OMV, adjuvantedSumholden hospital Emily MANCIA Work Phone: [facility] CenterIwygqkmedp65-73-1023mzcwiwvkcgilj polysaccharide (groups A, C, Y and W-135) diphtheria toxoid conjugate vaccine (MCV4P)[facility] Emily MANCIA Work Phone: [facility] CenterLpwooyggkf51-05-8677fgticigav, injectable, quadrivalent, preservative freeSuprime healthcare services – [facility] Emily MANCIA Work Phone: [facility] CenterWauzhnwlhx94-32-2606ddnjiccej virus vaccine, unspecified formulationClmariana White MD Work Phone: [facility] HospitalQjazjq48-95-1452faftylzng, injectable, quadrivalent, preservative freeEt3 WjuaakfvBjkinXgyggh93-83-4114 influenza virus vaccine, unspecified formulationEt3 [facility] 03-12-5836havootqvj, injectable, quadrivalent, preservative freeEt3 Resource VsmzvUymhpm84-52-6283ejhfbizln, injectable, quadrivalent, preservative freeEt3 XnfnsszjVmsjeXubzmz73-86-7734wgmrevdaz, injectable, quadrivalent, preservative freeEt3 JxtwtsxdEwwwtFawcdm57-24-9763fhiur papilloma virus vaccine, quadrivalent Et3 CudkamytGxptzTgnkkx05-70-7544rtadfrmsr, injectable, quadrivalent, preservative freeEt3 WsnzquabMxvygGegwua56-57-4741Yzjwemmngtedx, MCV4, unspecified conjugate formulation(groups A, C, Y and W-135)Et3 Resource DfrykQmcroo86-77-9378wqwhdvy toxoid, reduced diphtheria toxoid, and acellular pertussis vaccine, adsorbedEt3 SfucnbzsPjqdfWnxtvw07-65-3150Cnzef Papillomavirus 9-valent vaccineEt3 YssrkcnbPnuknVzvtmc37-20-6872jmfaqojgb virus vaccine, unspecified formulationEt3 JqdedcemMvlacXyenpc62-23-9193xxavudxbz virus vaccine, unspecified formulationEt3 DrvaziphUjlkaBcrdbu98-86-7089tebzrbqra virus vaccine, unspecified formulationEt3 LteqxzquNgalaSksywo32-83-1820sfnwebcap virus vaccine, unspecified formulationEt3 TrqcjvraRmtyxEkttfu63-24-4550psrgvveas virus vaccine, unspecified formulationEt3 WzurknccRypebXtimds76-93-9019zuvmmpv, mumps and rubella virus vaccineEt3 LmrnrleoHywyiTrkfep36-54-9043jlxkpvnjr virus vaccineEt3 AcqfaoypEzdpzOfljov89-52-6326xaakdvypa virus vaccine, unspecified formulationEt3 IbdrdfdqByzpdRnlczw34-20-5286ojqvbbmlsf, tetanus toxoids and acellular pertussis vaccineEt3 OrhkpljzUntsmGvykud22-16-6456rclumem, mumps and rubella virus vaccine Et3 QwfygrqqGdnmzAvaunh26-97-2213kifrvczwbe vaccine, inactivatedEt3 [facility]-MarshalltownYfohuNjspgo79-40-5757zpsqrjidz virus vaccineEt3 MvndtaecMpggpOrocdf21-85-9106 influenza virus vaccine, unspecified formulationEt3 [facility] 81-54-9228hblyhrzpn virus vaccine, unspecified formulationEt3 [facility]-MarshalltownRegxmRnhmrd69-95-2189wegdpfxcd virus vaccine, unspecified formulationEt3 NjkifolhRhxdfKhgbcu95-96-3662dlobxhj, mumps and rubella virus vaccineEt3 JackvdpbAvcotWduksa04-40-0292alsweaqeo A vaccine, pediatric/adolescent dosage, 2 dose scheduleEt3 WsxrifdhOgjojJiaffr94-13-7923lslopuupghnl Conjugate, unspecified formulationEt3 CuxrujteIpqroZbavxa96-95-9588oighibxveh, tetanus toxoids and acellular pertussis vaccineEt3 OyuzgsuzYrujyOlwjzj12-44-4072 haemophilus influenzae type b vaccine, PRP-T conjugateEt3 [facility] 38-76-5174qertrgysj A vaccine, pediatric/adolescent dosage, 2 dose scheduleEt3 RikbkrljAcyydLtuutj22-57-2125huqckoc, mumps, rubella, and varicella virus vaccineEt3 VeudlwbnHgrvvCqlxdb81-26-5100njjrysloifyp conjugate vaccine, 7 valent Et3 ZrxqoujeKzpgxFvvjtx12-90-3549qhvboup, mumps and rubella virus vaccine Tammy White MD Work Phone: [facility] HospitalDujukl03-19-1956gnhcignwx, seasonal, injectableEt3 MxmkyzvnHpvgaDfuwca31-90-6153hdkddtrbmk, tetanus toxoids and acellular pertussis vaccineEt3 CitonusdFtsukJckmls10-60-9787iaqjieuookc influenzae type b conjugate and Hepatitis B vaccineEt3 [facility] 74-36-0509ckhuxrlbskyk conjugate vaccine, 7 valentEt3 [facility] 85-76-7137tmwskzdqmq vaccine, inactivatedEt3 PgetolqwDkgfnFytavn07-28-9612 diphtheria, tetanus toxoids and acellular pertussis vaccineEt3 [facility]-MarshalltownYmlyeCkkcko79-43-3072lhergrnagig influenzae type b conjugate and Hepatitis B vaccineEt3 MdkqiaccPvvesFaevlf52-51-1413oxdjrqealteu conjugate vaccine, 7 valent Et3 OpaxhjuuKiimsZtnsip20-86-8668tnatlwyfqb vaccine, inactivatedEt3 [facility]-MarshalltownUjfjpUqqczj29-74-6352lsfcbqilbn, tetanus toxoids and acellular pertussis vaccine Et3 RhnbpmuwMjeyeGtljro46-08-2044qnvxrlzafto influenzae type b vaccine, PRP-T conjugateEt3 AbukismgEtkgfCirvvn42-32-5356wtlkdtodz B vaccine, pediatric or pediatric/adolescent dosageEt3 VubbrhrvDpjsqEcxwyx62-95-9210hvvwxyljdu vaccine, inactivatedEt3 [facility] Payers DatePayer CategoryPayerPolicy [id number]-[id number] [id number] 2023 [id number] [facility] [id number]gTexas Scottish Rite Hospital for [facility] Care - OtherANTH Member Subscriber Plan / Payer (Effective 2020- Present) Name: Kendy Andujar Relation to Subscriber: Child Name: CHANTAL GERBER Date of : 1984 (Home) Address: [address] [place] [address] [place] [address] Payer ID: [id number] (NAIC) Type: Not on file Address: [address] [place] [address] [id number] BCBS OUT OF STATE PPO/TRUST [id number] 08/09/2020-Present [phone] [address] [place] [id number]2-9140Dtwqsia [id number] 2..1.425411.3.579.[id number] 2..1.065969.3.579.2.679220-43-6784Fwtzkaq2935732 2..1.639396.3.579.2.557596-23-2347Wyetcpi4104717 2..1.482171.3.579.2.733186-54-0669Sulmcjg8061668 2.0.1.319143.3.579.2.667747-03-5899Srgsfru38378825 2.0.1.375969.3.579.2.42165-76-5867Ncbhogm55973813 2..1.458305.3.579.2.16425-06-5571Fshjbrl10717446 2..1.456544.3.579.2.81607-85-2163Ruqemex2310341 2..1.035006.3.579.2.35[id number] 8nh12459-62td-637i-3138-994m5d1932kh09-40-7541Lyuwozo44938385094 2..2.188308.09095997-54-2244Wagvmvc233985660 2..1.055164.3.579.2.732 Department of Defense ( and others)[id number] [id number] 2..1.160960.3.579.2.156Zzgnttw84007539 ..1.211659.3.579.2.531 [id number] 2..1.408120.3.579.2.531 Social History DateTypeDetailFacilityTobacco smoking status NHISUnknown if ever smokedGlenbeigh Hospital Work Phone: Start: 85-12-4162Gpg [facility] At [facility] Hospitaltart: 09-18-2020 End: 97-10-4530Xtr Assigned At [facility] [employer] Other Tobacco smoking status NHISTobacco smoking consumption unknownMetroHealthStart: 84-83-7198Zdf Assigned At BirthNot on fileMetroHealth Start: 12-03-2020 End: 00-87-7555Mhdyywe smoking status NHISNever smoked tobaccoBothwell Regional Health Center Start: 12-03-2020 End: 13-01-3580Ovkbjtq use and exposureSmokeless tobacco non-userMarietta Memorial Hospital SystemStart: 09-18-2020 End: 88-36-2947Rywefod of Social functionMarietta Memorial Hospital SystemStart: 90-95-5270Aqrloirdm beverage intakeCurrent non-drinker of alcohol (finding) [facility] HospitalChildcareUnknownPPremier Health SystemStart: 03-12-2015 SexFemale (finding)[facility] Clinical Notes 03-10-2022 to 05-29-2025 Note Date & GifnXeemRbejwrrh50-13-2346 Evaluation note* Diagnosis Onset Date Resolution Status Admit Date UTI (urinary tract infection) acuteOctober 2024 4:39pm [facility] Work Phone: 1(434) 156-650701-21-2025 History of Present illness Narrative* Diandra Mitchell, DO - 08/29/2024 5:30 PM EST Images from the original note were not included. Chief Complaint Patient presents with POTS Seizures Subjective Kendy Andujar, 18 y.o., female being seen in Neurology consultation at the request of Dr. Ronaldo Holland. He is on peds on wheels. HPI SELF / PHONED IN : POTS , tremors, seen @ [facility] ER , PCP Peds on Wheels Patient [...] that she was diagnosed with POTS. The dianetic counselor that saw them thought they were not [...] She did have an EEG at the [facility]. She does not know results. Mother [...] times she just drops. She had a DIAS at a football game and she dropped down and had an norma nt. The patient went to the [place] ER for her arms jerking. This was also making her arms hurt. She was given a muscle relaxer and this helped her symptoms. She sees a Sales Representative Sales Manager for POTS at [facility]- she was told to keep her sodium levels up. She does not think that she had a tilt table. She thinks she had a CT or MRI. She saw the lgsw at [facility]. She also has a history of [...] and all orders for this visit: Seizure ([facility]) - Home EEG 36-84 Hours; Future POTS (postural orthostatic tachycardia syndrome) Autism ([facility]) Alteration of awareness 18-year-old Autistic female with [...] At this time I am not entirely convincedthis is seizure this may be more related [...] to clinic: 6-8 weeks documented in this encounterBothwell Regional Health CenterYokwtsmivi35-73-6022 History of Present illness Narrative* GAVINO Reyez - 07/03/2024 7:30 PM EST [address] [facility], [address] P: [phone] F: [phone] HPI Historian of HPI: patient Kendy Andujar [...] Cat bite to right middle finger with fullAROM and strength 5/5. Mild ttp along this bite which appears to be puncture wound. Light touch RMFintact. Cap refill < 2 seconds RMF. Extremities: [...] 14 tablet; Refill: 0 documented in this encounterBothwell Regional Health CenterYiagtzhrsw93-38-0779 Miscellaneous Notes* Telephone Encounter - Lyndsey Walker RN - 11/12/2023 3:31 PM EDT Called patient's mother with message below. Mother [...] direct relation to her eating fatty foods. * Telephone Encounter - Tammy White MD - 11/12/2023 3:31 PM EDT Please find out if she was taking her medication around the time that she did her lab work. If she was then we will have to increase the dose. * Telephone Encounter - Lyndsey Walker RN - 11/12/2023 3:31 PM EDT Patient was taking medication at the time of her labwork, will call patient's mother back with the increased dosage as soon as you let me know. * Telephone Encounter - Tammy White MD - 11/12/2023 3:31 PM EDT I have sent a prescription for 10 mg once per day. She was taking half a tablet now she is to take 1 entire tablet. She needs to repeat her labs in 3 months documented in this encounterZanesville City Hospital04-05-2024 Telephone encounter Note* Telephone Encounter - Lyndsey Walker RN - 11/12/2023 3:31 PM EDT Called patient's mother with message below. Mother [...] direct relation to her eating fatty foods. [facility]04-05-2024 Telephone encounter Note* Telephone Encounter - Tammy White MD - 11/12/2023 3:31 PM EDT Please find out if she was taking her medication around the time that she did her lab work. If she was then we will have to increase the dose. [facility]04-05-2024 Telephone encounter Note* Telephone Encounter - Lyndsey Walker RN - 11/12/2023 3:31 PM EDT Patient was taking medication at the time of her labwork, will call patient's mother back with the increased dosage as soon as you let me know. [facility]04-05-2024 Telephone encounter Note* Telephone Encounter - Tammy White MD - 11/12/2023 3:31 PM EDT I have sent a prescription for 10 mg once per day. She was taking half a tablet now she is to take 1 entire tablet. She needs to repeat her labs in 3 months [facility]11-03-2023 History of Present illness Narrative* Pedro Bernal MD - 06/11/2023 11:51 AM EDT Images from the original note were not included. EMERGENCY TRIAGE, TREAT AND TRANSPORT (ET3) DOCUMENTATION OF TELEHEALTH VISIT Date / Time: 05/08/2023 / 2229 Name: Kendy Andujar : 2005 SSN: [id number] EMS Agency: [facility] [x] Verbal consent obtained, from [...] told that this activity does not represent seizure.Child appears stable, neurologically at her baseline, and seems appropriate for mom to transport her. There were no further questions from the patient, mother or the EMS crew Disposition Supported by Telehealth Assessment: ET3 transport decisions: Refused transport EMS Disposition Reported: Same ET3 Encounter Completed by: Pedro Bernal MD documented in this [id number] Evaluation note* Encounter Date Diagnosis Assessment Notes Treatment Notes Treatment Clinical Notes Mar, Cough, unspecified type (ICD-10 - R05.9) Mar,ilateral acute otitis media (ICD-10 - H66.93)Ear infections are often a secondary infection caused from an URI, the flu or allergies. Take medication as directed. Complete all doses, even if you feel better. Tylenol or ibuprofen can help with pain. Warm pack to area for comfort helps as well. Follow up with primary care provider if no improvement of symptoms. [employer] Other Evaluation noteNo assessment information available [facility] Work Phone: Evaluation note* Diagnosis Seizure-like [...] Alteration of awareness documented in this encounter [facility] HealthcareHistory general Narrative - Reported* Type Description Date Medical History hypercholesterolemia Surgical Historytonsillectomy and adenoidectomySurgical Historyappendectomy Hospitalization Historystaff infection [employer] Other InstructionsNot on filedocumented in this encounter [facility]Not on filedocumented in this encounter [facility] SystemInstructionsNot on filedocumented in this encounter [facility] SystemReason for referral (narrative)No reason for referral [facility] Work Phone: Chief Complaint and Reason for Visit Chief Complaint Hyperlipidemia Chief Complaint Hyperlipidemia Chief Complaint Admit Date Unknown May 06, 2025 6:04pm Chief Complaint Admit Date Unknown May 06, 2025 6:04pm frequency to urinate May 29, 2025 4:39pm Reason for Visit Admit Date UTI (urinary tract infection) May 292024 4:39pm Advance Directives Advance Directive Response Recorded Date/ [...] Ronaldo Holland DO Primary Care Provider Active Theo NiActive Team Status: Inactive Member Role Status Dates Ronaldo Holland DO Primary Care Provider Active Start: November 24, 2023 End: November 23Theo Giron ProviderActiveStart: November 24, 2023 End: November 24, 2023 Team Status: Inactive Member Role Status Dates Ronaldo Holland DO Primary Care Provider Active Start: May 24, 2024 End: May 24Theo Giron ProviderActiveStart: May 24, 2024 End: May 24, 2024Team MemberRelationshipSpecialtyStart DateEnd Date Ronaldo Holland MD [address] [place] [address] PCP - HjirdgcQrbigfrxam55/27/24Team MemberRelationshipSpecialtyStart DateEnd Date Vanda Duran MD [address], [address] [place] [id number] PCP - GeneralPediatrics12/21/16Team MemberRelationshipSpecialtyStart DateEnd Date Vanda Duran MD [address], [address] [address] PCP - GeneralPediatrics12/21/16Team MemberRelationshipSpecialtyStart DateEnd Date Vanda Duran MD [address], [address] [address] PCP - GeneralPediatrics12/21/16Team MemberRelationshipSpecialtyStart DateEnd Vanda Garner MD [address], [address] [address] PCP - GeneralPediatrics12/21/16 Team Status: Inactive Member Role Status Dates Amador Hemphill DO Attending Provider Active S tart: May 06, 2025 End: May 06, 2025 Team Status: Active Member Role/Relationship Status Dates NON STAFF Primary Care Provider Active Team Status: Inactive Member Role/Relationship Status Dates Amador Hemphill DO Attending Provider Active S tart: May 06, 2025 End: May 06, 2025 Team Status: Inactive Member Role/Relationship Status Dates DEMI Whiting RN, NP-C Attending Provider Active Start: May 29, 2025 End: May 29, 2025NON STAFFPrimary Care ProviderActiveStart: May 29, 2025 End: May 29, 2025 Team Status: Inactive Member Role/Relationship Status Dates Amador Hemphill DO Attending Provider Active S tart: May 06, 2025 End: May 06, 2025 Team Status: Inactive Member Role/Relationship Status Dates DEMI Whiting RN Attending Provider Active Start: May 29, 2025 End: May 29, 2025NON STAFFPrimary Care ProviderActiveStart: May 29, 2025 End: May 29, 2025 Team Status: Inactive Member Role/Relationship Status Dates DEMI Whiting RNC Attending Provider Active Start: May 29, 2025 End: May 29, 2025 Goals (unrecognized section and content) Goals [...] encounterGoals may be documented in an alternate sectionGoals may be documented in an alternate sectionGoals may be documented in an alternate section REASON FOR VISIT (unrecogniz ed section and content) ReasonCommentsSeizuresReasonCommentsPOTSSeizuresReasonCommentsMed Refill INFORMATION SOURCE (unrecogn ized section and content) DATE CREATED AUTHOR 10/13/2022 [facility] DATE CREATED AUTHOR AUTHOR'S ORGANIZ ATION 07/08/2023 [facility] DATE CREATED AUTHOR AUTHOR'S ORGANIZ ATION 09/12/2024 [facility] DATE CREATED AUTHOR AUTHOR'S ORGANIZ ATION 04/05/2025 [facility] DATE CREATED AUTHOR AUTHOR'S ORGANIZ ATION 05/12/2025 [facility] FOR RECORDS PERTAINING TO PATIENTS WHO [...] THE PRIMARY CLINICAL RECORDS. [facility] [employer] [facility]. provides no warranty or guarantee of the accuracy or completeness of information in this document.
[2025-05-31 07:07] VITALS: BP 111/79; PULSE 64; TEMP 36.6; O2SAT 98; BMI 30.8
--- OUTSIDE RECORDS SUMMARY | 2025-05-31 07:07 | XMS_ITS | Clinical Summary ---
[id number] [address] [place] [address] Care Team Providers Care Card Lacer Jacquard Name Role Phone Vanda Duran MD Primary Care Provider [phone] Allergies Active AllergyReactionsCriticalityNoted LvgvPjhfvuknVuqpwggdqeduhdrx17/25/2021 Medications MedicationSigDispense QuantityRefillsLast FilledStart DateEnd DateStatus amphetamine-dextroamphetamine XR (ADDERALL XR) 25 mg 24 hr capsule Take 25 mg by mouth every morning.Active ondansetron ODT (ZOFRAN-ODT) 4 mg disintegrating tablet Dissolve 4 mg on tongue as needed.10/07/2020ctive desmopressin (DDAVP) 0.1 mg tablet TAKE 1 TABLET BY MOUTH EVERY DAY 90 tablet ctive atorvastatin (LIPITOR) 10 mg tablet TAKE 1 TABLET BY MOUTH EVERY MORNING 90 tablet 5Active Active Problems No known active problems Encounters DateTypeDepartmentCare NjdoPzdebvkbzab82/08/2025Orders Only [facility] [address] [id number] External, Scanning Provider from Last 3 Months Family History Medical HistoryRelationNameCommentsADD / ADHDFatherAutismFatherBipolar disorder Maternal GrandmotherKidney failureMaternal GrandmotherSchizophreniaMaternal GrandmotherAnxiety disorderMotherMigrainesMotherRelationNameStatusComments BrotherOtherFatherMaternal GrandmotherMotherOtherOther Social History Tobacco UseTypesPacks/DayYears UsedDateSmoking Tobacco: NeverSmokeless Tobacco: NeverAlcohol UseStandard Drinks/WeekCommentsNo0 (1 standard drink = 0.6 oz pure alcohol)ChildcareAnswerDate ZwvlnllsXhzwifqmwWhhpmzu16/10/2019EmploymentAnswer Date IcrlqcqgXdfizvgbnfNngvxys64/10/2019Purpose - LifeAnswerDate RecordedPurpose and direction in fmhaOppxjtc29/10/2021CommentsNoSex and Gender InformationValueDate RecordedSex Assigned at BirthNot on fileLegal SexFemale 03/12/2015 2:32 PM EDTGender IdentityNot on fileSexual OrientationNot on file Last Filed Vital Signs Vital SignReadingTime TakenCommentsBlood Zyidpmmp991/75012/31/2020 9:06 AM EDT Vrtlt8714/25/2021 9:06 AM AHNOckeuhspufs82.6 ??C (97.8 ??F)12/03/2020 9:54 AM EDTRespiratory Cuff106012/21/2016 1:15 PM EDTOxygen Lgbpnbjjnn761%12/21/2016 3:00 PM EDTInhaled Oxygen Concentration--Mpnyow90 kg (125 lb 9.6 oz)12/31/2020 9:06 AM BTDGrrqek497.5 cm (5' 2.01 )12/31/2020 9:06 AM EDTBody Mass Index22.97 12/31/2020 9:06 AM EDTBody Mass Index Epzhsemjao70.49%12/31/2020 9:06 AM EDT Growth Chart: CDC (Girls, 2-20 Years) Plan of Treatment Health MaintenanceDue DateLast DoneCommentsDepression Rqmyneknx49/17/2018Tobacco Gwgaudquy01/17/2018Adult BMI Jatduxfls16/17/2024Influenza Ldjmbuh1204/09/2025 05/18/2022, 05/02/2021, 04/19/2020, Additional history existsDTaP,Tdap and Td Vaccines (7 - Td or Tdap)7009/23/2016, 09/30/2009, 11/04/2006, Additional history exists Medical Devices Not on file Insurance Care Teams Team MemberRelationshipSpecialtyStart DateEnd Date , Vanda Miller MD [address], [address] [address] PCP - GeneralPediatrics12/21/16
--- OUTSIDE RECORDS SUMMARY | 2025-05-31 07:07 | XMS_ITS | Clinical Summary ---
Author Organization [facility] Address [address] [facility] [place] [address] Care Team Providers Care Med Asst Name Role Phone Unavailable Primary Care Provider Unavailabl e Source Comments The following information is NOT included in Care Everywhere downloads:Psychiatric notes, ECG results, Cardiac Rehab notes, Pulmonary Function notes, data from SmartForms (includes but not limited toPregnancy data,audiograms, eye exams, pre-surgical evaluation notes, well-child exam data).[facility] Immunizations ImmunizationAdministration DatesNext DueDTaP (CVX=20)09/30/2009,11/04/2006, 04/15/2006,01/29/2006,2005HPV, 9-valent (Gardasil 9) (WEG=942)06/03/2016 HPV, quadrivalent (Gardasil 4) (CVX=62)06/22/2017Hep A (peds/adol, 2 dose) (CVX=83)05/20/2007,11/04/2006Hep B (peds/adol, 3-dose) (CVX=08)2005Hep B/HIB (Comvax) (CVX=51)04/15/2006,01/29/2006Hib (PRP-T) (CVX=48)11/04/2006, 2005Influenza, injectable, quadrivalent, preservative free (SBP=388) 05/18/2022,05/02/2021,04/19/2020,05/03/2019,09/12/2018,06/22/2017Influenza, injectable, trivalent, preservative (WXG=453)07/08/2006Influenza, unspecified formulation (CVX=88)05/22/2016,05/31/2015,06/26/2014,05/24/2013,06/02/2012, 06/13/2010,09/12/2009,06/15/2008,03/01/2008MMR, Dgczncn-Lnorq-Whhgtva (CVX=03) 06/02/2012,09/30/2009,10/09/2007MMRV, Wwkdvqy-Xaqit-Ckcsnif-Varicella (CVX=94) 11/04/2006Meningococcal conjugate (MCV4,Men-ACWY), unspecified formulation (NMR=123)09/23/2016Pneumococcal conjugate (PCV), unspecified formulation (CHK=841)05/20/2007Pneumococcal conjugate 7 valent (PCV7) (VKR=308)11/04/2006, 04/15/2006,01/29/2006Polio, inactivated (IPV) (CVX=10)09/30/2009,04/15/2006, 01/29/2006,2005Tdap (YHL=196)09/23/2016Varicella (Chickenpox) (CVX=21) 06/02/2012,09/30/2009 Social History Tobacco UseTypesPacks/DayYears UsedDateSmoking Tobacco: Never Assessed CommentsUnknownSex and Gender InformationValueDate RecordedSex Assigned at Not on fileLegal UbdJtkbdq89/12/2021 5:32 AM EDTGender IdentityNot on fileSexual OrientationNot on file Last Filed Vital Signs Vital SignReadingTime TakenCommentsBlood Elutkvrp587/7809 10:30 PM EDT Kpgqy45634/30/2023 10:30 PM EDTTemperature--Respiratory Xeke728805/08/2023 10:30 PM EDTOxygen Uolosrpsih18%05/08/2023 10:30 PM EDTInhaled Oxygen Concentration-- Weight--Height--Body Mass Index-- Plan of Treatment Health MaintenanceDue DateLast DoneCommentsHIV Test2020Meningococcal B (Bexsero,OMV) Vaccine (Optional,16-23 years)2021Hepatitis C Antibody 2023STI Screening (Age 18-24)4COVID-19 Vaccine (2024- season)503/, 04/07/2021, 03/18/2021Influenza Vaccine (#1) 510/05/2022, 05/02/2021, 04/19/2020, Additional history existsTetanus (Td or Tdap) Yuadtij34/15/62362509/23/2016Shingles (RZV) Vaccine (1 of 2) 2055Hepatitis B (HBV) UykknxzBtceomqzq28/07/2006, 01/29/2006, 2005 Hepatitis A (HAV) PgoordeIznegrdcl72/12/2007, 11/04/2006Pneumococcal Vaccine(s) Aged Out05/20/2007, 11/04/2006, 04/15/2006, Additional history existsNo longer eligible based on patient's age to complete this topicMeningococcal Conjugate (MCV4,ACWY) AoaybcyHfwpvuiuskbt02/15/2017Tdap CghydfxPyoczrpnc22/15/2017HPV MpvgmqpMonsycuuk99/14/2017, 06/03/2016 Insurance * Guarantor: Ebenezer Andujar TypeRelation to PatientDate of BirthPhone Billing AddressPersonal/CuxlyyJijj57[birth year][address] [place] [address] * Guarantor: Ricarda GERBER TypeRelation to PatientDate of BirthPhoneBilling AddressPersonal/FamilyMother [address] [place] [address] * Guarantor: Ricarda GERBER TypeRelation to PatientDate of BirthPhoneBilling AddressPersonal/FamilyMother [address] [place] [address]
--- NOTE | 2025-05-31 07:30 | ED.GENADUL1 ---
HPI HPI - General Adult General Chief complaint: Abdominal Pain Stated complaint: ABDOMINAL PAIN Time Seen by Provider: 05/31/25 07:11 Source: patient Mode of arrival: walk-in History of Present Illness HPI narrative: 19-year-old female presents for abdominal pain. Its on the right side of her abdomen laterally and she has had it for 2 days. No constipation or vomiting or diarrhea. No injury or back pain. No dysuria or hematuria or chest pain. LMP was 2 to 3 weeks ago. Later I determined that she had been at an urgent care center 2 days previous and was diagnosed with a UTI and was placed on Macrobid. Related Data Home Medications ?Medication ?Instructions ?Recorded ?Confirmed atorvastatin 10 mg tablet 10 mg PO DAILY 03/07/23 05/31/25 dextroamphetamine-amphetamine ER 25 mg PO DAILY 03/07/23 05/31/25 25 mg 24hr capsule,extend release norgestimate 0.25 mg-ethinyl 1 tab PO DAILY 03/07/23 05/31/25 estradiol 0.035 mg tablet (Dariana) albuterol sulfate 90 mcg/actuation inhalation 05/31/25 aerosol inhaler bupropion HCl 150 mg 24 hr tablet, mg PO 05/31/25 extended release nitrofurantoin 05/31/25 monohydrate/macrocrystals 100 mg capsule Allergies Allergy/AdvReac Type Severity Reaction Status Date / Time raspberry Allergy Intermediate Rash Verified 05/31/25 07:04 Opioid HPI Opioid Management Most Recent Opioid Data: Last Pain Scale 8 Today, 09:39 Last MAR Pain Assessment Today, 09:39 Review of Systems ROS Narrative A ten point review of systems is negative except as noted above. PFSH PFSH Social History Smoking status: Never smoker Little interest or pleasure in doing things: not at all Feeling down, depressed, or hopeless: not at all Exam Narrative Exam Narrative: Nurses note and vital signs reviewed General:The patient appears well and in no apparent distress.Patient is resting comfortably on cart. Skin:Warm, dry, no pallor noted.There is no rash noted. Head:Normocephalic, atraumatic Eye: Normal conjunctiva, no drainage Ears, Nose, Mouth, and Throat: oral mucosa is moist. Nares patent. Cardiovascular:Regular Rate and Rhythm Respiratory:Patient is in no distress, no accessory muscle use, lungs are clear to auscultation, no wheezing, rales or rhonchi Back:non-tender GI: Soft and nondistended. Mild tenderness present at the border between the right upper and right lower quadrants. There is no mass or distention. She does not seem to have any tenderness below the right ribs. No bruise or rash. Musculoskeletal: The patient has no evidence of calf tenderness, no pitting edema, symmetrical pulses noted bilaterally Neurological:A&O, normal speech Psychiatric:Cooperative Constitutional Vital Signs, click to edit/add: Last Vital Signs Temp 97.8 F 05/31/25 07:07 Pulse 64 05/31/25 07:07 Resp 16 05/31/25 07:07 BP 111/79 05/31/25 07:07 Pulse Ox 98 05/31/25 07:07 O2 Del Method Room Air 05/31/25 07:07 Course Vital Signs Vital signs: Vital Signs Temperature 97.8 F 05/31/25 07:07 Pulse Rate 64 05/31/25 07:07 Respiratory Rate 16 05/31/25 07:07 Blood Pressure 111/79 05/31/25 07:07 Pulse Oximetry 98 05/31/25 07:07 Oxygen Delivery Method Room Air 05/31/25 07:07 Temperature 97.8 F 05/31/25 07:07 Pulse Rate 64 05/31/25 07:07 Respiratory Rate 16 05/31/25 07:07 Blood Pressure 111/79 05/31/25 07:07 Pulse Oximetry 98 05/31/25 07:07 Oxygen Delivery Method Room Air 05/31/25 07:07 Medical Decision Making [facility] Narrative Medical decision making narrative: Urinalysis shows UTI and she is already on Macrobid. She has been on it for 2 days. Blood work is essentially normal and CT scan does not show any acute findings. Incidental findings were discussed with the patient. Treatment diagnosis and follow-up were discussed with the patient and she will finish her Macrobid. Differential Diagnosis Differential Diagnosis: UTI, pyelonephritis, constipation, colitis Lab Data Lab results reviewed: Yes I reviewed the patient's lab results Labs: Lab Results 05/31/25 05/31/25 Range/Units 07:15 07:37 WBC 9.4 (4.0-11.0) 10^3/uL RBC 4.87 (4.20-5.40) 10^6/uL Hgb 14.6 (12.0-16.0) g/dL Hct 43.6 (36.0-48.0) % MCV 89.5 (81.0-99.0) fL MCH 30.0 (26.7-34.0) pg MCHC 33.5 (29.9-35.2) g/dL RDW 12.4 (11.0-15.0) % Plt Count 303 (150-450) 10^3/uL MPV 9.8 (9.5-13.5) fL Neut % (Auto) 61.4 (43.0-75.0) % Lymph % (Auto) 26.2 (20.5-60.0) % [place] % (Auto) 10.6 (1.7-12.0) % Eos % (Auto) 1.0 (0.9-7.0) % Baso % (Auto) 0.4 (0.2-2.0) % Neut # (Auto) 5.8 (1.4-6.5) 10^3/uL Lymph # (Auto) 2.5 (1.2-3.8) 10^3/uL [place] # (Auto) 1.0 H (0.3-0.8) 10^3/uL Eos # (Auto) 0.1 (0.0-0.7) 10^3/uL Baso # (Auto) 0.0 (0.0-0.1) 10^3/uL Abs Immat Gran (auto) 0.04 H (0.00-0.03) 10^3/uL Imm/Tot Granulo (auto) 0.4 (0.0-0.5) % Sodium 142 (136-145) mmol/L Potassium 3.8 (3.5-5.1) mmol/L Chloride 104 (98-107) mmol/L Carbon Dioxide 29.9 (21.0-32.0) mmol/L Anion Gap 11.9 BUN 16.0 (6.4-19.3) mg/dL Creatinine 1.31 H (0.55-1.02) mg/dL Est GFR ( Amer) >60 (>=60 mL/min/1.73m^2) Est GFR (Non-Af Amer) 52 L (>=60 mL/min/1.73m^2) BUN/Creatinine Ratio 12.2 Glucose 95 (74-106) mg/dL Calcium 8.8 (8.5-10.1) mg/dL Total Bilirubin 0.4 (0.2-1.0) mg/dL Direct Bilirubin 0.1 (0.0-0.2) mg/dL AST 13 L (15-37) U/L ALT 19 (14-59) U/L Alkaline Phosphatase 57 (46-116) U/L Total Protein 6.6 (6.4-8.2) g/dL Albumin 3.7 (3.4-5.0) g/dL Globulin 2.9 g/dL Albumin/Globulin Ratio 1.3 Amylase 29 (25-115) U/L Lipase 32.0 (16.0-77.0) U/L Serum HCG, Qual Negative (NEGATIVE) Urine Color Lt. yellow (YELLOW) Urine Clarity Clear (CLEAR) Urine pH 7.5 (5.0-9.0) Ur Specific [place] 1.020 (1.005-1.025) Urine Protein Trace (NEG/TRACE) mg/dL Urine Glucose (UA) Negative (NEGATIVE) mg/dL Urine Ketones Trace A (NEGATIVE) mg/dL Urine Occult Blood Small A (NEGATIVE) Urine Nitrite Negative (NEGATIVE) Urine Bilirubin Negative (NEGATIVE) Urine Urobilinogen 0.2 (0.2-1.0) EU/dL Ur Leukocyte Esterase Moderate A (NEGATIVE) Urine RBC 2-5 A (0-2) #/HPF Urine WBC 5-10 A (NONE SEEN) #/HPF Ur Squamous Epith Cells Moderate A (NONE/RARE) #/LPF Urine Crystals None seen (None Seen) #/HPF Urine Bacteria Small A (NONE SEEN) #/HPF Urine Casts None seen (NONE SEEN) #/LPF Urine Mucus Trace A (NONE SEEN) Ur Culture Indicated? Yes-[facility] Imaging Data Abdominal x-ray: Radiologist's impression: ITS Impressions Abdomen X-Ray 05/31/25 08:36 IMPRESSION: NO ACUTE PLAIN FILM FINDINGS. Impression dictated by: Brandee Redmond M.D. 05/31/2025 9:35 AM Dictation Location: [place] [address] Electronically authenticated by: [id number] Y Date: 05/31/2025 09:35 Abdomen/Pelvis CT 05/31/25 09:42 IMPRESSION: LEFT NEPHROLITHIASIS. NO OBSTRUCTIVE UROPATHY. SLIGHT URINARY BLADDER WALL THICKENING. THIS MIGHT BE CYSTITIS GIVEN THE HISTORY. SMALL LEFT OVARIAN CYST AND PROBABLE INVOLUTING CORPUS LUTEUM OF MENSTRUATION. NO ADDITIONAL ACUTE FINDINGS. Impression dictated by: Brandee Redmond M.D. 05/31/2025 11:29 AM Dictation Location: [place] [address] Electronically authenticated by: [id number] Y Date: 05/31/2025 11:29 Discharge Plan Discharge Chief Complaint: Abdominal Pain Clinical Impression: Urinary tract infection Patient Disposition: Home, Self-Care Time of Disposition Decision: 11:36 Condition: Good Mode of Transportation: Private Vehicle Prescriptions / Home Meds: No Action norgestimate-ethinyl estradiol [Dariana] 0.25-35 mg-mcg tablet 1 tab PO DAILY atorvastatin 10 mg tablet 10 mg PO DAILY dextroamphetamine-amphetamine 25 mg capsule,extended release 24hr 25 mg PO DAILY albuterol sulfate 90 mcg/actuation HFA aerosol inhaler INHALATION bupropion HCl 150 mg tablet extended release 24 hr PO nitrofurantoin monohyd/m-cryst 100 mg capsule Print Language: Barbadian Instructions: Urinary Tract Infection in Women (ED) Referrals: Paige Holland NP [Primary Care Provider] - 1 week
[2025-05-31 07:41] LABS: Glucose Urine UA NEGATIVE (NEGATIVE)
[2025-05-31 07:44] LABS: Hematocrit 43.6 % (36.0-48.0); Hemoglobin 14.6 g/dL (12.0-16.0); Immature Granulocytes Abs Auto 0.04 10^3/uL (0.00-0.03); Immature Granulocytes Pct Auto 0.4 % (0.0-0.5); Lymphocytes Absolute Auto 2.5 10^3/uL (1.2-3.8); Mean Corpuscular HGB Conc 33.5 g/dL (29.9-35.2); Mean Corpuscular Hemoglobin 30.0 pg (26.7-34.0); Mean Corpuscular Volume 89.5 fL (81.0-99.0); Platelet Count 303 10^3/uL (150-450); Red Blood Count 4.87 10^6/uL (4.20-5.40); White Blood Count 9.4 10^3/uL (4.0-11.0)
[2025-05-31 07:58] LABS: Cast Seen? NONE SEEN #/LPF (NONE SEEN); Crystals Seen? None Seen #/HPF (None Seen); Urine Culture Indicated YES-FRMC
[2025-05-31 08:01] LABS: Alanine Aminotransferase 19 U/L (14-59); Albumin Globulin Ratio 1.3; Albumin Level 3.7 g/dL (3.4-5.0); Alkaline Phosphatase 57 U/L (46-116); Amylase 29 U/L (25-115); Anion Gap 11.9; Aspartate Amino Transferase 13 U/L (15-37); Blood Urea Nitrogen 16.0 mg/dL (6.4-19.3); Calcium 8.8 mg/dL (8.5-10.1); Carbon Dioxide 29.9 mmol/L (21.0-32.0); Chloride 104 mmol/L (98-107); Estimated GFR (African America >60 (>=60 mL/min/1.73m^2); Estimated GFR (Non-African Ame 52 (>=60 mL/min/1.73m^2); Globulin 2.9 g/dL; Glucose 95 mg/dL (74-106); Lipase 32.0 U/L (16.0-77.0); Potassium 3.8 mmol/L (3.5-5.1); Sodium 142 mmol/L (136-145); Total Protein 6.6 g/dL (6.4-8.2)
--- NOTE | 2025-05-31 08:36 | XR_ITS ---
The [place] [id number] Patient Name: KENDY MENDENHALL MRN: [id number] date: 2005 Sex: F Assigned Patient Location: ER Current Patient Location: ER Accession/Order Number: [id number] Exam Date: 05/31/2025 09:03 Report Date: 05/31/2025 09:35 At the request of: CEE ZARCO MD Procedure: XR abdomen 1V SINGLE VIEW ABDOMEN COMPARISON: Right upper quadrant pain. Urinary tract infection. COMPARISON: None Supine views of the abdomen and pelvis were obtained. There is a small amount of air within the stomach. There is mild air and stool within the colon. No dilated small bowel loops are visualized. No soft tissue masses are seen. There are subtle hyperdense foci projecting near the margin of the cecum. Exact location and significance is uncertain. There is subtle levoscoliotic curvature. XR/XR abdomen 1V IMPRESSION: NO ACUTE PLAIN FILM FINDINGS. Impression dictated by: Brandee Redmond M.D. 05/31/2025 9:35 AM Dictation Location: [place] [address] Electronically authenticated by: [id number] Y Date: 05/31/2025 09:35
[2025-05-31] MEDS: KETOROLAC TROMETHAMINE 30 MG/ML VIAL IVP (09:39)
--- NOTE | 2025-05-31 09:42 | CT_ITS ---
The [address] [address] Patient Name: KENDY MENDENHALL MRN: [id number] date: 2005 Sex: F Assigned Patient Location: ER Current Patient Location: ER Accession/Order Number: [id number] Exam Date: 05/31/2025 10:45 Report Date: 05/31/2025 11:29 At the request of: CEE ZARCO MD Procedure: CT abdomen pelvis w con CT ABDOMEN AND PELVIS WITH CONTRAST COMPARISON: None CLINICAL DATA: Right lower quadrant pain. Urinary tract infection. Spiral images were obtained through the abdomen and pelvis following 100 mL of Omnipaque 300. This CT exam was performed using one or more following dose reduction techniques: Automated exposure control, adjustment of the mA and/or kV according to patient size, or use of iterative reconstruction technique. Limited cuts through the lung bases show no contributory findings. No calcified gallstones are identified. No intrahepatic masses are seen. The spleen, pancreas and adrenal glands show no acute findings. The renal nephrograms are symmetric. No hydronephrosis is identified. There is a punctate stone at the mid to upper pole of the left kidney, better seen on the reconstructed images. No ureteral dilatation or stones are noted. The abdominal aorta is normal caliber. No enlarged lymph nodes are present. No ascites is seen. The small bowel loops are normal caliber. There is stool along the colon. There is suspected suture material along the margin of the cecum and prior appendectomy is suspected however correlation is recommended since no surgical history was provided. The bony structures are intact. Images through the pelvis show no dilated small bowel. There is stool at the distal colon. No diverticular disease is seen. The uterus is levoverted and there is heterogeneous enhancement of the myometrium. There is a small left ovarian cyst with irregular enhancing wall that may be an involuting corpus luteum of menstruation. There is also a potential cyst on that side measuring 2.2 cm. The urinary bladder is partially distended and the wall is slightly thickened. There is no paravesical inflammation. No ascites is seen. CT/CT abdomen pelvis w con IMPRESSION: LEFT NEPHROLITHIASIS. NO OBSTRUCTIVE UROPATHY. SLIGHT URINARY BLADDER WALL THICKENING. THIS MIGHT BE CYSTITIS GIVEN THE HISTORY. SMALL LEFT OVARIAN CYST AND PROBABLE INVOLUTING CORPUS LUTEUM OF MENSTRUATION. NO ADDITIONAL ACUTE FINDINGS. Impression dictated by: Brandee Redmond M.D. 05/31/2025 11:29 AM Dictation Location: [place] [address] Electronically authenticated by: [id number] Y Date: 05/31/2025 11:29
== END 2025-05-31 11:56 | disposition home or self-care (01) ==
PROVIDERS: Emergency Provider Emergency Medicine; PCP Nurse Practitioner Family
DX: N39.0 Urinary tract infection, site not specified (principal); R10.31 Right lower quadrant pain; N20.0 Calculus of kidney; N83.202 Unspecified ovarian cyst, left side
CPT/HCPCS: 36415; 74018; 74177; 80048; 80076; 81001; 82150; 83690; 84703; 85025; 87086; 96374; 96375; 99285; J1885; J2405; Q9967

== ENCOUNTER 2025-06-16 15:34 | Emergency (ER) | payer BC, MEDICAID, SELFPAY ==
[2025-06-16 15:41] VITALS: BP 130/102; PULSE 91; TEMP 36.6; O2SAT 96; BMI 31.2
--- NOTE | 2025-06-16 16:09 | ED_ITS ---
<Statement entered by Ramone Styles, DO - 06/16/25 18:35> This documentation has been reviewed and approved. ATTENDING ADDENDUM: Dr. Styles Patient seen and evaluated at bedside with midlevel provider. Agree with plan. Patient presented with acute onsent of LLQ abdominal pain 30 minutes prior to arrival. History of UTI and kidney stones. Workup revealed UTI and 3mm stone at the left UVJ with mild hydronephrosis. Laboratory studies revealed a mild DARRIAN but no leukocytosis or lactic acidosis. She is afebrile with normal vital signs - not exhibiting signs of sepsis and does not meet SIRS criteria. She was empirically treated with 1g IV ceftriaxone. After initial treatment, she states she feels significantly improved and is requesting to be discharged home. Her pain is controlled and she is tolerating PO. She was given a prescription for Keflex 500 mg 4 times daily x 10 days. She was given strict return precautions, told to immediately return to the ED should she develops fevers, vomiting, worsening abdominal/flank pain, or any other concerning symptoms. She was given information for the urology clinic and instructed to follow up as soon as possible. FINAL IMPRESSION: #Acute left ureterolithiasis #acute UTI DISPOSITION: Discharged home CONDITION: Good HPI HPI - General Adult General Chief complaint: Nausea/Vomiting/Diarrhea Stated complaint: ABDOMINAL PAIN Time Seen by Provider: 06/16/25 15:41 Source: patient (Patient presents emergency department, ambulatory independently, with chief complaint of left lower quadrant abdominal pain that started prior to coming to the emergency department.) Mode of arrival: walk-in Limitations: no limitations History of Present Illness Onset (ago): hour(s) Location: Reports abdomen and left Radiation: Reports non-radiation and abdomen Severity: severe Quality: Reports sharp Pain Consistency: Reports constant Relieving factors: Reports none Exacerbating factors: Reports none Associated symptoms: Reports nausea/vomiting Treatments prior to arrival: Reports none Related Data Home Medications ?Medication ?Instructions ?Recorded ?Confirmed atorvastatin 10 mg tablet 10 mg PO DAILY 03/07/2304/02 dextroamphetamine-amphetamine ER 25 mg PO DAILY 06/16/25 25 mg 24hr capsule,extend release norgestimate 0.25 mg-ethinyl 1 tab PO DAILY 03/07/23 1 08/16/24 estradiol 0.035 mg tablet (Dariana) albuterol sulfate 90 mcg/actuation inhalation 05/31/25 aerosol inhaler bupropion HCl 150 mg 24 hr tablet, mg PO 05/31/25 extended release Previous Rx's ?Medication ?Instructions ?Recorded cephalexin 500 mg capsule 500 mg PO Q6H 10 days #40 ca ps 06/16/25 ibuprofen 600 mg tablet 600 mg PO Q8H PRN pain #30 t abs 06/16/25 tamsulosin 0.4 mg capsule (Flomax) 0.4 mg PO DAILY #14 caps 06/16/25 Allergies Allergy/AdvReac Type Severity Reaction Status Date / Time raspberry Allergy Intermediate Rash Verified 06/16/25 15:39 Opioid HPI Opioid Management Most Recent Opioid Data: Last Pain Scale 10 Today, 15:41 Ur Phencyclidine Scrn, (NEGATIVE) Negative Today, 16:00 Review of Systems ROS Status of ROS 10 or more systems reviewed and unremark able except as noted in history and below Gastrointestinal Reports: abdominal pain, nausea and vomiting PFSH PFSH Social History Smoking status: Never smoker Little interest or pleasure in doing things: not at all Feeling down, depressed, or hopeless: not at all Exam Constitutional Vital Signs, click to edit/add: Last Vital Signs Temp 97.8 F 06/16/25 15:41 Pulse 90 06/16/25 17:04 Resp 16 06/16/25 17:04 BP 135/97 H 06/16/25 17:04 Pulse Ox 100 06/16/25 17:04 O2 Del Method Room Air 06/16/25 15:41 Documenting provider has reviewed patient's vital signs: yes Common normals: no apparent distress, average body habitus, oriented x3, healthy appearing, alert and well nourished General appearance: cooperative and well developed Orientation/consciousness: Yes awake, Yes oriented to person, Yes oriented to place and Yes oriented to time HENKS Common normals: normocephalic, head/scalp atraumatic, hearing grossly normal bilaterally, external ears normal, external nose normal, moist oral mucous membranes and oropharynx normal Head and scalp: normal to inspection Face and sinus: normal facial exam Nose: external nose normal External ear: external ears normal Eye Common normals: PERRL Eyelid: eyelids normal Sclera: sclerae normal Pupil: PERRL Neck & C-Spine Common normals: full ROM, no lymphadenopathy, supple, no meningeal signs, no JVD and no carotid bruits General: normal visual inspection and trachea midline; no anterior neck swelling Chest Common normals: inspection of chest normal Chest: symmetrical chest wall rise Respiratory Common normals: normal respiratory effort, no use of accessory muscles and clear to auscultation bilaterally Effort & inspection: able to speak in complete sentences Auscultation: clear to auscultation bilaterally Cardio Common normals: no JVD, regular rate, regular rhythm, S1 normal heart sound, S2 normal heart sound, no gallops, no clicks, no murmurs, no rub and peripheral pulses 2+ throughout Palpation: normal PMI Rate: regular rate Rhythm: regular rhythm Heart sounds: S1 normal and S2 normal GI Common normals: Normal to inspection, nondistended, normoactive bowel sounds present, soft to palpation, non-tender, no hepatosplenomegaly and no masses Inspection: normal to inspection Auscultation: normoactive bowel sounds Palpation: soft and no hepatosplenomegaly Rectal Exam - Female: deferred (Last normal bowel movement this morning, per patient soft brown stool) Back & Pelvis Common normals: no CVA tenderness and thoracic and lumbar spine normal to inspection Thoracic spine/upper back: normal to inspection Lumbar spine/lower back: normal to inspection Extremity Common normals: normal to inspection, full ROM and no pedal edema Neuro Common normals: oriented x3, CN's II-XII intact bilaterally, moves all extremities, no focal motor deficits and no sensory deficits noted (Patient ambulatory independently, no focal neurodeficits noted) Sensorium/orientation: awake, alert, oriented to person, oriented to place and oriented to time Meningeal signs: no meningeal signs Speech: speech normal Gait (neuro): normal gait Course Course Hospital Course: Patient received droperidol for intractable nausea and vomiting. Patient received 1 L normal saline wide open. UA was remarkable for nitrates, leukocytes, bacteria. On CBC patient's WBC was normal, differential is normal. Creatinine was mildly elevated at 1.4, the patient did receive a liter normal saline wide open. Patient's nausea and vomiting was well-controlled and she did not have any further nausea or vomiting while here in the department. Patient had been on Macrobid. Patient was given a dose of ceftriaxone 1 g IV piggyback here in the department. Patient underwent CT scanning of the abdomen pelvis without contrast. CT revealed a 3 mm stone at the left UV junction with mild hydronephrosis. Patient was given Flomax 0.8 mg oral. Results of the workup were discussed with the patient. Patient was instructed to discontinue her Macrobid. Patient was instructed to initiate cephalexin 500 mg 4 times daily. Patient was instructed she needs close follow-up with urology in case she does not pass the stone on her own. Patient will be discharged with cephalexin 500 mg 4 times a day. She is to take this until the prescription is completely gone. She is also to take Flomax 0.4 mg daily. The patient is to return to the emergency department for any further problems or concerns. Patient will be discharged to home in stable condition. She is in agreement with the plan of care. She should follow-up with urology as soon as possible. Vital Signs Vital signs: Vital Signs Temperature 97.8 F 06/16/25 15:41 Pulse Rate 91 H 06/16/25 15:41 Respiratory Rate 18 06/16/25 15:41 Blood Pressure 130/102 H 06/16/25 15:41 Pulse Oximetry 96 06/16/25 15:41 Oxygen Delivery Method Room Air 06/16/25 15:41 Temperature 97.8 F 06/16/25 15:41 Pulse Rate 90 06/16/25 17:04 Respiratory Rate 16 06/16/25 17:04 Blood Pressure 135/97 H 06/16/25 17:04 Pulse Oximetry 100 06/16/25 17:04 Oxygen Delivery Method Room Air 06/16/25 15:41 Medical Decision Making MDM Narrative Medical decision making narrative: MDM resistant UTI, nephrolithiasis, hydronephrosis, intrauterine , cyclical vomiting syndrome, electrolyte imbalance. Patient was interviewed and examined. Appropriate ER workup was initiated. Saline lock was established. Labs were drawn. Patient is medicated with droperidol. Normal saline 1 L will be administered IV for IV hydration. Given that patient had evidence of a kidney stone on the left on her prior CT, we will repeat CT scan since she continues to complain of pain on the left side. Is possible that patient continues to have left nephrolithiasis. She may have obstructive nephrolithiasis. She may have hydronephrosis. Patient has remained comfortable since administration of the droperidol. Differential Diagnosis Differential Diagnosis: Cyclic vomiting syndrome, acute lower urinary tract infection, electrolyte Medical Records Medical records reviewed: Yes I reviewed the patient's medical records (Patient's prior ED record has been reviewed in its entirety.) Lab Data Lab results reviewed: Yes I reviewed the patient's lab results (I reviewed all the patient's lab results from prior visit this visit.) Labs: Lab Results 06/16/25 06/16/25 Range/Units 16:00 16:10 WBC 7.1 (4.0-11.0) 10^3/uL RBC 5.05 (4.20-5.40) 10^6/uL Hgb 15.2 (12.0-16.0) g/dL Hct 44.5 (36.0-48.0) % MCV 88.1 (81.0-99.0) fL MCH 30.1 (26.7-34.0) pg MCHC 34.2 (29.9-35.2) g/dL RDW 12.2 (11.0-15.0) % Plt Count 283 (150-450) 10^3/uL MPV 10.2 (9.5-13.5) fL Neut % (Auto) 65.2 (43.0-75.0) % Lymph % (Auto) 23.2 (20.5-60.0) % [place] % (Auto) 9.1 (1.7-12.0) % Eos % (Auto) 1.8 (0.9-7.0) % Baso % (Auto) 0.4 (0.2-2.0) % Neut # (Auto) 4.7 (1.4-6.5) 10^3/uL Lymph # (Auto) 1.7 (1.2-3.8) 10^3/uL [place] # (Auto) 0.7 (0.3-0.8) 10^3/uL Eos # (Auto) 0.1 (0.0-0.7) 10^3/uL Baso # (Auto) 0.0 (0.0-0.1) 10^3/uL Abs Immat Gran (auto) 0.02 (0.00-0.03) 10^3/uL Imm/Tot Granulo (auto) 0.3 (0.0-0.5) % Sodium 141 (136-145) mmol/L Potassium 3.9 (3.5-5.1) mmol/L Chloride 104 (98-107) mmol/L Carbon Dioxide 28.0 (21.0-32.0) mmol/L Anion Gap 12.9 BUN 20.0 H (6.4-19.3) mg/dL Creatinine 1.41 H (0.55-1.02) mg/dL Est GFR ( Amer) 58 L (>=60 mL/min/1.73m^2) Est GFR (Non-Af Amer) 48 L (>=60 mL/min/1.73m^2) BUN/Creatinine Ratio 14.2 Glucose 104 (74-106) mg/dL Lactate 0.8 (0.4-2.0) mmol/L Calcium 9.5 (8.5-10.1) mg/dL Total Bilirubin 0.6 (0.2-1.0) mg/dL AST 15 (15-37) U/L ALT 19 (14-59) U/L Alkaline Phosphatase 73 (46-116) U/L Total Protein 7.4 (6.4-8.2) g/dL Albumin 4.3 (3.4-5.0) g/dL Globulin 3.1 g/dL Albumin/Globulin Ratio 1.4 Lipase 24.0 (16.0-77.0) U/L Urine Color Dk yellow (YELLOW) Urine Clarity Clear (CLEAR) Urine pH 6.5 (5.0-9.0) Ur Specific [place] 1.015 (1.005-1.025) Urine Protein Trace (NEG/TRACE) mg/dL Urine Glucose (UA) Negative (NEGATIVE) mg/dL Urine Ketones Negative (NEGATIVE) mg/dL Urine Occult Blood Trace-i (NEGATIVE) Urine Nitrite Positive A (NEGATIVE) Urine Bilirubin Negative (NEGATIVE) Urine Urobilinogen 0.2 (0.2-1.0) EU/dL Ur Leukocyte Esterase Small A (NEGATIVE) Urine RBC 5-10 A (0-2) #/HPF Urine WBC 20-50 A (NONE SEEN) #/HPF Ur Squamous Epith Cells Moderate A (NONE/RARE) #/LPF Urine Crystals None seen (None Seen) #/HPF Urine Bacteria Small A (NONE SEEN) #/HPF Urine Casts None seen (NONE SEEN) #/LPF Urine Mucus None seen (NONE SEEN) Ur Culture Indicated? Yes-[facility] [place] Urine HCG, Qual Negative (NEGATIVE) Urine Opiates Screen Negative (NEGATIVE) Ur Buprenorphine Scrn Negative (NEGATIVE) Ur Oxycodone Screen Negative (NEGATIVE) Urine Methadone Screen Negative (NEGATIVE) Ur Barbiturates Screen Negative (NEGATIVE) U Tricyclic Antidepress Negative (NEGATIVE) Ur Phencyclidine Scrn Negative (NEGATIVE) Ur Amphetamines Screen Negative (NEGATIVE) U Methamphetamines Scrn Negative (NEGATIVE) U Benzodiazepines Scrn Negative (NEGATIVE) Urine Cocaine Screen Negative (NEGATIVE) U Cannabinoids Screen Negative (NEGATIVE) Discharge Plan Discharge Chief Complaint: Nausea/Vomiting/Diarrhea Clinical Impression: Left nephrolithiasis, Urinary tract infection Patient Disposition: Home, Self-Care Time of Disposition Decision: 18:03 Condition: Good Mode of Transportation: Private Vehicle Prescriptions / Home Meds: New cephalexin 500 mg capsule 500 mg PO Q6H 10 Days Qty: 40 0RF tamsulosin [Flomax] 0.4 mg capsule 0.4 mg PO DAILY Qty: 14 0RF ibuprofen 600 mg tablet 600 mg PO Q8H PRN (Reason: pain) Qty: 30 0RF No Action norgestimate-ethinyl estradiol [Dariana] 0.25-35 mg-mcg tablet 1 tab PO DAILY atorvastatin 10 mg tablet 10 mg PO DAILY dextroamphetamine-amphetamine 25 mg capsule,extended release 24hr 25 mg PO DAILY albuterol sulfate 90 mcg/actuation HFA aerosol inhaler INHALATION bupropion HCl 150 mg tablet extended release 24 hr PO Print Language: Cypriot Instructions: Kidney Stones (ED), Urinary Tract Infection in Older Adults (ED) Additional Instructions: Follow up with the Urologist and your family DR, return to ER for any problems or concerns. Referrals: Vinh Bean MD [Physician, Urology] - As soon as possible Paige Holland NP [Primary Care Provider] - 1 week
--- OUTSIDE RECORDS SUMMARY | 2025-06-16 16:19 | XMS_ITS | CCD ---
Author Organization [facility] Care Team Providers Care Caretaker Grounds Name Role Phone DO Ronaldo Holland Primary Care Provider [phone] MD Mandy Llanes Attending Provider Lilian Monreal Unavailable DO Ronaldo Holland Primary Care Provider [phone] MD Mandy Llanes Attending Provider MISC, DR BANDA Admitting Unavailable MISC, DR BANDA Attending Unavailable RONALDO HOLLAND Primary Care Unavailable RONALDO HOLLAND Consulting Unavailable Shaista Dye Consulting Unavailable RONALDO HOLLAND Admitting Unavailable RONALDO HOLLAND Attending Unavailable RONALDO HOLLAND Primary Care Unavailable RONALDO HOLLAND Consulting Unavailable DO Ronaldo Holland Primary Care Provider MD Mandy Llanes Attending Provider DO Ronaldo Holland Primary Care Provider [phone] MD Mandy Llanes Attending Provider Unavailable Primary Care Provider Unavailabl e PROVIDER, UNKNOWN Admitting Unavailable PROVIDER, UNKNOWN Attending Unavailable DO Ronaldo Holland Primary Care Provider [phone] MD Mandy Llanes Attending Provider DO Ronaldo Holland Primary Care Provider MD Mandy Llanes Attending Provider Unavailable Primary Care Provider Unavailabl e DIANDRA MITCHELL Attending Unavailable DIANDRA MITCHELL Referring Unavailable SONIA BANGURA Attending Unavailable Ronaldo Holland MD Primary Care Provider Vanda Duran MD Primary Care Provider Vanda Duran MD Primary Care Provider RUDI Toney Attending Unavailable RUDI Toney Attending Unavailable RUDI Toney Attending Unavailable Amador Hemphill DO Attending Provider Amelie Cristobal APRN Attending Provider NON STAFF Primary Care Provider UnavailAmador Arnett Attending Unavailable Amador Hemphill Admitting Unavailable Amelie Cristobal Attending Unavail able Amelie Cristobal Admitting Unavail able Ronaldo Holland Primary Care Unavailable Mandy Llanes Attending Unavailable Mandy Llanes Admitting Unavailable Amador Hemphill Attending Unavailable Amador Hemphill Admitting Unavailable Allergies Allergy ClassificationReported Allergen(s)Allergy TypeDate of OnsetReaction(s) Facility (1 source)ProchlorperazineDrug [facility]ergyW[facility]ly [facility] Other (9 sources)ProchlorperazineDrug Cvbhraz91-84-0768XV[facility] (1 source)ProchlorperazineDrug Rrlcgza90-95-2585SxnsiopkmWayne Healthcare Main Campus Repository Medications Current Medications MedicationDrug Class(es)DatesSig (Normalized)Sig (Original)amoxicillin 875 mg oral tablet (1 source)Penicillin-class AntibacterialStart: 92-00-8058sexi 1 tablet by mouth every twelve hoursAmoxicillin 875 MG 1 tablet Orally every 12 hrs for 7 days Mar, Tsuggu82 hr amphetamine aspartate 6.25 mg / amphetamine sulfate 6.25 mg / dextroamphetamine saccharate 6.25 mg / dextroamphetamine sulfate 6.25 mg extended release oral capsule (11 sources)Central Nervous System StimulantStart: 05-29-2025 End: 10-82-3339npez 1 capsule by mouth once daily in the morning, then take 1 capsule by mouth every twenty-four hoursamphetamine-dextroamphetamine XR (ADDERALL XR) 25 mg 24 hr capsule Take 25 mg by mouth every morning. Active atorvastatin 10 mg oral tablet (15 sources)HMG-CoA Reductase InhibitorStart: 67-15-3472Rrofa: 11-18-2023 End: 45-68-1390dqao 1 tablet by mouth once daily in the morningatorvastatin (LIPITOR) 10 mg tablet TAKE 1 TABLET BY MOUTH EVERY MORNING 90 tablet 1 12/19/2024 ActiveStart: 05-17-2023 End: 60-50-9140xuguvxyjbsre (LIPITOR) 10 mg tablet TAKE 1/2 TABLET BY MOUTH EACH MORNING 45 tablet 3 05/17/2023 11/18/2023 Discontinued (Reorder)Atorvastatin Calcium Activedesmopressin acetate 0.1 mg oral tablet (8 sources)Vasopressin Analog, Factor VIII ActivatorStart: 47-98-8403mmtu 1 tablet by mouth once dailydesmopressin (DDAVP) 0.1 mg tablet TAKE 1 TABLET BY MOUTH EVERY DAY 90 tablet 1 06/18/2023 Activeethinyl estradiol 0.035 mg / norgestimate 0.25 mg oral tablet (4 sources)Progestin, Estrogentake 1 tablet by mouth once dailyMili 0.25-35 MG- MCG tablet Take 1 tablet by mouth Daily as directed ActivemethylPREDNISolone 4 mg oral tablet (1 source)CorticosteroidStart: 49-81-3243elrygrKSWQLJBtvwfl 4 MG as directed Orally Once a day for 6 days Mar, Activenitrofurantoin, macrocrystals 25 mg / nitrofurantoin, monohydrate 75 mg oral capsule (2 sources)Nitrofuran AntibacterialStart: 62-57-5856gryy 1 capsule by mouth every twelve hours at mealtimeOmega 3 (1 source)Olmitz 3 Activeondansetron 4 mg oral tablet (5 sources)Serotonin-3 Receptor AntagonistStart: 11-34-3161mztn 1 tablet by mouth every eight hours as neededZofran ODT 4 MG 1 tablet on the tongue and allow to dissolve Orally every 8 hrs as needed for 4 days Mar, Active Start: 23-15-8306zabcjffbpum ODT (ZOFRAN-ODT) 4 mg disintegrating tablet Dissolve 4 mg on tongue as needed. 10/07/2020 Active Completed/Discontinued Medications MedicationDrug Class(es)DatesSig (Normalized)Sig (Original)amoxicillin 875 mg / clavulanate 125 mg oral tablet (2 sources)Penicillin-class AntibacterialStart: 07-03-2024 End: 47-57-3545laxd 1 tablet by mouth in the morningamoxicillin-clavulanate (Augmentin) 875-125 MG tablet Indications: Cat scratch of multiple sites , Open wound of right middle finger due to cat bite Take 1 tablet (875 mg) by mouth in the morning and1 tablet (875 mg) before bedtime. Do all this for 7 days. 14 tablet 07/03/2024 07/10/2024 Expiredibuprofen 400 mg oral tablet (10 sources)Nonsteroidal Anti-inflammatory DrugStart: 02-02-2020 End: 09-17-6870edut 1 tablet by mouth every six hours as needed for pain Ibuprofen 400 mg Tablet Discontinued 400 MG PO Every 6 hours as needed for Pain 20 0 February 02, 2020 12:00am May 29, 2025 4:42pm Problems Active Problems Problem ClassificationProblemDateDocumented DateEpisodic/ChronicCardiac dysrhythmias (2 sources)Postural orthostatic tachycardia syndrome ; Translations: [POTS (postural orthostatic tachycardia syndrome)]47-78-2999UbzbmbdJusghxqdz of lipid metabolism (4 sources)Hyperlipidemia, unspecified; Translations: [HYPERLIPIDEMIA UNSPECIFIED]Onset: 64-08-2637DuldfbhHsbxxmrym usually diagnosed in infancy, childhood, or adolescence (2 sources)Autism spectrum disorder; Translations: [Autistic disorder]09-13-2024 ChronicE Codes: Natural/environment (2 sources)Cat scratch injury; Translations: [Scratched by cat, initial encounter]68-12-0035EifqbikjUfjoppai; convulsions (5 sources)Neurological finding; Translations: [Unspecified convulsions] 67-53-2256HrfuibqwUinohrjuovhkc symptoms and ill-defined conditions (1 source)Dysuria; Translations: [Dysuria]Onset: 99-67-0654RyrrzaihMzonxvo system congenital anomalies (1 source)Familial dysautonomia [Bhavesh-Day]; 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]]Onset: 92-05-4132YrqdxgtZkxi wounds of extremities (2 sources)Open wound of right middle finger due to cat bite; Translations: [Open bite of right middle finger without damage to nail, initial encounter] 15-64-3805RajwabyaRpgaf lower respiratory disease (1 source)Cough; Translations: [Cough, unspecified type]EpisodicOther screening for suspected conditions (not mental disorders or infectious disease) (1 source)Abnormal results of kidney function studies; Translations: [ABNORM RESULTS KIDNEY FUNCTION STDY]Onset: 44-13-9743NuxhnzfiMcauxxpz codes; unclassified (2 sources)Lack of awareness; Translations: [Unspecified symptoms and signs involving cognitive functions and awareness]40-62-5807RjsvruykZhwlzcu and strains (10 sources)Shoulder strain; Translations: [Strain of unspecified muscle, fascia and tendon at shoulder and upper arm level, left arm, initial encounter] 47-03-1378SiyrzfesMjnewgaofvwg (3 sources)CONTACT W/AND (SUSP) EXPOS COVID-19; Translations: [CONTACT W/AND (SUSP) EXPOS COVID-19]Onset: 18-83-3797Jpvmdov tract infections (4 sources)Urinary tract infectious disease; Translations: [Urinary tract infection, site not specified]78-96-8980Wkratuoq Past or Other Problems Problem ClassificationProblemDateDocumented DateEpisodic/ChronicOtitis media and related conditions (1 source)Otitis media, unspecified, bilateralOnset: 03-10-2022 Resolved: 73-08-3022QqzdtysuFrwtmhjzcuqo (1 source)Cough, unspecified type R05.9Onset: 03-10-2022 Resolved: 32-24-5925Tuokvzcjmfjf (1 source)CONTACT W/AND (SUSP) EXPOS COVID-19; Translations: [CONTACT W/AND (SUSP) EXPOS COVID-19]Onset: 04-23-2022 Results Test NameValueInterpretationReference RangeFacilityUrine Cultureon 05-31-2025 Bacteria identified Cx Nom (U)15,000 colonies/ml mixed bacterial skin contaminants 2 Days PERFORMED BY: [place] [address] PATHOLOGIST CONDUIT MECHANIC GENESIS CARPENTER M.D.NormalAdventhealth Wauchula Physician GroupComment on above: Performed By: #### CUU #### [place] [address] USALaboratory - Chemistry and Chemistry - challengeOrdered By: Amelie Cristobal on 60-64-2424Sphwjidfh Ql (U)[facility] HospitalGlucose (U) [Mass/Vol][facility] Ketones Ql (U)[facility] CenterpH (U)7.5 [pH]Adena Health Systempecific gravity (U) [Rel density]1.025[facility] Main CampusUrobilinogen (U) [Mass/Vol]0.2 mg/dLWayne Healthcare Main CampusLaboratory - Specimen informationOrdered By: Amelie Cristobal on 46-94-8336Myorufplxg (U)cloudyWayne Healthcare Main CampusColor (U) darkyellowWayne Healthcare Main CampusLaboratory - UrinalysisOrdered By: Amelie Cristobal on 71-59-1411Uqqwkptcz esterase Test strip Ql (U)large [facility] CampusNitrite Ql (U)NegativeWayne Healthcare Main CampusProtein Ql (U)100[facility] CampusNo Panel InformationOrdered By: Amelie Cristobal on 22-22-1378Dvprm Occult Blood trace-intactWayne Healthcare Main CampusUrine Cultureon 95-34-4898Dinxwbfo identified Cx Nom (U)ORGANISM: Staphylococcus saprophyticus (O:STASAP) [place] Count >100,000 Aerobic JOSE D Charge (PCMIC38) SUSCEPTIBILITY ORGANISM: O:STASAP ANTIBIOTIC INTERPRETATION JOSE D Ciprofloxacin S <1 Daptomycin S <0.5 Levofloxacin S <1 Linezolid S 2 Nitrofurantoin S <32 Oxacillin R 0.5 Penicillin R 0.12 Tetracycline S <4 Trimethoprim/Sulfamethoxazole S <0.5 Vancomycin S 1 S = SUSCEPTIBLE I = INTERMEDIATE R = RESISTANT BLANK = DATA NOT AVAILABLE, OR DRUG NOT ADVISABLE OR TESTED R* = RESISTANCE DUE TO EXTENDED SPECTRUM BETA-LACTAMASES ESBL = EXTENDED SPECTRUM BETA-LACTAMASE TFG = THYMIDINE-DEPENDENT STRAIN PK = BETA-LACTAMASE POSITIVE IB = INDUCIBLE BETA-LACTAMASE. APPEARS IN PLACE OF 'S' WITH SPECIES KNOWN TO POSSESS INDUCIBLE BETA-LACTAMASES. POTENTIALLY THEY MAY BECOME RESISTANT TO ALL B-LACTAM DRUGS. PERFORMED BY: [place] [address] [place] [address] PATHOLOGIST CONDUIT MECHANIC GENESIS CARPENTER M.D.[facility] Physician GroupComment on above: Performed By: #### CUU #### [facility] [address] [place] [id number] USAUrine Cultureon 24-51-9369Mvwlttsu identified Cx Nom (U) 20,000 colonies/ml mixed bacterial skin contaminants 2 Days PERFORMED BY: [place] [id number] PATHOLOGIST CONDUIT MECHANIC GENESIS CARPENTER M.D.[facility] Physician GroupComment on above: Performed By: #### CUU #### [facility] [address] [place] [address] USAUrine cultureOrdered By: Amador Hemphill on 05-06-2025 Bacteria identified Cx Nom (U)2 DaysWayne Healthcare Main CampusAmbulatory Visit Summaryon 55-35-4694Yqwxawkotj Visit SummaryAmbulatory Visit Summary KENDY ANDUJAR :2005 [...] 2:40 PM EDT With: Stella Christiansen Where: [facility] [place] [address]- Medications What How Much When Instructions Unchanged [...] you for choosing us for your care. [facility] CenterComprehensive Metabolic Panelon 94-58-4020Soccytf [Mass/Vol]4.4 g/dLNormal3.5-5.7The [facility] Comment on above:Performed By: #### LIPID, CMP #### [place] [address] USAAlbumin/Globulin [Mass ratio]1.9 {ratio}NormalThe Atrium Health Physician GroupComment on above:Performed By: #### LIPID, CMP #### [place] [address] USAALP [Catalytic activity/Vol]62 U/LSrihej33-005Lda [facility] Physician GroupComment on above:Performed By: #### LIPID, CMP #### [place] [address] USAALT [Catalytic activity/Vol]10 U/LNormal7-52The [facility] Health Physician GroupComment on above:Performed By: #### LIPID, CMP #### [place] [address] USAAnion gap [Moles/Vol]10.7 mmol/LNormal6.0-15.0The [facility] Health Physician GroupComment on above:Performed By: #### LIPID, CMP #### [place] [address] USAAST [Catalytic activity/Vol]12 U/NDms38-00Aog [facility] Physician GroupComment on above:Performed By: #### LIPID, CMP #### [place] [address] USABilirubin [Mass/Vol]0.5 mg/dLNormal0.3-1.0The [facility] Health Physician GroupComment on above:Performed By: #### LIPID, CMP #### [facility] [address] [place] [address] USACalcium [Mass/Vol]9.5 mg/dLNormal8.6-10.3The [facility] Health Physician GroupComment on above:Performed By: #### LIPID, CMP #### [facility] [address] [place] [address] USAChloride [Moles/Vol]103 mmol/MLlgkpi52-831Zal [facility] Physician GroupComment on above:Performed By: #### LIPID, CMP #### [facility] [address] [place] [address] USACO2 [Moles/Vol]29.4 mmol/DWiipdc47.0-31.0The [facility] Physician GroupComment on above:Performed By: #### LIPID, CMP #### [facility] [address] [place] [address] USACreatinine [Mass/Vol]1.30 mg/dLHigh0.60-1.20The [facility] Physician GroupComment on above:Performed By: #### LIPID, CMP #### [facility] [address] [place] [address] USAGFR/1.73 sq M.predicted MDRD (S/P/Bld) [Vol rate/Area] mL/min/{1.73_m2}NormalThe Atrium Health Physician GroupComment on above:Performed By: #### LIPID, CMP #### [facility] [address] [place] [address] USAGlobulin (S) [Mass/Vol]2.3 g/dLNormalThe [facility] Health Physician GroupComment on above:Performed By: #### LIPID, CMP #### [facility] [address] [place] [address] USAGlucose [Mass/Vol]87 mg/oYMotxhe32-889Qbx [facility] Physician GroupComment on above:Result Comment: Random Glucose Reference Range is dependent on time and content of last meal. Glucose of more than 200 mg/dL in a nonstressed, ambulatory subject supports the diagnosis of Diabetes Mellitus. ADA recommended reference rangePerformed By: #### LIPID, CMP #### [facility] [address] [place] [address] USAPotassium [Moles/Vol]4.1 mmol/LNormal3.5-5.1The [facility] Physician GroupComment on above:Performed By: #### LIPID, CMP #### [facility] [address] [place] [address] USAProtein [Mass/Vol]6.7 g/dLNormal6.4-8.9The [facility] Physician GroupComment on above:Performed By: #### LIPID, CMP #### [facility] [address] [place] [address] USASodium [Moles/Vol]139 mmol/ZTazvrk513-725Ouy [facility] Physician GroupComment on above:Performed By: #### LIPID, CMP #### [facility] [address] [place] [address] USAUrea nitrogen [Mass/Vol]29 mg/dLHigh7-25The [facility] Physician GroupComment on above:Performed By: #### LIPID, CMP #### [facility] [address] [place] [address] USAECG Pediatricon 34-79-1834SXSGrand Lake Joint Township District [facility] [place] [address] [place] [address] Electrocardiograph Report Signed Patient: Kendy Andujar MR#: [id number] 60 : 2005 Acct:[id number] Age/Sex: 19 / F ADM Date: 01/24/25 Loc: Room: Type: [facility] Attending Dr: Mandy Llanes MD Ordering Provider: Mandy Llanes MD Date of Service: 01/24/25/ Accession #: [...] infarct are no longer present Confirmed by TRABOULSAMMIE REYEZ MD ([id number]) on 01/24/2025 12:33:07 PM Referred By: Electronically Signed By: SAMMIE BECK MD Transcribed By: MUS Signed By Sammie Beck MD 0 01/24/[address] [place] [address] Physician GroupCollis P. [facility] Medicine Office/Clinic Noteon 53-41-7031Stjpuh Medicine Office/Clinic NoteFavibra hospital of [facility] Office/Clinic Note HPI Staff Kendy is a 19 year old female presenting with depression GORDON- PHQ- Was taking Lexepro stopped a week and a half ago.... moods were too high and too low peds took her off [place] [facility] [place] Illness pt presents today [...] E&M of New Patient Low 30-44 Min 48823 2. Anxiety disorder (F41.9: Anxiety disorder, unspecified) see above Ordered: buPROPion, 150 mg = 1 tab(s), Oral, q24hr, # 30 tab(s), Refills(s) 1, Pharmacy: [id number] E&M of New Patient Low 30-44 Min 54689 3. Autism spectrum disorder (F84.9: Pervasive developmental disorder, unspecified) stable. high functioning. Ordered: buPROPion, 150 mg = 1 tab(s), Oral, q24hr, # 30 tab(s), Refills(s) 1, Pharmacy: [id number] E&M of New Patient Low 30-44 Min 10554 4. BMI 30.0-30.9,adult (Z68.30: Body mass index [BMI] 30.0-30.9, adult) discussed making healthy food choices Ordered: buPROPion, 150 mg = 1 tab(s), Oral, q24hr, # 30 tab(s), Refills(s) 1, Pharmacy: [id number] E&M of New Patient Low 30-44 Min 75243 5. Class 1 obesity due to excess calories in adult (E66.811: Obesity, class 1) see above Ordered: buPROPion, 150 mg = 1 tab(s), Oral, q24hr, # 30 tab(s), Refills(s) 1, Pharmacy: [id number] E&M of New Patient Low 30-44 Min 17180 6. Non-smoker (Z78.9: Other specified health status) continue not smoking Ordered: buPROPion, 150 mg = 1 tab(s), Oral, q24hr, # 30 tab(s), Refills(s) 1, Pharmacy: [id number] E&M of New Patient Low 30-44 Min 00626 7. POTS (postural orthostatic tachycardia syndrome) (G90.A: Postural orthostatic tachycardia syndrome [POTS]) pt has been seeing a pediatric acute care unit nurse. was just seen by them yesterday. they aurora some labs. they are suggesting she switch over to an adult superintendent maintenance airports. 8. Hypercholesteremia (E78.00: Pure hypercholesterolemia, unspecified) lipid [...] (less than 100 in lifetime) Tobacco Use:., 01/24/2025[facility] City Medical CenterComment on above:Result Comment: Electronically Signed By: Feng GRIJALVA, Stella Duff\.br\Date and Time Signed: 01/24/25 17:20 EDTLipid Panelon 01-24-2025 Cholesterol [Mass/Vol]209 mg/gPTmig900-138Anp [facility] Physician GroupComment on above:Result Comment: Chol less than 200 mg/dl low risk Chol 201-239 mg/dl borderline risk Chol 240 mg/dl and greater high riskPerformed By: #### LIPID, CMP #### [facility] [address] [place] [id number] USACholesterol in HDL [Mass/Vol]37 mg/sZBeuser80-28Txg [facility] Physician GroupComment on above:Result Comment: HDL CHOL ATP-III CLASSIFICATION Cardiovascular Risk HDL > or equal to 60 mg/dL LOW HDL < 40 mg/dL HIGHPerformed By: #### LIPID, CMP #### [facility] [address] [place] [address] USACholesterol.total/Cholesterol in HDL [Mass ratio]5.6 {ratio}Normal<5.0The [facility] Medical CenterComment on above:Result Comment: PERFORMED BY: [place] [address] PATHOLOGIST CONDUIT MECHANIC GENESIS CARPENTER M.D.Performed By: #### LIPID, CMP #### [facility] [address] [place] [address] USALDL Cholesterol,Pxeokcmtju409 mg/dLHigh0-100The [facility] Physician GroupComment on above:Result Comment: LDL ATP III CLASSIFICATION LDL less than 100 mg/dL Optimal LDL 100-129 mg/dL Near or above optimal LDL 130-159 mg/dL Borderline high LDL 160-189 mg/dL High LDL greater than 189 mg/dL Very highPerformed By: #### LIPID, CMP #### [facility] [address] [place] [id number] USATriglyceride w/Cqcdue231 mg/dLNormal0-149[facility] Physician GroupComment on above:Result Comment: TRIG ATP III CLASSIFICATION TRIG less than 150 mg/dL Normal TRIG 150-199 mg/dL Borderline high TRIG 200-500 mg/dL High TRIG greater than 500 mg/dL Very high Standard traceable to the Center for Disease Conrtrol and Prevention (CDC) test method.Performed By: #### LIPID, CMP #### [facility] [address] [place] [id number] USAVLDL YZCOAITQUZX46 mg/dLNormShorePoint Health Punta Gorda Physician GroupComment on above:Performed By: #### LIPID, CMP #### [facility] [address] [place] [id number] USAProgress Noteson 53-98-2841Ultyquehwvrse Authentication Interface Message TextEMERGENCY TRIAGE, TREAT AND TRANSPORT (ET3) DOCUMENTATION OF TELEHEALTH VISIT Date / Time: 05/08/20232229 Name: Kendy Andujar : 2005 SSN: [id number] EMS Agency: [facility] [x] Verbal consent obtained, from patient [...] Disposition Reported: Same ET3 Encounter Completed by: Claire EsquivelLutheran Hospital SystemUS KIDNEYSon 93-42-8408RM KIDNEYSEXAM: US KIDNEYS HISTORY: Hyperlipidemia COMPARISON: None. [...] Electronically authenticated by: SHAISTA DYE Date: 2022-10-10 11:42[facility] HospitalCholesterol [Mass/volume] in Serum or PlasmaOrdered By: Mandy Llanes on 91-05-3985Vdccrxxouiu [Mass/Vol]194 mg/oN564-112NfsdwvgzvWayne Healthcare Main CampusComment on above:Chol less than 200 mg/dl low riskChol 201-239 mg/dl borderline riskChol 240 mg/dl and greater high riskCholesterol in LDL Calc [Mass/Vol]Ordered By: Mandy Llanes on 23-90-6064Hpgjsejzrvq in LDL [Mass/Vol]138 mg/dL0-100[facility] CampusComment on above: LDL ATP III CLASSIFICATIONLDL less than 100 mg/dL OptimalLDL 100-129 mg/dL Near or above hwkrvmgGLB740-164 mg/dL Borderline highLDL 160-189 mg/dL HighLDL greater than 189 mg/dL Very highCholesterol in VLDL Calc [Mass/Vol]Ordered By: Mandy Llanes on 73-75-2586Ajcesihlpan in VLDL [Mass/Vol]17 mg/dLAdena Health Systemerum or plasma high density lipoprotein (HDL) cholesterol measurementOrdered By: Mandy Llanes on 75-71-8385Evoywsxsifh in HDL [Mass/Vol]38 mg/hD45-91WsxhvnjkqWayne Healthcare Main CampusComment on above: HDL CHOL ATP-III CLASSIFICATION Cardiovascular RiskHDL > or equal to 60 mg/dL LOWHDL < 40 mg/dL HIGHSerum or plasma total cholesterol/high density lipoprotein (HDL) cholesterol mass ratOrdered By: Mandy Llanes on 05-20-2022 Cholesterol.total/Cholesterol in HDL [Mass ratio]5.1 {ratio}<5.0[facility] CampusTriglyceride [Mass/volume] in Serum or PlasmaOrdered By: Mandy Llanes on 42-97-7070Jcbwnzzljgbe [Mass/Vol]89 mg/jM46-436CvnymujfeWayne Healthcare Main CampusComment on above:TRIG ATP III CLASSIFICATIONTRIG less than 150 mg/dL NormalTRIG 150-199 mg/dL Borderline highTRIG 200-500 mg/dL High TRIG greater than 500 mg/dL Very highStandard traceable to the Center for Disease Conrtrol and Prevention (CDC) test method.Covid-19 PCR (CVDTBH)on 15-98-1091NYGR-CoV-2 (COVID-19) RNA DEBRA+probe Ql (Unsp spec)Not detectedNormal NOT DETECTEDThe The [facility]vue HospitalComment on above:Result Comment: This test is not yet approved or cleared by the [place] FDA. When there are no FDA- approved or cleared tests available, and other criteria are met, FDA can make tests available under an emergency access mechanism called an Emergency Use Authorization (EUA). The EUA for this test is supported by the Fixture Builder of Health and Human Service's (HHS's) declaration [...] and symptoms consistent with SARS-CoV-2.Performed By: #### CVDTB #### [facility] [address] [place] [address] Dr. Ivette Prather Quick Testingon 98-30-6570JTYSC Quick TestingNoAtlas Powered Gezlong Other COVID Quick TestingNegativeNoAtlas Powered Gezlong Other Cholesterol [Mass/volume] in Serum or PlasmaOrdered By: Mandy Llanes on 60-30-8485Rojfztsvbkv [Mass/Vol]226 mg/rO840-977 [facility] CampusComment on above:Chol less than 200 mg/dl low risk Chol 201-239 mg/dl borderline risk Chol 240 mg/dl and greater high riskCholesterol in LDL Calc [Mass/Vol]Ordered By: Mandy Llanes on 87-81-6117Fazqjqoyzio in LDL [Mass/Vol]168 mg/dL0-100 [facility] CampusComment on above:LDL ATP III CLASSIFICATION LDL less than 100 mg/dL Optimal LDL 100-129 mg/dL Near or above optimal LDL 130-159 mg/dL Borderline high LDL 160-189 mg/dL High LDL greater than 189 mg/dL Very highCholesterol in VLDL Calc [Mass/Vol]Ordered By: Mandy Llanes on 78-36-6986Iaydmjrzxjd in VLDL [Mass/Vol]20 mg/dL [facility]ena Health Systemerum or plasma high density lipoprotein (HDL) cholesterol measurementOrdered By: Mandy Llanes on 26-77-4761Qlvoieyduxb in HDL [Mass/Vol]37 mg/oL55-96SouolkfuwWayne Healthcare Main CampusComment on above: HDL CHOL ATP-III CLASSIFICATION Cardiovascular Risk HDL > or equal to 60 mg/dL LOW HDL < 40 mg/dL HIGHSerum or plasma total cholesterol/high density lipoprotein (HDL) cholesterol mass ratOrdered By: Mandy Llanes on 12-17-2021 Cholesterol.total/Cholesterol in HDL [Mass ratio]6.1 {ratio}[facility] CampusTriglyceride [Mass/volume] in Serum or PlasmaOrdered By: Mandy Llanes on 82-92-8433Yyzdrakphnup [Mass/Vol]103 mg/lN92-852OfwpguxlkWayne Healthcare Main CampusComment on above:TRIG ATP III CLASSIFICATION TRIG less than 150 mg/dL Normal TRIG 150-199 mg/dL Borderline high TRIG 200-500 mg/dL High TRIG greater than 500 mg/dL Very high Standard traceable to the Center for Disease Conrtrol and Prevention (CDC) test method. Vital Signs Date TimeVital SignValuePerforming BlzfgvavtXpqkciny61-96-1696 16:51-0400Body mzulnt903.94 cmAmador Shruthijah DO Work Phone: [facility]10-21-2025 16:51-0400 Body mass index (BMI) [Percentile] Per age and sex94.5 %Amador Shruthijah DO Work Phone: [facility]10-21-2025 16:51-0400 Body mass index (BMI) [Ratio]31 kg/d0YylqlkwAmador Hemphill DO Work Phone: [facility]10-21-2025 16:51-0400 Body juqbsmobzbi15.9 [degF]Amador Hemphill DO Work Phone: [facility]10-21-2025 16:51-0400 Body xsxofz82.5 kgJekaty Hawkinsko DO Work Phone: [phone] [place], [place] [address]10-21-2025 16:51-0400 Diastolic blood yphhuzvu28 mm[Hg]Amador Hawkinsko DO Work Phone: [phone] [place], [place] 9611410-21-2025 16:51-0400 Heart rate81 /minAmador Hawkinsko DO Work Phone: 1(126)[facility] [place], [place] [address]11410-21-2025 16:51-0400 Respiratory rate18 /minAmador Hemphill DO Work Phone: [phone])[address] [place], [place] 8711110-21-2025 16:51-0400 SaO2% (BldA) [Mass fraction]98 %Amador Hawkinsko DO Work Phone: [phone])[address] [place], [place] [address]11[address]-21-2025 16:51-0400 Systolic blood nkriswlp701 mm[Hg]Amador Hemphill DO Work Phone: [phone])[address] [place], [place] [address]101-21-2025 17:31-0500 Body ijnyhb550.9 cmNicole Peter DO Work Phone: [facility] HospitalBaratbqajz62-39-2140 17:31-0500Body mass index (BMI) [Percentile] Per age and sex83.57 %Diandra Peter DO Work Phone: [facility] HospitalGmkjqxcoba53-96-6882 17:31-0500Body mass index (BMI) [Ratio]25.7 kg/w6Bxkojs Peter DO Work Phone: [facility] HospitalDguqhgkqsr18-98-3468 17:31-0500Body .69 kgNicole Peter DO Work Phone: [facility] HospitalQylfrqourr52-40-2523 17:31-0500Diastolic blood mm[Hg]Diandra Peter DO Work Phone: [facility] HospitalPoyhitrnih15-33-2583 17:31-0500Heart rate87 /min Diandra Peter DO Work Phone: [facility] HospitalQtlsimioof95-53-7645 17:31-0410RcV4% (BldA) [Mass fraction]98 %Diandra Mitchell DO Work Phone: noFitzgibbon HospitalQgntdlbkqh24-72-3982 17:31-0500Systolic blood mm[Hg]Diandra Mitchell DO Work Phone: noFitzgibbon HospitalDdmrpxitrs58-19-2626 22:30-0400Diastolic blood mm[Hg]Et3 ZpuglbbtMhmyoLpgppn15-30-9689 22:30-0400Heart xgfs370 /min Et3 UabcvggeOjydhYlwxww38-15-6227 22:30-0400Respiratory rate18 /minEt3 Resource ZxopzIngbug16-96-4865 22:30-0236HnE8% (BldA) [Mass fraction]99 %Et3 Resource LxqdhLkrzfb60-10-8196 22:30-0400Systolic blood qhnmtojc557 mm[Hg]Et3 Resource OcqsbRhcfgc74-15-5791 19:30-0400Body kcobxn445.48 cmSlittle Monreal Other [employer] Other 08-02-2022 19:30-0400Body mass index (BMI) [Ratio] 30.36 kg/f7Kouqylktwotto Monreal Other [employer] Other 08-02-2022 19:30-0400Body qucfyzccmoo49.9 [degF] Lilian Monreal Other [employer] Other 08-02-2022 19:30-0400Body gtpuvv59.3 kgStotto Monreal Other [employer] Other 08-02-2022 19:30-0400Respiratory rate18 /minStepmal Monreal Other [employer] Other 08-02-2022 19:30-1947LuE7% (BldA) [Mass fraction]98 % Lilian Monreal Other [place] [employer] Other Encounters Encounter DateEncounter TypeCare ProviderFacilityStart: 05-31-2025 End: 66-28-7207hajslyyzhtULU STAFF-LAB [facility] [place] [facility]ospStart: 05-31-2025 End: 81-51-4060Xnatnswn ReferredAmador Russo DO-LAB [facility] Start: 05-29-2025 End: 55-11-0005Ycjgivbp ReferredPatricia Karen [facility] GEOPHYSICAL E LOGGER-Lab [place] Work Phone: Start: 05-29-2025 End: 89-85-5590yapcgavljrJTV STAFF-[facility] ClydeStart: 05-29-2025 End: 86-59-8033Euqzire encounter procedurePatricia Karen [facility] GEOPHYSICAL E LOGGER-[facility] Work Phone: Start: 05-06-2025 End: 63-15-7593htgjyiykraQbmuase D [facility] Work Phone: Start: 05-06-2025 End: 84-91-7783Scjvnjyz Drake Russo DO-LAB [facility] Start: 04-04-2025 End: 11-87-7953rawstfjqigCJW Stella Duff SchwabFacility:FT FM BellevueStart: 03-07-2025 End: 75-34-6871psuftuxwyzNPH Stella L SchwabFacility:FT [facility] BellevueStart: 01-24-2025 End: 76-65-9795gtfwkjsrzjFqydmdnz K F Whitfield MD Work Phone: [facility] CardiologyStart: 12-15-2024 End: 31-61-4817QqriueRnwdmlhqJuan M Llanes MD Work Phone: [facility] Pediatric CardiologyComment on above:Med RefillStart: 09-11-2024 End: 09-92-8046dforfvnfhpKQNNZK DANNERNot AvailableStart: 09-07-2024 End: 00-77-3763qctkhtdfjwKUHTYE DANNERNot AvailableStart: 08-29-2024 End: 99-33-1513Ertuuh consultation new/estab patient 60 minNicole Peter DO Work Phone: aNA WILLARDComment on above:Seizure (CMS/HCC) (Primary Dx); POTS (postural orthostatic tachycardia syndrome); Autism (CMS/HCC); Alteration of awarenessStart: 08-29-2024 End: 53-95-3253ayeyoalhkqIFHLCL DANNERNot AvailableStart: 07-03-2024 End: 31-43-7585xqlgzfbbwcWBISRZ M WORKMANNot AvailableStart: 07-03-2024 End: 52-76-0418Pxeweg outpatient visit 25 minutesSurichar MANCIA Work Phone: NOJY SWS UCComment on above:Cat scratch of multiple sites (Primary Dx); Open wound of right middle finger due to cat biteStart: 05-25-2024 End: 30-14-5452MpcnnhDlyggkyc K F Whitfield MD Work Phone: [facility] CardiologyComment on above:Med RefillStart: 05-24-2024 End: 98-43-7951juobdnsotiQP Ronaldo Holland Work Phone: [facility] Work Phone: Start: 05-24-2024 End: 80-35-8065Xkzakzm encounter procedureDO Ronaldo Holland Work Phone: [facility]-Pediatric Cardiac Work Phone: start: 11-24-2023 End: 49-39-9538cibbfekexeRQ Robert A Johnson Work Phone: [facility] Work Phone: Start: 11-24-2023 End: 74-86-5004Vxvnjge encounter procedureDO Ronaldo Holland Work Phone: [facility]-Pediatric Cardiac Work Phone: start: 11-12-2023 End: 83-94-5241Wkrdqgjft encounterAdmireya Bolton Pediatric CardiologyStart: 06-11-2023 End: 05-13-2456twjeqswpgrPCKXSOH PROVIDERFacility:METROHealthStart: 05-08-2023 End: 66-21-3055wjawkocoquTx0 ResourceMetroHealth Emergency Triage, Treat and TransportStart: 05-08-2023 End: 03-88-7300Faxylhxsv department patient visitEt3 ResourceACMC Healthcare System [facility] Emergency Triage, Treat and TransportComment on above:ArrivedStart: 03-24-2023 End: 33-07-7390pqzaypbhnwOU Ronaldo Holland Work Phone: [facility] Work Phone: Start: 03-24-2023 End: 33-64-7750Ihwcayg encounter procedureDO Ronaldo Holland Work Phone: [facility]-Pediatric Cardiac Work Phone: start: 11-25-2022 End: 38-66-0185rxritnsjzqBX Ronaldo Holland Work Phone: [facility] Work Phone: Start: 11-25-2022 End: 64-52-8531Ljsrson encounter procedureDO Ronaldo Holland Work Phone: [facility]-Pediatric Cardiac Work Phone: start: 10-10-2022 End: 81-97-3679oucyrxjohrTP DOCTOR MISCFacility:B9Qjift: 05-20-2022 End: 93-86-2573nqyhfdzjwzJH Ronaldo Holland Work Phone: [facility] Work Phone: Start: 05-20-2022 End: 79-10-3644Vphirhy encounter procedureDO Ronaldo Holland Work Phone: [facility]-Pediatric CardiacStart: 04-23-2022 End: 06-60-9608qkklysfbizIQXDPG A JOHNSONFacility:N8Rfkiy: 03-10-2022 End: 34-44-5268xfbojprdsaQtoxzhkxn Breault Other [facility] Other Start: 77-89-1512Uaypea outpatient visit 15 minutes Lilian MonrealFPMaykel Urgent Care ClydeStart: 12-17-2021 End: 01-64-1680Ykicldv encounter procedureDO Ronaldo Holland Work Phone: [facility]-Pediatric Cardiac Procedures DateProcedureProcedure DetailPerforming ClinicianStart: 43-35-9624Lezbs culture Amador Hemphill DO Work Phone: Plan of Treatment DateCare ActivityDetailAuthorStart: 16-88-9502NJhT,Tdap and Td Vaccines (7 - Td or Tdap)DTaP,Tdap and Td Vaccines (7 - Td or Tdap)[facility] SystemStart: 68-87-3247Bnyghvv,Diptheria,Pertussis Vaccine (7 - Td or Tdap) Tetanus,Diptheria,Pertussis Vaccine (7 - Td or Tdap)[facility]roHealthStart: 05-31-2025 Bacteria identified in Urine by CultureUrine [facility] Hospitaltart: 21-98-7451Xgoaq [facility] Companytart: 05-29-2025 End: 33-28-4438Liedk [facility] Companytart: 05-29-2025 Bacteria identified in Urine by CultureUrine [facility] Hospitaltart: 46-34-5206Offfs [facility] Companytart: 67-61-8485Bpcmnbav identified in Urine by CultureUrine [facility] Hospitaltart: 34-32-2402Gzjzowdgb vaccinationInfluenza VaccineProUc Medical Centerca [facility] SystemStart: 10-17-2024 End: 69-22-2939Fpbjzon encounter qmowqemsa10/11/2025 10:00 AM EDT Office Visit LARISA DUNBAR [address] [place] [phone] Chen Crowell NP [address] [place], [place] LARISA HDZtart: 08-29-2024 End: 95-92-1051Pqwp EEG 36-84 HoursHome EEG 36-84 Hours Neurology Routine Seizure (CMS/HCC) Expected: 08/29/2024 (Approximate), Expires: 08/29/2025[facility] Work Phone: comment on above:Expected: 08/29/2024 (Approximate), Expires: 08/29/2025Start: 93-95-4435Rrqbsuugg vaccinationOzarks Community HospitalStart: 49-63-2701Vuslg BMI ScreeningAdult BMI ScreeningDiley Ridge Medical Center Health SystemStart: 29-07-4409YOAPL-19 Vaccine ( season)COVID-19 Vaccine ( season)MetroHealthStart: 74-21-9448Ijmtedgvm vaccinationInfluenza Vaccine (#1) MetroHealthStart: 55-99-8540KGX (1 - 2-dose series)MCV (1 - 2-dose series) [facility] SystemStart: 72-79-7279CUO (2 - 2-dose series)MCV (2 - 2-dose series)ProMAbbott Northwestern Hospital SystemStart: 72-09-6058Xnuustesjahkf B (Bexsero,OMV) Vaccine (Optional,16-23 years)Meningococcal B (Bexsero,OMV) Vaccine (Optional,16-23 years)MetroHealthStart: 50-86-5387Aojpcvtfygshs Conjugate (MCV4,ACWY) Vaccine (2 - 2-dose series)Meningococcal Conjugate (MCV4,ACWY) Vaccine (2 - 2-dose series)[facility]roHealthStart: 64-82-6506CBV screeningHIV Test MetroHealthStart: 10-37-4335EPJ Vaccines (1 - 3-dose series)HPV Vaccines (1 - 3- dose series)[facility] SystemStart: 28-41-6401Vwdpibnjf for Chlamydia trachomatisSTI Screening (Age 15-17)MetroHealthStart: 29-47-3547Esjodz Test (15- 17 yrs,once)Vision Test (15-17 yrs,once)MetroHealthStart: 31-19-5693Kspkldicv Vaccines (1 of 2 - 13+ 2-dose series)Varicella Vaccines (1 of 2 - 13+ 2-dose series)[facility] SystemStart: 58-36-0006Wrrcdgwurv ScreeningDepression ScreeningProSt. Vincent Hospital SystemStart: 02-61-2150Jkpujco ScreeningTobacco ScreeningProSt. Vincent Hospital SystemStart: 59-74-5278Kagcvjcrps Depression Screening Adolescent Depression ScreeningMetroHealthStart: 33-51-9388Fhmiifl Test (10-18 yrs,once)Hearing Test (10-18 yrs,once)MetroHealthStart: 97-62-5089HYrJ,Tdap and Td Vaccines (1 - Tdap)DTaP,Tdap and Td Vaccines (1 - Tdap)[facility] SystemStart: 02-12-0535HDK Vaccines (2 of 2 - Standard series)MMR Vaccines (2 of 2 - Standard series)[facility]MA[facility] SystemStart: 43-54-4193Ykux child visit, 14 yearsWELL EGG CANDLER (3-17 YRS,YEARLY)MetroHealthStart: 46-81-5332Uftrxwshw A Vaccines (1 of 2 - 2-dose series)Hepatitis A Vaccines (1 of 2 - 2-dose series) [facility] SystemStart: 24-58-7026VRO Vaccines (1 of 2 - Standard series) MMR Vaccines (1 of 2 - Standard series)[facility] SystemStart: 06-10-2006 Hepatitis B Vaccines (3 of 3 - 3-dose series)Hepatitis B Vaccines (3 of 3 - 3- dose series)[facility]MA[facility] SystemStart: 96-93-8138Vumjgtxvj B Vaccines (1 of 3 - 3-dose series)Hepatitis B Vaccines (1 of 3 - 3-dose series)[facility] SystemHome EEG 36-84 HoursHome EEG 36-84 Hours Neurology Routine Seizure (CMS/HCC) 09/11/2024 8:35 AM [facility] Immunizations Immunization DateImmunizationNotesCare KzcwnpkyMaxmnguq14-27-1903xmtojfs toxoid, reduced diphtheria toxoid, and acellular pertussis vaccine, adsorbedSummer Emily MANCIA Work Phone: [facility] HospitalChqkqplnlc20-90-5377rbmhaqievjttk B vaccine, recombinant, OMV, adjuvantedSummer Emily MANCIA Work Phone: [facility] HospitalAzpxrctxgo91-18-7194bwlevjdaqrjoa polysaccharide (groups A, C, Y and W-135) diphtheria toxoid conjugate vaccine (MCV4P)[facility] Emily MANCIA Work Phone: [facility] HospitalVbcpujmjoq99-42-6192drxkxusek, injectable, quadrivalent, preservative freeSummer Emily MANCIA Work Phone: [facility] HospitalCjgcafjkvy34-37-8885xibzldcnl virus vaccine, unspecified formulationClmariana Llanes MD Work Phone: [facility] HospitalFmoaxl50-48-1763wtmbvjzzc, injectable, quadrivalent, preservative freeEt3 HfzaurcxUimbtOyrahg88-13-9243 influenza virus vaccine, unspecified formulationEt3 [facility] 25-74-0396uakibtkqp, injectable, quadrivalent, preservative freeEt3 [facility] HospitalBzsnpGtoshn25-01-9065xlagisjuw, injectable, quadrivalent, preservative freeEt3 ZzqvnorfXocdsDatgkn51-83-9149mwybysjaa, injectable, quadrivalent, preservative freeEt3 ScrgggbfPfpdxLokaqt91-33-9722jiryq papilloma virus vaccine, quadrivalent Et3 OrrgitjoXykdeWcfmof70-67-6564uddxxdbad, injectable, quadrivalent, preservative freeEt3 NqmmlahcZgsscVesske31-81-5301Ottkuzpiwtsst, MCV4, unspecified conjugate formulation(groups A, C, Y and W-135)Et3 Resource DqifzOfxunr29-73-0211zxveyef toxoid, reduced diphtheria toxoid, and acellular pertussis vaccine, adsorbedEt3 PduluhgbGaojmWflmdc54-87-1185Wmcdm Papillomavirus 9-valent vaccineEt3 AsmmraslYbaecSbrzbn14-87-0486zmgepewxt virus vaccine, unspecified formulationEt3 TjjbwpdrAqbcwTxnmec78-36-4155aulmxvtso virus vaccine, unspecified formulationEt3 RdcfvdbuVwcgaMnljwn53-22-7913bzxjfbnbt virus vaccine, unspecified formulationEt3 AhjbucylArwuiZoqowv41-41-7916mjbnlnhbq virus vaccine, unspecified formulationEt3 ZjjwocoaNnfahLeijaj72-21-0258ngxkrkmkp virus vaccine, unspecified formulationEt3 PaypbzwmYsuyiMkmqsk03-37-5491vxsemzy, mumps and rubella virus vaccineEt3 GvmjavpbBffegGpdsnd80-10-5712wtzrpcuop virus vaccineEt3 LpirhitcEoogpDgunjf71-29-3623zatdbthbz virus vaccine, unspecified formulationEt3 ZenwakiyZnagsOzcvbs70-59-5573qytpajmpbd, tetanus toxoids and acellular pertussis vaccineEt3 GciufwrxHdxsgNgeouq55-49-6990icxftcs, mumps and rubella virus vaccine Et3 YteibfmyYxqbvErpdhm29-93-4159xshlxzztdt vaccine, inactivatedEt3 [facility] HospitalOovquCymlkb96-01-6588vwuogwjwb virus vaccineEt3 JqoreesdNpttwExvado35-73-2972 influenza virus vaccine, unspecified formulationEt3 [facility] 12-02-7537dcsxekvtp virus vaccine, unspecified formulationEt3 [facility] HospitalVyukgMclefq03-05-1891nmtrjugib virus vaccine, unspecified formulationEt3 UflmculxPpoztVigzef04-03-8631emucqak, mumps and rubella virus vaccineEt3 ZujpnvogGxhxuHfvqvs97-71-6247zgrnvzbks A vaccine, pediatric/adolescent dosage, 2 dose scheduleEt3 GjwhrhtgNjohoItuwvv39-81-3646ebyjmilpfjgw Conjugate, unspecified formulationEt3 WqsmsocbVrycvEgwxhb29-20-9965cblhiegzrb, tetanus toxoids and acellular pertussis vaccineEt3 BybqlrrsHteljFenhnq31-55-6875 haemophilus influenzae type b vaccine, PRP-T conjugateEt3 [facility] 74-67-4727jpnjxdtug A vaccine, pediatric/adolescent dosage, 2 dose scheduleEt3 IvmsfbdoDgvdbZiydmj28-09-9082tjhxsau, mumps, rubella, and varicella virus vaccineEt3 IeapeuokCzydoKgxxyp76-42-2609maessoshywmp conjugate vaccine, 7 valent Et3 YmbmpqpbHgiffSnwdel47-67-9274qomfmps, mumps and rubella virus vaccine Mandy Llanes MD Work Phone: [facility] HospitalMyupnz12-17-5057miuifueyd, seasonal, injectableEt3 OnetehwjOsenlScoqgt89-49-2116tjkbbooswq, tetanus toxoids and acellular pertussis vaccineEt3 YttbtysuXmmcvVufidx78-22-0440ultlrwsekeb influenzae type b conjugate and Hepatitis B vaccineEt3 [facility] 82-88-6653fkupxucobnxv conjugate vaccine, 7 valentEt3 [facility] 00-94-1466bwzttxvbut vaccine, inactivatedEt3 TxxnlrxrUnqxmZqtfai68-47-1047 diphtheria, tetanus toxoids and acellular pertussis vaccineEt3 [facility] HospitalJbdlsTvugiu24-60-0246wdsrwqtcjbn influenzae type b conjugate and Hepatitis B vaccineEt3 UixevbasEkozoQksxqg05-58-4627kulfonoirqdj conjugate vaccine, 7 valent Et3 IdoovpkaJpkuwZurvic95-93-2294denpyvzvln vaccine, inactivatedEt3 [facility] HospitalCptdtQllsui38-82-1093weusxfpcpl, tetanus toxoids and acellular pertussis vaccine Et3 CajxwrveFesgvFwzamh60-29-9485yejecimlivg influenzae type b vaccine, PRP-T conjugateEt3 YvyqtuolNbrbwCyeids70-93-5822fgqobsyvn B vaccine, pediatric or pediatric/adolescent dosageEt3 NoylockiIbwdgAjcxbk66-22-8986cvxgurupvu vaccine, inactivatedEt3 [facility] Payers DatePayer CategoryPayerPolicy [id number]-off [id number] 2023 [id number] [id number].9.909123.790640.33720-32-3881BaloPresbyterian Santa [facility] Center Managed Care - OtherANTHEM 1.2.840.954338.1.13.424.2.7.9.227258.505.91944-07-4070VkduaisYUBHMV BCBS OUT OF STATE PPO/TRUST [id number] 2020-Present [phone] [address] [place] [address].2.840.722859.1.13.424.2.7.3.158542.90978-78-9688Hhjrhia [id number] 2.0.1.563259.3.579.[id number] 2.840.1.359022.3.579.[id number] 2.840.1.100327.3.579.2.996082-81-5474Xnuomzr8950556 2.840.1.197211.3.579.2.925743-62-6292Mmwenhc3208710 2.840.1.060892.3.579.2.816942-97-4053Ruqgmyl65422595 2.840.1.157989.3.579.2.31593-86-7947Algucat25791619 2.16840.1.514087.3.579.2.59681-28-5671Dvgwpud98388969 2.840.1.711394.3.579.2.63061-09-6996Xhrjxei1992810 2.840.1.864922.3.579.2.575[id number] 9yu45825-98ro-795p-0503-430s5a5860tf[id number] 2.16840.6.938855.73692316-82-5865Dfmpvud882524830 2.16.840.1.873757.3.579.2.732 Department of Defense ( and others)[id number] [id number] 2.16.840.1.5[id number] 2.16.840.1.896132.3.579.2.531 [id number] 2.16.840.1.123087.3.579.2.371Wqdsqxg35383729 2.16.840.1.929487.3.579.2.531 Social History DateTypeDetailFacilityTobacco smoking status NHISUnknown if ever smokedBlanchard Valley Health System Work Phone: Start: 36-49-7802Wxr Assigned At [facility] Systemtart: 09-18-2020 End: 37-07-4706Cae Assigned At [facility] [employer] Other Tobacco smoking status NHISTobacco smoking consumption unknownMetroHealthStart: 02-49-6876Fpu Assigned At BirthNot on fileMetroHealth Start: 12-03-2020 End: 32-79-7585Mzxakgi smoking status NHISNever smoked tobaccoNOAL Healthcare Start: 12-03-2020 End: 29-21-2867Lpyvomb use and exposureSmokeless tobacco non-userProMedipr Health SystemStart: 09-18-2020 End: 30-32-1570Gshudqt of Social functionProMedica Health SystemStart: 18-22-0854Gdytzzslk beverage intakeCurrent non-drinker of alcohol (finding) [facility] SystemStart: 03-12-2015 SexFezaira (finding)[facility] Clinical Notes 03-10-2022 to 05-29-2025 Note Date & LfjwSkgnOvgmrlvj82-36-0822 Evaluation note* Diagnosis Onset Date Resolution Status Admit Date UTI (urinary tract infection) acuteOctober 2024 4:39pm [facility] Work Phone: [phone] 203-336301-21-2025 History of Present illness Narrative* Diandra Mitchell, DO - 08/29/2024 5:30 PM EST Images from the original note were not included. Chief Complaint Patient presents with POTS Seizures Subjective Kendy Andujar, 18 y.o., female being seen in Neurology consultation at the request of Dr. Ronaldo Holland. He is on peds on wheels. HPI SELF / PHONED IN : POTS , tremors, seen @ [facility] , PCP Peds on Wheels Patient [...] that she was diagnosed with POTS. The autocutter that saw them thought they were not [...] She did have an EEG at the [facility]. She does not know results. Mother [...] norma nt. The patient went to the [place] [facility] for her arms jerking. This was also making her arms hurt. She was given a muscle relaxer and this helped her symptoms. She sees a Pocket Setter for POTS at [facility]- she was told to keep her sodium levels up. She does not think that she had a tilt table. She thinks she had a CT or MRI. She saw the pediatric acute care unit nurse at [facility]. She also has a history of Hyperlipidemia. [...] and all orders for this visit: Seizure ([facility]) - Home EEG 36-84 Hours; Future POTS (postural orthostatic tachycardia syndrome) Autism ([facility]) Alteration of awareness 18-year-old Autistic female with [...] to clinic: 6-8 weeks documented in this encounterOzarks Community HospitalJqqzjlskit33-68-2221 History of Present illness Narrative* GAVINO Reyez - 07/03/2024 7:30 PM EST [address], [address] [facility] [address] P: [phone] F: [phone] HPI Historian of HPI: patient Kendy Andujar [...] 14 tablet; Refill: 0 documented in this encounterOzarks Community HospitalHmzgxynhuv06-04-3568 Miscellaneous Notes* Telephone Encounter - Lyndsey Walker RN - 11/12/2023 3:31 PM EDT Called patient's mother with message below. Mother states that patient has been compliant with her atorvastatin. ----- Message from Mandy Llanes MD sent at 11/12/2023 10:18 AM EDT [...] eating fatty foods. * Telephone Encounter - Mandy Llanes MD - 11/12/2023 3:31 PM EDT Please [...] let me know. * Telephone Encounter - Mandy Llanes MD - 11/12/2023 3:31 PM EDT I have sent a prescription for 10 mg once per day. She was taking half a tablet now she is to take 1 entire tablet. She needs to repeat her labs in 3 months documented in this encounterDiley [facility] Center [id number] Telephone encounter Note* Telephone Encounter - Lyndsey Walker RN - 11/12/2023 3:31 PM EDT Called patient's mother with message below. Mother states that patient has been compliant with her atorvastatin. ----- Message from Mandy Llanes MD sent at 11/12/2023 10:18 AM EDT ----- Please let parents know that her LDL has increased after her not being compliant with her medication. She needs to go back on her statin drug. Her LDL is 148 and we would like it to be a proximally 100-110. Her triglycerides are elevated and this is a direct relation to her eating fatty foods. [facility] [id number] Telephone encounter Note* Telephone Encounter - Mandy Llanes MD - 11/12/2023 3:31 PM EDT Please find out if she was taking her medication around the time that she did her lab work. If she was then we will have to increase the dose. [email or web address] Telephone encounter Note* Telephone Encounter - Lyndsey Walker RN - 11/12/2023 3:31 PM EDT Patient was taking medication at the time of her labwork, will call patient's mother back with the increased dosage as soon as you let me know. [email or web address] Telephone encounter Note* Telephone Encounter - Mandy Llanes MD - 11/12/2023 3:31 PM EDT I have sent a prescription for 10 mg once per day. She was taking half a tablet now she is to take 1 entire tablet. She needs to repeat her labs in 3 months [facility] Company[facility] History of Present illness Narrative* Pedro Bernal MD - 06/11/2023 11:51 AM EDT Images from the original note were not included. EMERGENCY TRIAGE, TREAT AND TRANSPORT (ET3) DOCUMENTATION OF TELEHEALTH VISIT Date / Time: 05/08/2023 2230 Name: Kendy Andujar : 2005 SSN: [id number] EMS Agency: [facility] [x] Verbal consent obtained, from patient [...] by: Pedro Bernal MD documented in this [id number] Evaluation note* Encounter Date Diagnosis Assessment Notes [...] care provider if no improvement of symptoms. Zakaz.ua Other Evaluation noteNo assessment information available [facility] Work Phone: Evaluation note* Diagnosis [...] Historytonsillectomy and adenoidectomySurgical Historyappendectomy Hospitalization Historystaff infection [facility] Other InstructionsNot on filedocumented in this encounter [facility]InstructionsNot on filedocumented in this encounter [facility] SystemInstructionsNot on filedocumented in this encounter [facility] SystemReason for referral (narrative)No reason for referral information availableL[facility] Work Phone: Chief Complaint and Reason for Visit Chief Complaint Hyperlipidemia Chief Complaint Hyperlipidemia Chief Complaint Admit Date Unknown May 06, 2025 6:04pm Chief Complaint Admit Date Unknown May 06, 2025 6:04pm frequency to urinate May 29, 2025 4:39pm Reason for Visit Admit Date UTI (urinary tract infection) May 292024 4:39pm Chief Complaint Admit Date Unknown May 06, 2025 6:04pm frequency to urinate May 29, 2025 4:39pm Unknown May 31, 2025 7 :15am Advance Directives No Advanced Directives Records Found [...] Ronaldo Holland DO Primary Care Provider Active Mandy Theo LlanesActive Team Status: Inactive Member Role Status Dates Ronaldo Holland DO Primary Care Provider Active Start: November 24, 2023 End: November 23laTheo Cheng ProviderActiveStart: November 24, 2023 End: November 24, 2023 Team Status: Inactive Member Role Status Dates Ronaldo Holland DO Primary Care Provider Active Start: May 24, 2024 End: May 24Theo Giron ProviderActiveStart: May 24, 2024 End: May 24, 2024Team MemberRelationshipSpecialtyStart DateEnd Date Ronaldo Holland MD [address] [place] [address] PCP - UwkbqtpHeomzyevyb78/27/24Team MemberRelationshipSpecialtyStart DateEnd Date Vanda Duran MD [address] [address] PCP - GeneralPediatrics12/21/16Team MemberRelationshipSpecialtyStart DateEnd Date Vanda Duran MD [address] [address] PCP - GeneralPediatrics12/21/16Team MemberRelationshipSpecialtyStart DateEnd Date Vanda Duran MD [address] [address] PCP - GeneralPediatrics12/21/16Team MemberRelationshipSpecialtyStart DateEnd Date Vanda Duran MD [address], [address] [address] PCP - GeneralPediatrics12/21/16 Team Status: Inactive Member Role Status Dates Amador Hemphill , Attending Provider Active S tart: May 06, 2025 End: May 06, 2025 Team Status: Active Member Role/Relationship Status Dates NON STAFF Primary Care Provider Active Team Status: Inactive Member Role/Relationship Status Dates Amador Hemphill , Attending Provider Active S tart: May 06, 2025 End: May 06, 2025 Team Status: Inactive Member Role/Relationship Status Dates DEMI Whiting RN STRATEGIC BUYER-C Attending Provider Active Start: May 29, 2025 End: May 29, 2025NON STAFFPrimary Care ProviderActiveStart: May 29, 2025 End: May 29, 2025 Team Status: Inactive Member Role/Relationship Status Dates Amador Hemphill , Attending Provider Active S tart: May 06, [...] Inactive Member Role/Relationship Status Dates Amador Hemphill , Attending Provider Active S tart: May 31, 2025 End: May 31, 2025 Goals (unrecognized section and content) Goals [...] and content) DATE CREATED AUTHOR 10/13/2022 The [facility] DATE CREATED AUTHOR AUTHOR'S ORGANIZ ATION 07/08/2023 [facility] DATE CREATED AUTHOR AUTHOR'S ORGANIZ ATION 09/12/2024 [facility] DATE CREATED AUTHOR AUTHOR'S ORGANIZ ATION 04/05/2025 [facility] DATE CREATED AUTHOR AUTHOR'S ORGANIZ ATION 06/06/2025 The [facility] FOR RECORDS PERTAINING TO PATIENTS [...] BE BASED ON THE PRIMARY CLINICAL RECORDS. [facility]. provides no warranty or guarantee of the accuracy or completeness of information in this document.
--- OUTSIDE RECORDS SUMMARY | 2025-06-16 16:19 | XMS_ITS | Clinical Summary ---
Author Organization [facility] Address [address] [place] [address] Care Team Providers Care Skills Instructor Name Role Phone Levon Holland MD Primary Care Provider [phone] Cindy Green DO Unavailable [phone] Allergies Active AllergyReactionsCriticalityNoted ShwiBtbwsjnyJhdvplkjerlohtpz82/25/2021 Medications MedicationSigDispense QuantityRefillsLast FilledStart DateEnd DateStatus atorvastatin (Lipitor) 10 MG tablet Take 1 tablet by mouth in the morning.05/26/2024ctive Dariana 0.25-35 MG-MCG tablet Take 1 tablet by mouth Daily as directedActive desmopressin (DDAVP) 0.1 MG tablet Take by mouth at bedtimeActive Active Problems No known active problems Immunizations ImmunizationAdministration DatesNext QnwGVpL3409/30/2009,11/04/2006,04/15/2006, 01/29/2006,2005HPV 9-Efgzfk5306/03/2016HPV, Obhuymrqnfkv77/14/2017Hep A, ped/adol, 2 dose05/20/2007,11/04/2006Hep B, Adolescent or Zcevyvycg23/20/2006Hib (PRP-T)11/04/2006,2005Hib / Hep B004/15/2006,01/29/2006IPV09/30/2009, 04/15/2006,01/29/2006,2005Influenza, Qtlbrdkhkrl11/14/2016,05/31/2015, 06/26/2014,05/24/2013,06/02/2012,06/13/2010,09/12/2009,06/15/2008,03/01/2008 Influenza, injectable, quadrivalent, preservative free05/18/2022,05/02/2021, 04/19/2020,05/03/2019,09/12/2018,06/22/2017Influenza, seasonal, injectable 07/08/2006MMR1,09/30/2009,10/09/2007MMRV11/04/2006Meningococcal B, Omv 01/20/2023Meningococcal MCV4, Mxhpxzblkqn16/15/2017Meningococcal FPG9Q9701/20/2023 Pneumococcal Conjugate PCV 7011/04/2006,04/15/2006,01/29/2006Pneumococcal Conjugate, Hwsqugeyodq27/12/8481Gcgw40/25/2024,09/23/20162446Jrfdfbnzj15/25/2012, 09/30/2009 Family History Medical HistoryRelationNameCommentsAlcohol abuseFatherAutismFatherDevelopmental delayFatherHyperlipidemiaFatherHypertensionFatherKidney diseaseMotherMigraines MotherRelationNameStatusCommentsFatherMother Social History Tobacco UseTypesPacks/DayYears UsedDateSmoking Tobacco: NeverSmokeless Tobacco: NeverCommentsUnknownSex and Gender InformationValueDate RecordedSex Assigned at BirthNot on fileLegal HxxCcwvng38/15/2023 6:53 PM EDTGender Identity Not on fileSexual OrientationNot on file Last Filed Vital Signs Vital SignReadingTime TakenCommentsBlood Fdmtjziz061/7408/29/2024 5:31 PM EST Zlvwl317408/29/2024 5:31 PM ESTTemperature--Respiratory Rate--Oxygen Ookrquhvoj73% 08/29/2024 5:31 PM ESTInhaled Oxygen Concentration--Rmhwqp32.7 kg (136 lb) 08/29/2024 5:31 PM CCBIhiatd311.9 cm (5' 1 )08/29/2024 5:31 PM ESTBody Mass Index25.7008/29/2024 5:31 PM ESTBody Mass Index Rvxqkshumc32.57%08/29/2024 5:31 PM ESTGrowth Chart: CDC (Girls, 2-20 Years) Plan of Treatment Health MaintenanceDue DateLast DoneCommentsCOVID-19 Vaccine (2024- season) 5010/22/2021, 04/07/2021, 03/18/2021Influenza Vaccine (#1)2025 05/18/2022, 05/02/2021, 04/19/2020, Additional history existsPneumococcal Vaccine: Pediatrics (0 to 5 Years) and At-Risk Patients (6 to 64 Years)Aged Out 05/20/2007, 11/04/2006, 04/15/2006, Additional history existsNo longer eligible based on patient's age to complete this topic Insurance Care Teams Team MemberRelationshipSpecialtyStart DateEnd Levon Holland MD [address] [place] [address] PCP - ZoqktigQvzilvxkoz72/27/24 Cindy Green DO [address] [place] [address] Referring PhysicianNeurology1
--- OUTSIDE RECORDS SUMMARY | 2025-06-16 16:19 | XMS_ITS | Clinical Summary ---
Author Organization [facility] Address [address] [facility] [place] [address] Care Team Providers Care Video Presentation Operator Name Role Phone Unavailable Primary Care Provider Unavailabl e Source Comments The following information is NOT included in Care Everywhere downloads:Psychiatric notes, ECG results, Cardiac Rehab notes, Pulmonary Function notes, data from SmartForms (includes but not limited toPregnancy data,audiograms, eye exams, pre-surgical evaluation notes, well-child exam data).[facility] Immunizations ImmunizationAdministration DatesNext DueDTaP (CVX=20)09/30/2009,11/04/2006, 04/15/2006,01/29/2006,2005HPV, 9-valent (Gardasil 9) (HIM=607)06/03/2016 HPV, quadrivalent (Gardasil 4) (CVX=62)06/22/2017Hep A (peds/adol, 2 dose) (CVX=83)05/20/2007,11/04/2006Hep B (peds/adol, 3-dose) (CVX=08)2005Hep B/HIB (Comvax) (CVX=51)04/15/2006,01/29/2006Hib (PRP-T) (CVX=48)11/04/2006, 2005Influenza, injectable, quadrivalent, preservative free (EUS=190) 05/18/2022,05/02/2021,04/19/2020,05/03/2019,09/12/2018,06/22/2017Influenza, injectable, trivalent, preservative (SOC=625)07/08/2006Influenza, unspecified formulation (CVX=88)05/22/2016,05/31/2015,06/26/2014,05/24/2013,06/02/2012, 06/13/2010,09/12/2009,06/15/2008,03/01/2008MMR, Shvobjc-Ezudv-Zyrtxkr (CVX=03) 06/02/2012,09/30/2009,10/09/2007MMRV, Yvzueud-Ukrog-Oehwpwl-Varicella (CVX=94) 11/04/2006Meningococcal conjugate (MCV4,Men-ACWY), unspecified formulation (IZS=807)09/23/2016Pneumococcal conjugate (PCV), unspecified formulation (XFM=099)05/20/2007Pneumococcal conjugate 7 valent (PCV7) (JCS=033)11/04/2006, 04/15/2006,01/29/2006Polio, inactivated (IPV) (CVX=10)09/30/2009,04/15/2006, 01/29/2006,2005Tdap (UWR=767)09/23/2016Varicella (Chickenpox) (CVX=21) 06/02/2012,09/30/2009 Social History Tobacco UseTypesPacks/DayYears UsedDateSmoking Tobacco: Never Assessed CommentsUnknownSex and Gender InformationValueDate RecordedSex Assigned at Not on fileLegal JecGxachp45/12/2021 5:32 AM EDTGender IdentityNot on fileSexual OrientationNot on file Last Filed Vital Signs Vital SignReadingTime TakenCommentsBlood Osotzecj926/7809 10:30 PM EDT Eqwcz86660/30/2023 10:30 PM EDTTemperature--Respiratory Cmxq952905/08/2023 10:30 PM EDTOxygen Bunbrxzdfn30%05/08/2023 10:30 PM EDTInhaled Oxygen Concentration-- Weight--Height--Body Mass Index-- Plan of Treatment Health MaintenanceDue DateLast DoneCommentsHIV Test2020Meningococcal B (Bexsero,OMV) Vaccine (Optional,16-23 years)2021Hepatitis C Antibody 2023STI Screening (Age 18-24)4COVID-19 Vaccine (2024- season)503/, 04/07/2021, 03/18/2021Influenza Vaccine (#1) 510/05/2022, 05/02/2021, 04/19/2020, Additional history existsTetanus (Td or Tdap) Adaectq50/15/15599609/23/2016Shingles (RZV) Vaccine (1 of 2) 2055Hepatitis B (HBV) HoymbudNvweritxi11/07/2006, 01/29/2006, 2005 Hepatitis A (HAV) VocztzbEhjqrfobx02/12/2007, 11/04/2006Pneumococcal Vaccine(s) Aged Out05/20/2007, 11/04/2006, 04/15/2006, Additional history existsNo longer eligible based on patient's age to complete this topicMeningococcal Conjugate (MCV4,ACWY) ZfjignmXpsovpsgvdah73/15/2017Tdap BcrlkkuHvdbthqou35/15/2017HPV DoffqpaHkprfzgwa32/14/2017, 06/03/2016 Insurance * Guarantor: Ebenezer Andujar TypeRelation to PatientDate of BirthPhone Billing AddressPersonal/DtmcnmGkfy33/17[birth year][address] [place] [address] * Guarantor: Ricarda GERBER TypeRelation to PatientDate of BirthPhoneBilling AddressPersonal/FamilyMother [address] [place] [address] * Guarantor: Ricarda GERBER TypeRelation to PatientDate of BirthPhoneBilling AddressPersonal/FamilyMother [address] [place] [address]
[2025-06-16] MEDS: 0.9 % SODIUM CHLORIDE 1,000 ML 999 ML IV (16:20)
[2025-06-16 16:26] LABS: Hematocrit 44.5 % (36.0-48.0); Hemoglobin 15.2 g/dL (12.0-16.0); Immature Granulocytes Abs Auto 0.02 10^3/uL (0.00-0.03); Immature Granulocytes Pct Auto 0.3 % (0.0-0.5); Lymphocytes Absolute Auto 1.7 10^3/uL (1.2-3.8); Mean Corpuscular HGB Conc 34.2 g/dL (29.9-35.2); Mean Corpuscular Hemoglobin 30.1 pg (26.7-34.0); Mean Corpuscular Volume 88.1 fL (81.0-99.0); Platelet Count 283 10^3/uL (150-450); Red Blood Count 5.05 10^6/uL (4.20-5.40); White Blood Count 7.1 10^3/uL (4.0-11.0)
[2025-06-16 16:27] LABS: Glucose Urine UA NEGATIVE (NEGATIVE)
[2025-06-16 16:30] LABS: HCG Qualitative Urine* NEGATIVE (NEGATIVE)
[2025-06-16 16:33] VITALS: PULSE 68; O2SAT 98
[2025-06-16 16:34] LABS: Cast Seen? NONE SEEN #/LPF (NONE SEEN); Crystals Seen? None Seen #/HPF (None Seen); Urine Culture Indicated YES-FRMC
[2025-06-16 16:42] LABS: Alanine Aminotransferase 19 U/L (14-59); Albumin Globulin Ratio 1.4; Albumin Level 4.3 g/dL (3.4-5.0); Alkaline Phosphatase 73 U/L (46-116); Anion Gap 12.9; Aspartate Amino Transferase 15 U/L (15-37); Blood Urea Nitrogen 20.0 mg/dL (6.4-19.3); Calcium 9.5 mg/dL (8.5-10.1); Carbon Dioxide 28.0 mmol/L (21.0-32.0); Chloride 104 mmol/L (98-107); Estimated GFR (African America 58 (>=60 mL/min/1.73m^2); Estimated GFR (Non-African Ame 48 (>=60 mL/min/1.73m^2); Globulin 3.1 g/dL; Glucose 104 mg/dL (74-106); Lipase 24.0 U/L (16.0-77.0); Potassium 3.9 mmol/L (3.5-5.1); Sodium 141 mmol/L (136-145); Total Protein 7.4 g/dL (6.4-8.2)
[2025-06-16 16:44] LABS: Lactate/Lactic Acid 0.8 mmol/L (0.4-2.0)
[2025-06-16 16:45] VITALS: PULSE 88; O2SAT 98
[2025-06-16 16:46] LABS: Cannabinoid Screen Urine NEGATIVE (NEGATIVE); Methamphetamines Screen Urine NEGATIVE (NEGATIVE); Tricyclic Antidepressant Urine NEGATIVE (NEGATIVE)
--- NOTE | 2025-06-16 17:03 | CT_ITS ---
[address] [address] Patient Name: KENDY MENDENHALL MRN: [id number] date: 2005 Sex: F Assigned Patient Location: ER Current Patient Location: ER Accession/Order Number: [id number] Exam Date: 06/16/2025 17:15 Report Date: 06/16/2025 17:41 At the request of: SHANICE MANCIA Procedure: CT abdomen pelvis wo con CT abdomen pelvis wo con 06/16/2025 5:27 PM SIGNS AND SYMPTOMS: ^r/o renal stone, left flank pain TECHNIQUE: Multidetector ct axial images of the abdomen and pelvis were obtained without IV contrast. Multiplanar reformats were performed and reviewed to further define anatomy and possible pathology. CT was performed with one or more of the following dose reduction techniques: Automated exposure control, adjustment of the mA and/or kV according to patient size, or use of iterative reconstruction technique. COMPARISON: None. FINDINGS: Lower Chest: There is a hiatal hernia with gastric fundus in the lower mediastinum. ABDOMEN: Liver: Within normal limits. Bile Ducts: Normal caliber. Gallbladder: No calcified gallstones. Normal caliber wall. Pancreas: Within normal limits. Spleen: Within normal limits. Adrenals: Within normal limits. Kidneys: There are 1 to 2 mm nonobstructing renal stones in the renal collecting systems bilaterally. There is left-sided hydronephrosis with atrophic fat stranding. Pelvis: Reproductive Organs: No pelvic masses. Ureters: There is prominence of the left ureter with a 3 mm stone in the left ureterovesical junction. Bladder: Within normal limits. Bowel: Normal caliber. There is a normal appendix in the right lower quadrant. Mesenteric Lymph Nodes: No enlarged mesenteric lymph nodes. Peritoneum: No ascites or free air, no fluid collection. Vessels: within normal limits Retroperitoneum: Within normal limits. Abdominal Wall: Within normal limits. Bones: Within normal limits. CT/CT abdomen pelvis wo con IMPRESSION: There is a 3 mm stone at the left ureteral vesicle junction contributing to left-sided hydroureter and hydronephrosis. No evidence of bowel obstruction. There is a hiatal hernia with gastric fundus in the lower mediastinum. Impression dictated by: Daljit Boothe M.D. 06/16/2025 5:41 PM Dictation Location: [place] [address] Electronically authenticated by: [id number] Y Date: 06/16/2025 17:41
[2025-06-16 17:04] VITALS: BP 135/97; PULSE 90; O2SAT 100
[2025-06-16 18:16] VITALS: BP 130/86; PULSE 100; O2SAT 100
[2025-06-16] MEDS: TAMSULOSIN HCL 0.4 MG CAPSULE 0.8 MG PO (18:25)
== END 2025-06-16 18:32 | disposition home or self-care (01) ==
PROVIDERS: Physician Assistant; Emergency Provider Student in an Organized Health Care Education/Training Program; PCP Nurse Practitioner Family
DX: N13.6 Pyonephrosis (principal); Z87.440 Personal history of urinary (tract) infections; Z87.442 Personal history of urinary calculi; R11.2 Nausea with vomiting, unspecified
CPT/HCPCS: 36415; 74176; 80053; 80076; 80307; 81001; 83605; 83690; 84703; 85025; 87086; 96361; 96365; 96375; 99284; 99285; J0696

== ENCOUNTER 2025-06-21 19:39 | Emergency (ER) | payer BC, MEDICAID, SELFPAY ==
--- OUTSIDE RECORDS SUMMARY | 2025-06-17 19:06 | XMS_ITS | Continuity of Care Document ---
Author Organization [facility] Address [address] [place] [address] Phone Care Team Providers Care Parking Enforcement Officer Name Role Phone Amador Hemphill DO Attending Provider [phone] Amelie Cristobal APRN Attending Provider NON STAFF Primary Care Provider Ramone Encarnacion DO Attending Provider Care Teams Visit Care Team Team Status: Inactive Member Role/Relationship Status Dates Amador Hemphill DO Attending Provider Active S tart: May 06, 2025 End: May 06, 2025 Visit Care Team Team Status: Inactive Member Role/Relationship Status Dates DEMI Whitnig RN FOUNDRY WORKER GENERAL-C Attending Provider Active Start: May 29, 2025 End: May 29, 2025NON STAFFPrimary Care ProviderActiveStart: May 29, 2025 End: May 29, 2025 Visit Care Team Team Status: Inactive Member Role/Relationship Status Dates DEMI Whiting RN FOUNDRY WORKER GENERAL-C Attending Provider Active Start: May 29, 2025 End: May 29, 2025 Visit Care Team Team Status: Inactive Member Role/Relationship Status Dates Amador Hemphill DO Attending Provider Active S tart: May 31, 2025 End: May 31, 2025 Patient Care Team Team Status: Inactive Member Role/Relationship Status Dates Ramone Styles DO Attending Provider Active Sta rt: June 16, 2025 End: June 16, 2025 Chief Complaint and Reason for Visit Chief Complaint Admit Date Unknown May 06, 2025 6:04pm frequency to urinate May 29, 2025 4:39pm R30.0 May 29, 2025 4 :46pm Unknown May 31, 2025 7 :15am Unknown June 16, 2025 4 :00pm Reason for Visit Admit Date UTI (urinary tract infection) May 292024 4:39pm Allergies, Adverse Reactions, Alerts Allergen Type Severity Reaction Last Updated Verified Status prochlorperazine Allergy Unknown Unknown Reaction Oc tober 2024 3:42pm Yes Active Social History Smoking Status Unknown if ever smoked Observation Status Observation Response Date of Response Legal Sex Female (finding) [facility] 2005 Problems Active Problems Problem Diagnosis/Recorded Date Onset Date Stat UTI (urinary tract infection) May 29, 2025 4:22p m Unknown Active Left shoulder strain February 02, 2020 7:40am Unknown Active Medications Medication Status Dose Units Route Directions Qty Days Refills S tart Date Stop Date End Date Reason(s) Instructions Adherence Ibuprofen 400 mg Tablet Discontinued 400 MG PO Sona ry 6 hours as needed for Pain 20 0Jun2019 11:00pmOctober 2024 3:42pmAtorvastatin 10 mg tabletActive MGPOMay 28, 2025 11:00pmUnknownDextroamphetamine-Amphetamine 25 mg capsule,extended release 02adJjsqewSA6Oytpsgn 20th, 2025 11:00pmUnknown Nitrofurantoin Monohyd/M-Cryst (Macrobid) 100 mg ffsbnzcMowzwf449JORRVfzpz 12 yaurl6715NoebimvMay 28, 2025 11:00pmmust administer with a meal/foodUnknown Procedures Procedure Date Performed Status Urine Culture May 06, 2025 completed Urine Culture May 29, 2025 completed Urine Culture May 31, 2025 completed Urine Culture June 16, 2025 active Relevant Diagnostic Tests and/or Laboratory Data Laboratory Results Test Collection Date/Time Result Date/Time Result Interpretation Reference Range Result Comment Performing Site Urine Color May 29, 2025 4:05pm May 29, 2025 4 :13pm darkyellow Urine AppearanceMay 29, 2025 4:05pmOct2024 4:13pmcloudyUrine Glucose (UA)May 29, 2025 4:05pmOct2024 4:13pmnegativeUrine BilirubinOct2024 4:05pmOctober 2024 4:13pmnegativeUrine Ketones May 29, 2025 4:05pmOct2024 4:13pmnegativeUrine Specific [place] May 29, 2025 4:05pmOctober 2024 4:13pm1.025Urine Occult BloodOct2024 4:05pmOct2024 4:13pmtrace-intactUrine pHOct2024 4:05pmOct2024 4:13pm7.5Urine ProteinOct2024 4:05pmOctober 2024 4:55xf480Ilnht UrobilinogenOct2024 4:05pmOct2024 4:13pm0.2Urine NitriteMay 29, 2025 4:05pmOct2024 4:13pm NegativeUrine Leukocyte EsteraseMay 29, 2025 4:05pmOct2024 4:13pmlarge Microbiology Results Procedure Source Result Collection Date/Time Result Date/Time Result Comment Performing Site Urine Culture Urine 2 Days May 06, 2025 6 :04pm May 08, 2025 8:04am [facility] [id number] [address] [facility] [address]Gconx CultureUrineStaphylococcus saprophyticusMay 29, 2025 4:46pmOct2024 8:14amTr[facility] [id number] [address] [facility] [address]Wvugg CultureUrine, Not Otherwise Specified2 DaysMay 31, 2025 7:15amOct2024 10:02[facility] [id number] [address] [facility] [address] Vital Signs Vital Reading Result Reference Range Collection Date/Time Height 61 [in_i] May 29, 2025 3:33mjCqwate70.50 kgMay 29, 2025 3:51pmBody Temperature 98.9 [degF]97.6-99.0Oct2024 3:51pmHeart Rate81 /pky34-904ZwduudoMay 29, 2025 3:51pmRespiratory rate18 /fzu61-90PurdoiuMay 29, 2025 3:51pmOxygen saturation by Pulse %95-100Octpaintsville arh hospital 2024 3:51pmBP Nmmqjxbh451 mm[Hg]100-140Octpaintsville arh hospital 2024 3:51pmBP Jqrjkazuc03 mm[Hg]60-100Octpaintsville arh hospital 2024 3:51pmBMI (Body Mass Index)31.0 kg/k8Mgzwjsw 2024 3:51pmBody mass index (BMI) [Percentile] Per age and sex94.5 %Overweight; 85th to 95th percentileGarden City Hospital 2024 3:51pm Advance Directives Advance Directive Response Recorded Date/ Time Advance Directives No February 01 6:54am Insurance Providers Guarantor Serena Nino Address [address] [place] [address]Ufxkudn Info.Home Phone: Coverage Status Update:2024 Payer Group Member ID Coverage Type Subscriber Relationship to Subscriber Effective Date Expiration Date Moreno MORA Id: [id number] Yun-mafnas , M Id: [id number] [address] [place] [address] Home Phone: Email: [email or web address] Medicaid [id number] Eaton , M Id: [id number] [address] [place] [address] Home Phone: Email: [facility] HospitalChaitanya(MORENO) Student Id: [id number] Encounters Encounter Location(s) Arrival/Admit Date Discharge/Departure Date Discharge/Departure Disposition Provider(s) Departed Referred -[facility] May 06, 2025 6:04pm May 06, 2025 6:05pm Discharged to home care or self care (routine discharge) Karan Swain DO Departed Physician/ Provider Office Visit -[facility] [place] May 29, 2025 4:39pm May 29, 2025 5:18pm Discharged to home care or self care (routine discharge) Amelie Cristobal APRN Departed Clinical -Lab [facility] May 29, 2025 4:46pm May 29, 2025 4:47pm Discharged to home care or self care (routine discharge) Amelie Cristobal APRN Departed Referred -[facility] May 31, 2025 7:15am May 31, 2025 7:16am Discharged to home care or self care (routine discharge) Karan Swain DO Departed Referred -LAB [facility] June 16, 2025 4:00pm June 16, 2025 4:01pm Discharged to home care or self care (routine discharge) Serena Catalan DO Recent Diagnosis Onset Date Admit Date UTI (urinary tract infection) Unknown Oc tober 2024 4:39pm Assessments Diagnosis Onset Date Resolution Status Admit Date UTI (urinary tract infection) acuteOctober 2024 4:39pm Plan of Treatment Author Amelie Cristobal [facility] HospitalAuthoredOctpaintsville arh hospital 2024 4:22pmInitiate antibotics. Will send for culture. Encouraged to increase oral intake of fluids. Discussed good personal hygiene, wipe front to back, void after intercourse. Future Tests Future scheduled test information is unavailable Pending Tests Test Name Ordered Date Scheduled Date Urine Culture June 16, 2025 4:00pm Future Visits Future appointment information is unavailable Future Procedures Procedure Name Ordered Date Scheduled Date Urine Culture June 17, 2025 1:05pm Novemb er 2024 4:00pm Future Medications Future medication information is unavailable Patient Instructions Patient instructions are unavailable
[2025-06-21 19:49] VITALS: BP 112/80; PULSE 81; TEMP 37.1; O2SAT 97; BMI 31.2
--- NOTE | 2025-06-21 20:00 | ED_ITS ---
Documented by User: Britney Gaytan 06/21/25 21:12 HPI HPI - General Adult General Chief complaint: Back Pain/Injury Stated complaint: KIDNEY STONES/ PREVIOUSLY HERE Time Seen by Provider: 06/21/25 19:54 Source: patient Mode of arrival: walk-in Limitations: no limitations History of Present Illness HPI narrative: 19 year old female presents to the ED for fatigue, chills, sweats, left flank pain, N/V. She was evaluated here 06/16/25 for right-sided abd pain and diagnosed with a kidney stone. States she was advised to return to the ED if she developed the symptoms she currently has. Denies fever, diarrhea, dysuria, hematuria. CT/CT abdomen pelvis wo con IMPRESSION: There is a 3 mm stone at the left ureteral vesicle junction contributing to left-sided hydroureter and hydronephrosis. No evidence of bowel obstruction. There is a hiatal hernia with gastric fundus in the lower mediastinum. Impression dictated by: Daljit Boothe M.D. 06/16/2025 5:41 PM Dictation Location: [place] [address] Electronically authenticated by: [id number] Y Date: 06/16/2025 17:41 Related Data Home Medications ?Medication ?Instructions ?Recorded ?Confirmed atorvastatin 10 mg tablet 10 mg PO DAILY 03/07/2304/02 dextroamphetamine-amphetamine ER 25 mg PO DAILY 06/16/25 25 mg 24hr capsule,extend release norgestimate 0.25 mg-ethinyl 1 tab PO DAILY 03/07/23 1 08/16/24 estradiol 0.035 mg tablet (Dariana) albuterol sulfate 90 mcg/actuation inhalation 05/31/25 aerosol inhaler bupropion HCl 150 mg 24 hr tablet, mg PO 05/31/25 extended release Previous Rx's ?Medication ?Instructions ?Recorded cephalexin 500 mg capsule 500 mg PO Q6H 10 days #40 ca ps 06/16/25 ibuprofen 600 mg tablet 600 mg PO Q8H PRN pain #30 t abs 06/16/25 tamsulosin 0.4 mg capsule (Flomax) 0.4 mg PO DAILY #14 caps 06/16/25 Allergies Allergy/AdvReac Type Severity Reaction Status Date / Time raspberry Allergy Intermediate Rash Verified 06/21/25 19:49 prochlorperazine (From Allergy Mild Rash Verified 06/21/25 19:49 Compazine) Opioid HPI Opioid Management Most Recent Opioid Data: Last Pain Scale 8 Today, 19:53 Ur Phencyclidine Scrn, (NEGATIVE) Negative , 16:00 Review of Systems ROS Constitutional Reports: chills; Denies: fever Cardiovascular Denies: chest pain Respiratory Denies: shortness of breath Gastrointestinal Reports: nausea and vomiting; Denies: abdominal pain Genitourinary Denies: painful urination, urinary frequency, urinary urgency or blood in urine Musculoskeletal Reports: back pain Integumentary/Breast Denies: rash Neurological Denies: headache or weakness in extremities PFSH PFSH Social History Smoking status: Never smoker Little interest or pleasure in doing things: not at all Feeling down, depressed, or hopeless: not at all Exam Constitutional Vital Signs, click to edit/add: Last Vital Signs Temp 98.7 F 06/21/25 19:49 Pulse 81 06/21/25 19:49 Resp 18 06/21/25 19:49 BP 112/80 06/21/25 19:49 Pulse Ox 97 06/21/25 19:49 O2 Del Method Room Air 06/21/25 19:49 Common normals: no apparent distress and oriented x3 General appearance: cooperative HENMT Common normals: moist oral mucous membranes Eye Common normals: conjunctivae normal and no scleral icterus Neck & C-Spine Common normals: supple Respiratory Common normals: normal respiratory effort Effort & inspection: able to speak in complete sentences and symmetric chest movement Cardio Common normals: regular rate and regular rhythm GI Common normals: Normal to inspection, nondistended, normoactive bowel sounds present, soft to palpation and non-tender Common normals: no CVA tenderness Neuro Common normals: oriented x3, moves all extremities and no focal motor deficits Sensorium/orientation: awake and alert Speech: speech normal Course Vital Signs Vital signs: Vital Signs Temperature 98.7 F 06/21/25 19:49 Pulse Rate 81 06/21/25 19:49 Respiratory Rate 18 06/21/25 19:49 Blood Pressure 112/80 06/21/25 19:49 Pulse Oximetry 97 06/21/25 19:49 Oxygen Delivery Method Room Air 06/21/25 19:49 Temperature 98.7 F 06/21/25 19:49 Pulse Rate 81 06/21/25 19:49 Respiratory Rate 18 06/21/25 19:49 Blood Pressure 112/80 06/21/25 19:49 Pulse Oximetry 97 06/21/25 19:49 Oxygen Delivery Method Room Air 06/21/25 19:49 Medical Decision Making MDM Narrative Medical decision making narrative: Testing was pending. Care was resumed to Dr. Hemphill. See his dictation for further evaluation and treatment. Medical Records Medical records reviewed: Yes I reviewed the patient's medical records Lab Data Lab results reviewed: Yes I reviewed the patient's lab results Labs: Lab Results 06/21/25 06/21/25 Range/Units 20:24 20:43 WBC 6.7 (4.0-11.0) 10^3/uL RBC 4.92 (4.20-5.40) 10^6/uL Hgb 14.7 (12.0-16.0) g/dL Hct 43.8 (36.0-48.0) % MCV 89.0 (81.0-99.0) fL MCH 29.9 (26.7-34.0) pg MCHC 33.6 (29.9-35.2) g/dL RDW 12.6 (11.0-15.0) % Plt Count 311 (150-450) 10^3/uL MPV 10.2 (9.5-13.5) fL Neut % (Auto) 56.4 (43.0-75.0) % Lymph % (Auto) 25.8 (20.5-60.0) % [place] % (Auto) 12.4 H (1.7-12.0) % Eos % (Auto) 4.8 (0.9-7.0) % Baso % (Auto) 0.3 (0.2-2.0) % Neut # (Auto) 3.8 (1.4-6.5) 10^3/uL Lymph # (Auto) 1.7 (1.2-3.8) 10^3/uL [place] # (Auto) 0.8 (0.3-0.8) 10^3/uL Eos # (Auto) 0.3 (0.0-0.7) 10^3/uL Baso # (Auto) 0.0 (0.0-0.1) 10^3/uL Abs Immat Gran (auto) 0.02 (0.00-0.03) 10^3/uL Imm/Tot Granulo (auto) 0.3 (0.0-0.5) % Sodium 140 (136-145) mmol/L Potassium 4.0 (3.5-5.1) mmol/L Chloride 105 (98-107) mmol/L Carbon Dioxide 26.8 (21.0-32.0) mmol/L Anion Gap 12.2 BUN 16.0 (6.4-19.3) mg/dL Creatinine 1.46 H (0.55-1.02) mg/dL Est GFR ( Amer) 56 L (>=60 mL/min/1.73m^2) Est GFR (Non-Af Amer) 46 L (>=60 mL/min/1.73m^2) BUN/Creatinine Ratio 11.0 Glucose 82 (74-106) mg/dL Calcium 8.7 (8.5-10.1) mg/dL Total Bilirubin 0.3 (0.2-1.0) mg/dL AST 18 (15-37) U/L ALT 48 (14-59) U/L Alkaline Phosphatase 68 (46-116) U/L Total Protein 7.1 (6.4-8.2) g/dL Albumin 4.0 (3.4-5.0) g/dL Globulin 3.1 g/dL Albumin/Globulin Ratio 1.3 Urine Color Lt. yellow (YELLOW) Urine Clarity Clear (CLEAR) Urine pH 6.0 (5.0-9.0) Ur Specific [place] >=1.030 A (1.005-1.025) Urine Protein Negative (NEG/TRACE) mg/dL Urine Glucose (UA) Negative (NEGATIVE) mg/dL Urine Ketones Negative (NEGATIVE) mg/dL Urine Occult Blood Negative (NEGATIVE) Urine Nitrite Negative (NEGATIVE) Urine Bilirubin Negative (NEGATIVE) Urine Urobilinogen 0.2 (0.2-1.0) EU/dL Ur Leukocyte Esterase Trace A (NEGATIVE) Urine RBC None seen (0-2) #/HPF Urine WBC 5-10 A (NONE SEEN) #/HPF Ur Squamous Epith Cells Many A (NONE/RARE) #/LPF Urine Crystals None seen (None Seen) #/HPF Urine Bacteria Small A (NONE SEEN) #/HPF Urine Casts None seen (NONE SEEN) #/LPF Urine Mucus Small A (NONE SEEN) Ur Culture Indicated? [place] [place] Discharge Chief Complaint: Back Pain/Injury Clinical Impression: Kidney stone Patient Disposition: Home, Self-Care Time of Disposition Decision: 22:19 Mode of Transportation: Private Vehicle Prescriptions / Home Meds: No Action norgestimate-ethinyl estradiol [Dariana] 0.25-35 mg-mcg tablet 1 tab PO DAILY atorvastatin 10 mg tablet 10 mg PO DAILY dextroamphetamine-amphetamine 25 mg capsule,extended release 24hr 25 mg PO DAILY albuterol sulfate 90 mcg/actuation HFA aerosol inhaler INHALATION bupropion HCl 150 mg tablet extended release 24 hr PO cephalexin 500 mg capsule 500 mg PO Q6H 10 Days Qty: 40 0RF tamsulosin [Flomax] 0.4 mg capsule 0.4 mg PO DAILY Qty: 14 0RF ibuprofen 600 mg tablet 600 mg PO Q8H PRN (Reason: pain) Qty: 30 0RF Print Language: Faroese Instructions: Kidney Stones (ED) Referrals: Paige Holland NP [Primary Care Provider] - As needed Mick Louis MD [Physician, Urology] - As soon as possible Documented by User: Niko Hemphill MD 06/21/25 22:20 HPI HPI - General Adult General Chief complaint: Back Pain/Injury Stated complaint: KIDNEY STONES/ PREVIOUSLY HERE Time Seen by Provider: 06/21/25 19:54 Related Data Home Medications ?Medication ?Instructions ?Recorded ?Confirmed atorvastatin 10 mg tablet 10 mg PO DAILY 03/07/2304/02 dextroamphetamine-amphetamine ER 25 mg PO DAILY 06/16/25 25 mg 24hr capsule,extend release norgestimate 0.25 mg-ethinyl 1 tab PO DAILY 03/07/23 1 08/16/24 estradiol 0.035 mg tablet (Dariana) albuterol sulfate 90 mcg/actuation inhalation 05/31/25 aerosol inhaler bupropion HCl 150 mg 24 hr tablet, mg PO 05/31/25 extended release Previous Rx's ?Medication ?Instructions ?Recorded cephalexin 500 mg capsule 500 mg PO Q6H 10 days #40 ca ps 06/16/25 ibuprofen 600 mg tablet 600 mg PO Q8H PRN pain #30 t abs 06/16/25 tamsulosin 0.4 mg capsule (Flomax) 0.4 mg PO DAILY #14 caps 06/16/25 Allergies Allergy/AdvReac Type Severity Reaction Status Date / Time raspberry Allergy Intermediate Rash Verified 06/21/25 19:49 prochlorperazine (From Allergy Mild Rash Verified 06/21/25 19:49 Compazine) Opioid HPI Opioid Management Most Recent Opioid Data: Last Pain Scale 8 Today, 19:53 Ur Phencyclidine Scrn, (NEGATIVE) Negative , 16:00 PFSH PFSH Social History Smoking status: Never smoker Little interest or pleasure in doing things: not at all Feeling down, depressed, or hopeless: not at all Exam Constitutional Vital Signs, click to edit/add: Last Vital Signs Temp 98.7 F 06/21/25 19:49 Pulse 81 06/21/25 19:49 Resp 18 06/21/25 19:49 BP 112/80 06/21/25 19:49 Pulse Ox 97 06/21/25 19:49 O2 Del Method Room Air 06/21/25 19:49 Course Vital Signs Vital signs: Vital Signs Temperature 98.7 F 06/21/25 19:49 Pulse Rate 81 06/21/25 19:49 Respiratory Rate 18 06/21/25 19:49 Blood Pressure 112/80 06/21/25 19:49 Pulse Oximetry 97 06/21/25 19:49 Oxygen Delivery Method Room Air 06/21/25 19:49 Temperature 98.7 F 06/21/25 19:49 Pulse Rate 81 06/21/25 19:49 Respiratory Rate 18 06/21/25 19:49 Blood Pressure 112/80 06/21/25 19:49 Pulse Oximetry 97 06/21/25 19:49 Oxygen Delivery Method Room Air 06/21/25 19:49 Medical Decision Making MDM Narrative Medical decision making narrative: Testing was pending. Care was resumed to Dr. Hemphill. See his dictation for further evaluation and treatment. JK 10:20 pm blood work is nonspecific. Very minimal increase in her creatinine is noted but at this point I do not feel it is clinically significant. WBC is normal. She has a few white blood cells in her urine, less than previous. She is already on Keflex and Flomax. She has an appointment with urology but not until July 12 and she will call in the morning to attempt to reschedule sooner. Treatment diagnosis and follow-up were discussed with the patient. We discussed repeating CAT scan and I do not feel it is indicated and it was explained to her that it would expose her to unnecessary radiation. Treatment diagnosis and follow-up were discussed thoroughly. Differential Diagnosis Differential Diagnosis: The stone, pyelonephritis Lab Data Labs: Lab Results 06/21/25 06/21/25 Range/Units 20:24 20:43 WBC 6.7 (4.0-11.0) 10^3/uL RBC 4.92 (4.20-5.40) 10^6/uL Hgb 14.7 (12.0-16.0) g/dL Hct 43.8 (36.0-48.0) % MCV 89.0 (81.0-99.0) fL MCH 29.9 (26.7-34.0) pg MCHC 33.6 (29.9-35.2) g/dL RDW 12.6 (11.0-15.0) % Plt Count 311 (150-450) 10^3/uL MPV 10.2 (9.5-13.5) fL Neut % (Auto) 56.4 (43.0-75.0) % Lymph % (Auto) 25.8 (20.5-60.0) % [place] % (Auto) 12.4 H (1.7-12.0) % Eos % (Auto) 4.8 (0.9-7.0) % Baso % (Auto) 0.3 (0.2-2.0) % Neut # (Auto) 3.8 (1.4-6.5) 10^3/uL Lymph # (Auto) 1.7 (1.2-3.8) 10^3/uL [place] # (Auto) 0.8 (0.3-0.8) 10^3/uL Eos # (Auto) 0.3 (0.0-0.7) 10^3/uL Baso # (Auto) 0.0 (0.0-0.1) 10^3/uL Abs Immat Gran (auto) 0.02 (0.00-0.03) 10^3/uL Imm/Tot Granulo (auto) 0.3 (0.0-0.5) % Sodium 140 (136-145) mmol/L Potassium 4.0 (3.5-5.1) mmol/L Chloride 105 (98-107) mmol/L Carbon Dioxide 26.8 (21.0-32.0) mmol/L Anion Gap 12.2 BUN 16.0 (6.4-19.3) mg/dL Creatinine 1.46 H (0.55-1.02) mg/dL Est GFR ( Amer) 56 L (>=60 mL/min/1.73m^2) Est GFR (Non-Af Amer) 46 L (>=60 mL/min/1.73m^2) BUN/Creatinine Ratio 11.0 Glucose 82 (74-106) mg/dL Calcium 8.7 (8.5-10.1) mg/dL Total Bilirubin 0.3 (0.2-1.0) mg/dL AST 18 (15-37) U/L ALT 48 (14-59) U/L Alkaline Phosphatase 68 (46-116) U/L Total Protein 7.1 (6.4-8.2) g/dL Albumin 4.0 (3.4-5.0) g/dL Globulin 3.1 g/dL Albumin/Globulin Ratio 1.3 Urine Color Lt. yellow (YELLOW) Urine Clarity Clear (CLEAR) Urine pH 6.0 (5.0-9.0) Ur Specific [place] >=1.030 A (1.005-1.025) Urine Protein Negative (NEG/TRACE) mg/dL Urine Glucose (UA) Negative (NEGATIVE) mg/dL Urine Ketones Negative (NEGATIVE) mg/dL Urine Occult Blood Negative (NEGATIVE) Urine Nitrite Negative (NEGATIVE) Urine Bilirubin Negative (NEGATIVE) Urine Urobilinogen 0.2 (0.2-1.0) EU/dL Ur Leukocyte Esterase Trace A (NEGATIVE) Urine RBC None seen (0-2) #/HPF Urine WBC 5-10 A (NONE SEEN) #/HPF Ur Squamous Epith Cells Many A (NONE/RARE) #/LPF Urine Crystals None seen (None Seen) #/HPF Urine Bacteria Small A (NONE SEEN) #/HPF Urine Casts None seen (NONE SEEN) #/LPF Urine Mucus Small A (NONE SEEN) Ur Culture Indicated? [place] [place] Discharge Chief Complaint: Back Pain/Injury Clinical Impression: Kidney stone Patient Disposition: Home, Self-Care Time of Disposition Decision: 22:19 Mode of Transportation: Private Vehicle Prescriptions / Home Meds: No Action norgestimate-ethinyl estradiol [Dariana] 0.25-35 mg-mcg tablet 1 tab PO DAILY atorvastatin 10 mg tablet 10 mg PO DAILY dextroamphetamine-amphetamine 25 mg capsule,extended release 24hr 25 mg PO DAILY albuterol sulfate 90 mcg/actuation HFA aerosol inhaler INHALATION bupropion HCl 150 mg tablet extended release 24 hr PO cephalexin 500 mg capsule 500 mg PO Q6H 10 Days Qty: 40 0RF tamsulosin [Flomax] 0.4 mg capsule 0.4 mg PO DAILY Qty: 14 0RF ibuprofen 600 mg tablet 600 mg PO Q8H PRN (Reason: pain) Qty: 30 0RF Print Language: Faroese Instructions: Kidney Stones (ED) Referrals: Paige Holland NP [Primary Care Provider] - As needed Mick Louis MD [Physician, Urology] - As soon as possible
--- NOTE | 2025-06-21 20:07 | PC.NURSE ---
i informed this patient of her plan of care: iv with blood draw, and iv fluids and a urine sample. at this patient is unable to provide a urine sample. this patient voices no concerns, needs and shows no signs of distress
[2025-06-21] MEDS: 0.9 % SODIUM CHLORIDE 1,000 ML 999 ML IV (20:31)
--- OUTSIDE RECORDS SUMMARY | 2025-06-21 20:36 | XMS_ITS | CCD ---
Author Organization [facility] Care Team Providers Care Executive Staff Assistant Name Role Phone DO Ronaldo Holland Primary Care Provider MD Mandy Llanes Attending Provider Lilian Monreal Unavailable DO Ronaldo Holland Primary Care Provider MD Mandy Llanes Attending Provider MISC, DR BANDA Admitting Unavailable MISC, DR BANDA Attending Unavailable RONALDO HOLLAND Primary Care Unavailable RONALDO HOLLAND Consulting Unavailable Shaista Dye Consulting Unavailable RONALDO HOLLAND Admitting Unavailable RONALDO HOLLAND Attending Unavailable RONALDO HOLLAND Primary Care Unavailable RONALOD HOLLAND Consulting Unavailable DO Ronaldo Holland Primary Care Provider [phone] MD Mandy Llanes Attending Provider DO Ronaldo [...] Provider Vanda Duran MD Primary Care Provider [phone] Amador Hemphill DO Attending Provider [facility] Amelie MAX Attending Provider NON STAFF Primary Care Provider UnavailJocy Bliss Attending Unavailable Stella Toney Attending Unavailable Stella Toney Attending Unavailable Stella Toney Attending Unavailable Amador Hemphill DO Attending Provider [phone] [facility] Amelie MAX Attending Provider NON STAFF Primary Care Provider UnavailRamone Antonio DO Attending Provider [phone] Amador Hemphill Attending Unavailable Amador Hemphill Admitting Unavailable Mandy Llanes Attending Unavailable Mandy Llanes Admitting Unavailable Ronaldo Holland Primary Care Unavailable Amelie Cristobal Attending Unavail able Amelie Cristobal Admitting Unavail able Amador Hemphill Attending Unavailable Amador Hemphill Admitting Unavailable Ramone Styles Attending Unavailable Ramone Styles Admitting Unavailable Allergies Allergy ClassificationReported Allergen(s)Allergy TypeDate of OnsetReaction(s) Facility (1 source)ProchlorperazineDrug AllergyPlacer [facility] FoundationMiss[facility] [employer] Other (9 sources)ProchlorperazineDrug Yonmpfi25-14-3956[facility] (1 source)ProchlorperazineDrug Yootjjs27-84-0274XsietyvmoChillicothe Hospital Repository Medications Current Medications MedicationDrug Class(es)DatesSig (Normalized)Sig (Original)amoxicillin 875 mg oral tablet (1 source)Penicillin-class AntibacterialStart: 62-60-6368ceos 1 tablet by mouth every twelve hoursAmoxicillin 875 MG 1 tablet Orally every 12 hrs for 7 days Mar, Iqjdwo31 hr amphetamine aspartate 6.25 mg / amphetamine sulfate 6.25 mg / dextroamphetamine saccharate 6.25 mg / dextroamphetamine sulfate 6.25 mg extended release oral capsule (12 sources)Central Nervous System StimulantStart: 05-29-2025 End: 24-82-6837tpfi 1 capsule by mouth once daily in the morning, then take 1 capsule by mouth every twenty-four hoursamphetamine-dextroamphetamine XR (ADDERALL XR) 25 mg 24 hr capsule Take 25 mg by mouth every morning. Active atorvastatin 10 mg oral tablet (16 sources)HMG-CoA Reductase InhibitorStart: 98-79-5726Qcydc: 11-18-2023 End: 50-04-6358ydoi 1 tablet by mouth once daily in the morningatorvastatin (LIPITOR) 10 mg tablet TAKE 1 TABLET BY MOUTH EVERY MORNING 90 tablet 1 12/19/2024 ActiveStart: 05-17-2023 End: 19-27-1332wuoudkmuhdmk (LIPITOR) 10 mg tablet TAKE 1/2 TABLET BY MOUTH EACH MORNING 45 tablet 3 05/17/2023 11/18/2023 Discontinued (Reorder)Atorvastatin Calcium Activedesmopressin acetate 0.1 mg oral tablet (8 sources)Vasopressin Analog, Factor VIII ActivatorStart: 23-82-0006ixfr 1 tablet by mouth once dailydesmopressin (DDAVP) 0.1 mg tablet TAKE 1 TABLET BY MOUTH EVERY DAY 90 tablet 1 06/18/2023 Activeethinyl estradiol 0.035 mg / norgestimate 0.25 mg oral tablet (4 sources)Progestin, Estrogentake 1 tablet by mouth once dailyMili 0.25-35 MG- MCG tablet Take 1 tablet by mouth Daily as directed ActivemethylPREDNISolone 4 mg oral tablet (1 source)CorticosteroidStart: 51-52-3169syuuceGRPPCOIuqouz 4 MG as directed Orally Once a day for 6 days Mar, Activenitrofurantoin, macrocrystals 25 mg / nitrofurantoin, monohydrate 75 mg oral capsule (3 sources)Nitrofuran AntibacterialStart: 45-84-2304idle 1 capsule by mouth every twelve hours at mealtimeOmega 3 (1 source)Finley 3 Activeondansetron 4 mg oral tablet (5 sources)Serotonin-3 Receptor AntagonistStart: 83-79-5036wpqp 1 tablet by mouth every eight hours as neededZofran ODT 4 MG 1 tablet on the tongue and allow to dissolve Orally every 8 hrs as needed for 4 days Mar, Active Start: 93-32-1713bcsahfwmeyg ODT (ZOFRAN-ODT) 4 mg disintegrating tablet Dissolve 4 mg on tongue as needed. 10/07/2020 Active Completed/Discontinued Medications MedicationDrug Class(es)DatesSig (Normalized)Sig (Original)amoxicillin 875 mg / clavulanate 125 mg oral tablet (2 sources)Penicillin-class AntibacterialStart: 07-03-2024 End: 33-69-8458syno 1 tablet by mouth in the morningamoxicillin-clavulanate (Augmentin) 875-125 MG tablet Indications: Cat scratch of multiple sites , Open wound of right middle finger due to cat bite Take 1 tablet (875 mg) by mouth in the morning and1 tablet (875 mg) before bedtime. Do all this for 7 days. 14 tablet 07/03/2024 07/10/2024 Expiredibuprofen 400 mg oral tablet (11 sources)Nonsteroidal Anti-inflammatory DrugStart: 02-02-2020 End: 13-15-0751ihrc 1 tablet by mouth every six hours as needed for pain Ibuprofen 400 mg Tablet Discontinued 400 MG PO Every 6 hours as needed for Pain 20 0 February 01, 2020 11:00pm May 29, 2025 3:42pm Problems Active Problems Problem ClassificationProblemDateDocumented DateEpisodic/ChronicCardiac dysrhythmias (2 sources)Postural orthostatic tachycardia syndrome ; Translations: [POTS (postural orthostatic tachycardia syndrome)]37-15-5655ZymojwaVjhnvbsuh of lipid metabolism (4 sources)Hyperlipidemia, unspecified; Translations: [HYPERLIPIDEMIA UNSPECIFIED]Onset: 15-23-6163OstnrgqNgrahofjo usually diagnosed in infancy, childhood, or adolescence (2 sources)Autism spectrum disorder; Translations: [Autistic disorder]09-13-2024 ChronicE Codes: Natural/environment (2 sources)Cat scratch injury; Translations: [Scratched by cat, initial encounter]34-62-2234QgafdpjcRkxwjeuq; convulsions (5 sources)Neurological finding; Translations: [Unspecified convulsions] 74-90-5150OcwkeoxxTrtpfwwhobonm symptoms and ill-defined conditions (1 source)Dysuria; Translations: [Dysuria]Onset: 84-90-8618SrysnktuGduupez system congenital anomalies (1 source)Familial dysautonomia [Bhavesh-Day]; 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]]Onset: 13-02-2616UmkasulGyrb wounds of extremities (2 sources)Open wound of right middle finger due to cat bite; Translations: [Open bite of right middle finger without damage to nail, initial encounter] 35-28-6781ZuzuohavWxqfk lower respiratory disease (1 source)Cough; Translations: [Cough, unspecified type]EpisodicOther screening for suspected conditions (not mental disorders or infectious disease) (1 source)Abnormal results of kidney function studies; Translations: [ABNORM RESULTS KIDNEY FUNCTION STDY]Onset: 03-65-4407UcrgdtwqJsmqyqac codes; unclassified (2 sources)Lack of awareness; Translations: [Unspecified symptoms and signs involving cognitive functions and awareness]50-45-9914CkkltbriMrgagqn and strains (11 sources)Shoulder strain; Translations: [Strain of unspecified muscle, fascia and tendon at shoulder and upper arm level, left arm, initial encounter] 03-70-3627FianhazhQboyoutjblng (3 sources)CONTACT W/AND (SUSP) EXPOS COVID-19; Translations: [CONTACT W/AND (SUSP) EXPOS COVID-19]Onset: 83-91-1395Zvbgoym tract infections (6 sources)Urinary tract infectious disease; Translations: [Urinary tract infection, site not specified]89-87-0101Udmitcoy Past or Other Problems Problem ClassificationProblemDateDocumented DateEpisodic/ChronicOtitis media and related conditions (1 source)Otitis media, unspecified, bilateralOnset: 03-10-2022 Resolved: 12-59-3858AztjslrdYeyxejwkgdmg (1 source)Cough, unspecified type R05.9Onset: 03-10-2022 Resolved: 53-52-4634Ogzzdxojonjw (1 source)CONTACT W/AND (SUSP) EXPOS COVID-19; Translations: [CONTACT W/AND (SUSP) EXPOS COVID-19]Onset: 04-23-2022 Results Test NameValueInterpretationReference RangeFacilityUrine Cultureon 06-16-2025 Bacteria identified Cx Nom (U)<9,000 colonies/ml mixed bacterial skin contaminants 2 Days PERFORMED BY: [facility] [address] [place] [address] PATHOLOGIST ASSISTANT TERMINAL MANAGER GENESIS CARPENTER M.D.NormalBroward Health Coral Springs Physician GroupComment on above: Performed By: #### CUU #### [facility] [address] [id number] USAUrine Cultureon 73-26-7227Cjaztzee identified Cx Nom (U) 15,000 colonies/ml mixed bacterial skin contaminants 2 Days PERFORMED BY: [place] [address] PATHOLOGIST ASSISTANT TERMINAL MANAGER GENESIS CARPENTER M.D.NormalBroward Health Coral Springs Physician GroupComment on above: Performed By: #### CUU #### [facility] [address] [place] [address] USAUrine cultureOrdered By: Amador Hemphill on 05-31-2025 Bacteria identified Cx Nom (U)2 DaysChillicothe HospitalLaboratory - Chemistry and Chemistry - challengeOrdered By: Amelie Cristobal on 01-97-8703Kkkbwmnka Ql (U)NegativeChillicothe HospitalGlucose (U) [Mass/Vol]NegativeChillicothe HospitalKetones Ql (U)Negative [facility] HospitalpH (U)7.5 [pH][facility] Specific gravity (U) [Rel density]1.025[facility] Urobilinogen (U) [Mass/Vol]0.2 mg/dLChillicothe HospitalLaboratory - Specimen informationOrdered By: Amelie Cristobal on 19-54-4873Vniejflbfy (U)cloudyChillicothe HospitalColor (U)darkyellowChillicothe HospitalLaboratory - UrinalysisOrdered By: Amelie Cristobal on 47-68-5056Offyohnlu esterase Test strip Ql (U)largeChillicothe HospitalNitrite Ql (U)NegativeChillicothe HospitalProtein Ql (U)100 [facility]icothe HospitalNo Panel InformationOrdered By: Amelie Cristobal on 37-68-5559Bcmqj Occult Bloodtrace-intactChillicothe HospitalUrine Cultureon 81-07-7275Aeqpfjyj identified Cx Nom (U)ORGANISM: Staphylococcus saprophyticus (O:STASAP) [place] Count >100,000 Aerobic JOSE D Charge (PCMIC38) [...] RESISTANT TO ALL B-LACTAM DRUGS. PERFORMED BY: [place] [address] PATHOLOGIST ASSISTANT TERMINAL MANAGER GENESIS CARPENTER M.D.[facility] Physician GroupComment on above: Performed By: #### CUU #### [facility] [address] [place], [place] [id number] USAUrine cultureOrdered By: Amelie Cristobal on 05-29-2025 Bacteria identified Cx Nom (U)Staphylococcus saprophyticusAbnWayne HealthCare Main CampusUrine Cultureon 50-37-1354Msutmdjz identified Cx Nom (U) 20,000 colonies/ml mixed bacterial skin contaminants 2 Days PERFORMED BY: [place] [address] PATHOLOGIST ASSISTANT TERMINAL MANAGER GENESIS CARPENTER M.D.[facility] Physician GroupComment on above: Performed By: #### CUU #### [facility] [address] [place], [place] [id number] USAUrine cultureOrdered By: Amador Hemphill on 05-06-2025 Bacteria identified Cx Nom (U)2 [facility] HospitalBacteria identified Cx Nom (U)2 [facility] HospitalAmbulatory Visit Summaryon 36-48-6666Yhnrvasbqj Visit SummaryAmbulatory Visit Summary KENDY ANDUJAR :2005 [...] 2:40 PM EDT With: Stella Christiansen Where: [place] [address]- Medications What How Much When Instructions Unchanged [...] you for choosing us for your care. [facility] CompanyComprehensive Metabolic Panelon 50-27-8863Nzssgid [Mass/Vol]4.4 g/dLNormal3.5-5.7The [facility] Comment on above:Performed By: #### LIPID, CMP #### [facility] [address] [place] [address] USAAlbumin/Globulin [Mass ratio]1.9 {ratio}NormalThe [facility] Physician GroupComment on above:Performed By: #### LIPID, CMP #### [facility] [address] [place] [address] USAALP [Catalytic activity/Vol]62 U/MAmheoa88-706Ggs [facility] Physician GroupComment on above:Performed By: #### LIPID, CMP #### [facility] [address] [place] [address] USAALT [Catalytic activity/Vol]10 U/LNormal7-52The [facility] Physician GroupComment on above:Performed By: #### LIPID, CMP #### [facility] [address] [place] [address] USAAnion gap [Moles/Vol]10.7 mmol/LNormal6.0-15.0The [facility] Physician GroupComment on above:Performed By: #### LIPID, CMP #### [place] [address] USAAST [Catalytic activity/Vol]12 U/XHla37-11Sxs [facility] Physician GroupComment on above:Performed By: #### LIPID, CMP #### [place] [address] USABilirubin [Mass/Vol]0.5 mg/dLNormal0.3-1.0The [facility] Physician GroupComment on above:Performed By: #### LIPID, CMP #### [place] [address] USACalcium [Mass/Vol]9.5 mg/dLNormal8.6-10.3The [facility] Physician GroupComment on above:Performed By: #### LIPID, CMP #### [facility] [address] [place] [address] USAChloride [Moles/Vol]103 mmol/WBlscdw46-109Dvb [facility] Physician GroupComment on above:Performed By: #### LIPID, CMP #### [facility] [address] [place] [address] USACO2 [Moles/Vol]29.4 mmol/LAfgddf28.0-31.0The [facility] Physician GroupComment on above:Performed By: #### LIPID, CMP #### [place] [address] USACreatinine [Mass/Vol]1.30 mg/dLHigh0.60-1.20The [facility] Physician GroupComment on above:Performed By: #### LIPID, CMP #### [place] [address] USAGFR/1.73 sq M.predicted MDRD (S/P/Bld) [Vol rate/Area] mL/min/{1.73_m2}NormalThe [facility] Physician GroupComment on above:Performed By: #### LIPID, CMP #### [place] [address] USAGlobulin (S) [Mass/Vol]2.3 g/dLNormalThe [facility] Physician GroupComment on above:Performed By: #### LIPID, CMP #### [place] [address] USAGlucose [Mass/Vol]87 mg/lBWgaszx51-297Lfk [facility] Physician GroupComment on above:Result Comment: Random Glucose Reference Range is dependent on time and content of last meal. Glucose of more than 200 mg/dL in a nonstressed, ambulatory subject supports the diagnosis of Diabetes Mellitus. ADA recommended reference rangePerformed By: #### LIPID, CMP #### [place] [address] USAPotassium [Moles/Vol]4.1 mmol/LNormal3.5-5.1The [facility] Physician GroupComment on above:Performed By: #### LIPID, CMP #### [place] [address] USAProtein [Mass/Vol]6.7 g/dLNormal6.4-8.9The [facility] Physician GroupComment on above:Performed By: #### LIPID, CMP #### [place] [address] USASodium [Moles/Vol]139 mmol/IXurbqc286-586Tca [facility] Physician GroupComment on above:Performed By: #### LIPID, CMP #### [place] [address] USAUrea nitrogen [Mass/Vol]29 mg/dLMary Babb Randolph Cancer Center[address] Physician GroupComment on above:Performed By: #### LIPID, CMP #### [facility] [address] [place] [address] USAECG Pediatricon 43-92-8929OOR [facility] [place] [address] [place] [address] Electrocardiograph Report Signed Patient: Kendy Andujar MR#: [id number] 60 : 2005 Acct:[id number] Age/Sex: 19 / F ADM Date: 01/24/25 Loc: Room: Type: [facility] Attending Dr: Mandy Llanes MD Ordering Provider: [...] longer present Confirmed by SAMMIE BECK MD ([facility]) on 01/24/2025 12:33:07 PM Referred By: Electronically Signed By: SAMMIE BECK MD Transcribed By: MUS Signed By Sammie Beck MD 0 01/24/[address] [place] [address] Physician GroupFalakeville hospital Medicine Office/Clinic Noteon 39-31-9856Tvqgpv Medicine Office/Clinic NoteFalakeville hospital Medicine Office/Clinic Note HPI Staff Kendy is a 19 year old female presenting with depression GORDON- PHQ- Was taking Lexepro stopped a week and a half ago.... moods were too high and too low peds took her off Lexepro Sees at [facility] History of Present Illness pt presents today [...] E&M of New Patient Low 30-44 Min 91409 2. Anxiety disorder (F41.9: Anxiety disorder, unspecified) see above Ordered: buPROPion, 150 mg = 1 tab(s), Oral, q24hr, # 30 tab(s), Refills(s) 1, Pharmacy: [id number] E&M of New Patient Low 30-44 Min 03783 3. Autism spectrum disorder (F84.9: Pervasive developmental disorder, unspecified) stable. high functioning. Ordered: buPROPion, 150 mg = 1 tab(s), Oral, q24hr, # 30 tab(s), Refills(s) 1, Pharmacy: [id number] E&M of New Patient Low 30-44 Min 14110 4. BMI 30.0-30.9,adult (Z68.30: Body mass index [BMI] 30.0-30.9, adult) discussed making healthy food choices Ordered: buPROPion, 150 mg = 1 tab(s), Oral, q24hr, # 30 tab(s), Refills(s) 1, Pharmacy: [id number] E&M of New Patient Low 30-44 Min 90927 5. Class 1 obesity due to excess calories in adult (E66.811: Obesity, class 1) see above Ordered: buPROPion, 150 mg = 1 tab(s), Oral, q24hr, # 30 tab(s), Refills(s) 1, Pharmacy: [id number] E&M of New Patient Low 30-44 Min 30785 6. Non-smoker (Z78.9: Other specified health status) continue not smoking Ordered: buPROPion, 150 mg = 1 tab(s), Oral, q24hr, # 30 tab(s), Refills(s) 1, Pharmacy: [id number] E&M of New Patient Low 30-44 Min 93825 7. POTS (postural orthostatic tachycardia syndrome) (G90.A: Postural orthostatic tachycardia syndrome [POTS]) pt has been seeing a pediatric audiologist. was just seen by them yesterday. they aurora some labs. they are suggesting she switch over to an adult hand twister. 8. Hypercholesteremia (E78.00: Pure hypercholesterolemia, unspecified) lipid [...] (less than 100 in lifetime) Tobacco Use:., 01/24/2025[facility] CompanyComment on above:Result Comment: Electronically Signed By: Stella Christiansen\Date and Time Signed: 01/24/25 17:20 EDTLipid Panelon 01-24-2025 Cholesterol [Mass/Vol]209 mg/fWBlzy488-678Jzr [place] Physician GroupComment on above:Result Comment: Chol less than 200 mg/dl low risk Chol 201-239 mg/dl borderline risk Chol 240 mg/dl and greater high riskPerformed By: #### LIPID, CMP #### [facility] [address] [place] [address] USACholesterol in HDL [Mass/Vol]37 mg/rNYpsytz46-40Uht [facility] Physician GroupComment on above:Result Comment: HDL CHOL ATP-III CLASSIFICATION Cardiovascular Risk HDL > or equal to 60 mg/dL LOW HDL < 40 mg/dL HIGHPerformed By: #### LIPID, CMP #### [facility] [address] [place] [address] USACholesterol.total/Cholesterol in HDL [Mass ratio]5.6 {ratio}Normal<5.0The [facility] Physician GroupComment on above:Result Comment: PERFORMED BY: [place] [address] PATHOLOGIST ASSISTANT TERMINAL MANAGER GENESIS CARPENTER M.D.Performed By: #### LIPID, CMP #### [facility] [address] [place] [address] USALDL Cholesterol,Ntrtfozcbw012 mg/dLHigh0-100The [facility] Physician GroupComment on above:Result Comment: LDL ATP III CLASSIFICATION LDL less than 100 mg/dL Optimal LDL 100-129 mg/dL Near or above optimal LDL 130-159 mg/dL Borderline high LDL 160-189 mg/dL High LDL greater than 189 mg/dL Very highPerformed By: #### LIPID, CMP #### [facility] [address] [place] [address] USATriglyceride w/Qjrfnn045 mg/dLNormal0-149The [facility] Physician GroupComment on above:Result Comment: TRIG ATP III CLASSIFICATION TRIG less than 150 mg/dL Normal TRIG 150-199 mg/dL Borderline high TRIG 200-500 mg/dL High TRIG greater than 500 mg/dL Very high Standard traceable to the Center for Disease Conrtrol and Prevention (CDC) test method.Performed By: #### LIPID, CMP #### [facility] [address] [id number] USAVLDL VBKIFJUHDPH35 mg/dLNormalThe [facility] Physician GroupComment on above:Performed By: #### LIPID, CMP #### [facility] [address] [place] [address] USAProdorothy Alfaro 80-64-5147Zappirsnolnoy Authentication Interface Message TextEMERGENCY TRIAGE, TREAT AND TRANSPORT (ET3) DOCUMENTATION OF TELEHEALTH VISIT Date / Time: 05/08/20232229 Name: Kendy Andujar : 2005 SSN: [id number] EMS Agency: [facility] [x] Verbal consent obtained, from [...] Same ET3 Encounter Completed by: Pedro Bernal MDMary [facility] SystemUS KIDNEYSon 71-74-1766PH KIDNEYSEXAM: [place] KIDNEYS HISTORY: Hyperlipidemia COMPARISON: None. [...] Electronically authenticated by: SHAISTA DYE Date: 2022-10-10 11:42[place] [facility] HospitalCholesterol [Mass/volume] in Serum or PlasmaOrdered By: Mandy Llanes on 02-52-0882Knhjsjirjxq [Mass/Vol]194 mg/vY790-762EpldqwkpwChillicothe HospitalComment on above:Chol less than 200 mg/dl low riskChol 201-239 mg/dl borderline riskChol 240 mg/dl and greater high riskCholesterol in LDL Calc [Mass/Vol]Ordered By: Mandy Llanes on 27-22-7112Cvpgclpwpvc in LDL [Mass/Vol]138 mg/dL0-100[facility] HospitalComment on above: LDL ATP III CLASSIFICATIONLDL less than 100 mg/dL OptimalLDL 100-129 mg/dL Near or above otnbnqzNOL683-550 mg/dL Borderline highLDL 160-189 mg/dL HighLDL greater than 189 mg/dL Very highCholesterol in VLDL Calc [Mass/Vol]Ordered By: Mandy Llanes on 64-61-7817Mbupnkifglq in VLDL [Mass/Vol]17 mg/dLOhioHealth Hardin Memorial Hospitalerum or plasma high density lipoprotein (HDL) cholesterol measurementOrdered By: Mandy Llanes on 28-32-0097Spqzrhyfglk in HDL [Mass/Vol]38 mg/hA79-67XrrycyzmlChillicothe HospitalComment on above: HDL CHOL ATP-III CLASSIFICATION Cardiovascular RiskHDL > or equal to 60 mg/dL LOWHDL < 40 mg/dL HIGHSerum or plasma total cholesterol/high density lipoprotein (HDL) cholesterol mass ratOrdered By: Mandy Llanes on 05-20-2022 Cholesterol.total/Cholesterol in HDL [Mass ratio]5.1 {ratio}<5.0Chillicothe HospitalTriglyceride [Mass/volume] in Serum or PlasmaOrdered By: Mandy Llanes on 51-06-1995Mbrkjdlrekgl [Mass/Vol]89 mg/rS15-338MfrwbvgqmChillicothe HospitalComment on above:TRIG ATP III CLASSIFICATIONTRIG less than 150 mg/dL NormalTRIG 150-199 mg/dL Borderline highTRIG 200-500 mg/dL High TRIG greater than 500 mg/dL Very highStandard traceable to the Center for Disease Conrtrol and Prevention (CDC) test method.Covid-19 PCR ([facility])on 23-25-6547OWKK-CoV-2 (COVID-19) RNA DEBRA+probe Ql (Unsp spec)Not detectedNormal NOT DETECTEDThe [facility] HospitalComment on above:Result Comment: This test is not yet approved or cleared by the [place] FDA. When there are no FDA- approved or cleared tests available, and other criteria are met, FDA can make tests available under an emergency access mechanism called an Emergency Use Authorization (EUA). The EUA for this test is supported by the Scanner Operator of Health and Human Service's (HHS's) declaration [...] consistent with SARS-CoV-2.Performed By: #### CVDTBH #### [facility] [address] [place] [address] Dr. Ivette Prather Quick Testingon 93-08-6239RWVSI Quick TestingNoputnam county memorial hospital [employer] Other COVID Quick TestingNegativeNoTactile [employer] Other Cholesterol [Mass/volume] in Serum or PlasmaOrdered By: Mandy Llanes on 99-00-1462Jspxuiurokl [Mass/Vol]226 mg/kE345-627 [facility] HospitalComment on above:Chol less than 200 mg/dl low risk Chol 201-239 mg/dl borderline risk Chol 240 mg/dl and greater high riskCholesterol in LDL Calc [Mass/Vol]Ordered By: Manyd Llanes on 34-10-8978Dcnynyrikho in LDL [Mass/Vol]168 mg/dL0-100 [facility] HospitalComment on above:LDL ATP III CLASSIFICATION LDL less than 100 mg/dL Optimal LDL 100-129 mg/dL Near or above optimal LDL 130-159 mg/dL Borderline high LDL 160-189 mg/dL High LDL greater than 189 mg/dL Very highCholesterol in VLDL Calc [Mass/Vol]Ordered By: Mandy Llanes on 50-69-3797Riokqlrkvsx in VLDL [Mass/Vol]20 mg/dL [facility] Memorial Hospitalerum or plasma high density lipoprotein (HDL) cholesterol measurementOrdered By: Mandy Llanes on 70-67-6254Fjtsrvnkvvp in HDL [Mass/Vol]37 mg/wQ66-33MzbrttflbChillicothe HospitalComment on above: HDL CHOL ATP-III CLASSIFICATION Cardiovascular Risk HDL > or equal to 60 mg/dL LOW HDL < 40 mg/dL HIGHSerum or plasma total cholesterol/high density lipoprotein (HDL) cholesterol mass ratOrdered By: Mandy Llanes on 12-17-2021 Cholesterol.total/Cholesterol in HDL [Mass ratio]6.1 {ratio}[facility]othe HospitalTriglyceride [Mass/volume] in Serum or PlasmaOrdered By: Mandy Llanes on 28-86-2568Zfawpqbxybrc [Mass/Vol]103 mg/oZ25-337VhbxldnzlChillicothe HospitalComment on above:TRIG ATP III CLASSIFICATION TRIG less than 150 mg/dL Normal TRIG 150-199 mg/dL Borderline high TRIG 200-500 mg/dL High TRIG greater than 500 mg/dL Very high Standard traceable to the Center for Disease Conrtrol and Prevention (CDC) test method. Vital Signs Date TimeVital SignValuePerforming KelvicqwpYefehqoz68-46-1903 16:51-0400Body .94 cmJekaty Hemphill DO Work Phone: [phone] [place], [place] 6134410-21-2025 16:51-0400 Body mass index (BMI) [Percentile] Per age and sex94.5 %Amador Hemphill DO Work Phone: [phone]10-21-2025 16:51-0400 Body mass index (BMI) [Ratio]31 kg/f8KrmvngjAmador Hemphill DO Work Phone: [phone] [place], [place] 6134410-21-2025 16:51-0400 Body mwxfsyfulwd03.9 [degF]Amador Hemphill DO Work Phone: [phone]10-21-2025 16:51-0400 Body .5 kgAmador Hemphill DO Work Phone: [phone] [address]10-21-2025 16:51-0400 Diastolic blood yupsknse05 mm[Hg]Amador Hemphill DO Work Phone: [phone])478-[address] [place], [place] 6134410-21-2025 16:51-0400 Heart rate81 /minAmador Hemphill DO Work Phone: [phone] [place], [place] 3243310-21-2025 16:51-0400 Respiratory rate18 /minAmador Hemphill DO Work Phone: [phone])[facility] [place], [place] 613[address]10-21-2025 16:51-0400 SaO2% (BldA) [Mass fraction]98 %Amador Hemphill DO Work Phone: [phone] [place], [place] 613[address]10-21-2025 16:51-0400 Systolic blood ofhwsgug762 mm[Hg]Amador Hemphill DO Work Phone: [facility]01-21-2025 17:31-0500 Body uklyuo487.9 cmNicmarycarmen Peter DO Work Phone: [facility] HospitalXioayisxli66-97-7949 17:31-0500Body mass index (BMI) [Percentile] Per age and sex83.57 %Diandra Peter DO Work Phone: [facility] HospitalLmtsqhllla04-91-5936 17:31-0500Body mass index (BMI) [Ratio]25.7 kg/e4Wlwjfd Peter DO Work Phone: [facility] HospitalBkzekhufjd33-12-4492 17:31-0500Body nurwmy51.69 kgNicole Peter DO Work Phone: [facility] HospitalCwjepazqcy23-31-8567 17:31-0500Diastolic blood vxrsduik54 mm[Hg]Diandra Peter DO Work Phone: [facility] HospitalEunndwkhss48-21-8531 17:31-0500Heart rate87 /min Diandra Peter DO Work Phone: [facility] HospitalStotkijieh78-31-1355 17:31-4647ZgH4% (BldA) [Mass fraction]98 %Diandra Peter DO Work Phone: [facility] HospitalWbladxdwce68-18-3765 17:31-0500Systolic blood ggzqoiwo178 mm[Hg]Diandra Peter DO Work Phone: [facility] HospitalIdotzxkztt57-69-8993 22:30-0400Diastolic blood rkvusacz92 mm[Hg]Et3 VjwosrqhRqhsoZgtyeq87-19-4759 22:30-0400Heart wsqc001 /min Et3 FyqtwvfcZpycvPyilux21-94-0584 22:30-0400Respiratory rate18 /minEt3 Resource JgkgkIynrkl88-47-3776 22:30-7202BhJ7% (BldA) [Mass fraction]99 %Et3 Resource ElrqsQwveot95-42-8648 22:30-0400Systolic blood rkytutcs877 mm[Hg]Et3 Resource KbdauOcnopp27-89-9532 19:30-0400Body .48 cmSlittle [place] Other noTextbroker Other 08-02-2022 19:30-0400Body mass index (BMI) [Ratio] 30.36 kg/u7TbjrzfzwjLilian [place] Other noTextbroker Other 08-02-2022 19:30-0400Body coxafsmvcon97.9 [degF] Lilian [place] Other noTextbroker Other 08-02-2022 19:30-0400Body ouxfwc51.3 kgStotto [place] Other noTextbroker Other 08-02-2022 19:30-0400Respiratory rate18 /minSlittle [place] Other noTextbroker Other 08-02-2022 19:30-9242LbZ6% (BldA) [Mass fraction]98 % Lilian [place] Other noTextbroker Other Encounters Encounter DateEncounter TypeCare ProviderFacilityStart: 74-82-5562jipqhwlctk Jocy X OrzechFacility:CHANDRA Port CraneevueStart: 75-08-5579qbrcczweazYjsypt Orzech Facility:EU [place]uskyStart: 06-16-2025 End: 00-42-6019aiwyoxecudFII STAFF-LAB [facility] HospStart: 06-16-2025 End: 41-28-7323Fewgudrv Ashley Lyons DO-LAB [facility] Start: 05-31-2025 End: 04-47-9945gowddwlmkyDWO STAFF-LAB Path Spec [facility] HospStart: 05-31-2025 End: 69-59-9374Dbnzbjlr Drake Russo DO-LAB [facility] Start: 05-29-2025 End: 46-11-7765Wadilzal ReferredPacommonwealth regional specialty hospitalnat [facility] ASSEMBLER BRAZER-Lab [facility] Work Phone: Start: 05-29-2025 End: 17-86-2628twmrdbeczwTGY STAFF-[facility] Urgent Care ClydeStart: 05-29-2025 End: 96-98-1325Afmbpgs encounter procedurePatricia Karen [facility] ASSEMBLER BRAZER-[facility] Lisandro Work Phone: Start: 05-06-2025 End: 98-77-1342tbystunytmZgjlddh D [facility] Work Phone: Start: 05-06-2025 End: 33-08-9020Yaayxckz ReferredAmador Russo DO-LAB [facility] Start: 04-04-2025 End: 42-60-3867jixsfbwchcZalt L SchwabFacility:FT FM BellevueStart: 03-07-2025 End: 72-30-5840ltjiduutdrIipc L SchwabFacility:FT FM BellevueStart: 01-24-2025 End: 87-85-4500haezecjkmuDnyoyyrb K F Whitfield MD Work Phone: [facility] CardiologyStart: 12-15-2024 End: 96-77-5948GxagljNukbrkip K F Whitfield MD Work Phone: [facility] Pediatric CardiologyComment on above:Med RefillStart: 09-11-2024 End: 01-61-8587bmebxkpuooZVXYEX DANNERNot AvailableStart: 09-07-2024 End: 41-01-7142aimythdplsBQOQFD DANNERNot AvailableStart: 08-29-2024 End: 00-98-8272Spyfxa consultation new/estab patient 60 minNicole Peter DO Work Phone: ana WILLARDComment on above:Seizure (CMS/HCC) (Primary Dx); POTS (postural orthostatic tachycardia syndrome); Autism (CMS/HCC); Alteration of awarenessStart: 08-29-2024 End: 66-97-4490vnqcwgptqjIKVMSJ DANNERNot AvailableStart: 07-03-2024 End: 99-66-9596dazzbmkpcbVMWWXX Serena Alejandra AvailableStart: 07-03-2024 End: 60-63-9357Ykybxp outpatient visit 25 minutesSurichar MANCIA Work Phone: [facility] SWS UCComment on above:Cat scratch of multiple sites (Primary Dx); Open wound of right middle finger due to cat biteStart: 05-25-2024 End: 83-17-1620PedowbQrupmump Jay Llanes MD Work Phone: [facility] CardiologyComment on above:Med RefillStart: 05-24-2024 End: 43-10-0103chvipycnyqNP Ronaldo Holland Work Phone: [facility] Work Phone: Start: 05-24-2024 End: 10-82-7314Ankxbeb encounter procedureDO Ronaldo Holland Work Phone: [facility] Work Phone: start: 11-24-2023 End: 84-21-0939imnqqjawcnXV Ronaldo Holland Work Phone: [facility] Work Phone: Start: 11-24-2023 End: 16-03-5772Wtdkyfp encounter procedureDO Ronaldo Holland Work Phone: [facility] Work Phone: start: 11-12-2023 End: 02-16-6714Trwafyhrl encounterLyndsey Valdez [facility] Pediatric CardiologyStart: 06-11-2023 End: 59-47-2735fmkmvsdklrWVWLOZQ PROVIDERFacility:METROHealthStart: 05-08-2023 End: 47-15-5467wcrzduafmeDk3 ResourceMetroHealth Emergency Triage, Treat and TransportStart: 05-08-2023 End: 36-54-6315Gdwpnnobg department patient visitEt3 [facility] Emergency Triage, Treat and TransportComment on above:ArrivedStart: 03-24-2023 End: 94-73-8098expmzxykqyAD Robert A Johnson Work Phone: [facility] Work Phone: Start: 03-24-2023 End: 64-84-2634Ihlcprf encounter procedureDO Ronaldo Skyler Work Phone: [facility] Work Phone: start: 11-25-2022 End: 33-47-5586plybwtvdzyRU Robert A Skyler Work Phone: [facility] Work Phone: Start: 11-25-2022 End: 25-43-2736Rqxjcgr encounter procedureDO Ronaldo Skyler Work Phone: [facility] Work Phone: start: 10-10-2022 End: 01-44-4127vdfbrrfjepJU DOCTOR MISCFacility:K9Rzosm: 05-20-2022 End: 39-46-1521svtxgakqgdZT Ronaldo Miller Skyler Work Phone: [facility] Work Phone: Start: 05-20-2022 End: 28-79-5963Onqboem encounter procedureDO Ronaldo Skyler Work Phone: [facility]-Pediatric CardiacStart: 04-23-2022 End: 88-38-8259jaysqkiempELUNCY Paul HOLLANDFacility:U3Vkwef: 03-10-2022 End: 50-17-1794oxcclogarrAvqcgtogc Breault Other [facility] [employer] Other Start: 78-17-5292Nnzguv outpatient visit 15 minutes Lilian Yoo [facility] Care ClydeStart: 12-17-2021 End: 72-92-4781Plcgjbd encounter procedureDO Ronaldo Skyler Work Phone: [facility] Procedures DateProcedureProcedure DetailPerforming ClinicianStart: 33-60-6343Uyxph miki Amador Hemphill DO Work Phone: Start: 34-91-0665Xzujx Rashmi Hemphill DO Work Phone: Start: 70-98-0738Uorte Rashmi Hemphill DO Work Phone: Plan of Treatment DateCare ActivityDetailAuthorStart: 23-89-8359UCaK,Tdap and Td Vaccines (7 - Td or Tdap)DTaP,Tdap and Td Vaccines (7 - Td or Tdap)[facility] Glen[facility]ighedicEly[facility] SystemStart: 11-25-8158Rtxqpft,Diptheria,Pertussis Vaccine (7 - Td or Tdap) Tetanus,Diptheria,Pertussis Vaccine (7 - Td or Tdap)MetroHealthStart: 06-16-2025 Urine [facility]art: 74-00-0680Qlombbvq identified in Urine by [facility]Children[facility] Start: 27-16-1171Byyycdol identified in Urine by CultureKindred Hospital Limatart: 01-34-7774Nyumg [facility] Healthtart: 05-29-2025 End: 84-03-5001Kxjkf [facility]althtart: 05-29-2025 Bacteria identified in Urine by CultureKindred Hospital Limatart: 95-76-8231Bwcnu [facility] Healthtart: 70-05-4841Gudiyfwe identified in Urine by CultureKindred Hospital Limatart: 47-00-4782Xgicjmzuz vaccinationInfluenza VaccineProWhite Hospitalca [facility] SystemStart: 10-17-2024 End: 64-44-1600Gzqtqej encounter xcvukljjj58/11/2025 10:00 AM EDT Office Visit LARISA DUNBAR [address] [place] [phone] Chen Crowell NP [address] [place] [address] LARISA BELLEVUEStart: 08-29-2024 End: 29-99-7029Stoj EEG 36-84 HoursHome EEG 36-84 Hours Neurology Routine Seizure (CMS/HCC) Expected: 08/29/2024 (Approximate), Expires: 08/29/2025[facility] Work Phone: comment on above:Expected: 08/29/2024 (Approximate), Expires: 08/29/2025Start: 44-33-1695Hryrqzgcz vaccinationINTERMOUNTAIN HEALTHCARE HealthcareStart: 60-87-5706Kdpfk BMI ScreeningAdult BMI ScreeningBarberton Citizens Hospital Health SystemStart: 83-50-2928TOYQF-19 Vaccine ( season)COVID-19 Vaccine ( season)MetroHealthStart: 30-52-5358Mjcanltjf vaccinationInfluenza Vaccine (#1) MetroHealthStart: 88-02-3422OOJ (1 - 2-dose series)MCV (1 - 2-dose series) [facility] SystemStart: 50-99-2059YGO (2 - 2-dose series)MCV (2 - 2-dose series)[facility] SystemStart: 06-44-0643Gtkngzojqsnld B (Bexsero,OMV) Vaccine (Optional,16-23 years)Meningococcal B (Bexsero,OMV) Vaccine (Optional,16-23 years)MetroHealthStart: 62-39-7594Kxjqyawaevnya Conjugate (MCV4,ACWY) Vaccine (2 - 2-dose series)Meningococcal Conjugate (MCV4,ACWY) Vaccine (2 - 2-dose series)MetroHealthStart: 18-35-3536MUL screeningHIV Test MetroHealthStart: 65-01-3947MVT Vaccines (1 - 3-dose series)HPV Vaccines (1 - 3- dose series)[facility] SystemStart: 78-77-0678Cxtdeiqkb for Chlamydia trachomatisSTI Screening (Age 15-17)MetroHealthStart: 86-79-9778Fjtboo Test (15- 17 yrs,once)Vision Test (15-17 yrs,once)MetroHealthStart: 10-49-1192Ltfcmxbmn Vaccines (1 of 2 - 13+ 2-dose series)Varicella Vaccines (1 of 2 - 13+ 2-dose series)[facility] SystemStart: 25-30-2678Xjabzrxgbd ScreeningDepression ScreeningProOhiohealth [facility] SystemStart: 66-74-6173Grarlam ScreeningTobacco ScreeningProOhiohealth [facility] SystemStart: 48-37-7688Gpxqrumaro Depression Screening Adolescent Depression ScreeningMetroHealthStart: 38-88-2414Xiezjhz Test (10-18 yrs,once)Hearing Test (10-18 yrs,once)MetroHealthStart: 18-70-0504FDiD,Tdap and Td Vaccines (1 - Tdap)DTaP,Tdap and Td Vaccines (1 - Tdap)[facility] SystemStart: 20-42-1306IAL Vaccines (2 of 2 - Standard series)MMR Vaccines (2 of 2 - Standard series)[facility] SystemStart: 91-01-8812Hqfu child 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, 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 (3-17 YRS,YEARLY)MetroHealthStart: 68-76-3511Horgejyne A Vaccines (1 of 2 - 2-dose series)Hepatitis A Vaccines (1 of 2 - 2-dose series) [facility] SystemStart: 78-70-5140CAT Vaccines (1 of 2 - Standard series) MMR Vaccines (1 of 2 - Standard series)[facility] SystemStart: 06-10-2006 Hepatitis B Vaccines (3 of 3 - 3-dose series)Hepatitis B Vaccines (3 of 3 - 3- dose series)[facility] SystemStart: 23-31-9631Zyyrlkytp B Vaccines (1 of 3 - 3-dose series)Hepatitis B Vaccines (1 of 3 - 3-dose series)[facility] SystemHome EEG 36-84 HoursHome EEG 36-84 Hours Neurology Routine Seizure (CMS/HCC) 09/11/2024 8:35 AM [facility] Immunizations Immunization DateImmunizationNotesCare GkdkpzqsXurayynt66-98-0529kohkqyh toxoid, reduced diphtheria toxoid, and acellular pertussis vaccine, adsorbedSummer Emily MANCIA Work Phone: [facility] HospitalHgkmqxpccz30-03-4546uttnzbsjniihz B vaccine, recombinant, OMV, adjuvantedSummassachusetts general hospital Emily MANCIA Work Phone: [facility] HospitalXrjiuzanym93-82-5507okjfmtltyzbzm polysaccharide (groups A, C, Y and W-135) diphtheria toxoid conjugate vaccine (MCV4P)[facility] Emily MANCIA Work Phone: [facility] HospitalSviyhpymmg28-69-4890hoqpkyicx, injectable, quadrivalent, preservative freeSummer Emily MANCIA Work Phone: [facility] HospitalCtyvnzanfc56-56-9757iheixquyb virus vaccine, unspecified formulationClmariana Llanes MD Work Phone: [facility] HospitalDzfktf74-44-0235ywncvuzyb, injectable, quadrivalent, preservative freeEt3 UfkjllriEprjlEfxegx91-16-3760 influenza virus vaccine, unspecified formulationEt3 [facility] 16-50-3164tnnunindh, injectable, quadrivalent, preservative freeEt3 [facility] SystemWyejkSvskdn85-44-4969tfxoqtdmv, injectable, quadrivalent, preservative freeEt3 PhmkfwosNcefzHutfhf05-81-3642ictgrbtfi, injectable, quadrivalent, preservative freeEt3 DvslkqweIwbpeYslocp39-42-0722dnomr papilloma virus vaccine, quadrivalent Et3 VipnsobgXsyfoUepxre42-28-0683yaeioyaec, injectable, quadrivalent, preservative freeEt3 VhoymydrZnnseAbaqed85-06-8297Qiaklvhfvgzuo, MCV4, unspecified conjugate formulation(groups A, C, Y and W-135)Et3 Resource JvnjkCsmiei39-14-2133tktsazz toxoid, reduced diphtheria toxoid, and acellular pertussis vaccine, adsorbedEt3 IdrfflzqCastuRqdcga63-94-4202Ykknd Papillomavirus 9-valent vaccineEt3 XpqefxtyLshanHjmefb97-99-8518lyfckjstn virus vaccine, unspecified formulationEt3 TucnvqmgScfpwYifwrv59-11-2608dfvqemyhw virus vaccine, unspecified formulationEt3 RybqglmhQyanpLbsvlk82-45-7873zlwuihyix virus vaccine, unspecified formulationEt3 SdmlcdziKinvjQzeqbg62-45-5511bxdhwlkhc virus vaccine, unspecified formulationEt3 NuooulvhKithvXgrfxc44-76-2481wkikphzvr virus vaccine, unspecified formulationEt3 LiigbnwrHnekhWxpxpz68-06-7107poxeyhz, mumps and rubella virus vaccineEt3 LsrfdsbfVdtqnYsswgp55-11-8229bpstxmyeu virus vaccineEt3 PsfrxzvuIeekkIuovmq69-68-1337sfiatnaex virus vaccine, unspecified formulationEt3 BwqldvahBqwsjTetkcz89-48-4878xuwkjulqra, tetanus toxoids and acellular pertussis vaccineEt3 NfvnfatgThhbnIjxzwr88-50-2197ljflrdu, mumps and rubella virus vaccine Et3 DbjsykaaSzriwQjdlsu46-87-1214hrrkfdmkoo vaccine, inactivatedEt3 [facility] SystemKgesjValwaq96-78-9417gqgxlwfjs virus vaccineEt3 JxmdqryoQzjguQyqftq78-11-6071 influenza virus vaccine, unspecified formulationEt3 [facility] 45-97-2090vjpywxcxh virus vaccine, unspecified formulationEt3 [facility] SystemRfhkxCujymx98-03-2729uvndtuwwr virus vaccine, unspecified formulationEt3 VbsbkzmfNekjlCegwio09-37-3512uncrlek, mumps and rubella virus vaccineEt3 WtobtgbgUyohiEeqnal64-92-5359luugzolsv A vaccine, pediatric/adolescent dosage, 2 dose scheduleEt3 PdspxzzeBzsgqWupxum53-78-9252uvclusfgoitj Conjugate, unspecified formulationEt3 TdwkiritIugszBqilca01-56-2037wksnsqvark, tetanus toxoids and acellular pertussis vaccineEt3 OsowhcaiEnktdPhygxr04-20-1108 haemophilus influenzae type b vaccine, PRP-T conjugateEt3 [facility] 33-04-1246tfecyjxgl A vaccine, pediatric/adolescent dosage, 2 dose scheduleEt3 HcwzrmtqOfdxhNkubry81-31-3517xnnbpbn, mumps, rubella, and varicella virus vaccineEt3 QsvmdbcmXlqpfNizpob93-77-3060smragulgqrxl conjugate vaccine, 7 valent Et3 GzhudsbgQmhevIurgeh18-87-9448ofonlwv, mumps and rubella virus vaccine Mandy Llanes MD Work Phone: [facility] HospitalPrpeav94-94-2096xkcsnrqsf, seasonal, injectableEt3 DvadevgqPojayYyhtvj50-21-3506qmjqeehwer, tetanus toxoids and acellular pertussis vaccineEt3 UfjvfqlsNnbyoXdthqo96-58-3241okhtdmoidtd influenzae type b conjugate and Hepatitis B vaccineEt3 [facility] 01-50-3882okzzkupmhucu conjugate vaccine, 7 valentEt3 [facility] 42-46-8187uexlkprlqc vaccine, inactivatedEt3 LaqwkoneYfsqcMudicc40-28-5834 diphtheria, tetanus toxoids and acellular pertussis vaccineEt3 [facility] SystemZoeraVwunki50-77-9836muscwnhpqmh influenzae type b conjugate and Hepatitis B vaccineEt3 JgclikxvPlqfqDesahm03-77-3997umdvpcnknflz conjugate vaccine, 7 valent Et3 CabluwosXmfmuHbvzhm81-26-3613lhxdaxhnbq vaccine, inactivatedEt3 [facility] SystemOxiwlSjlakk41-11-9042astfubouvk, tetanus toxoids and acellular pertussis vaccine Et3 JehqstabGpxirQyafnt47-41-1524zvaeoyfnjpm influenzae type b vaccine, PRP-T conjugateEt3 XmdzqjpiSgtylPaewzt55-65-0123kffekobjo B vaccine, pediatric or pediatric/adolescent dosageEt3 VacbezyeGlxtnPgswkm49-80-1403xabvdqvapb vaccine, inactivatedEt3 [facility] Payers DatePayer CategoryPayerPolmercy [place] [id number]-zlb [id number] 2023 [id number] [facility] Medical Center 1.2.840.127512.1.13.693.2.7.9.521146.364459.56761-89-9887SzwaGallup Indian Medical Center Managed Care - OtherANTHEM 1.2.840.715907.1.13.424.2.7.9.793614.505.27612-04-3419GvzapiyLMXUAD [facility] OUT OF STATE PPO/TRUST [id number] 2020-Present [phone] [address] [place] [address].2.840.163558.1.13.424.2.7.3.392129.71877-20-2718Ijvukli [id number] 2.16.840.1.202238.3.57[id number] 2.16.840.1.375967.3.579.2.636245-46-4128Vgqpnsb1887180 2.16.840.1.830801.3.579.2.947132-92-7061Poxpeol3331725 2..840.1.156081.3.579.[id number] 2..840.1.748582.3.579.2.141[id number] 2.16.840.1.202357.3.57[id number] 2.16840.1.957285.3.579.2.62579-46-5235Tlnriac97693465 2.16.840.1.358910.3.579.[id number] 2.840.1.514468.3.579.2.37899-50-3843Cupwspr0642741 2.16840.1.875470.3.579.2.15584-[id number] 0vj96168-21et-359h-0068-148p7m320[id number] 2.16.840.7.403725.58813338-52-3106Ftyvrjf952903431 2.16.840.1.727948.3.579.2.732 Department of Defense ( and others)[id number] [id number] 2.16.840.1.239552.3.579.2.069Chixeoq14239633 2.16.840.1.102272.3.579.2.531 [id number] 2.16.840.1.3[id number] 2.16.840.1.95647[id number] 2.16.840.1.587070.3.579.2.531 Social History DateTypeDetailFacilityTobacco smoking status NHISUnknown if ever smokedMercy Memorial Hospital Work Phone: Start: 45-63-5045Mxm [facility]igned At [facility] Companytart: 09-18-2020 End: 05-96-8558Hfw Assigned At [facility] [employer] Other Tobacco smoking status NHISTobacco smoking consumption unknownMetroHealthStart: 65-06-7929Nww Assigned At [facility] HospitalNot on fileMetroHealth Start: 12-03-2020 End: 89-67-0948Gpjuxle smoking status NHISNever smoked tobaccoNOKY Healthcare Start: 12-03-2020 End: 94-60-6109Weurghz use and exposureSmokeless tobacco non-userProMedica Health SystemStart: 09-18-2020 End: 34-09-8730Xzcokeq of Social functionTrinity Health System East Campus SystemStart: 14-88-7823Xdcwubgek beverage intakeCurrent non-drinker of alcohol (finding) [facility] HospitalChildcareUnknowTrumbull Memorial Hospital SystemStart: 03-12-2015 SexFemale (finding)[facility] Clinical Notes 03-10-2022 to 05-29-2025 Note Date & FiebDaakOftdynkw16-60-8685 Evaluation note* Diagnosis Onset Date Resolution Status Admit Date UTI (urinary tract infection) acuteOctober 2024 4:39pm [facility] Work Phone: 1(271) 939-393501-21-2025 History of Present illness Narrative* Diandra Mitchell, DO - 08/29/2024 5:30 PM EST Images from the original note were not included. Chief Complaint Patient presents with POTS Seizures Subjective Jamarmomo Serena Andujar, 18 y.o., female being seen in Neurology consultation at the request of Dr. Ronaldo Holland. He is on peds on wheels. HPI SELF / PHONED IN : POTS , tremors, seen @ [facility] ER , PCP Peds on [...] that she was diagnosed with POTS. The inspector rubber stamp die that saw them thought they were not [...] She did have an EEG at the [facility]. She does not know results. Mother [...] norma nt. The patient went to the [place] ER for her arms jerking. This was also making her arms hurt. She was given a muscle relaxer and this helped her symptoms. She sees a Terrazzo Layer Helper for [place] [facility] she was told to keep her sodium levels up. She does not think that she had a tilt table. She thinks she had a CT or MRI. She saw the pediatric audiologist at [facility]. She also has a history of Hyperlipidemia. [...] and all orders for this visit: [facility]ure ([facility] - Home EEG 36-84 Hours; Future POTS (postural orthostatic tachycardia syndrome) Autism ([facility]) Alteration of awareness 18-year-old Autistic female [...] to clinic: 6-8 weeks documented in this encounterPike County Memorial HospitalLrjxtyqlxb84-66-7469 History of Present illness Narrative* GAVINO Reyez - 07/03/2024 7:30 PM EST [address] [facility], [address] P: [phone] F: [phone] HPI Historian of HPI: patient Kendy Andujar [...] 14 tablet; Refill: 0 documented in this encounterPike County Memorial [id number] Miscellaneous Notes* Telephone Encounter - Lyndsey Walker [...] labs in 3 months [facility]* Telephone Encounter - [...] direct relation to her eating fatty foods. [facility] Stand In [id number] Telephone encounter Note* Telephone Encounter - Mandy Llanes MD - 11/12/2023 3:31 PM EDT Please find out if she was taking her medication around the time that she did her lab work. If she was then we will have to increase the dose. [facility]04-05-[facility] Telephone encounter Note* Telephone Encounter - Lyndsey Walker RN - 11/12/2023 3:31 PM EDT Patient was taking medication at the time of her labwork, will call patient's mother back with the increased dosage as soon as you let me know. [facility]04[facility] Telephone encounter Note* Telephone Encounter - Mandy Llanes MD - 11/12/2023 3:31 PM EDT I have sent a prescription for 10 mg once per day. She was taking half a tablet now she is to take 1 entire tablet. She needs to repeat her labs in [address] [facility]11-03-[facility]23 History of Present illness Narrative* Pedro Bernal MD - 06/11/2023 11:51 AM EDT Images from the original note were not included. EMERGENCY TRIAGE, TREAT AND TRANSPORT (ET3) DOCUMENTATION OF TELEHEALTH VISIT Date / Time: 05/08/2023 / 2229 Name: Kendy Andujar : 2005 SSN: [id number] EMS Agency: [facility] [x] Verbal consent obtained, from [...] by: Pedro Bernal MD documented in this [id number] Evaluation note* Encounter Date Diagnosis Assessment Notes [...] care provider if no improvement of symptoms. [employer] Other Evaluation noteNo assessment information available [facility] Work Phone: Evaluation note* Diagnosis [...] Alteration of awareness documented in this encounter [facility] HealthcareHistory general Narrative - Reported* Type Description Date Medical History hypercholesterolemia Surgical Historytonsillectomy and adenoidectomySurgical Historyappendectomy Hospitalization Historystaff infection [employer] Other InstructionsNot on filedocumented in this encounter [facility] filedocumented in this encounter [facility]InstructionsNot on filedocumented in this encounter [facility] SystemReason for referral (narrative)No reason for referral [facility]: Chief Complaint and Reason [...] 4:39pm Unknown May 31, 2025 7 :15am Chief Complaint Admit Date Unknown May 06, 2025 6:04pm frequency to urinate May 29, 2025 4:39pm R30.0 May 29, 2025 4 :46pm Unknown May 31, 2025 7 :15am Unknown June 16, 2025 4 :00pm Advance Directives No Advanced Directives Records Found Advance Directive Response Recorded Date/ Time Advance Directives No February 01 7:54am Advance Directive Response Recorded Date/ Time Advance Directives No February 01 6:54am Summary Purpose Family History No Family History [...] 2024Team MemberRelationshipSpecialtyStart DateEnd Date Ronaldo Holland MD [address] [place], [place] [id number] PCP - YrtplkqMvrouncpth47/27/24Team MemberRelationshipSpecialtyStart DateEnd Date Vanda Duran MD [address], [address] [place] [address] PCP - GeneralPediatrics12/21/16Team MemberRelationshipSpecialtyStart DateEnd Date Vanda Duran MD [address], [address] [place] [address] PCP - GeneralPediatrics12/21/16Team MemberRelationshipSpecialtyStart DateEnd Date Vanda Duran MD [address] [address] PCP - GeneralPediatrics12/21/16Team MemberRelationshipSpecialtyStart DateEnd Date Vanda Duran MD [address], [address] [address] PCP - GeneralPediatrics12/21/16 Team Status: Inactive Member [...] Member Role/Relationship Status Dates DEMI Whiting RN AUTOMOTIVE PAINTER-C Attending Provider Active Start: May 29, 2025 [...] May 31, 2025 End: May 31, 2025 Team Status: Inactive Member Role/Relationship Status Dates Ramone Serena Styles DO Attending Provider Active Sta rt: June 16, 2025 End: June 16, 2025 Goals (unrecognized section and content) Goals [...] and content) DATE CREATED AUTHOR 10/13/2022 [facility] DATE CREATED AUTHOR AUTHOR'S ORGANIZ ATION 07/08/2023 [facility] DATE CREATED AUTHOR AUTHOR'S ORGANIZ ATION 09/12/2024 [facility] DATE CREATED AUTHOR AUTHOR'S ORGANIZ ATION 06/18/2025 [facility] DATE CREATED AUTHOR AUTHOR'S ORGANIZ ATION 06/20/2025 [facility] FOR RECORDS PERTAINING TO [...] BE BASED ON THE PRIMARY CLINICAL RECORDS. [employer] [facility]. provides no warranty or guarantee of the accuracy or completeness of information in this document.
--- OUTSIDE RECORDS SUMMARY | 2025-06-21 20:37 | XMS_ITS | Clinical Summary ---
Author Organization [facility] tem Address [id number] [address] [place] [address] Care Team Providers Care Machine Tailer Name Role Phone Vanda Duran MD Primary Care Provider [phone] Allergies Active AllergyReactionsCriticalityNoted HdauAseiwbqxOryroskmudvnkvyl54/25/2021 Medications MedicationSigDispense QuantityRefillsLast FilledStart DateEnd DateStatus amphetamine-dextroamphetamine [...] 5Active Active Problems No known active problems Family History Medical HistoryRelationNameCommentsADD / ADHDFatherAutismFatherBipolar disorder Maternal GrandmotherKidney failureMaternal GrandmotherSchizophreniaMaternal GrandmotherAnxiety disorderMotherMigrainesMotherRelationNameStatusComments BrotherOtherFatherMaternal GrandmotherMotherOtherOther Social History Tobacco UseTypesPacks/DayYears UsedDateSmoking Tobacco: NeverSmokeless Tobacco: NeverAlcohol UseStandard Drinks/WeekCommentsNo0 (1 standard drink = 0.6 oz pure alcohol)ChildcareAnswerDate MamvoahqAujwdzzpmLytvxlh21/10/2019EmploymentAnswer Date ZgxcrtwwWorxuqygxgGovvycy90/10/2019Purpose - LifeAnswerDate RecordedPurpose and direction in qiqiCykflnm24/10/2021CommentsNoSex and Gender InformationValueDate RecordedSex Assigned at BirthNot on fileLegal SexFemale 03/12/2015 2:32 PM EDTGender IdentityNot on fileSexual OrientationNot on file Last Filed Vital Signs Vital SignReadingTime TakenCommentsBlood Xqfnctuk489/75012/31/2020 9:06 AM EDT Rxxlf4785/25/2021 9:06 AM WJJCseclybovym28.6 ??C (97.8 ??F)12/03/2020 9:54 AM EDTRespiratory Eqzd278812/21/2016 1:15 PM EDTOxygen Ieyjaaddhb382%12/21/2016 3:00 PM EDTInhaled Oxygen Concentration--Mefmeq50 kg (125 lb 9.6 oz)12/31/2020 9:06 AM QQVYrxotw149.5 cm (5' 2.01 )12/31/2020 9:06 AM EDTBody Mass Index22.97 12/31/2020 9:06 AM EDTBody Mass Index Hmhiymzulc51.49%12/31/2020 9:06 AM EDT Growth Chart: CDC (Girls, 2-20 Years) Plan of Treatment Health MaintenanceDue DateLast DoneCommentsDepression Esezjuwld36/17/2018Tobacco Jrcieukan76/17/2018Adult BMI Xcvcbpcsj77/17/2024Influenza Dqaoogo7004/09/2025 05/18/2022, 05/02/2021, 04/19/2020, Additional history existsDTaP,Tdap and Td Vaccines (7 - Td or Tdap)7009/23/2016, 09/30/2009, 11/04/2006, Additional history exists Medical Devices Not on file Insurance Care Teams Team MemberRelationshipSpecialtyStart DateEnd Date Millis, Vanda Miller MD [address], [address] [address] PCP - GeneralPediatrics12/21/16
--- OUTSIDE RECORDS SUMMARY | 2025-06-21 20:37 | XMS_ITS | Clinical Summary ---
Author Organization [facility] Address [address] [place] [address] Care Team Providers Care Telephone Operator Receptionist Name Role Phone Levon Holland MD Primary Care Provider [phone] Cindy Green DO Unavailable [phone] Allergies Active AllergyReactionsCriticalityNoted WxagYpzodzuyOzarffmtxdwnwrye33/25/2021 Medications MedicationSigDispense QuantityRefillsLast FilledStart DateEnd DateStatus atorvastatin (Lipitor) 10 MG tablet Take 1 tablet by mouth in the morning.05/26/2024ctive Dariana 0.25-35 MG-MCG tablet Take 1 tablet by mouth Daily as directedActive desmopressin (DDAVP) 0.1 MG tablet Take by mouth at bedtimeActive Active Problems No known active problems Immunizations ImmunizationAdministration DatesNext IjvESyU6109/30/2009,11/04/2006,04/15/2006, 01/29/2006,2005HPV 9-Cvnthx2806/03/2016HPV, Lkjjtvyrjmrw70/14/2017Hep A, ped/adol, 2 dose05/20/2007,11/04/2006Hep B, Adolescent or Vsditznyy16/20/2006Hib (PRP-T)11/04/2006,2005Hib / Hep B004/15/2006,01/29/2006IPV09/30/2009, 04/15/2006,01/29/2006,2005Influenza, Dandxlthlyw26/14/2016,05/31/2015, 06/26/2014,05/24/2013,06/02/2012,06/13/2010,09/12/2009,06/15/2008,03/01/2008 Influenza, injectable, quadrivalent, preservative free05/18/2022,05/02/2021, 04/19/2020,05/03/2019,09/12/2018,06/22/2017Influenza, seasonal, injectable 07/08/2006MMR1,09/30/2009,10/09/2007MMRV11/04/2006Meningococcal B, Omv 01/20/2023Meningococcal MCV4, Knxxngjvzng85/15/2017Meningococcal IOF3H9901/20/2023 Pneumococcal Conjugate PCV 7011/04/2006,04/15/2006,01/29/2006Pneumococcal Conjugate, Rofjtyflhsw92/12/9056Rhwz11/25/2024,09/23/20160327Cftdsswwp41/25/2012, 09/30/2009 Family History Medical HistoryRelationNameCommentsAlcohol abuseFatherAutismFatherDevelopmental delayFatherHyperlipidemiaFatherHypertensionFatherKidney diseaseMotherMigraines MotherRelationNameStatusCommentsFatherMother Social History Tobacco UseTypesPacks/DayYears UsedDateSmoking Tobacco: NeverSmokeless Tobacco: NeverCommentsUnknownSex and Gender InformationValueDate RecordedSex Assigned at BirthNot on fileLegal FrtGmjlia03/15/2023 6:53 PM EDTGender Identity Not on fileSexual OrientationNot on file Last Filed Vital Signs Vital SignReadingTime TakenCommentsBlood Gjylzvsy703/7408/29/2024 5:31 PM EST Llchf941208/29/2024 5:31 PM ESTTemperature--Respiratory Rate--Oxygen Gaqlqpiajs79% 08/29/2024 5:31 PM ESTInhaled Oxygen Concentration--Dpfdxo60.7 kg (136 lb) 08/29/2024 5:31 PM ZQBBmfsat486.9 cm (5' 1 )08/29/2024 5:31 PM ESTBody Mass Index25.7008/29/2024 5:31 PM ESTBody Mass Index Chfdcpktqk44.57%08/29/2024 5:31 PM ESTGrowth Chart: CDC (Girls, 2-20 [...] Teams Team MemberRelationshipSpecialtyStart DateEnd Levon Holland MD [address] [place] [address] PCP - YhjvdjiBotlyghkyx97/27/24 Cindy Green DO [address] [place] [address] Referring PhysicianNeurology1
--- OUTSIDE RECORDS SUMMARY | 2025-06-21 20:37 | XMS_ITS | Clinical Summary ---
Author Organization [facility] Address [address] [facility] [place] [address] Care Team Providers Care Psychiatric Rn Name Role Phone Unavailable Primary Care Provider Unavailabl e Source Comments The following information is NOT included in Care Everywhere downloads:Psychiatric notes, ECG results, Cardiac Rehab notes, Pulmonary Function notes, data from SmartForms (includes but not limited toPregnancy data,audiograms, eye exams, pre-surgical evaluation notes, well-child exam data).[facility] Immunizations ImmunizationAdministration DatesNext DueDTaP (CVX=20)09/30/2009,11/04/2006, 04/15/2006,01/29/2006,2005HPV, 9-valent (Gardasil 9) (ARZ=429)06/03/2016 HPV, quadrivalent (Gardasil 4) (CVX=62)06/22/2017Hep A (peds/adol, 2 dose) (CVX=83)05/20/2007,11/04/2006Hep B (peds/adol, 3-dose) (CVX=08)2005Hep B/HIB (Comvax) (CVX=51)04/15/2006,01/29/2006Hib (PRP-T) (CVX=48)11/04/2006, 2005Influenza, injectable, quadrivalent, preservative free (VKR=449) 05/18/2022,05/02/2021,04/19/2020,05/03/2019,09/12/2018,06/22/2017Influenza, injectable, trivalent, preservative (RAA=923)07/08/2006Influenza, unspecified formulation (CVX=88)05/22/2016,05/31/2015,06/26/2014,05/24/2013,06/02/2012, 06/13/2010,09/12/2009,06/15/2008,03/01/2008MMR, Uhxeyow-Qizly-Hxvpeiq (CVX=03) 06/02/2012,09/30/2009,10/09/2007MMRV, Oehpnin-Mffin-Qtpkvir-Varicella (CVX=94) 11/04/2006Meningococcal conjugate (MCV4,Men-ACWY), unspecified formulation (ZOS=222)09/23/2016Pneumococcal conjugate (PCV), unspecified formulation (FBW=328)05/20/2007Pneumococcal conjugate 7 valent (PCV7) (HFA=145)11/04/2006, 04/15/2006,01/29/2006Polio, inactivated (IPV) (CVX=10)09/30/2009,04/15/2006, 01/29/2006,2005Tdap (NPU=200)09/23/2016Varicella (Chickenpox) (CVX=21) 06/02/2012,09/30/2009 Social History Tobacco UseTypesPacks/DayYears UsedDateSmoking Tobacco: Never Assessed CommentsUnknownSex and Gender InformationValueDate RecordedSex Assigned at Not on fileLegal BctQthebv96/12/2021 5:32 AM EDTGender IdentityNot on fileSexual OrientationNot on file Last Filed Vital Signs Vital SignReadingTime TakenCommentsBlood Kecoydwo866/7809 10:30 PM EDT Nkkbq78774/30/2023 10:30 PM EDTTemperature--Respiratory Uapb734005/08/2023 10:30 PM EDTOxygen Hclplpsdjc76%05/08/2023 10:30 PM EDTInhaled Oxygen Concentration-- Weight--Height--Body Mass Index-- Plan of Treatment Health MaintenanceDue DateLast DoneCommentsHIV Test2020Meningococcal B (Bexsero,OMV) Vaccine (Optional,16-23 years)2021Hepatitis C Antibody 2023STI Screening (Age 18-24)4COVID-19 Vaccine (2024- season)503/, 04/07/2021, 03/18/2021Influenza Vaccine (#1) 510/05/2022, 05/02/2021, 04/19/2020, Additional history existsTetanus (Td or Tdap) Awgzttm39/15/87582709/23/2016Shingles (RZV) Vaccine (1 of 2) 2055Hepatitis B (HBV) WejuqgwYpinocwdp79/07/2006, 01/29/2006, 2005 Hepatitis A (HAV) EspodupHgtfdlell84/12/2007, 11/04/2006Pneumococcal Vaccine(s) Aged Out05/20/2007, 11/04/2006, 04/15/2006, Additional history existsNo longer eligible based on patient's age to complete this topicMeningococcal Conjugate (MCV4,ACWY) AqhiiluHzhmjcdebmvk14/15/2017Tdap AvrjdhfWoeljdmfe92/15/2017HPV RuerxoeOgdvsyhtr92/14/2017, 06/03/2016 Insurance * Guarantor: Ebenezer Andujar TypeRelation to PatientDate of BirthPhone Billing AddressPersonal/QjpzqzNepl15/17[birth year][address] [place] [address] * Guarantor: Ricarda GERBER TypeRelation to PatientDate of BirthPhoneBilling AddressPersonal/FamilyMother [address] [place] [address] * Guarantor: Ricarda GERBER TypeRelation to PatientDate of BirthPhoneBilling AddressPersonal/FamilyMother [address] [place] [address]
[2025-06-21 20:43] LABS: Hematocrit 43.8 % (36.0-48.0); Hemoglobin 14.7 g/dL (12.0-16.0); Immature Granulocytes Abs Auto 0.02 10^3/uL (0.00-0.03); Immature Granulocytes Pct Auto 0.3 % (0.0-0.5); Lymphocytes Absolute Auto 1.7 10^3/uL (1.2-3.8); Mean Corpuscular HGB Conc 33.6 g/dL (29.9-35.2); Mean Corpuscular Hemoglobin 29.9 pg (26.7-34.0); Mean Corpuscular Volume 89.0 fL (81.0-99.0); Platelet Count 311 10^3/uL (150-450); Red Blood Count 4.92 10^6/uL (4.20-5.40); White Blood Count 6.7 10^3/uL (4.0-11.0)
[2025-06-21 21:02] LABS: Alanine Aminotransferase 48 U/L (14-59); Albumin Globulin Ratio 1.3; Albumin Level 4.0 g/dL (3.4-5.0); Alkaline Phosphatase 68 U/L (46-116); Anion Gap 12.2; Aspartate Amino Transferase 18 U/L (15-37); Blood Urea Nitrogen 16.0 mg/dL (6.4-19.3); Calcium 8.7 mg/dL (8.5-10.1); Carbon Dioxide 26.8 mmol/L (21.0-32.0); Chloride 105 mmol/L (98-107); Estimated GFR (African America 56 (>=60 mL/min/1.73m^2); Estimated GFR (Non-African Ame 46 (>=60 mL/min/1.73m^2); Globulin 3.1 g/dL; Glucose 82 mg/dL (74-106); Potassium 4.0 mmol/L (3.5-5.1); Sodium 140 mmol/L (136-145); Total Protein 7.1 g/dL (6.4-8.2)
--- NOTE | 2025-06-21 21:10 | PC.NURSE ---
this patient lying supine on the bed watching tv, i informed this patient we are waiting on 1 blood draw result and urine sample. this patient voices no concerns, needs and shows no signs of distress
[2025-06-21 21:15] LABS: Glucose Urine UA NEGATIVE (NEGATIVE)
[2025-06-21 21:26] LABS: Cast Seen? NONE SEEN #/LPF (NONE SEEN); Crystals Seen? None Seen #/HPF (None Seen); Urine Culture Indicated YES-FRMC
--- NOTE | 2025-06-21 22:27 | PC.NURSE ---
i gave this patient verbal and written discharge orders and this patient voices yes to understanding these. at time of discharge this patient nor her mother voices no concerns,needs and this patient shows no signs of distress
== END 2025-06-21 22:27 | disposition home or self-care (01) ==
PROVIDERS: Nurse Practitioner Family; Emergency Provider Emergency Medicine; PCP Nurse Practitioner Family
DX: N20.0 Calculus of kidney (principal)
CPT/HCPCS: 36415; 80053; 81001; 85025; 87086; 87088; 87106; 99284

== ENCOUNTER 2025-07-28 10:39 | Outpatient (OUT) | payer BC, MEDICAID, SELFPAY ==
--- OUTSIDE RECORDS SUMMARY | 2025-07-28 10:46 | XMS_ITS | Clinical Summary ---
Author Organization [facility] Address [address] [place] [address] Care Team Providers Care Philosophy Faculty Member Name Role Phone Levon Holland MD Primary Care Provider [phone] Cindy Green DO Unavailable Allergies Active AllergyReactionsCriticalityNoted JzykWshdvlbgAbnpoarrqdempqis06/25/2021 Medications MedicationSigDispense QuantityRefillsLast FilledStart DateEnd DateStatus atorvastatin (Lipitor) 10 MG tablet Take 1 tablet by mouth in the morning.05/26/2024ctive Dariana 0.25-35 MG-MCG tablet Take 1 tablet by mouth Daily as directedActive desmopressin (DDAVP) 0.1 MG tablet Take by mouth at bedtimeActive Active Problems No known active problems Immunizations ImmunizationAdministration DatesNext VfdESvF6909/30/2009,11/04/2006,04/15/2006, 01/29/2006,2005HPV 9-Pugyrc0906/03/2016HPV, Pgclhezvtevg52/14/2017Hep A, ped/adol, 2 dose05/20/2007,11/04/2006Hep B, Adolescent or Dotxcrpnh76/20/2006Hib (PRP-T)11/04/2006,2005Hib / Hep B004/15/2006,01/29/2006IPV09/30/2009, 04/15/2006,01/29/2006,2005Influenza, Sknpljajbug45/14/2016,05/31/2015, 06/26/2014,05/24/2013,06/02/2012,06/13/2010,09/12/2009,06/15/2008,03/01/2008 Influenza, injectable, quadrivalent, preservative free05/18/2022,05/02/2021, 04/19/2020,05/03/2019,09/12/2018,06/22/2017Influenza, seasonal, injectable 07/08/2006MMR1,09/30/2009,10/09/2007MMRV11/04/2006Meningococcal B, Omv 01/20/2023Meningococcal MCV4, Eqsuzfvvtua42/15/2017Meningococcal CEE4W3901/20/2023 Pneumococcal Conjugate PCV 7011/04/2006,04/15/2006,01/29/2006Pneumococcal Conjugate, Pdtgjcfcjkg37/12/3589Amnv82/25/2024,09/23/20168268Ksienifxn37/25/2012, 09/30/2009 Family History Medical HistoryRelationNameCommentsAlcohol abuseFatherAutismFatherDevelopmental delayFatherHyperlipidemiaFatherHypertensionFatherKidney diseaseMotherMigraines MotherRelationNameStatusCommentsFatherMother Social History Tobacco UseTypesPacks/DayYears UsedDateSmoking Tobacco: NeverSmokeless Tobacco: NeverCommentsUnknownSex and Gender InformationValueDate RecordedSex Assigned at BirthNot on fileLegal LorXnkmpn35/15/2023 6:53 PM EDTGender Identity Not on fileSexual OrientationNot on file Last Filed Vital Signs Vital SignReadingTime TakenCommentsBlood Avzexjqf694/7408/29/2024 5:31 PM EST Meysd534108/29/2024 5:31 PM ESTTemperature--Respiratory Rate--Oxygen Ocvyjzjoxc14% 08/29/2024 5:31 PM ESTInhaled Oxygen Concentration--Mhuost34.7 kg (136 lb) 08/29/2024 5:31 PM QSPSswapt092.9 cm (5' 1 )08/29/2024 5:31 PM ESTBody Mass Index25.7008/29/2024 5:31 PM ESTBody Mass Index Wlrtqejyim40.57%08/29/2024 5:31 PM ESTGrowth Chart: [facility] (Girls, 2-20 Years) Plan of Treatment Not on file Insurance Care Teams Team MemberRelationshipSpecialtyStart DateEnd Levon Holland MD [address] [place] [address] PCP - SvkzihoAzgcxvgxap90/27/24 Cindy Green DO [address] [place] [address] Referring PhysicianNeurolog09/07/24
--- OUTSIDE RECORDS SUMMARY | 2025-07-28 10:46 | XMS_ITS | Clinical Summary ---
Author Organization [facility] tem Address [id number] [address] [place] [address] Care Team Providers Care Manufacturing Scheduler Name Role Phone Vanda Duran MD Primary Care Provider [phone] Allergies Active AllergyReactionsCriticalityNoted OapvKeldgftyCtwchxrptvrymacs39/25/2021 Medications MedicationSigDispense QuantityRefillsLast FilledStart DateEnd DateStatus amphetamine-dextroamphetamine [...] Problems No known active problems Encounters DateTypeDepartmentCare KzpkHiqqtmynflr54/14/2025Refill [facility] [address] [phone] Mandy Llanes MD Med Refillfrom Last 3 Months Family History Medical HistoryRelationNameCommentsADD / ADHDFatherAutismFatherBipolar disorder Maternal GrandmotherKidney failureMaternal GrandmotherSchizophreniaMaternal GrandmotherAnxiety disorderMotherMigrainesMotherRelationNameStatusComments BrotherOtherFatherMaternal GrandmotherMotherOtherOther Social History Tobacco UseTypesPacks/DayYears UsedDateSmoking Tobacco: NeverSmokeless Tobacco: NeverAlcohol UseStandard Drinks/WeekCommentsNo0 (1 standard drink = 0.6 oz pure alcohol)ChildcareAnswerDate TexacjnhBpznabbwnOdjjjmh81/10/2019EmploymentAnswer Date JbpfjvkiKjiustmgbjUhaxkhm04/10/2019Purpose - LifeAnswerDate RecordedPurpose and direction in atxgLdtpktd23/10/2021CommentsNoSex and Gender InformationValueDate RecordedSex Assigned at BirthNot on fileLegal SexFemale 03/12/2015 2:32 PM EDTGender IdentityNot on fileSexual OrientationNot on file Last Filed Vital Signs Vital SignReadingTime TakenCommentsBlood Sdiskxkl174/75012/31/2020 9:06 AM EDT Heucd2039/25/2021 9:06 AM BULTaltdlztxbg66.6 ??C (97.8 ??F)12/03/2020 9:54 AM EDTRespiratory Zjdd286112/21/2016 1:15 PM EDTOxygen Fggucbrrdx778%12/21/2016 3:00 PM EDTInhaled Oxygen Concentration--Vyulhb33 kg (125 lb 9.6 oz)12/31/2020 9:06 AM PSHNebgac279.5 cm (5' 2.01 )12/31/2020 9:06 AM EDTBody Mass Index22.97 12/31/2020 9:06 AM EDTBody Mass Index Biwppetawh24.49%12/31/2020 9:06 AM EDT Growth Chart: CDC (Girls, 2-20 Years) Plan of Treatment Health MaintenanceDue DateLast DoneCommentsDepression Rhqesdnkq19/17/2018Tobacco Dgvtrxiuj79/17/2018Adult BMI Mvqyjldco30/17/2024Influenza Owzmnld6804/09/2025 05/18/2022, 05/02/2021, 04/19/2020, Additional history existsDTaP,Tdap and Td Vaccines (7 - Td or Tdap)7009/23/2016, 09/30/2009, 11/04/2006, Additional history exists Medical Devices Not on file Insurance Care Teams Team MemberRelationshipSpecialtyStart DateEnd Date , Vanda Miller MD [address] [address] PCP - GeneralPediatrics12/21/16
--- OUTSIDE RECORDS SUMMARY | 2025-07-28 10:46 | XMS_ITS | Clinical Summary ---
Author Organization [facility] Address [address] [facility] [place] [address] Care Team Providers Care Brine Well Operator Name Role Phone Unavailable Primary Care Provider Unavailabl e Source Comments The following information is NOT included in Care Everywhere downloads:Psychiatric notes, ECG results, Cardiac Rehab notes, Pulmonary Function notes, data from SmartForms (includes but not limited toPregnancy data,audiograms, eye exams, pre-surgical evaluation notes, well-child exam data).[facility] Immunizations ImmunizationAdministration DatesNext DueDTaP (CVX=20)09/30/2009,11/04/2006, 04/15/2006,01/29/2006,2005HPV, 9-valent (Gardasil 9) (PZR=596)06/03/2016 HPV, quadrivalent (Gardasil 4) (CVX=62)06/22/2017Hep A (peds/adol, 2 dose) (CVX=83)05/20/2007,11/04/2006Hep B (peds/adol, 3-dose) (CVX=08)2005Hep B/HIB (Comvax) (CVX=51)04/15/2006,01/29/2006Hib (PRP-T) (CVX=48)11/04/2006, 2005Influenza, injectable, quadrivalent, preservative free (WGB=025) 05/18/2022,05/02/2021,04/19/2020,05/03/2019,09/12/2018,06/22/2017Influenza, injectable, trivalent, preservative (AQH=838)07/08/2006Influenza, unspecified formulation (CVX=88)05/22/2016,05/31/2015,06/26/2014,05/24/2013,06/02/2012, 06/13/2010,09/12/2009,06/15/2008,03/01/2008MMR, Qniuclf-Xumjo-Dzqpsiu (CVX=03) 06/02/2012,09/30/2009,10/09/2007MMRV, Xlwthfu-Yurej-Fdqfzrc-Varicella (CVX=94) 11/04/2006Meningococcal conjugate (MCV4,Men-ACWY), unspecified formulation (GUZ=384)09/23/2016Pneumococcal conjugate (PCV), unspecified formulation (MDL=596)05/20/2007Pneumococcal conjugate 7 valent (PCV7) (YGU=547)11/04/2006, 04/15/2006,01/29/2006Polio, inactivated (IPV) (CVX=10)09/30/2009,04/15/2006, 01/29/2006,2005Tdap (KXY=963)09/23/2016Varicella (Chickenpox) (CVX=21) 06/02/2012,09/30/2009 Social History Tobacco UseTypesPacks/DayYears UsedDateSmoking Tobacco: Never Assessed CommentsUnknownSex and Gender InformationValueDate RecordedSex Assigned at Not on fileLegal QkrToxcgc35/12/2021 5:32 AM EDTGender IdentityNot on fileSexual OrientationNot on file Last Filed Vital Signs Vital SignReadingTime TakenCommentsBlood Cmatdvqr728/7809 10:30 PM EDT Abatf82819/30/2023 10:30 PM EDTTemperature--Respiratory Ayrx635405/08/2023 10:30 PM EDTOxygen Xultvyfkqf90%05/08/2023 10:30 PM EDTInhaled Oxygen Concentration-- Weight--Height--Body Mass Index-- Plan of Treatment Health MaintenanceDue DateLast DoneCommentsHIV Test2020Meningococcal B (Bexsero,OMV) Vaccine (Optional,16-23 years)2021Hepatitis C Antibody 2023STI Screening (Age 18-24)4COVID-19 Vaccine (2024- season)503/, 04/07/2021, 03/18/2021Influenza Vaccine (#1) 510/05/2022, 05/02/2021, 04/19/2020, Additional history existsTetanus (Td or Tdap) Afiisls88/15/07329909/23/2016Shingles (RZV) Vaccine (1 of 2) 2055Hepatitis B (HBV) YghikfsPtzltgyjh93/07/2006, 01/29/2006, 2005 Hepatitis A (HAV) ExgyegnOemynvvqa30/12/2007, 11/04/2006Pneumococcal Vaccine(s) Aged Out05/20/2007, 11/04/2006, 04/15/2006, Additional history existsNo longer eligible based on patient's age to complete this topicMeningococcal Conjugate (MCV4,ACWY) FwtzsckNilnspcewpew60/15/2017Tdap IcbhjpnRzgstogvx09/15/2017HPV WlwwfzsNhtvkikvr18/14/2017, 06/03/2016 Insurance * Guarantor: Ebenezer Andujar TypeRelation to PatientDate of BirthPhone Billing AddressPersonal/QemqznHuja57/17/2006 [address] [place] [address] * Guarantor: Ricarda GERBER TypeRelation to PatientDate of BirthPhoneBilling AddressPersonal/FamilyMother [address] [place] [address] * Guarantor: Ricarda GERBER TypeRelation to PatientDate of BirthPhoneBilling AddressPersonal/FamilyMother [address] [place] [address]
[2025-07-28 11:38] LABS: Anion Gap 11.3; Blood Urea Nitrogen 20.0 mg/dL (6.4-19.3); Calcium 9.6 mg/dL (8.5-10.1); Carbon Dioxide 31.7 mmol/L (21.0-32.0); Chloride 103 mmol/L (98-107); Estimated GFR (African America >60 (>=60 mL/min/1.73m^2); Estimated GFR (Non-African Ame 53 (>=60 mL/min/1.73m^2); Glucose 90 mg/dL (74-106); Potassium 4.0 mmol/L (3.5-5.1); Sodium 142 mmol/L (136-145)
== END 2025-07-28 10:40 | disposition home or self-care (01) ==
LOC: LAB 10:43
PROVIDERS: PCP Nurse Practitioner Family; Visit Provider Nurse Practitioner Family
DX: N20.1 Calculus of ureter (principal); N13.30 Unspecified hydronephrosis
CPT/HCPCS: 36415; 80048

== ENCOUNTER 2025-07-30 16:10 | Outpatient (OUT) | payer BC, MEDICAID, SELFPAY ==
--- OUTSIDE RECORDS SUMMARY | 2025-07-26 23:59 | XMS_ITS | Continuity of Care Document ---
Author Organization [facility] Address [address] [place] [address] Care Team Providers Care Inspector Government Property Name Role Phone Stella Toney Primary Care Physician Encounter FT_AMBFIN [id number] Date(s): 07/26/25 - 07/26/25 [facility] [address] [place] [address]- Discharge Disposition: Home (Routine DC) Attending Physician: SLOANE Villaseñor APRN, [place] [facility] Encounter Type: Clinic Allergies, Adverse Reactions, Alerts No Known Medication Allergies Treatment Plan Future Appointments Appointment Date:08/16/2025 03:50:00 PM Scheduled Provider:SLOANE Villaseñor APRN, [place] [facility] Location:[facility] Appointment Type:URO Complex Office Visit Immunizations Given and Recorded VaccineDateStatusRefusal Reasondiphtheria/pertussis, acel/tetanus adult07/03/24 Recordeddiphtheria/pertussis, acel/tetanus adult09/23/16Recordedmeningococcal group B vaccine01/20/23Recordedmeningococcal conjugate vaccine01/20/23Recorded influenza virus vaccine, arhbinnttlu25/10/22Recordedinfluenza virus vaccine, inactivated05/02/21Recordedinfluenza virus vaccine, inactivated04/19/20Recorded influenza virus vaccine, inactivated05/03/19Recordedinfluenza virus vaccine, inactivated09/12/18Recordedinfluenza virus vaccine, bqwsvahepea67/14/17Recorded influenza virus vaccine, gwcytjymtsa95/30/64PjpazeapKQAXFmA2 mRNA(jblhcuvxa-rnuu-dfwjnr) vac3/67RcofasxfAWHK-IsK-8 (COVID-19) mRNA BNT- 162b2 vax04/07/2131DnuincaxIHEJ-JaX-3 (COVID-19) mRNA BNT-162b2 vax03/18/21Recorded human papillomavirus /14/17Recordedhuman papillomavirus egazgrk58/26/16 Recordedinfluenza, unspecified hxetilzcxcd73/14/16Recordedinfluenza, unspecified zdfirixzkkj74/23/15Recordedinfluenza, unspecified vqgugufjtxi13/18/14Recorded influenza, unspecified okdkmeaqwpo76/16/13Recordedinfluenza, unspecified /25/12Recordedinfluenza, unspecified bgcpiftcpcu88/5/10Recorded influenza, unspecified formulation09/12/09Recordedinfluenza, unspecified hzlemoehabf18/7/08Recordedinfluenza, unspecified formulation03/01/08Recorded varicella virus rprfodd03/25/12Recordedvaricella virus vaccine09/30/09Recorded measles/mumps/rubella virus bocmshj93/25/12Recordedmeasles/mumps/rubella virus vaccine09/30/09Recordedmeasles/mumps/rubella virus vaccine10/09/07Recorded poliovirus vaccine, inactivated09/30/09Recordedpoliovirus vaccine, inactivated 04/15/06Recordedpoliovirus vaccine, inactivated01/29/06Recordedpoliovirus vaccine, inactivated05Recordeddiphtheria/pertussis, acel/tetanus ped09/30/09Recorded diphtheria/pertussis, acel/tetanus ped11/04/06Recordeddiphtheria/pertussis, acel/tetanus ped04/15/06Recordeddiphtheria/pertussis, acel/tetanus ped01/29/06 Recordeddiphtheria/pertussis, acel/tetanus ped05Recordedhepatitis A pediatric /12/07Recordedhepatitis A pediatric vaccine11/04/06Recorded measles/mumps/rubella/varicella vaccine11/04/06Recordedhaemophilus b conjugate (PRP-T) vaccine11/04/06Recordedhaemophilus b conjugate (PRP-T) vaccine05 Recordedhepatitis B pediatric vaccine05Recorded Medications atorvastatin 10 mg Tab TAKE 1 TABLET BY MOUTH EVERY MORNING Start Date: 01/24/25 Status: Ordered Medication Dispense Status: Completed Total Allowed Fills: 1 Fills Dispensed: 0 Dextroamphetamine-Amphetamine ER (Eqv-Adderall XR) 25 mg oral capsule, extended release Refills(s) 0 Start Date: 01/24/25 Status: Ordered Medication Dispense Status: Completed Total Allowed Fills: 1 Fills Dispensed: 0 ethinyl estradiol-norgestimate triphasic 35 mcg Tab tab(s), Oral, Daily, Refills(s) 0 Start Date: 06/28/25 Status: Ordered Medication Dispense Status: Completed Total Allowed Fills: 1 Fills Dispensed: 0 tamsulosin 0.4 mg Cap 0.8 mg = 2 cap(s), Oral, Daily, # 60 cap(s), Refills(s) 0, Pharmacy: [facility]/pharmacy #[id number], 155, cm, 06/28/25 10:14:00 EST, Height/Length Dosing, 76.6, kg, 06/28/25 10:14:00 EST, Weight Dosing Start Date: 06/28/25 Status: Ordered Medication Dispense Status: Completed Quantity: 60.0 Unit: cap(s) Total Allowed Fills: 1 Fills Dispensed: 0 Wellbutrin XL 150 mg/24 hours Tab-ER 150 mg = 1 tab(s), Oral, q24hr, # 30 tab(s), Refills(s) 1, Pharmacy: [facility]/pharmacy #[id number] Start Date: 01/24/25 Status: Ordered Medication Dispense Status: Completed Quantity: 30.0 Unit: tab(s) Total Allowed Fills: 2 Fills Dispensed: 0 Indications: Pervasive developmental disorder, unspecified; Anxiety disorder, unspecified; Obesity,class 1; Other specified health status; Body mass index [BMI] 30.0-30.9, adult; Major depressive disorder, single episode, moderate; Problem List ConditionConfirmationCourseEffective DatesStatusHealth StatusInformantAnxiety disorderConfirmedActiveAttention deficit hyperactivity disorder (ADHD)Confirmed ActiveAutism spectrum disorderConfirmedActiveFeeling of incomplete bladder emptyingConfirmedActiveHypercholesteremiaConfirmedActiveKidney stonesConfirmed ActiveModerate major depressionConfirmedActivePOTS (postural orthostatic tachycardia syndrome)ConfirmedActive Procedures ProcedureDateRelated DiagnosisBody SiteStatusTonsillectomy and adenoidectomy (Removal of tonsils and adenoids)02/03/22CompletedAppendectomy (Removal of appendix)09/17/17Completed Social History Social History TypeResponseSmoking StatusNever (less than 100 in lifetime); Smokeless tobacco use: Former vaping or e-cigarette use; Type: Vaping; Smoking Cessation Yes entered on: 06/28/25Birth SexFemaleSex RepresentationFemale (finding) Hospital Discharge Instructions Follow Up Care 06/28/2025 10:45:19 With:SLOANE Villaseñor APRN, Jocy Lambert, [facility], URL Address: When: Unknown Patient Care team information Care Team Personnel Name: Stella Christiansen Position: [facility] Ambulatory - Primary Care - YESSICA Member Role: Primary Care Physician Address: [address] [place] [address]- Telecom: Care Team Related Persons Name: CHANTAL GERBER Insurance Providers Guarantor name: KENDY MENDENHALL [place] Information #: 1 Payer: [place] Payer Identifier: [id number] Member Number: [id number] Group Number: [id number] Subscriber Identifier: [id number] Relationship to Subscriber: Child Coverage Type: PRIVATE HEALTH INSURANCE Coverage Verification Date: 25 Telecom: [phone] Address: [facility] [address] [place] [address] Health Plan Information #: 2 Payer: Medicaid Payer Identifier: [id number] Member Number: [id number] Group Number: [id number] Subscriber Identifier: [id number] Relationship to Subscriber: self Coverage Type: MEDICAID Coverage Verification Date: 25 Telecom: Address: [address] [place] [id number]
--- NOTE | 2025-07-30 | XR_ITS ---
[address] [address] Patient Name: KENDY MENDENHALL MRN: [id number] date: 2005 Sex: F Assigned Patient Location: [place] Current Patient Location: Accession/Order Number: [id number] Exam Date: 07/30/2025 16:18 Report Date: 07/31/2025 10:33 At the request of: WALTER HERNANDEZ NP Procedure: XR abdomen 1V SINGLE VIEW ABDOMEN COMPARISON: CT 06/16/2025 CLINICAL DATA: Follow-up left distal ureteral stone. Supine view of the abdomen and pelvis was obtained. There is air and stool within the colon. No dilated small bowel loops are seen. The kidneys are partially obscured, greater on the right. No obvious radiopaque renal stones are identified. No ureteral stones are noted. There are no soft tissue masses. There is slight levoscoliotic curvature. XR/XR abdomen 1V IMPRESSION: NO RADIOPAQUE STONES. Impression dictated by: Brandee Redmond M.D. 07/31/2025 10:33 AM Dictation Location: [place] [address] Electronically authenticated by: [id number] Y Date: 07/31/2025 10:33
--- NOTE | 2025-07-30 | US_ITS ---
The [address] [address] Patient Name: KENDY MENDENHALL MRN: [id number] date: 2005 Sex: F Assigned Patient Location: [place] Current Patient Location: Accession/Order Number: [id number] Exam Date: 07/30/2025 16:32 Report Date: 07/31/2025 10:36 At the request of: WALTER HERNANDEZ NP Procedure: US renal BI BILATERAL RENAL AND BLADDER ULTRASOUND CLINICAL HISTORY: left ureteral stone;N20.1, Hydronephrosis; N13.30 COMPARISON: CT 06/16/2025 Estimation of renal size is approximately 8.8 cm on the right and 9.8 cm on the left. There are echogenic foci with twinkle artifact bilaterally which may be stones. The right measuring up to 4 mm and the left 3 mm. No hydronephrosis is seen. No renal mass lesions were imaged. There is no perinephric fluid. The urinary bladder is partially distended with a volume of 146 mL. No contour or intraluminal abnormalities are seen. US/US renal BI IMPRESSION: POSSIBLE BILATERAL NEPHROLITHIASIS. NO OBSTRUCTIVE UROPATHY. Impression dictated by: Brandee Redmond M.D. 07/31/2025 10:36 AM Dictation Location: [place] [address] Electronically authenticated by: [id number] Y Date: 07/31/2025 10:36
--- OUTSIDE RECORDS SUMMARY | 2025-07-30 16:13 | XMS_ITS | Clinical Summary ---
Author Organization [facility] Address [address] [facility] [place] [address] Care Team Providers Care Client Technologies Analyst Name Role Phone Unavailable Primary Care Provider Unavailabl e Source Comments The following information is NOT included in Care Everywhere downloads:Psychiatric notes, ECG results, Cardiac Rehab notes, Pulmonary Function notes, data from SmartForms (includes but not limited toPregnancy data,audiograms, eye exams, pre-surgical evaluation notes, well-child exam data).[facility] Immunizations ImmunizationAdministration DatesNext DueDTaP (CVX=20)09/30/2009,11/04/2006, 04/15/2006,01/29/2006,2005HPV, 9-valent (Gardasil 9) (HCB=627)06/03/2016 HPV, quadrivalent (Gardasil 4) (CVX=62)06/22/2017Hep A (peds/adol, 2 dose) (CVX=83)05/20/2007,11/04/2006Hep B (peds/adol, 3-dose) (CVX=08)2005Hep B/HIB (Comvax) (CVX=51)04/15/2006,01/29/2006Hib (PRP-T) (CVX=48)11/04/2006, 2005Influenza, injectable, quadrivalent, preservative free (XYT=130) 05/18/2022,05/02/2021,04/19/2020,05/03/2019,09/12/2018,06/22/2017Influenza, injectable, trivalent, preservative (RPO=423)07/08/2006Influenza, unspecified formulation (CVX=88)05/22/2016,05/31/2015,06/26/2014,05/24/2013,06/02/2012, 06/13/2010,09/12/2009,06/15/2008,03/01/2008MMR, Grimpil-Opdbh-Shfhrky (CVX=03) 06/02/2012,09/30/2009,10/09/2007MMRV, Vbktfua-Onrbo-Lshleqe-Varicella (CVX=94) 11/04/2006Meningococcal conjugate (MCV4,Men-ACWY), unspecified formulation (HWX=718)09/23/2016Pneumococcal conjugate (PCV), unspecified formulation (YLR=450)05/20/2007Pneumococcal conjugate 7 valent (PCV7) (ZWQ=871)11/04/2006, 04/15/2006,01/29/2006Polio, inactivated (IPV) (CVX=10)09/30/2009,04/15/2006, 01/29/2006,2005Tdap (XYE=664)09/23/2016Varicella (Chickenpox) (CVX=21) 06/02/2012,09/30/2009 Social History Tobacco UseTypesPacks/DayYears UsedDateSmoking Tobacco: Never Assessed CommentsUnknownSex and Gender InformationValueDate RecordedSex Assigned at Not on fileLegal WiaEcpqly45/12/2021 5:32 AM EDTGender IdentityNot on fileSexual OrientationNot on file Last Filed Vital Signs Vital SignReadingTime TakenCommentsBlood Hudklojg763/7809 10:30 PM EDT Viqve10174/30/2023 10:30 PM EDTTemperature--Respiratory Zyhb677005/08/2023 10:30 PM EDTOxygen Hyysgbcoko23%05/08/2023 10:30 PM EDTInhaled Oxygen Concentration-- Weight--Height--Body Mass Index-- Plan of Treatment Health MaintenanceDue DateLast DoneCommentsHIV Test2020Meningococcal B (Bexsero,OMV) Vaccine (Optional,16-23 years)2021Hepatitis C Antibody 2023STI Screening (Age 18-24)4COVID-19 Vaccine (2024- season)503/, 04/07/2021, 03/18/2021Influenza Vaccine (#1) 510/05/2022, 05/02/2021, 04/19/2020, Additional history existsTetanus (Td or Tdap) Bgqfldr37/15/51214109/23/2016Shingles (RZV) Vaccine (1 of 2) 2055Hepatitis B (HBV) WwowcjrDamphhkjz67/07/2006, 01/29/2006, 2005 Hepatitis A (HAV) OfwoeviTlnylvxkl02/12/2007, 11/04/2006Pneumococcal Vaccine(s) Aged Out05/20/2007, 11/04/2006, 04/15/2006, Additional history existsNo longer eligible based on patient's age to complete this topicMeningococcal Conjugate (MCV4,ACWY) PgjjhkxSqoohaytccsg23/15/2017Tdap JtdxbqwHogrcffuc09/15/2017HPV PpzmdwmWliqjitag17/14/2017, 06/03/2016 Insurance * Guarantor: Ebenezer Andujar TypeRelation to PatientDate of BirthPhone Billing AddressPersonal/BkadtvMykc63/17/2006 [address] [place] [address] * Guarantor: Ricarda GERBER TypeRelation to PatientDate of BirthPhoneBilling AddressPersonal/FamilyMother [address] [place] [address] * Guarantor: Ricarda GERBER TypeRelation to PatientDate of BirthPhoneBilling AddressPersonal/FamilyMother [address] [place] [address]
--- OUTSIDE RECORDS SUMMARY | 2025-07-30 16:13 | XMS_ITS | Clinical Summary ---
Author Organization [facility] Address [address] [place] [address] Care Team Providers Care Police Records Clerk Name Role Phone Levon Holland MD Primary Care Provider [phone] Cindy Green DO Unavailable [phone] Allergies Active AllergyReactionsCriticalityNoted NogrXejeyuzsSqracxewrrjjhaph08/25/2021 Medications MedicationSigDispense QuantityRefillsLast FilledStart DateEnd DateStatus atorvastatin (Lipitor) 10 MG tablet Take 1 tablet by mouth in the morning.05/26/2024ctive Dariana 0.25-35 MG-MCG tablet Take 1 tablet by mouth Daily as directedActive desmopressin (DDAVP) 0.1 MG tablet Take by mouth at bedtimeActive Active Problems No known active problems Immunizations ImmunizationAdministration DatesNext ZlyXOfV8809/30/2009,11/04/2006,04/15/2006, 01/29/2006,2005HPV 9-Yuctmh6806/03/2016HPV, Exlzfbugkehe25/14/2017Hep A, ped/adol, 2 dose05/20/2007,11/04/2006Hep B, Adolescent or Qbdcwhkmg91/20/2006Hib (PRP-T)11/04/2006,2005Hib / Hep B004/15/2006,01/29/2006IPV09/30/2009, 04/15/2006,01/29/2006,2005Influenza, Jarocrmrteh23/14/2016,05/31/2015, 06/26/2014,05/24/2013,06/02/2012,06/13/2010,09/12/2009,06/15/2008,03/01/2008 Influenza, injectable, quadrivalent, preservative free05/18/2022,05/02/2021, 04/19/2020,05/03/2019,09/12/2018,06/22/2017Influenza, seasonal, injectable 07/08/2006MMR1,09/30/2009,10/09/2007MMRV11/04/2006Meningococcal B, Omv 01/20/2023Meningococcal MCV4, Jubqqubzbdm18/15/2017Meningococcal AXE6O8501/20/2023 Pneumococcal Conjugate PCV 7011/04/2006,04/15/2006,01/29/2006Pneumococcal Conjugate, Zezjhsgpawa68/12/8281Mhtv24/25/2024,09/23/20166587Ujngnhrnl43/25/2012, 09/30/2009 Family History Medical HistoryRelationNameCommentsAlcohol abuseFatherAutismFatherDevelopmental delayFatherHyperlipidemiaFatherHypertensionFatherKidney diseaseMotherMigraines MotherRelationNameStatusCommentsFatherMother Social History Tobacco UseTypesPacks/DayYears UsedDateSmoking Tobacco: NeverSmokeless Tobacco: NeverCommentsUnknownSex and Gender InformationValueDate RecordedSex Assigned at BirthNot on fileLegal BqjXkhgms66/15/2023 6:53 PM EDTGender Identity Not on fileSexual OrientationNot on file Last Filed Vital Signs Vital SignReadingTime TakenCommentsBlood Nlvhbzma201/7408/29/2024 5:31 PM EST Khqhx265208/29/2024 5:31 PM ESTTemperature--Respiratory Rate--Oxygen Kndpzcsdch45% 08/29/2024 5:31 PM ESTInhaled Oxygen Concentration--Xarebg67.7 kg (136 lb) 08/29/2024 5:31 PM ETFSstelv683.9 cm (5' 1 )08/29/2024 5:31 PM ESTBody Mass Index25.7008/29/2024 5:31 PM ESTBody Mass Index Qkvxcfnhek65.57%08/29/2024 5:31 PM ESTGrowth Chart: [facility] (Girls, 2-20 Years) Plan of Treatment Not on file Insurance Care Teams Team MemberRelationshipSpecialtyStart DateEnd Levon Holland MD [address] [place] [address] PCP - QrvrrmtWzhhngwtkk82/27/24 Cindy Green DO [address] [place] [address] Referring PhysicianNeurolog09/07/24
--- OUTSIDE RECORDS SUMMARY | 2025-07-30 16:13 | XMS_ITS | Clinical Summary ---
Author Organization [facility] [employer] [facility] tem Address [id number] [address] [place] [address] Care Team Providers Care Platform Architect Name Role Phone Vanda Duran MD Primary Care Provider [phone] Allergies Active AllergyReactionsCriticalityNoted YhqtNzidgengUvyoucplcpsgzcrg19/25/2021 Medications MedicationSigDispense QuantityRefillsLast FilledStart DateEnd DateStatus amphetamine-dextroamphetamine [...] Problems No known active problems Encounters DateTypeDepartmentCare QwkrOdhoacblqva70/14/2025Refill [facility] [address] [phone] Mandy Llanes MD Med Refillfrom Last 3 Months Family History Medical HistoryRelationNameCommentsADD / ADHDFatherAutismFatherBipolar disorder Maternal GrandmotherKidney failureMaternal GrandmotherSchizophreniaMaternal GrandmotherAnxiety disorderMotherMigrainesMotherRelationNameStatusComments BrotherOtherFatherMaternal GrandmotherMotherOtherOther Social History Tobacco UseTypesPacks/DayYears UsedDateSmoking Tobacco: NeverSmokeless Tobacco: NeverAlcohol UseStandard Drinks/WeekCommentsNo0 (1 standard drink = 0.6 oz pure alcohol)ChildcareAnswerDate QkukxqefEtlpobgqzGdfcgmz69/10/2019EmploymentAnswer Date GgewtqagClvpscdnkyPhsmjvf02/10/2019Purpose - LifeAnswerDate RecordedPurpose and direction in rigkRhfnbsr13/10/2021CommentsNoSex and Gender InformationValueDate RecordedSex Assigned at BirthNot on fileLegal SexFemale 03/12/2015 2:32 PM EDTGender IdentityNot on fileSexual OrientationNot on file Last Filed Vital Signs Vital SignReadingTime TakenCommentsBlood Zkjjkqaf917/75012/31/2020 9:06 AM EDT Cnzyk6287/25/2021 9:06 AM XAOSbzuabvsdix23.6 ??C (97.8 ??F)12/03/2020 9:54 AM EDTRespiratory Htnc701812/21/2016 1:15 PM EDTOxygen Hfgtrrhurf894%12/21/2016 3:00 PM EDTInhaled Oxygen Concentration--Skthdq14 kg (125 lb 9.6 oz)12/31/2020 9:06 AM UWOQcqfmo310.5 cm (5' 2.01 )12/31/2020 9:06 AM EDTBody Mass Index22.97 12/31/2020 9:06 AM EDTBody Mass Index Qpkqnpwnuk26.49%12/31/2020 9:06 AM EDT Growth Chart: CDC (Girls, 2-20 Years) Plan of Treatment Health MaintenanceDue DateLast DoneCommentsDepression Pjmnmauxl15/17/2018Tobacco Bpvcwaakw72/17/2018Adult BMI Ozoygxgpa49/17/2024Influenza Xzdtatr4204/09/2025 05/18/2022, 05/02/2021, 04/19/2020, Additional history existsDTaP,Tdap and Td Vaccines (7 - Td or Tdap)7009/23/2016, 09/30/2009, 11/04/2006, Additional history exists Medical Devices Not on file Insurance Care Teams Team MemberRelationshipSpecialtyStart DateEnd Date , Vanda Miller MD [address] [address] PCP - GeneralPediatrics12/21/16
== END 2025-07-30 16:11 | disposition home or self-care (01) ==
LOC: US 16:10
PROVIDERS: PCP Nurse Practitioner Family; Visit Provider Nurse Practitioner Family
DX: N20.1 Calculus of ureter (principal); N13.30 Unspecified hydronephrosis
CPT/HCPCS: 74018; 76775